=== PATIENT | female | born 1980 | race Caucasian/White ===

== ENCOUNTER 2018-11-28 16:13 | Emergency (ER) | payer SELFPAY ==
[~2018-11-28] VITALS: Ht 160 cm; Wt 108.9 kg
[2018-11-28] MEDS ORDERED: PHENAZOPYRIDINE 100 MG (PYRIDIUM) TABLET ONE (16:15)
[2018-11-28] MEDS ORDERED: NS IV 1000 ML 1,000 ML ONE (16:15)
[2018-11-28] MEDS ORDERED: KETOROLAC 30 MG/ML VIAL ONE (16:15)
--- OUTSIDE RECORDS SUMMARY | 2018-11-28 16:17 | XMS REPORT ---
Author Author AMANDA BENNETT [facility] Address [address] [place] [address] Care Team Providers Care Preschool Substitute Teacher Name Role Phone AMANDA BENNETT Unavailable PROBLEMS ALLERGIES ENCOUNTERS IMMUNIZATIONS No Known Immunizations SOCIAL HISTORY No smoking Hx information available REASON FOR VISIT PLAN OF CARE VITAL SIGNS MEDICATIONS RESULTS No Results PROCEDURES No Known procedures INSTRUCTIONS MEDICATIONS ADMINISTERED No Known Medications MEDICAL (GENERAL) HISTORY
--- OUTSIDE RECORDS SUMMARY | 2018-11-28 16:17 | XMS REPORT ---
Author Author BRENDAN PRETTY Organization [facility] Address [address] [place] [address] Care Team Providers Care Ceramic Designer Name Role Phone BRENDAN PRETTY Unavailable PROBLEMS Type Condition ICD9-CM Code RRA95-BB Code Onset Dates Condition Status SNOMED Code Problem Adjustment disorder with depressed mood F43.21 Active 55130116 Problem Posttraumatic stress disorder F43.10 Active 26488088 Problem Cannabis use disorder, moderate, dependence F12.20 Active 41987606 Problem Methamphetamine use disorder, moderate F15.20 Active 249971533 ALLERGIES No Information ENCOUNTERS Encounter Location Date Diagnosis [facility] [address] [facility] [id number] [address] Apr, Posttraumatic stress disorder F43.10 ; Adjustment disorder with depressed mood F43.21 ; Methamphetamine use disorder, moderate F15.20 and Cannabis use disorder, moderate, dependence F12.20 IMMUNIZATIONS No Known Immunizations SOCIAL HISTORY Never Assessed REASON FOR VISIT intake PLAN OF CARE Activity Details Follow Up next available Reason:mood VITAL SIGNS MEDICATIONS Unknown Medications RESULTS No Results PROCEDURES Procedure Date Ordered Result Body Site Psych diagnostic evaluation, new patient April 27, 2018 INSTRUCTIONS MEDICATIONS ADMINISTERED No Known Medications
[2018-11-28] MEDS ORDERED: ONDANSETRON 4 MG/2 ML (SDV) Z0FRAN ONE (16:18)
--- NOTE | 2018-11-28 16:27 | ED Abdominal Pain ---
General Stated Complaint: ABD PAIN,VOMITTING Source of Information: Patient Exam Limitations: No Limitations History of Present Illness Date Seen by Provider: Nov 28, 2018 Time Seen by Provider: 16:25 Initial Comments To ER with suprapubic abdominal pain and cramping. She was treated at [facility] last week diagnosed with urinary tract infection. She is on Bactrim, her last pill is today. He reports no improvement in pain. No fevers or chills but she has had nausea. Timing/Duration: 1-2 Days Severity/Quality: Moderate Location: Generalized Abdomen Radiation: No Radiation Activities at Onset: None Associated Symptoms: Nausea/Vomiting Allergies and Home Medications Allergies Coded Allergies: No Known Drug Allergies (Unverified , 11/28/18) Home Medications Trimethoprim/Sulfamethoxazole 1 Ea Tablet, 1 TAB PO BID, (Reported) Patient Home Medication List Home Medication List Reviewed: Yes Review of Systems Review of Systems Constitutional: see HPI EENTM: No Symptoms Reported Respiratory: No Symptoms Reported Cardiovascular: No Symptoms Reported Gastrointestinal: See HPI, Abdominal Pain, Nausea Genitourinary: No Symptoms Reported, Pain ( will probably be scoped) Musculoskeletal: no symptoms reported Skin: no symptoms reported Psychiatric/Neurological: No Symptoms Reported Endocrine: No Symptoms Reported Hematologic/Lymphatic: No Symptoms Reported Past Zjimsdb-Rnjgpi-Mvwalm Hx Patient Social History Recent Foreign Travel: No Contact w/Someone Who Travel: No Physical Exam Vital Signs Vital Signs - First Documented 11/28/18 16:15 Temp 97.1 Pulse 119 Resp 18 B/P (MAP) 149/84 (105) Pulse Ox 98 Capillary Refill : Height/Weight/BMI Height: '" Weight: lbs. oz. kg; BMI Method: General Appearance: WD/WN, no apparent distress HEENT: PERRL/EOMI, normal ENT inspection Respiratory: no respiratory distress, no accessory muscle use Gastrointestinal: normal bowel sounds, soft, tenderness (tenderness) Extremities: normal range of motion, non-tender Pelvic: other (pelvic exam done with Reina RN the bedside. There is cervical motion tenderness, there is purulent material coming from the cervix.) Neurologic/Psychiatric: alert, normal mood/affect, oriented x 3 Skin: normal color, warm/dry Progress/Results/Core Measures Results/Orders Lab Results Laboratory Tests Test 11/28/18 16:20 11/28/18 17:30 11/28/18 18:20 Range/Units White Blood Count 11.7 H 4.3-11.0 10^3/uL Red Blood Count 4.31 L 4.35-5.85 10^6/uL Hemoglobin 12.0 11.5-16.0 G/DL Hematocrit 37 35-52 % Mean Corpuscular Volume 87 80-99 FL Mean Corpuscular Hemoglobin 28 25-34 PG Mean Corpuscular Hemoglobin Concent 32 32-36 G/DL Red Cell Distribution Width 14.2 10.0-14.5 % Platelet Count 334 130-400 10^3/uL Mean Platelet Volume 9.8 7.4-10.4 FL Neutrophils (%) (Auto) 62 42-75 % Lymphocytes (%) (Auto) 27 12-44 % Monocytes (%) (Auto) 8 0-12 % Eosinophils (%) (Auto) 3 0-10 % Basophils (%) (Auto) 0 0-10 % Neutrophils # (Auto) 7.2 1.8-7.8 X 10^3 Lymphocytes # (Auto) 3.2 1.0-4.0 X 10^3 Monocytes # (Auto) 1.0 0.0-1.0 X 10^3 Eosinophils # (Auto) 0.3 0.0-0.3 10^3/uL Basophils # (Auto) 0.0 0.0-0.1 10^3/uL Sodium Level 138 135-145 MMOL/L Potassium Level 4.0 3.6-5.0 MMOL/L Chloride Level 104 98-107 MMOL/L Carbon Dioxide Level 23 21-32 MMOL/L Anion Gap 11 5-14 MMOL/L Blood Urea Nitrogen 7 7-18 MG/DL Creatinine 0.66 0.60-1.30 MG/DL Estimat Glomerular Filtration Rate > 60 BUN/Creatinine Ratio 11 Glucose Level 97 70-105 MG/DL Calcium Level 9.8 8.5-10.1 MG/DL Corrected Calcium 9.9 8.5-10.1 MG/DL Total Bilirubin 0.1 0.1-1.0 MG/DL Aspartate Amino Transf (AST/SGOT) 29 5-34 U/L Alanine Aminotransferase (ALT/SGPT) 30 0-55 U/L Alkaline Phosphatase 78 40-136 U/L Total Protein 7.1 6.4-8.2 GM/DL Albumin 3.9 3.2-4.5 GM/DL Serum Test, Qualitative NEGATIVE NEGATIVE Urine Color YELLOW Urine Clarity CLEAR Urine pH 7 5-9 Urine Specific [place] 1.010 L 1.016-1.022 Urine Protein NEGATIVE NEGATIVE Urine Glucose (UA) NEGATIVE NEGATIVE Urine Ketones NEGATIVE NEGATIVE Urine Nitrite NEGATIVE NEGATIVE Urine Bilirubin NEGATIVE NEGATIVE Urine Urobilinogen NORMAL NORMAL MG/DL Urine Leukocyte Esterase NEGATIVE NEGATIVE Urine RBC (Auto) NEGATIVE NEGATIVE Urine RBC NONE /HPF Urine WBC NONE /HPF Urine Squamous Epithelial Cells 5-10 /HPF Urine Crystals PRESENT H /LPF Urine Amorphous Sediment FEW LEORA URATES H /LPF Urine Bacteria RARE /HPF Urine Casts NONE /LPF Urine Mucus NEGATIVE /LPF Urine Culture Indicated NO My Orders Orders - KARLA DELGADO ADVERTISING MATERIAL DISTRIBUTOR Cbc With Automated Diff (11/28/18 16:33) Comprehensive Metabolic Panel (11/28/18 16:33) Iv Heplock-Insert (Order) (11/28/18 16:33) Hcg,Qualitative Serum (11/28/18 16:33) Ua Culture If Indicated (11/28/18 16:36) Ct Abdomen/Pelvis W (11/28/18 16:47) Wet Prep (11/28/18 16:47) Neisseria Gonorrhea Swab (11/28/18 16:47) Genital Culture (11/28/18 16:47) Chlamydia Trachomatis Swab (11/28/18 16:47) Iohexol Injection (Omnipaque 350 Mg/Ml 1 (11/28/18 17:00) Contrast Received (Contrast Received) (11/28/18 17:00) Ns (Ivpb) (Sodium Chloride 0.9% Ivpb Bag (11/28/18 17:00) Fentanyl Injection (Sublimaze Injection (11/28/18 17:02) Ceftriaxone For Im Use (Rocephin For Im (11/28/18 18:45) Lidocaine 1% Inj 20 Ml (Xylocaine 1% Inj (11/28/18 18:45) Azithromycin Tablet (Zithromax Tablet) (11/28/18 18:45) Medications Given in ED Current Medications Medications Dose Ordered Sig/Chris Route Start Time Stop Time Status Last Admin Dose Admin Fentanyl Citrate 100 mcg STK-MED ONCE .ROUTE 11/28/18 17:02 11/28/18 17:06 DC 11/28/18 17:08 50 MCG Ketorolac Tromethamine 30 mg STK-MED ONCE .ROUTE 11/28/18 16:15 11/28/18 16:20 DC 11/28/18 16:25 15 MG Lidocaine HCl 2.1 ml ONCE ONCE INJ 11/28/18 18:45 11/28/18 18:46 DC 11/28/18 18:55 2.1 ML Ondansetron HCl 4 mg STK-MED ONCE .ROUTE 11/28/18 16:18 11/28/18 16:23 DC 11/28/18 16:25 4 MG Phenazopyridine HCl 100 mg STK-MED ONCE .ROUTE 11/28/18 16:15 11/28/18 16:20 DC 11/28/18 16:24 100 MG Sodium Chloride 1,000 ml @ ud STK-MED ONCE .ROUTE 11/28/18 16:15 11/28/18 16:20 DC 11/28/18 16:24 0 MLS/HR Vital Signs/I&O 11/28/18 11/28/18 16:15 19:38 Temp 97.1 97.1 Pulse 119 105 Resp 18 18 B/P (MAP) 149/84 (105) 132/72 (92) Pulse Ox 98 100 Departure Impression Primary Impression: Cervicitis Disposition: 01 HOME, SELF-CARE Condition: Stable Departure-Patient Inst. Decision time for Depature: 19:00 Referrals: NO,LOCAL PHYSICIAN (PCP) Primary Care Physician Patient Instructions: Pelvic Inflammatory Disease Add. Discharge Instructions: 1. Follow-up with your doctor next week. Return to ER for any concerns KARLA DELGADO APRN Nov 28, 2018 16:27
[2018-11-28 16:39] LABS: BASOPHILS % (AUTO) 0 % (0-10); EOSINOPHILS # (AUTO) 0.3 10^3/uL (0.0-0.3); EOSINOPHILS % (AUTO) 3 % (0-10); HEMATOCRIT 37 % (35-52); LYMPHOCYTES # (AUTO) 3.2 X 10^3 (1.0-4.0); LYMPHOCYTES % (AUTO) 27 % (12-44); MEAN CORPUSCULAR HEMOGLOBIN 28 PG (25-34); MEAN CORPUSCULAR HGB CONC 32 G/DL (32-36); MEAN CORPUSCULAR VOLUME 87 FL (80-99); MEAN PLATELET VOLUME 9.8 FL (7.4-10.4); MONOCYTES % (AUTO) 8 % (0-12); NEUTROPHILS # (AUTO) 7.2 X 10^3 (1.8-7.8); NEUTROPHILS % (AUTO) 62 % (42-75); PLATELET COUNT 334 10^3/uL (130-400); RED CELL DISTRIBUTION WIDTH 14.2 % (10.0-14.5); WHITE BLOOD COUNT 11.7 10^3/uL (4.3-11.0)
[2018-11-28] MEDS ORDERED: SULF-222 PO (16:43)
[2018-11-28 16:52] LABS: ALANINE AMINOTRANSFERASE 30 U/L (0-55); ALBUMIN 3.9 GM/DL (3.2-4.5); ALKALINE PHOSPHATASE 78 U/L (40-136); BILIRUBIN,TOTAL 0.1 MG/DL (0.1-1.0); BUN/CREATININE RATIO 11; CALCIUM 9.8 MG/DL (8.5-10.1); CARBON DIOXIDE 23 MMOL/L (21-32); CHLORIDE 104 MMOL/L (98-107); CREATININE SERUM 0.66 MG/DL (0.60-1.30); GFR ESTIMATED > 60; GLUCOSE 97 MG/DL (70-105); SODIUM 138 MMOL/L (135-145); TOTAL PROTEIN 7.1 GM/DL (6.4-8.2)
[2018-11-28] MEDS ORDERED: NS 100 ML (IVPB) BAG IV ONE (17:00)
[2018-11-28] MEDS ORDERED: RECEIVED CONTRAST (Hold Metformin) IV SCH (17:00)
[2018-11-28] MEDS ORDERED: IOHEXOL 350 MG/ML 100 ML (OMNIPAQUE 350) VIAL IV ONE (17:00)
[2018-11-28] MEDS ORDERED: fentaNYL INJECTION 100 MCG/2 ML AMP ONE (17:02)
[2018-11-28 17:35] LABS: BILIRUBIN,URINE NEGATIVE (NEGATIVE); CLARITY,URINE CLEAR; COLOR,URINE YELLOW; GLUCOSE, URINE (UA) NEGATIVE (NEGATIVE); KETONES,URINE NEGATIVE (NEGATIVE); LEUKOCYTE ESTERASE ,URINE NEGATIVE (NEGATIVE); NITRITE,URINE NEGATIVE (NEGATIVE); PH,URINE 7 (5-9); PROTEIN,URINE NEGATIVE (NEGATIVE); UROBILINOGEN,URINE NORMAL (NORMAL)
[2018-11-28 17:44] LABS: BACTERIA,URINE RARE /HPF
[2018-11-28 17:45] LABS: AMORPHOUS SEDIMENT,UR FEW AMOR URATES /LPF
--- NOTE | 2018-11-28 17:47 | Diagnostic Imaging Report ---
PROCEDURE: CT abdomen and pelvis with contrast. TECHNIQUE: Multiple contiguous axial images were obtained through the abdomen and pelvis after administration of intravenous contrast. DATE: November 28, 2018. COMPARISON: None. INDICATION: 38-year-old female, suprapubic pain. History of urinary tract infection. FINDINGS: There is a 3 mm noncalcified right lower lobe pulmonary nodule on axial image 7. The additional visualized portions of the lung bases are grossly clear. The heart is not enlarged. There is no identified pericardial effusion. The liver is normal in size and contour. There is no identified liver lesion. The main, right and left portal veins are patent. The patient is status post cholecystectomy. There is no identified intrahepatic or extrahepatic bile duct dilation. The main pancreatic duct is not abnormally dilated. Unremarkable appearance of the pancreatic parenchyma. The spleen is not enlarged. The adrenal glands are unremarkable. Unremarkable appearance of the renal parenchyma. The urinary collecting systems are not distended. There is no identified renal or ureteral stone. The urinary bladder is unremarkable. The uterus and adnexa are grossly unremarkable in appearance for patient age on CT evaluation. The intestinal tract is not distended. The appendix is well seen on axial image 49 and adjacent sequential images. There is no evidence of acute appendicitis. There is no free intraperitoneal air. There is no drainable fluid collection. There is no free pelvic fluid. There are postoperative related changes at the level of the intra-abdominal wall. There is a broad-based fat containing anterior abdominal wall hernia. There is no bowel segment extending through the hernia defect. There is no stranding of the fat within the hernia sac. There is no identified abnormally enlarged lymph node in the abdomen or pelvis which meets CT size criteria for adenopathy. There are degenerative changes of the spine. There is no identified acute bony abnormality. IMPRESSION: CT abdomen and pelvis: 1. Postoperative changes of the anterior abdominal wall with fat containing anterior abdominal wall hernia. No evidence of strangulation of the fat within the hernia or other complication. 2. No identified acute abnormality in the abdomen or pelvis. Dictated by: Dictated on workstation # [id number]
--- NOTE | 2018-11-28 18:15 | NUR ---
PT PULLED IV OUT WHEN CHANGING
[2018-11-28] MEDS ORDERED: cefTRIAXone 1,000 MG/2.86 ml vial (IM ONLY) IM SCH (18:45)
[2018-11-28] MEDS ORDERED: LIDOCAINE 1% INJ 20 ML 20 ML VIAL INJ ONE (18:45)
[2018-11-28] MEDS ORDERED: AZITHROMYCIN 250 MG TAB (ZITHROMAX) PO SCH (18:45)
[2018-11-28 19:38] VITALS: BP 132/72
== END 2018-11-28 19:39 | disposition home or self-care (01) ==
LOC: ER 16:14
DX: N72 Inflammatory disease of cervix uteri (principal); Z87.440 Personal history of urinary (tract) infections
CPT/HCPCS: 36415; 74177; 80053; 81000; 84703; 85025; 87070; 87205; 87210; 87491; 87591

== ENCOUNTER 2018-12-18 12:12 | Emergency (ER) | payer SELFPAY ==
[~2018-12-18] VITALS: Ht 160 cm; Wt 111.1 kg
[~2018-12-18 12:12] MED LIST: METR500T PO; SULF-222 PO
--- NOTE | 2018-12-18 13:00 | NUR ---
Pt still attempting to reach ride via her cell phone.
[2018-12-18] MEDS ORDERED: HYDR-3923 PO (13:02)
[2018-12-18] MEDS ORDERED: CITA20TA12 PO (13:02)
--- NOTE | 2018-12-18 13:11 | ED Abdominal Pain ---
General Chief Complaint: -Female Stated Complaint: NAUSEA,VOMITING,RT SIDE PAIN Nursing Triage Note: PT REPORTS SHE IS NAUSEATED AND HAS BEEN VOMITING SINCE 0430. SHE REPORTS SHE HAS BEEN ON 3 DIFFERENT ANTIBIOTICS FOR A UTI RECENTLY. C/O CRAMPING IN THE RIBS AND THE RIGHT SIDE. TYLENOL TAKEN AT 1000. Sepsis Screen: No Definite Risk Source of Information: Patient Exam Limitations: No Limitations History of Present Illness Date Seen by Provider: Dec 18, 2018 Time Seen by Provider: 12:44 Initial Comments 38-year-old female presenting with complaints of 4-6 weeks of abdominal pain on the right side with nausea and vomiting. She states that she has had the diagnosis of UTI and was on 3 different antibiotics recently. She most recently had been on Macrobid. She denies pain with urination but has continued to have nausea and vomiting. She states that she felt like she couldn't take it anymore and came into the ER today to be seen and evaluated. She was concerned about bolus causing her pain in the right side as well as her continued nausea and vomiting. She denies any fever or chills. She's had no vaginal discharge or bleeding. Nothing has helped with the pain. She has increased pain with palpation. Allergies and Home Medications Allergies Coded Allergies: No Known Drug Allergies (Unverified , 11/28/18) Home Medications Dicyclomine HCl 20 Mg Tablet, 20 MG PO TID PRN for ABDOMINAL PAIN Prescribed by: DINORA KNOTT on 12/18/18 1438 Metronidazole 500 Mg Tablet, 500 MG PO BID, (Reported) Ondansetron 4 Mg Tab.rapdis, 4 MG PO Q8H PRN for NAUSEA/VOMITING Prescribed by: DINORA KNOTT on 12/18/18 1438 Trimethoprim/Sulfamethoxazole 1 Ea Tablet, 1 TAB PO BID, (Reported) Patient Home Medication List Home Medication List Reviewed: Yes Review of Systems Review of Systems Constitutional: see HPI; No chills, No dizziness, No fever; malaise EENTM: No Symptoms Reported; No Blurred Vision Respiratory: No Symptoms Reported Cardiovascular: No Symptoms Reported; Denies Lightheadedness, Denies Palpitations Gastrointestinal: Denies Abdomen Distended; Abdominal Pain (right-sided); Denies Constipated, Denies Diarrhea, Denies Difficulty Swallowing; Nausea, Vomiting Genitourinary: Denies Burning, Denies Discharge, Denies Flank Pain, Denies Hematuria, Denies Incontinence, Denies Pain, Denies Urgency Musculoskeletal: No back pain, No muscle pain Skin: no symptoms reported Psychiatric/Neurological: No Symptoms Reported Endocrine: No Symptoms Reported Hematologic/Lymphatic: No Symptoms Reported Past Vylklvb-Tjhjqs-Txfohg Hx Past Med/Social Hx: Reviewed Nursing Past Med/Soc Hx Patient Social History Alcohol Use: Denies Use Recreational Drug Use: Yes (REPORTS SHE HAS BEEN "CLEAN" FOR A YEAR FROM METH AND MARIJUANA) Smoking Status: Current Everyday Smoker Type Used: Cigarettes 2nd Hand Smoke Exposure: Yes Recent Foreign Travel: No Contact w/Someone Who Travel: No Recent Infectious Disease Expo: No Recent Hopitalizations: No Physical Abuse: No Sexual Abuse: No Mistreated: No Fear: No Seasonal Allergies Seasonal Allergies: No Past Medical History Surgeries: Yes (HERNIA REPAIR) Section, Gallbladder Respiratory: No Cardiac: No Neurological: No Genitourinary: Yes (CURRENTLY BEING TREATED FOR UTI) Gastrointestinal: No Musculoskeletal: No Endocrine: No HEENT: No Cancer: No Psychosocial: No Integumentary: No Physical Exam Vital Signs Vital Signs - First Documented 12/18/18 12:33 Temp 98.5 Pulse 94 Resp 18 B/P (MAP) 128/80 (96) Pulse Ox 98 O2 Delivery Room Air Capillary Refill : Less Than 3 Seconds Height/Weight/BMI Height: 5'3.00" Weight: 245lbs. oz. 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, no motor/sensory deficits, alert, oriented x 3 Skin: normal color, warm/dry Progress/Results/Core Measures Results/Orders Lab Results Laboratory Tests Test 12/18/18 13:03 12/18/18 13:23 Range/Units Urine Color YELLOW Urine Clarity CLEAR Urine pH 7.5 5-9 Urine Specific [place] 1.015 L 1.016-1.022 Urine Protein NEGATIVE NEGATIVE Urine Glucose (UA) NEGATIVE NEGATIVE Urine Ketones NEGATIVE NEGATIVE Urine Nitrite NEGATIVE NEGATIVE Urine Bilirubin NEGATIVE NEGATIVE Urine Urobilinogen 0.2 NORMAL MG/DL Urine Leukocyte Esterase NEGATIVE NEGATIVE Urine RBC (Auto) NEGATIVE NEGATIVE Urine RBC NONE /HPF Urine WBC 0-2 /HPF Urine Squamous Epithelial Cells 5-10 /HPF Urine Crystals NONE /LPF Urine Bacteria NEGATIVE /HPF Urine Casts NONE /LPF Urine Mucus MODERATE H /LPF Urine Culture Indicated NO Urine Opiates Screen NEGATIVE NEGATIVE Urine Oxycodone Screen NEGATIVE NEGATIVE Urine Methadone Screen NEGATIVE NEGATIVE Urine Propoxyphene Screen NEGATIVE NEGATIVE Urine Barbiturates Screen NEGATIVE NEGATIVE Ur Tricyclic Antidepressants Screen NEGATIVE NEGATIVE Urine Phencyclidine Screen NEGATIVE NEGATIVE Urine Amphetamines Screen NEGATIVE NEGATIVE Urine Methamphetamines Screen NEGATIVE NEGATIVE Urine Benzodiazepines Screen NEGATIVE NEGATIVE Urine Cocaine Screen NEGATIVE NEGATIVE Urine Cannabinoids Screen NEGATIVE NEGATIVE White Blood Count 13.0 H 4.3-11.0 10^3/uL Red Blood Count 4.52 4.35-5.85 10^6/uL Hemoglobin 12.6 11.5-16.0 G/DL Hematocrit 40 35-52 % Mean Corpuscular Volume 87 80-99 FL Mean Corpuscular Hemoglobin 28 25-34 PG Mean Corpuscular Hemoglobin Concent 32 32-36 G/DL Red Cell Distribution Width 14.4 10.0-14.5 % Platelet Count 333 130-400 10^3/uL Mean Platelet Volume 9.6 7.4-10.4 FL Neutrophils (%) (Auto) 63 42-75 % Lymphocytes (%) (Auto) 29 12-44 % Monocytes (%) (Auto) 5 0-12 % Eosinophils (%) (Auto) 3 0-10 % Basophils (%) (Auto) 0 0-10 % Neutrophils # (Auto) 8.1 H 1.8-7.8 X 10^3 Lymphocytes # (Auto) 3.8 1.0-4.0 X 10^3 Monocytes # (Auto) 0.6 0.0-1.0 X 10^3 Eosinophils # (Auto) 0.4 H 0.0-0.3 10^3/uL Basophils # (Auto) 0.0 0.0-0.1 10^3/uL Sodium Level 140 135-145 MMOL/L Potassium Level 4.1 3.6-5.0 MMOL/L Chloride Level 104 98-107 MMOL/L Carbon Dioxide Level 18 L 21-32 MMOL/L Anion Gap 18 H 5-14 MMOL/L Blood Urea Nitrogen 7 7-18 MG/DL Creatinine 0.55 L 0.60-1.30 MG/DL Estimat Glomerular Filtration Rate > 60 BUN/Creatinine Ratio 13 Glucose Level 94 70-105 MG/DL Calcium Level 8.8 8.5-10.1 MG/DL Corrected Calcium 8.6 8.5-10.1 MG/DL Total Bilirubin 0.2 0.1-1.0 MG/DL Aspartate Amino Transf (AST/SGOT) 18 5-34 U/L Alanine Aminotransferase (ALT/SGPT) 18 0-55 U/L Alkaline Phosphatase 70 40-136 U/L Total Protein 7.5 6.4-8.2 GM/DL Albumin 4.2 3.2-4.5 GM/DL Lipase 13 8-78 U/L My Orders Orders - DINORA KNOTT MD Ua Culture If Indicated (12/18/18 12:51) Drug Screen Stat (Urine) (12/18/18 13:02) Cbc With Automated Diff (12/18/18 13:02) Comprehensive Metabolic Panel (12/18/18 13:02) Lipase (12/18/18 13:02) Ondansetron Oral Dissolve Tab (Zofran (12/18/18 13:26) Ketorolac Injection (Toradol Injection) (12/18/18 15:00) Dicyclomine Injection (Bentyl Injection) (12/18/18 14:48) Medications Given in ED Current Medications Medications Dose Ordered Sig/Chris Route Start Time Stop Time Status Last Admin Dose Admin Ketorolac Tromethamine 60 mg ONCE ONCE IM 12/18/18 15:00 12/18/18 15:01 DC 12/18/18 15:01 60 MG Vital Signs/I&O 12/18/18 12/18/18 12/18/18 12/18/18 12:33 15:00 15:01 15:06 Temp 98.5 98.3 98.2 98.2 Pulse 94 72 Resp 18 16 B/P (MAP) 128/80 (96) 128/72 (90) Pulse Ox 98 99 O2 Delivery Room Air Room Air Blood Pressure Mean: 96 Progress Progress Note : Progress Note check labs and urine. With her having imaging recently for this abdominal pain will defer repeating any of this to the clinic. Zofran ODT for nausea No vomiting here in the ED Labs show mild elevation of WBC count. Chemistry and urine are not showing anything acute. Will try treating with Bentyl and Zofran ODT. Counseled to stop the Macrobid and follow up with clinic for continued concerns. Departure Impression Primary Impression: Nausea and vomiting in adult Additional Impression: Right-sided abdominal pain of unknown cause Disposition: HOME, SELF-CARE Condition: Stable Departure-Patient Inst. Decision time for Depature: 14:30 Referrals: NO,LOCAL PHYSICIAN (PCP/Family) Primary Care Physician Patient Instructions: Nausea and Vomiting, Adult (DC) Scripts Ondansetron (Ondansetron Odt) 4 Mg Tab.rapdis 4 MG PO Q8H PRN for NAUSEA/VOMITING for 3 Days, #9 TAB Prov: DINORA KNOTT MD 12/18/18 Dicyclomine HCl (Dicyclomine HCl) 20 Mg Tablet 20 MG PO TID PRN for ABDOMINAL PAIN for 7 Days, TAB Prov: DINORA KNOTT MD 12/18/18 DINORA KNOTT MD Dec 18, 2018 13:11
[2018-12-18] MEDS ORDERED: NS IV 1000 ML 1,000 ML IV SCH (13:15)
[2018-12-18] MEDS ORDERED: ONDANSETRON 4 MG/2 ML (SDV) Z0FRAN IVP ONE (13:15)
[2018-12-18] MEDS ORDERED: ONDANSETRON 4 MG (ZOFRAN) ORAL DISSOLVE TAB PO STA (13:26)
[2018-12-18 13:42] LABS: CLARITY,URINE CLEAR; COLOR,URINE YELLOW; GLUCOSE, URINE (UA) NEGATIVE (NEGATIVE); PH,URINE 7.5 (5-9); PROTEIN,URINE NEGATIVE (NEGATIVE)
[2018-12-18 13:43] LABS: BACTERIA,URINE NEGATIVE /HPF; BILIRUBIN,URINE NEGATIVE (NEGATIVE); KETONES,URINE NEGATIVE (NEGATIVE); LEUKOCYTE ESTERASE ,URINE NEGATIVE (NEGATIVE); NITRITE,URINE NEGATIVE (NEGATIVE); UROBILINOGEN,URINE 0.2 MG/DL (NORMAL); WBC,URINE 0-2 /HPF
[2018-12-18 13:45] LABS: BASOPHILS % (AUTO) 0 % (0-10); EOSINOPHILS # (AUTO) 0.4 10^3/uL (0.0-0.3); EOSINOPHILS % (AUTO) 3 % (0-10); HEMATOCRIT 40 % (35-52); HEMOGLOBIN 12.6 G/DL (11.5-16.0); LYMPHOCYTES # (AUTO) 3.8 X 10^3 (1.0-4.0); LYMPHOCYTES % (AUTO) 29 % (12-44); MEAN CORPUSCULAR HEMOGLOBIN 28 PG (25-34); MEAN CORPUSCULAR HGB CONC 32 G/DL (32-36); MEAN CORPUSCULAR VOLUME 87 FL (80-99); MEAN PLATELET VOLUME 9.6 FL (7.4-10.4); MONOCYTES # (AUTO) 0.6 X 10^3 (0.0-1.0); MONOCYTES % (AUTO) 5 % (0-12); NEUTROPHILS # (AUTO) 8.1 X 10^3 (1.8-7.8); NEUTROPHILS % (AUTO) 63 % (42-75); PLATELET COUNT 333 10^3/uL (130-400); RED CELL DISTRIBUTION WIDTH 14.4 % (10.0-14.5)
[2018-12-18 13:51] LABS: BENZODIAZEPINES SCREEN URINE NEGATIVE (NEGATIVE)
[2018-12-18 13:52] LABS: AMPHETAMINE SCREEN, URINE NEGATIVE (NEGATIVE); BARBITURATE SCREEN URINE NEGATIVE (NEGATIVE); CANNABINOID SCREEN, URINE NEGATIVE (NEGATIVE); COCAINE SCREEN URINE NEGATIVE (NEGATIVE); METHAMPHETAMINE SCREEN URINE S NEGATIVE (NEGATIVE); OPIATE SCREEN URINE NEGATIVE (NEGATIVE); TRICYCLIC ANTIDEPRESSANTS SCRE NEGATIVE (NEGATIVE)
[2018-12-18 13:53] LABS: METHADONE STAT NEGATIVE (NEGATIVE); OXYCODONE STAT NEGATIVE (NEGATIVE); PROPOXYPHENE STAT NEGATIVE (NEGATIVE)
[2018-12-18 14:06] LABS: CARBON DIOXIDE 18 MMOL/L (21-32); CHLORIDE 104 MMOL/L (98-107); POTASSIUM 4.1 MMOL/L (3.6-5.0); SODIUM 140 MMOL/L (135-145)
[2018-12-18 14:07] LABS: ALANINE AMINOTRANSFERASE 18 U/L (0-55); ALBUMIN 4.2 GM/DL (3.2-4.5); ALKALINE PHOSPHATASE 70 U/L (40-136); BILIRUBIN,TOTAL 0.2 MG/DL (0.1-1.0); BUN/CREATININE RATIO 13; CALCIUM 8.8 MG/DL (8.5-10.1); CREATININE SERUM 0.55 MG/DL (0.60-1.30); GFR ESTIMATED > 60; GLUCOSE 94 MG/DL (70-105); LIPASE 13 U/L (8-78); TOTAL PROTEIN 7.5 GM/DL (6.4-8.2)
[2018-12-18] MEDS ORDERED: DICY20TA10 PO (14:38)
[2018-12-18] MEDS ORDERED: ONDA4TAB11 PO (14:38)
[2018-12-18] MEDS ORDERED: DICYCLOMINE 10 MG/ML (BENTYL) 2 ML AMP IM STA (14:48)
[2018-12-18] MEDS ORDERED: KETOROLAC 60 MG/2 ML VIAL IM ONE (15:00)
[2018-12-18 15:06] VITALS: BP 128/72
== END 2018-12-18 15:05 | disposition home or self-care (01) ==
LOC: EDUNIT# 12:12 → ER FS 12:16
DX: R11.2 Nausea with vomiting, unspecified (principal); R10.9 Unspecified abdominal pain; F17.210 Nicotine dependence, cigarettes, uncomplicated; Z98.890 Other specified postprocedural states; Z87.440 Personal history of urinary (tract) infections
CPT/HCPCS: 36415; 80053; 80306; 81000; 83690; 85025

== ENCOUNTER 2019-02-12 15:19 | Emergency (ER) | payer SELFPAY ==
[~2019-02-12] VITALS: Ht 160 cm; Wt 108.9 kg
[~2019-02-12 15:19] MED LIST changes: +CITA20TA12 PO; +DICY20TA10 PO; +HYDR-3923 PO; +ONDA4TAB11 PO
[2019-02-12 15:35] VITALS: BP 113/65
[2019-02-12] MEDS ORDERED: KETOROLAC 60 MG/2 ML VIAL IM STA (15:45)
[2019-02-12] MEDS ORDERED: AMOX500C2 PO (15:45)
--- NOTE | 2019-02-12 15:45 | ED EENT ---
History of Present Illness General Chief Complaint: Dental Problems/Pain Stated Complaint: DENTAL PAIN Source: patient History of Present Illness Date Seen by Provider: Feb 12, 2019 Time Seen by Provider: 15:35 Initial Comments 38-year-old female presents with pain in her left upper teeth randy her wisdom tooth . Patient reports that is has become worse over the last couple days. Patient has severe cavities. She has not followed up with a dentist yet. She denies any fever, chills, nausea vomiting other systemic complaints at this time. Allergies and Home Medications Allergies Coded Allergies: No Known Drug Allergies (Unverified , 11/28/18) Home Medications Amoxicillin 500 Mg Capsule, 500 MG PO TID Prescribed by: RANCHO ANGELES on 02/12/19 1545 Dicyclomine HCl 20 Mg Tablet, 20 MG PO TID PRN for ABDOMINAL PAIN Prescribed by: DINORA KNOTT on 12/18/18 1438 Metronidazole 500 Mg Tablet, 500 MG PO BID, (Reported) Ondansetron 4 Mg Tab.rapdis, 4 MG PO Q8H PRN for NAUSEA/VOMITING Prescribed by: DINORA KNOTT on 12/18/18 1438 Trimethoprim/Sulfamethoxazole 1 Ea Tablet, 1 TAB PO BID, (Reported) Patient Home Medication List Home Medication List Reviewed: Yes Review of Systems Review of Systems Constitutional: see HPI Eyes: No Symptoms Reported Ears: No Symptoms Reported Nose: no symptoms reported Mouth: see HPI Throat: no symptoms reported Respiratory: no symptoms reported Cardiovascular: no symptoms reported Musculoskeletal: no symptoms reported Skin: no symptoms reported Past Yplburs-Wrqlul-Zhvnng Hx Past Med/Social Hx: Reviewed Nursing Past Med/Soc Hx Patient Social History Type Used: Cigarettes 2nd Hand Smoke Exposure: Yes Recent Hopitalizations: No Seasonal Allergies Seasonal Allergies: No Past Medical History Surgeries: Yes (HERNIA REPAIR) Section, Gallbladder Respiratory: No Cardiac: No Neurological: No Genitourinary: Yes (CURRENTLY BEING TREATED FOR UTI) Gastrointestinal: No Musculoskeletal: No Endocrine: No HEENT: No Cancer: No Psychosocial: No Integumentary: No Physical Exam Height, Weight, BMI Height: 5'3.00" Weight: 245lbs. oz. 111.409939du; BMI Method:Stated General Appearance: WD/WN, no apparent distress Mouth/Throat: dental tenderness; No maxillary swelling, No pharynx swelling; other (Severe dental caries in the right upper last 3 teeth.) Neck: non-tender Cardiovascular: normal peripheral pulses, regular rate, rhythm Respiratory: chest non-tender, lungs clear Neurologic/Psychiatric: no motor/sensory deficits, alert, normal mood/affect, oriented x 3 Skin: normal color, warm/dry Progress/Results/Core Measures Results/Orders My Orders Orders - RANCHO ANGELES DO Ketorolac Injection (Toradol Injection) (02/12/19 15:45) Progress Progress Note : Time: 15:43 Progress Note Patient with severe dental caries. I will start her on amoxicillin for likely infection. Recommend she use Tylenol and ibuprofen and accommodation needed for pain. She can also try clove oil all with a lidocaine topical gel such as Orajel. I discussed with her the need to follow-up with a dentist as soon as possible for further treatment. She will be discharged home with stable condition. Departure Impression Primary Impression: Dental caries Disposition: 01 HOME, SELF-CARE Condition: Stable Departure-Patient Inst. Referrals: NO,LOCAL PHYSICIAN (PCP/Family) Primary Care Physician Patient Instructions: Dental Pain (DC), Tooth Decay, Adult (DC) Scripts Amoxicillin (Amoxicillin) 500 Mg Capsule 500 MG PO TID, #21 CAP 0 Refills Prov: RANCHO ANGELES DO 02/12/19 RANCHO ANGELES DO Feb 12, 2019 15:45
== END 2019-02-12 16:08 | disposition home or self-care (01) ==
LOC: EDUNIT# 15:19 → ER FS 15:21
DX: K02.9 Dental caries, unspecified (principal); Z77.22 Contact with and (suspected) exposure to environmental tobacco smoke (acute) (chronic); Z98.890 Other specified postprocedural states; Z87.440 Personal history of urinary (tract) infections
CPT/HCPCS: 99284

== ENCOUNTER 2019-04-13 11:42 | Emergency (ER) | payer SELFPAY ==
[~2019-04-13] VITALS: Ht 160 cm; Wt 108.9 kg
[~2019-04-13 11:42] MED LIST changes: +AMOX500C2 PO
[2019-04-13] MEDS ORDERED: HYDROcodone/APAP 5 MG/325 MG (LORTAB) TAB PO ONE (12:45)
[2019-04-13] MEDS ORDERED: IBUPROFEN 600 MG (MOTRIN) TAB PO ONE (12:45)
[2019-04-13] MEDS ORDERED: DEXAMETHASONE 4 MG/ML SDV (DECADRON) PO ONE (12:45)
[2019-04-13] MEDS ORDERED: HYDR-4226 PO (12:47)
--- NOTE | 2019-04-13 12:47 | ED General ---
General Chief Complaint: Head/Cervical Problems Stated Complaint: NECK CRAMPING/PAIN History of Present Illness Date Seen by Provider: Apr 13, 2019 Time Seen by Provider: 12:42 Initial Comments Patient presents emergency department for evaluation of lesion in her submandibular region that has been present for over one year. She has had it evaluated multiple times and was told that she needs to have this lesion biopsied. She says she does not have insurance and cannot get a biopsy done. She is here today because she says it feels more swollen and she says this happens intermittently radiates pain down her neck. She denies any fevers or neck stiffness nausea vomiting or other systemic symptoms. She is in no obvious distress with normal vital signs. Allergies and Home Medications Allergies Coded Allergies: No Known Drug Allergies (Unverified , 11/28/18) Home Medications Amoxicillin 500 Mg Capsule, 500 MG PO TID Prescribed by: RANCHO ANGELES on 02/12/19 1545 Dicyclomine HCl 20 Mg Tablet, 20 MG PO TID PRN for ABDOMINAL PAIN Prescribed by: DINORA KNOTT on 12/18/18 1438 Metronidazole 500 Mg Tablet, 500 MG PO BID, (Reported) Ondansetron 4 Mg Tab.rapdis, 4 MG PO Q8H PRN for NAUSEA/VOMITING Prescribed by: DINORA KNOTT on 12/18/18 1438 Trimethoprim/Sulfamethoxazole 1 Ea Tablet, 1 TAB PO BID, (Reported) Patient Home Medication List Home Medication List Reviewed: Yes Review of Systems Review of Systems Constitutional: no symptoms reported EENTM: no symptoms reported Respiratory: no symptoms reported Cardiovascular: no symptoms reported Hematologic/Lymphatic: Swollen Glands All Other Systems Reviewed Negative Unless Noted: Yes Past Gxvczcx-Rlxszl-Ggmxyl Hx Patient Social History Type Used: Cigarettes 2nd Hand Smoke Exposure: Yes Recent Hopitalizations: No Seasonal Allergies Seasonal Allergies: No Past Medical History Surgeries: Yes (HERNIA REPAIR) Section, Gallbladder Respiratory: No Cardiac: No Neurological: No Genitourinary: Yes (CURRENTLY BEING TREATED FOR UTI) Gastrointestinal: No Musculoskeletal: No Endocrine: No HEENT: No Cancer: No Psychosocial: No Integumentary: No Physical Exam Vital Signs Capillary Refill : Height, Weight, BMI Height: 5'3.00" Weight: 240lbs. oz. 108.088708gx; BMI Method:Stated General Appearance: No Apparent Distress, WD/WN HEENT: Normal ENT Inspection Neck: Supple, Other (right submandibular region with an approximate 3 x 1.5 cm palpable mass. It is slightly painful to palpation but there is no overlying erythema or fluctuance. The mass is mobile. She has full range of motion of her neck including flexion and extension with no rigidity.) Respiratory: No Respiratory Distress Cardiovascular: Regular Rate, Rhythm Neurologic/Psychiatric: Alert, Oriented x3 Progress/Results/Core Measures Suspected Sepsis SIRS Temperature: Pulse: Respiratory Rate: Blood Pressure / Mean: Results/Orders My Orders Orders - NOA ZAMARRIPA DO Dexamethasone Injection (Decadron Inject (04/13/19 12:45) Ibuprofen Tablet (Motrin Tablet) (04/13/19 12:45) Hydrocodone/Apap 5/325 Tablet (Lortab 5 (04/13/19 12:45) Vital Signs/I&O Capillary Refill : Progress Note : Progress Note Patient with a known right submandibular mass that she says is more painful today which is not uncommon for her as it intermittently becomes more painful and swollen. I have no suspicion for infection given she has no fevers erythema or stiffness at this time. She will be given a dose of Decadron and ibuprofen here and be told to take ibuprofen every 6 hours for the next week and will prescribe a short course of [place] for her to take at night if she is having from sleeping. I strongly encouraged her to follow up as this lesion needs to have an official diagnosis of further treatment planning could be made. Patient aware and agreeable with plan for discharge and verbalized understanding of the need for short-term follow-up and strict ED return precautions discussed worsening pain swelling fevers or other general concerns. Departure Impression Primary Impression: Submandibular lymphadenopathy Disposition: 01 HOME, SELF-CARE Condition: Stable Departure-Patient Inst. Referrals: NO,LOCAL PHYSICIAN (PCP/Family) Primary Care Physician Patient Instructions: Lymphadenitis (DC) Add. Discharge Instructions: All discharge instructions reviewed with patient and/or family. Voiced understanding. Take 600mg of ibuprofen every 6 hours. You can also take tylenol for the symptoms. Take the norco at night to help you sleep. Scripts Hydrocodone/Acetaminophen ([place] 5-325 Tablet) 1 Each Tablet 1 TAB PO Qhs for Pain MDD 10 TABS for 6 Days, #6 TAB Prov: NOA ZAMARRIPA DO 04/13/19 NOA ZAMARRIPA DO Apr 13, 2019 12:47
[2019-04-13 12:51] VITALS: BP 103/83
== END 2019-04-13 12:51 | disposition home or self-care (01) ==
LOC: EDUNIT# 11:42 → ER FS 11:45
DX: R59.0 Localized enlarged lymph nodes (principal); Z77.22 Contact with and (suspected) exposure to environmental tobacco smoke (acute) (chronic); Z98.890 Other specified postprocedural states
CPT/HCPCS: 99283

== ENCOUNTER 2019-04-19 20:45 | Emergency (ER) | payer SELFPAY ==
[~2019-04-19] VITALS: Ht 160 cm; Wt 108.9 kg
[~2019-04-19 20:45] MED LIST changes: +HYDR-4226 PO
--- NOTE | 2019-04-19 21:23 | ED Upper Extremity ---
General Chief Complaint: Upper Extremity Stated Complaint: RT ARM PAIN Source: patient, RN notes reviewed, old records Exam Limitations: no limitations History of Present Illness Date Seen by Provider: Apr 19, 2019 Time Seen by Provider: 21:23 Allergies and Home Medications Allergies Coded Allergies: No Known Drug Allergies (Unverified , 11/28/18) Home Medications Amoxicillin 500 Mg Capsule, 500 MG PO TID Prescribed by: RANCHO ANGELES on 02/12/19 1545 Dicyclomine HCl 20 Mg Tablet, 20 MG PO TID PRN for ABDOMINAL PAIN Prescribed by: DINORA KNOTT on 12/18/18 1438 Hydrocodone/Acetaminophen 1 Each Tablet, 1 TAB PO Qhs Prescribed by: NOA ZAMARRIPA on 04/13/19 1247 Metronidazole 500 Mg Tablet, 500 MG PO BID, (Reported) Ondansetron 4 Mg Tab.rapdis, 4 MG PO Q8H PRN for NAUSEA/VOMITING Prescribed by: DINORA KNOTT on 12/18/18 1438 Trimethoprim/Sulfamethoxazole 1 Ea Tablet, 1 TAB PO BID, (Reported) Past Kpgyifu-Ouzszq-Idbbis Hx Patient Social History Type Used: Cigarettes 2nd Hand Smoke Exposure: Yes Recent Foreign Travel: No Contact w/Someone Who Travel: No Recent Hopitalizations: No Seasonal Allergies Seasonal Allergies: No Past Medical History Surgeries: Yes (HERNIA REPAIR) Section, Gallbladder Respiratory: No Cardiac: No Neurological: No Genitourinary: Yes (CURRENTLY BEING TREATED FOR UTI) Gastrointestinal: No Musculoskeletal: No Endocrine: No HEENT: No Cancer: No Psychosocial: No Integumentary: No Blood Disorders: No Physical Exam Vital Signs Vital Signs - First Documented 04/19/19 21:15 Temp 98.3 Pulse 112 Resp 18 B/P (MAP) 168/105 (126) Pulse Ox 93 O2 Delivery Room Air Capillary Refill : Height, Weight, BMI Height: 5'3.00" Weight: 240lbs. oz. 108.357683eq; BMI Method:Stated Progress/Results/Core Measures Results/Orders My Orders Orders - HEIDI CAROLINA DO Forearm 2 View Right (04/19/19 21:22) [place]co Bandage (04/19/19 22:02) Ed Ortho Supplies Order (04/19/19 22:02) Ed Ortho Supplies Order (04/19/19 22:02) Vital Signs/I&O 04/19/19 21:15 Temp 98.3 Pulse 112 Resp 18 B/P (MAP) 168/105 (126) Pulse Ox 93 O2 Delivery Room Air Departure Impression Primary Impression: Fall Additional Impression: Contusion of right forearm Disposition: HOME, SELF-CARE Condition: Stable Departure-Patient Inst. Decision time for Depature: 22:05 Referrals: [facility] [place] Patient Instructions: Contusion (DC) Add. Discharge Instructions: All discharge instructions reviewed with patient and/or family. Voiced understanding. RECOMMEND 400-600 mg OF IBUPROFEN EVERY 6 HOURS FOR PAIN/SWELLING. MAY ADD A 1000 mg OF TYLENOL EVERY 6 HOURS IF NEEDED FOR PAIN. DO NOT EXCEED 4000 mg OF TYLENOL IN A 24 HOUR PERIOD. Work/School Note: Work Release Form Date Seen in the Emergency Department: Apr 19, 2019 Return to Work: Apr 22, 2019 Restrictions: No Restrictions HEIDI CAROLINA DO Apr 19, 2019 21:23
[2019-04-19] MEDS ORDERED: KETOROLAC 15 MG/ML VIAL ONE (22:03)
--- NOTE | 2019-04-19 22:03 | Diagnostic Imaging Report ---
INDICATION: Fall and right arm pain. Time of exam: 9:30 PM Two views of the right forearm demonstrate normal alignment at the elbow and wrist. Radius and ulna are intact. No fractures are seen. IMPRESSION: No acute bony abnormality is detected. Dictated by: Dictated on workstation # [id number]
[2019-04-19] MEDS ORDERED: KETOROLAC 60 MG/2 ML VIAL IM ONE (22:15)
[2019-04-19 22:21] VITALS: BP 149/87
== END 2019-04-19 22:24 | disposition home or self-care (01) ==
LOC: EDUNIT# 20:45 → ER FS 20:46
DX: S50.11XA Contusion of right forearm, initial encounter (principal); Z87.440 Personal history of urinary (tract) infections; Z77.22 Contact with and (suspected) exposure to environmental tobacco smoke (acute) (chronic); Z98.890 Other specified postprocedural states; W19.XXXA Unspecified fall, initial encounter
CPT/HCPCS: 73090

== ENCOUNTER 2019-07-17 21:33 | Emergency (ER) | payer MEDICAID ==
[~2019-07-17] VITALS: Ht 162 cm; Wt 120.0 kg
[2019-07-17] MEDS ORDERED: IBUPROFEN 800 MG (MOTRIN) TAB PO ONE (22:00)
[2019-07-17] MEDS ORDERED: DEXAMETHASONE 10 MG/ML (DECADRON) 1 ML VIAL IM ONE (22:00)
[2019-07-17] MEDS ORDERED: ACETAMINOPHEN 325 MG TABLET PO ONE (22:00)
[2019-07-17] MEDS ORDERED: RT-ALBUTEROL/IPRATROPIUM 3 ML (DUONEB) VIAL INH ONE (22:00)
[2019-07-17] MEDS ORDERED: LIDOCAINE 2% VISCOUS 15 ML UDC PO ONE (22:00)
[2019-07-17] MEDS ORDERED: AZITHROMYCIN 250 MG TAB (ZITHROMAX) PO ONE (22:30)
--- NOTE | 2019-07-17 22:37 | ED EENT ---
History of Present Illness General Chief Complaint: Oral/Throat Problems Stated Complaint: SORE THROAT,HEADACHES Nursing Triage Note: PT COMPLAINING OF A SORE THROAT FOR A COUPLE OF DAYS History of Present Illness Date Seen by Provider: Jul 17, 2019 Time Seen by Provider: 21:40 Initial Comments The patient is a 38-year-old female with a history of COPD and continued tobacco abuse. She presents with concern for 2 days of significant sore throat. She is concerned she may have strep throat and states she has been exposed to it recently. The patient has a secondary concern which is a dry, nonproductive cough for the past few days which she states feels like her COPD acting up. She endorses chest discomfort, but this primarily is bothersome only when she coughs. The patient denies fevers, nausea or vomiting, upper respiratory congestion/rhinorrhea, productive cough, significant shortness of breath, estefani substernal chest pain aside from with coughing, abdominal pain, flank pain, back pain, dysuria or hematuria, changes in bowel habits. The patient is speaking comfortably in full sentences and tolerates secretions very well and is in absolutely no distress upon initial assessment in the emergency department. Allergies and Home Medications Allergies Coded Allergies: No Known Drug Allergies (Unverified , 11/28/18) Home Medications Amoxicillin 500 Mg Capsule, 500 MG PO TID Prescribed by: RANCHO ANGELES on 02/12/19 1545 Dicyclomine HCl 20 Mg Tablet, 20 MG PO TID PRN for ABDOMINAL PAIN Prescribed by: DINORA E ENYART on 12/18/18 1438 Hydrocodone/Acetaminophen 1 Each Tablet, 1 TAB PO Qhs Prescribed by: NOA ZAMARRIPA on 04/13/19 1247 Metronidazole 500 Mg Tablet, 500 MG PO BID, (Reported) Ondansetron 4 Mg Tab.rapdis, 4 MG PO Q8H PRN for NAUSEA/VOMITING Prescribed by: DINORA E ENYART on 12/18/18 1438 Trimethoprim/Sulfamethoxazole 1 Ea Tablet, 1 TAB PO BID, (Reported) Patient Home Medication List Home Medication List Reviewed: Yes Review of Systems Review of Systems Constitutional: see HPI All Other Systems Reviewed Negative Unless Noted: Yes (Negative excepted noted.) Past Ysaddqb-Rkcayx-Inwckb Hx Past Med/Social Hx: Reviewed Nursing Past Med/Soc Hx Patient Social History Alcohol Use: Denies Use Recreational Drug Use: No Type Used: Cigarettes 2nd Hand Smoke Exposure: Yes Recent Foreign Travel: No Contact w/Someone Who Travel: No Recent Infectious Disease Expo: No Recent Hopitalizations: No Physical Abuse: No Sexual Abuse: No Mistreated: No Seasonal Allergies Seasonal Allergies: No Past Medical History Surgeries: Yes (HERNIA REPAIR) Section, Gallbladder Respiratory: Yes COPD Cardiac: No Neurological: No Genitourinary: Yes (CURRENTLY BEING TREATED FOR UTI) Gastrointestinal: No Musculoskeletal: No Endocrine: No HEENT: No Cancer: No Psychosocial: No Integumentary: No Blood Disorders: No Family Medical History Reviewed Nursing Family Hx Physical Exam Vital Signs Vital Signs - First Documented 07/17/19 21:48 Temp 36.3 Pulse 108 Resp 20 B/P (MAP) 140/70 (93) Pulse Ox 98 O2 Delivery Room Air Height, Weight, BMI Height: 5'3.00" Weight: 240lbs. oz. 108.325825zv; 45.00 BMI Method:Stated General Appearance: no apparent distress This is a younger female appearing significantly older than her stated age. She appears nontoxic and in no acute distress. Head is normocephalic and atraumatic. Neck is supple and nontender. Oropharynx is moist. There is mild posterior oropharyngeal erythema with tonsillar swelling laterally without exudates. There is no uvular deviation. Patient is tolerating secretions very well. There is anterior cervical lymphadenopathy with a large tender lymph node appreciated at the angle of the jaw on the left. Lungs are clear to auscultation in all stations. There is a normal S1 and S2 without rubs or gallops and capillary refill is appropriate, less than 2 seconds globally. Abdomen is soft, nontender and nondistended. Skin is warm and dry without cyanosis, clubbing or edema. Psychiatrically, the patient demonstrates appropriate mood and affect and is alert. Progress/Results/Core Measures Results/Orders Lab Results Laboratory Tests Test 07/17/19 21:55 Range/Units Group A Streptococcus Screen NEGATIVE NEGATIVE My Orders Orders - JINA BAH MD Rapid Strep A Screen (07/17/19 21:47) Chest Pa/Lat (2 View) (07/17/19 21:47) Ibuprofen Tablet (Motrin Tablet) (07/17/19 22:00) Acetaminophen Tablet/Caplet (Tylenol T (07/17/19 22:00) Dexamethasone Injection (Decadron Inject (07/17/19 22:00) Lidocaine 2% Viscous 15 Ml (Xylocaine Vi (07/17/19 22:00) Albuterol/Ipra Inhalation Soln (Duoneb I (07/17/19 22:00) Svn Small Volume Nebulizer (07/17/19 21:47) Azithromycin Tablet (Zithromax Tablet) (07/17/19 22:30) Medications Given in ED Current Medications Medications Dose Ordered Sig/Chris Route Start Time Stop Time Status Last Admin Dose Admin Acetaminophen 975 mg ONCE ONCE PO 07/17/19 22:00 07/17/19 22:01 DC 07/17/19 22:03 975 MG Albuterol/ Ipratropium 3 ml ONCE ONCE INH 07/17/19 22:00 07/17/19 22:01 DC 07/17/19 22:04 3 ML Dexamethasone Sodium Phosphate 10 mg ONCE ONCE IM 07/17/19 22:00 07/17/19 22:01 DC 07/17/19 22:03 10 MG Ibuprofen 800 mg ONCE ONCE PO 07/17/19 22:00 07/17/19 22:01 DC 07/17/19 22:03 800 MG Lidocaine HCl 5 ml ONCE ONCE PO 07/17/19 22:00 07/17/19 22:01 DC 07/17/19 22:04 5 ML Vital Signs/I&O 07/17/19 21:48 Temp 36.3 Pulse 108 Resp 20 B/P (MAP) 140/70 (93) Pulse Ox 98 O2 Delivery Room Air Blood Pressure Mean: 93 Progress Progress Note : Progress Note Clinical examination reassuring. Well-appearing female with a history of COPD who presents with sore throat with examination concerning for possible bacterial pharyngitis. Also with a significant nonproductive cough for the past few days. We will check for strep per patient request but we'll plan for treatment of bacterial pharyngitis regardless of outcome. We will treat sore throat with dexamethasone, viscous lidocaine, ibuprofen/Tylenol as well as azithromycin which is selected both for coverage of pharyngitis as well as acute exacerbation of chronic bronchitis which is most likely explanation for the patient's cough. We will check a chest x-ray. We will then reevaluate. Update 2220: Patient is resting comfortably in no acute distress upon reassessment after medication as per flowsheet here in the emergency department. Plain films unremarkable and strep testing is negative. We'll proceed with discharge as per plan above. Patient is follow-up closely with primary care in the next 1-2 days. She understands that she feels worse is that of better or develops other new symptoms of concern that she needs to return immediately for reevaluation. All questions are answered. Diagnostic Imaging Comments XR chest: no acute process, EP interp Departure Impression Primary Impression: Acute bacterial pharyngitis Additional Impression: Acute exacerbation of chronic bronchitis Disposition: HOME, SELF-CARE Condition: Improved Departure-Patient Inst. Referrals: NO,LOCAL PHYSICIAN (PCP/Family) Primary Care Physician Patient Instructions: Chronic Bronchitis (DC), Sore Throat, Adult (DC) Add. Discharge Instructions: Follow-up with your primary care physician in the next 1-2 days. Use the medication as instructed for your symptoms. Return immediately with worsening symptoms or other new concerns. Scripts Prednisone (Prednisone) 20 Mg Tab 40 MG PO DAILY for 4 Days, #8 TAB 0 Refills Prov: JINA BAH MD 07/17/19 Ibuprofen (Ibuprofen) 800 Mg Tablet 800 MG PO Q8H PRN for PAIN, #30 TAB 0 Refills Prov: JINA BAH MD 07/17/19 Azithromycin (Azithromycin) 250 Mg Tablet 250 MG PO DAILY for 4 Days, #4 TAB 0 Refills Prov: JINA BAH MD 07/17/19 JINA BAH MD Jul 17, 2019 22:36
[2019-07-17] MEDS ORDERED: IBUP-1780 PO (22:40)
[2019-07-17] MEDS ORDERED: PRD20T PO (22:40)
[2019-07-17] MEDS ORDERED: AZIT250T12 PO (22:40)
[2019-07-17 22:55] VITALS: BP 140/70
--- NOTE | 2019-07-18 05:19 | Diagnostic Imaging Report ---
INDICATION: Cough and pharyngitis PA and lateral views of the chest are obtained. COMPARISON: No previous study is available for comparison at this time. FINDINGS: Heart size and pulmonary vasculature are within normal limits, and the lungs are clear, bilaterally. IMPRESSION: Unremarkable chest. Dictated by: Dictated on workstation # [id number]
== END 2019-07-17 22:55 | disposition home or self-care (01) ==
LOC: EDUNIT# 21:33 → ER FS 21:34
DX: J02.8 Acute pharyngitis due to other specified organisms (principal); B96.89 Other specified bacterial agents as the cause of diseases classified elsewhere; J20.9 Acute bronchitis, unspecified; J44.0 Chronic obstructive pulmonary disease with (acute) lower respiratory infection; Z87.09 Personal history of other diseases of the respiratory system; Z77.22 Contact with and (suspected) exposure to environmental tobacco smoke (acute) (chronic); Z87.440 Personal history of urinary (tract) infections; Z98.890 Other specified postprocedural states
CPT/HCPCS: 71046; 87430; 96372

== ENCOUNTER 2019-09-14 09:58 | Emergency (ER) | payer MEDICAID ==
[~2019-09-14] VITALS: Ht 160 cm; Wt 120.0 kg
[~2019-09-14 09:58] MED LIST changes: +AZIT250T12 PO; +IBUP-1780 PO; +PRD20T PO
[2019-09-14] MEDS ORDERED: DICL50TA6 PO (10:12)
[2019-09-14] MEDS ORDERED: AMOX500C2 PO (10:12)
--- NOTE | 2019-09-14 10:13 | ED EENT ---
History of Present Illness General Chief Complaint: Dental Problems/Pain Stated Complaint: FACIAL/MOUTH SWELLING Source: patient Exam Limitations: no limitations History of Present Illness Date Seen by Provider: Sep 14, 2019 Time Seen by Provider: 10:09 Initial Comments Patient complains of left upper tooth pain for the past week. She doesn't see a dentist. No fevers or chills. Thinks her face is swollen. Allergies and Home Medications Allergies Coded Allergies: No Known Drug Allergies (Unverified , 11/28/18) Home Medications Amoxicillin 500 Mg Capsule, 500 MG PO TID Prescribed by: RANCHO ANGELES on 02/12/19 1545 Azithromycin 250 Mg Tablet, 250 MG PO DAILY Prescribed by: JINA BAH on 07/17/19 2240 Dicyclomine HCl 20 Mg Tablet, 20 MG PO TID PRN for ABDOMINAL PAIN Prescribed by: DINORA KNOTT on 12/18/18 1438 Hydrocodone/Acetaminophen 1 Each Tablet, 1 TAB PO Qhs Prescribed by: NOA ZAMARRIPA on 04/13/19 1247 Ibuprofen 800 Mg Tablet, 800 MG PO Q8H PRN for PAIN Prescribed by: JINA BAH on 07/17/19 2240 Metronidazole 500 Mg Tablet, 500 MG PO BID, (Reported) Ondansetron 4 Mg Tab.rapdis, 4 MG PO Q8H PRN for NAUSEA/VOMITING Prescribed by: DINORA KNOTT on 12/18/18 1438 Prednisone 20 Mg Tab, 40 MG PO DAILY Prescribed by: JINA BAH on 07/17/19 2240 Trimethoprim/Sulfamethoxazole 1 Ea Tablet, 1 TAB PO BID, (Reported) Patient Home Medication List Home Medication List Reviewed: Yes Review of Systems Review of Systems Constitutional: no symptoms reported Ears: No Symptoms Reported Nose: no symptoms reported Mouth: see HPI Respiratory: no symptoms reported Cardiovascular: no symptoms reported Past Hrwjxbp-Xngafp-Pkoank Hx Patient Social History Type Used: Cigarettes 2nd Hand Smoke Exposure: Yes Recent Foreign Travel: No Recent Hopitalizations: No Seasonal Allergies Seasonal Allergies: No Past Medical History Surgeries: Yes (HERNIA REPAIR) Section, Gallbladder Respiratory: Yes COPD Cardiac: No Neurological: No Genitourinary: Yes (CURRENTLY BEING TREATED FOR UTI) Gastrointestinal: No Musculoskeletal: No Endocrine: No HEENT: No Cancer: No Psychosocial: No Integumentary: No Blood Disorders: No Physical Exam Height, Weight, BMI Height: 5'3.00" Weight: 240lbs. oz. 108.813229ss; 45.00 BMI Method:Stated General Appearance: WD/WN, no apparent distress, obese Mouth/Throat: other (left upper second molar tender carious. There is surrounding gingival erythema and swelling.) Neck: supple Cardiovascular: regular rate, rhythm, no murmur Respiratory: lungs clear Gastrointestinal: soft Neurologic/Psychiatric: alert Skin: normal color, warm/dry Departure Impression Primary Impression: Pain, dental Disposition: HOME, SELF-CARE Condition: Stable Departure-Patient Inst. Decision time for Depature: 10:10 Referrals: NO,LOCAL PHYSICIAN (PCP) Primary Care Physician SAMEERA DENT APRN (Family) Primary Care Physician Patient Instructions: Dental Pain (DC) Add. Discharge Instructions: See dentist as soon as possible. Use clove oil topically for pain. All disch arge instructions reviewed with patient and/or family. Voiced understanding. Scripts Diclofenac Sodium (Diclofenac Sodium) 50 Mg Tablet.dr 50 MG PO BID, #10 TAB Prov: TSERING BERNAL MD 09/14/19 Amoxicillin (Amoxicillin) 500 Mg Capsule 875 MG PO BID, #20 CAP 0 Refills Prov: TSERING BERNAL MD 09/14/19 TSERING BERNAL MD Sep 14, 2019 10:13 POS
[2019-09-14 10:17] VITALS: BP 156/93
== END 2019-09-14 10:15 | disposition home or self-care (01) ==
LOC: EDUNIT# 09:58 → ER FS 10:00
DX: K08.89 Other specified disorders of teeth and supporting structures (principal); J44.9 Chronic obstructive pulmonary disease, unspecified; Z77.22 Contact with and (suspected) exposure to environmental tobacco smoke (acute) (chronic)
CPT/HCPCS: 99282

== ENCOUNTER 2019-09-19 15:44 | Emergency (ER) | payer MEDICAID ==
[~2019-09-19] VITALS: Ht 162 cm; Wt 123.0 kg
[~2019-09-19 15:44] MED LIST changes: +DICL50TA6 PO
[2019-09-19] MEDS ORDERED: ONDANSETRON 4 MG (ZOFRAN) ORAL DISSOLVE TAB PO STA (16:07)
--- NOTE | 2019-09-19 16:12 | ED Abdominal Pain ---
General Chief Complaint: Abdominal/GI Problems Stated Complaint: ABD PAIN Source of Information: Patient Exam Limitations: No Limitations History of Present Illness Date Seen by Provider: Sep 19, 2019 Time Seen by Provider: 16:00 Initial Comments Presents with complaint of lower abdominal pain and cramping for the past 2 days. No exacerbating or remitting factors. Some lower back aching as well. Denies fever or chills, however did vomit a couple times this morning. Appetite is normal, but states she doesn't feel well. Normal bowel movements without constipation or diarrhea. No recent sick contacts. Denies dysuria or vaginal discharge. Allergies and Home Medications Allergies Coded Allergies: No Known Drug Allergies (Unverified , 11/28/18) Home Medications Amoxicillin 500 Mg Capsule, 500 MG PO TID Prescribed by: RANCHO ANGELES on 02/12/19 1545 Amoxicillin 500 Mg Capsule, 875 MG PO BID Prescribed by: TSERING BERNAL on 09/14/19 1012 Azithromycin 250 Mg Tablet, 250 MG PO DAILY Prescribed by: JINA BAH on 07/17/19 224 Diclofenac Sodium 50 Mg Tablet.dr, 50 MG PO BID Prescribed by: TSERING BERNAL on 09/14/19 1012 Dicyclomine HCl 20 Mg Tablet, 20 MG PO TID PRN for ABDOMINAL PAIN Prescribed by: DINORA KNOTT on 12/18/18 1438 Hydrocodone/Acetaminophen 1 Each Tablet, 1 TAB PO Qhs Prescribed by: NOA ZAMARRIPA on 04/13/19 1247 Hyoscyamine Sulfate 0.125 Mg Tab.subl, 0.125 MG SL Q8H Prescribed by: UCHE LOWRY on 09/19/19 1713 Ibuprofen 800 Mg Tablet, 800 MG PO Q8H PRN for PAIN Prescribed by: JINA BAH on 07/17/19 2240 Metronidazole 500 Mg Tablet, 500 MG PO BID, (Reported) Ondansetron 4 Mg Tab.rapdis, 4 MG PO Q8H PRN for NAUSEA/VOMITING Prescribed by: DINORA KNOTT on 12/18/18 1438 Prednisone 20 Mg Tab, 40 MG PO DAILY Prescribed by: JINA BAH on 07/17/19 2240 Trimethoprim/Sulfamethoxazole 1 Ea Tablet, 1 TAB PO BID, (Reported) Patient Home Medication List Home Medication List Reviewed: Yes Review of Systems Review of Systems Constitutional: No dizziness, No fever; malaise; No weakness Respiratory: Denies Cough, Denies Shortness of Air Cardiovascular: Denies Chest Pain, Denies Syncope Gastrointestinal: Abdominal Pain; Denies Diarrhea; Nausea; Denies Poor Appetite, Denies Poor Fluid Intake; Vomiting Genitourinary: See HPI; Denies Burning, Denies Discharge, Denies Frequency, Denies Flank Pain, Denies Hematuria, Denies Incontinence, Denies Pain, Denies Urgency Musculoskeletal: back pain; No joint pain, No muscle pain Skin: No change in hair/nails, No rash Past [id number]-Xltjvi Hx Past Med/Social Hx: Reviewed Nursing Past Med/Soc Hx Patient Social History Type Used: Cigarettes 2nd Hand Smoke Exposure: Yes Recent Foreign Travel: No Recent Hopitalizations: No Seasonal Allergies Seasonal Allergies: No Past Medical History Surgeries: Yes (HERNIA REPAIR) Section, Gallbladder Respiratory: Yes COPD Cardiac: No Neurological: No Genitourinary: Yes (CURRENTLY BEING TREATED FOR UTI) Gastrointestinal: No Musculoskeletal: No Endocrine: No HEENT: No Cancer: No Psychosocial: No Integumentary: No Blood Disorders: No Physical Exam Vital Signs Vital Signs - First Documented 09/19/19 09/19/19 15:50 17:41 Temp 35.6 Pulse 100 Resp 20 B/P (MAP) 135/99 (111) Pulse Ox 99 O2 Flow Rate 96.00 Capillary Refill : Height/Weight/BMI Height: 5'3.00" Weight: 240lbs. oz. 108.338182kf; 46.00 BMI Method:Stated General Appearance: WD/WN, no apparent distress Respiratory: chest non-tender, lungs clear Cardiovascular: regular rate, rhythm, no JVD Gastrointestinal: normal bowel sounds, non tender, soft, no organomegaly, no pulsatile mass; No distended, No guarding, No rebound, No tenderness Back: normal inspection, no CVA tenderness Skin: normal color, warm/dry Progress/Results/Core Measures Results/Orders Lab Results Laboratory Tests Test 09/19/19 15:55 Range/Units Urine Color YELLOW Urine Clarity CLEAR Urine pH 6.5 5-9 Urine Specific [place] 1.025 H 1.016-1.022 Urine Protein NEGATIVE NEGATIVE Urine Glucose (UA) NEGATIVE NEGATIVE Urine Ketones NEGATIVE NEGATIVE Urine Nitrite NEGATIVE NEGATIVE Urine Bilirubin NEGATIVE NEGATIVE Urine Urobilinogen 0.2 < = 1.0 MG/DL Urine Leukocyte Esterase NEGATIVE NEGATIVE Urine RBC (Auto) NEGATIVE NEGATIVE Urine RBC 0-2 /HPF Urine WBC RARE /HPF Urine Squamous Epithelial Cells 2-5 /HPF Urine Crystals NONE /LPF Urine Bacteria TRACE /HPF Urine Casts NONE /LPF Urine Mucus SMALL H /LPF Urine Culture Indicated NO My Orders Orders - UCHE LOWRY DO Ondansetron Oral Dissolve Tab (Zofran (09/19/19 16:07) Urinalysis (09/19/19 16:49) Vital Signs/I&O 09/19/19 09/19/19 15:50 17:41 Temp 35.6 Pulse 100 98 Resp 20 18 B/P (MAP) 135/99 (111) 136/91 Pulse Ox 99 96 O2 Flow Rate 96.00 Departure Impression Primary Impression: Abdominal pain Qualified Codes: R10.30 - Lower abdominal pain, unspecified Disposition: HOME, SELF-CARE Condition: Stable Departure-Patient Inst. Decision time for Depature: 16:10 Referrals: [facility] (PCP) Primary Care Physician SAMEERA DENT APRN (Family) Primary Care Physician Patient Instructions: Acute Abdomen (Belly Pain), Nausea and Vomiting, Adult Scripts Hyoscyamine Sulfate (Hyoscyamine Sulfate) 0.125 Mg Tab.subl 0.125 MG SL Q8H for Cramps, #14 TAB Prov: UCHE LOWRY DO 09/19/19 UCHE LOWRY DO Sep 19, 2019 16:12 POS
[2019-09-19 17:08] LABS: BACTERIA,URINE TRACE /HPF; BILIRUBIN,URINE NEGATIVE (NEGATIVE); CLARITY,URINE CLEAR; COLOR,URINE YELLOW; GLUCOSE, URINE (UA) NEGATIVE (NEGATIVE); KETONES,URINE NEGATIVE (NEGATIVE); LEUKOCYTE ESTERASE ,URINE NEGATIVE (NEGATIVE); NITRITE,URINE NEGATIVE (NEGATIVE); PH,URINE 6.5 (5-9); PROTEIN,URINE NEGATIVE (NEGATIVE); RBC,URINE 0-2 /HPF; WBC,URINE RARE /HPF
[2019-09-19] MEDS ORDERED: HYOS-19 SL (17:13)
[2019-09-19 17:41] VITALS: BP 136/91
--- OUTSIDE RECORDS SUMMARY | 2019-10-14 18:40 | XMS REPORT | Continuity of Care Document ---
Author Organization Unknown Address Unknown Phone Unavailable Allergies Active Description Code Type Severity Reaction Onset Reported/Identified Relationship to Patient Clinical Status Yes No Known Drug Allergies [id number] Drug Allergy Unknown N/A 11/28/2018 Medications There is no data. Problems Date Dx Coded Attending Type Code Diagnosis Diagnosed By 11/28/2018 KARLA DELGADO APRN Ot N72 INFLAMMATORY DISEASE OF CERVIX UTERI 11/28/2018 KARLA DELGADO APRN Ot R10.84 GENERALIZED ABDOMINAL PAIN 11/28/2018 KARLA DELGADO APRN Ot Z87.440 PERSONAL HISTORY OF URINARY (TRACT) INFE 11/30/2018 KARLA DELGADO APRN Ot N72 INFLAMMATORY DISEASE OF CERVIX UTERI 11/30/2018 KARLA DELGADO APRN Ot R10.84 GENERALIZED ABDOMINAL PAIN 11/30/2018 KARLA DELGADO BLENDING LINE ATTENDANT Ot Z87.440 PERSONAL HISTORY OF URINARY (TRACT) INFE 12/18/2018 DINORA KNOTT MD Ot F17.2 10 NICOTINE DEPENDENCE, CIGARETTES, UNCOMPL 12/18/2018 DINORA KNOTT MD Ot R10.9 UNSPECIFIED ABDOMINAL PAIN 12/18/2018 DINORA KNOTT MD Ot R11.2 NAUSEA WITH VOMITING, UNSPECIFIED 12/18/2018 DINORA KNOTT MD Ot Z87.4 40 PERSONAL HISTORY OF URINARY (TRACT) INFE 12/18/2018 DINORA KNOTT MD Ot Z98.8 90 OTHER SPECIFIED POSTPROCEDURAL STATES 12/20/2018 DINORA KNOTT MD Ot F17.2 10 NICOTINE DEPENDENCE, CIGARETTES, UNCOMPL 12/20/2018 DINORA KNOTT MD Ot R10.9 UNSPECIFIED ABDOMINAL PAIN 12/20/2018 DINORA KNOTT MD Ot R11.2 NAUSEA WITH VOMITING, UNSPECIFIED 12/20/2018 DINORA KNOTT MD Ot Z87.4 40 PERSONAL HISTORY OF URINARY (TRACT) INFE 12/20/2018 ENYART MD, DINORA E Ot Z98.8 90 OTHER SPECIFIED POSTPROCEDURAL STATES 02/12/2019 Ot K02.9 DENT AL CARIES, UNSPECIFIED 02/12/2019 Ot K08.89 OT ER SPECIFIED DISORDERS OF TEETH AND S 02/12/[address] W AND EXPSR TO ENVIRON TOBACCO SMO 02/12/2019 Ot Z87.440 PE RSONAL HISTORY OF URINARY (TRACT) INFE 02/12/2019 Ot Z98.890 OT HER SPECIFIED POSTPROCEDURAL STATES 02/14/2019 Ot K02.9 DENT AL CARIES, UNSPECIFIED 02/14/2019 Ot K08.89 OT ER SPECIFIED DISORDERS OF TEETH AND S 02/14/[address] W AND EXPSR TO ENVIRON TOBACCO SMO 02/14/2019 Ot Z87.440 PE RSONAL HISTORY OF URINARY (TRACT) INFE 02/14/2019 Ot Z98.890 OT HER SPECIFIED POSTPROCEDURAL STATES 04/13/2019 NOA ZAMARRIPA DO Ot M54 .2 CERVICALGIA 04/13/2019 NOA ZAMARRIPA DO Ot R59 .0 LOCALIZED ENLARGED LYMPH NODES 04/13/2019 NOA ZAMARRIPA DO Ot Z77.22 CNTCT W AND EXPSR TO ENVIRON TOBACCO SMO 04/13/2019 NOA ZAMARRIPA DO Ot Z98.890 OTHER SPECIFIED POSTPROCEDURAL STATES 04/15/2019 NOA ZAMARRIPA DO Ot M54 .2 CERVICALGIA 04/15/2019 NOA ZAMARRIPA DO Ot R59 .0 LOCALIZED ENLARGED LYMPH NODES 04/15/2019 NOA ZAMARRIPA DO Ot Z77.22 CNTCT W AND EXPSR TO ENVIRON TOBACCO SMO 04/15/2019 NOA ZAMARRIPA DO Ot Z98.890 OTHER SPECIFIED POSTPROCEDURAL STATES 04/19/2019 HEIDI CAROLINA DO Ot M79.631 PAIN IN RIGHT FOREARM 04/19/2019 HEIDI CAROLINA DO Ot S50.11XA CONTUSION OF RIGHT FOREARM, INITIAL ENCO 04/19/2019 HEIDI CAROLINA DO Ot W19.XXXA UNSPECIFIED FALL, INITIAL ENCOUNTER 04/19/2019 HEIDI CAROLINA DO Ot Z77.22 CNTCT W AND EXPSR TO ENVIRON TOBACCO SMO 04/19/2019 HEIDI CAROLINA DO Ot Z87.440 PERSONAL HISTORY OF URINARY (TRACT) INFE 04/19/2019 GE HEIDI MOORE Ot Z98.890 OTHER SPECIFIED POSTPROCEDURAL STATES 04/21/2019 GE HEIDI MOORE Ot M79.631 PAIN IN RIGHT FOREARM 04/21/2019 HEIDI CAROLINA DO Ot S50.11XA CONTUSION OF RIGHT FOREARM, INITIAL ENCO 04/21/2019 GE HEIDI MOORE Ot W19.XXXA UNSPECIFIED FALL, INITIAL ENCOUNTER 04/21/2019 GE HEIDI MOORE Ot Z77.22 CNTCT W AND EXPSR TO ENVIRON TOBACCO SMO 04/21/2019 GE MOOREHEIDI Ot Z87.440 PERSONAL HISTORY OF URINARY (TRACT) INFE 04/21/2019 GE MOOREHEIDI Ot Z98.890 OTHER SPECIFIED POSTPROCEDURAL STATES 07/17/2019 JINA BAH MD Ot B96. 89 OTH BACTERIAL AGENTS THE CAUSE OF DIS 07/17/2019 JINA BAH MD Ot J02. 8 ACUTE PHARYNGITIS DUE TO OTHER SPECIFIED 07/17/2019 JINA BAH MD Ot J02. 9 ACUTE PHARYNGITIS, UNSPECIFIED 07/17/2019 JINA BAH MD Ot J20. 9 ACUTE BRONCHITIS, UNSPECIFIED 07/17/2019 JINA BAH MD Ot J44. 0 CHRONIC OBSTRUCTIVE PULMON DISEASE W ACU 07/17/2019 JINA BAH MD, Ot Z77. 22 CNTCT W AND EXPSR TO ENVIRON TOBACCO SMO 07/17/2019 JINA BAH MD Ot Z87. 09 PERSONAL HISTORY OF OTHER DISEASES OF TH 07/17/2019 JINA BAH MD Ot Z87.440 PERSONAL HISTORY OF URINARY (TRACT) INFE 07/17/2019 JINA BAH MD Ot Z98.890 OTHER SPECIFIED POSTPROCEDURAL STATES 07/20/2019 JINA BAH MD Ot B96. 89 OTH BACTERIAL AGENTS THE CAUSE OF DIS 07/20/2019 JINA BAH MD Ot J02. 8 ACUTE PHARYNGITIS DUE TO OTHER SPECIFIED 07/20/2019 JINA BAH MD Ot J02. 9 ACUTE PHARYNGITIS, UNSPECIFIED 07/20/2019 JINA BAH MD Ot J20. 9 ACUTE BRONCHITIS, UNSPECIFIED 07/20/2019 JINA BAH MD Ot J44. 0 CHRONIC OBSTRUCTIVE PULMON DISEASE W ACU 07/20/2019 JINA BAH MD Ot Z77. 22 CNTCT W AND EXPSR TO ENVIRON TOBACCO SMO 07/20/2019 JINA BAH MD Ot Z87. 09 PERSONAL HISTORY OF OTHER DISEASES OF TH 07/20/2019 JINA BAH MD Ot Z87.440 PERSONAL HISTORY OF URINARY (TRACT) INFE 07/20/2019 JINA BAH MD Ot Z98.890 OTHER SPECIFIED POSTPROCEDURAL STATES 09/14/2019 TSERING BERNAL MD Ot J44. 9 CHRONIC OBSTRUCTIVE PULMONARY DISEASE, U 09/14/2019 TSERING BERNAL MD A Ot K08. 89 OTHER SPECIFIED DISORDERS OF TEETH AND S 09/14/2019 TSERING BERNAL MD A Ot Z77. 22 CNTCT W AND EXPSR TO ENVIRON TOBACCO SMO 09/16/2019 TSERING BERNAL MD Ot J44. 9 CHRONIC OBSTRUCTIVE PULMONARY DISEASE, U 09/16/2019 TSERING BERNAL MD A Ot K08. 89 OTHER SPECIFIED DISORDERS OF TEETH AND S 09/16/2019 TSERING BERNAL MD A Ot Z77. 22 CNTCT W AND EXPSR TO ENVIRON TOBACCO SMO 09/19/2019 ROVENSTINE DO, UCHE L Ot J44.9 CHRONIC OBSTRUCTIVE PULMONARY DISEASE, U 09/19/2019 ROVENSTINE DO, UCHE L Ot R10.30 LOWER ABDOMINAL PAIN, UNSPECIFIED 09/19/2019 ROVENSTINE DO, UCHE L Ot Z77.22 CNTCT W AND EXPSR TO ENVIRON TOBACCO SMO 09/19/2019 ROVENSTINE DO, UCHE L Ot Z79.52 CUSTODIAL (CURRENT) USE OF SYSTEMIC STER 09/24/2019 ROVENSTINE DO, UCHE L Ot J44.9 CHRONIC OBSTRUCTIVE PULMONARY DISEASE, U 09/24/2019 ROVENSTINE DO, UCHE L Ot R10.30 LOWER ABDOMINAL PAIN, UNSPECIFIED 09/24/2019 ROVENSTINE DO, UCHE L Ot Z77.22 CNTCT W AND EXPSR TO ENVIRON TOBACCO SMO 09/24/2019 ROVENSTINE DO, UCHE L Ot Z79.52 TIE BINDER (CURRENT) USE OF SYSTEMIC STER Procedures There is no data. Results Test Result Range Complete blood count (CBC) with automate d white blood cell (WBC) differential - 11/28/18 16:20 Blood leukocytes automated count (number/volume) 11.7 10*3/uL 4.3-11.0 Blood erythrocytes automated count (number/volume) 4.31 10*6/uL 4.35-5.85 Venous blood hemoglobin measurement (mass/volume) 12.0 g/dL 11.5-16.0 Blood hematocrit (volume fraction) 37 % 35-52 Automated erythrocyte mean corpuscular volume 87 [ foz_us] 80-99 Automated erythrocyte mean corpuscular h emoglobin (mass per erythrocyte) 28 pg 25-34 Automated erythrocyte mean corpuscular h emoglobin concentration measurement (mass/volume) 32 g/dL 32-36 Automated erythrocyte distribution width ratio 14. 2 % 10.0- 14.5 Automated blood platelet count (count/volume) 334 10*3/uL 130-400 Automated blood platelet mean volume measurement 9.8 [foz_us] 7.4-10.4 Automated blood neutrophils/100 leukocytes 62 % 42-75 Automated blood lymphocytes/100 leukocytes 27 % 12-44 Blood monocytes/100 leukocytes 8 % 0-12 Automated blood eosinophils/100 leukocytes 3 % 0-10 Automated blood basophils/100 leukocytes 0 % 0-10 Blood neutrophils automated count (number/volume) 7.2 10*3 1.8-7.8 Blood lymphocytes automated count (number/volume) 3.2 10*3 1.0-4.0 Blood monocytes automated count (number/volume) 1. 0 10*3 0.0-1.0 Automated eosinophil count 0.3 10*3/uL 0 .0-0.3 Automated blood basophil count (count/volume) 0.0 10*3/uL 0.0-0.1 Serum or plasma choriogonadotropin (preg meño test) detection - 11/28/18 16:20 Serum or plasma choriogonadotropin ( test) de tection NEGATIVE NEGATIVE Comprehensive metabolic panel - 11/28/18 16:20 Serum or plasma sodium measurement (moles/volume) 138 mmol/L 135-145 Serum or plasma potassium measurement (moles/volume) 4.0 mmol/L 3.6-5.0 Serum or plasma chloride measurement (moles/volume) 104 mmol/L 98-107 Carbon dioxide 23 mmol/L 21-32 Serum or plasma anion gap determination (moles/volume) 11 mmol/L 5-14 Serum or plasma urea nitrogen measurement (mass/volume ) 7 mg/dL 7-18 Serum or plasma creatinine measurement (mass/volume) 0.66 mg/dL 0.60-1.30 Serum or plasma urea nitrogen/creatinine mass ratio 11 NRG Serum or plasma creatinine measurement w ith calculation of estimated glomerular filtration rate > NRG Serum or plasma glucose measurement (mass/volume) 97 mg/dL 70-105 Serum or plasma calcium measurement (mass/volume) 9.8 mg/dL 8.5-10.1 Serum or plasma total bilirubin measurement (mass/volu me) 0.1 mg/dL 0.1-1.0 Serum or plasma alkaline phosphatase galdino surement (enzymatic activity/volume) 78 U/L 40-136 Serum or plasma aspartate aminotransfera se measurement (enzymatic activity/volume) 29 U/L 5-34 Serum or plasma alanine aminotransferase measurement (enzymatic activity/volume) 30 U/L 0-55 Serum or plasma protein measurement (mass/volume) 7.1 g/dL 6.4-8.2 Serum or plasma albumin measurement (mass/volume) 3.9 g/dL 3.2-4.5 CALCIUM CORRECTED 9.9 mg/dL 8.5-10.1 Complete urinalysis with reflex to cultu re - 11/28/18 17:30 Urine color determination YELLOW NRG Urine clarity determination CLEAR NR G Urine pH measurement by test strip 7 5-9 Specific gravity of urine by test strip 1.010 1.016-1.022 Urine protein assay by test strip, semi-quantitative NEGATIVE NEGATIVE Urine glucose detection by automated test strip NE GATIVE NEGATIVE Erythrocytes detection in urine sediment by light micr oscopy NEGATIVE NEGATIVE Urine ketones detection by automated test strip NE GATIVE NEGATIVE Urine nitrite detection by test strip NEGATIVE NEGATIVE Urine total bilirubin detection by test strip NEGA TIVE NEGATIVE Urine urobilinogen measurement by automated test strip (mass/volume) NORMAL NORMAL Urine leukocyte esterase detection by dipstick NEG ATIVE NEGATIVE Automated urine sediment erythrocyte cou nt by microscopy (number/high power field) NONE NRG Automated urine sediment leukocyte count by microscopy (number/high power field) NONE NRG Bacteria detection in urine sediment by light microsco py RARE NRG Squamous epithelial cells detection in u rine sediment by light microscopy 5-10 NRG Crystals detection in urine sediment by light microsco py PRESENT NRG Casts detection in urine sediment by light microscopy NONE NRG Mucus detection in urine sediment by light microscopy NEGATIVE NRG Complete urinalysis with reflex to culture NO NRG Amorphous sediment detection in urine sediment by ligh t microscopy FEW LEORA URATES NRG Bacteria identification in genital speci men by aerobe culture - 11/28/18 18:20 FREE TEXT EXTERNAL SEE COMMENTS NRG QUANTITY OF GROWTH Many NRG Bacteria identification in genital specimen by aerobe culture [id number] NRG Microscopic examination by wet preparati on - 11/28/18 18:20 WET PREP RESULTS M JOSE NRG Neisseria gonorrhoeae DNA detection by p robe and signal amplification method - 11/28/18 18:20 Gonorrhea amp DNA-urine Not Detected No t Detected Chlamydia trachomatis DNA detection by p robe and signal amplification method - 11/28/18 18:20 Chlamydia trachomatis DNA detection by p robe and target amplification method Not Detected Not Detected Complete urinalysis with reflex to cultu re - 12/18/18 13:03 Urine color determination YELLOW NRG Urine clarity determination CLEAR NR G Urine pH measurement by test strip 7.5 5-9 Specific gravity of urine by test strip 1.015 1.016-1.022 Urine protein assay by test strip, semi-quantitative NEGATIVE NEGATIVE Urine glucose detection by automated test strip NE GATIVE NEGATIVE Erythrocytes detection in urine sediment by light micr oscopy NEGATIVE NEGATIVE Urine ketones detection by automated test strip NE GATIVE NEGATIVE Urine nitrite detection by test strip NEGATIVE NEGATIVE Urine total bilirubin detection by test strip NEGA TIVE NEGATIVE Urine urobilinogen measurement by automated test strip (mass/volume) 0.2 mg/dL NORMAL Urine leukocyte esterase detection by dipstick NEG ATIVE NEGATIVE Automated urine sediment erythrocyte cou nt by microscopy (number/high power field) NONE NRG Automated urine sediment leukocyte count by microscopy (number/high power field) [HPF] NRG Bacteria detection in urine sediment by light microsco py NEGATIVE NRG Squamous epithelial cells detection in u rine sediment by light microscopy 5-10 NRG Crystals detection in urine sediment by light microsco py NONE NRG Casts detection in urine sediment by light microscopy NONE NRG Mucus detection in urine sediment by light microscopy MODERATE NRG Complete urinalysis with reflex to culture NO NRG Urine drug screening test - 12/18/18 13: 03 Urine phencyclidine detection by screening method NEGATIVE NEGATIVE Urine benzodiazepines detection by screening method NEGATIVE NEGATIVE Urine cocaine detection NEGATIVE NEGATI VE Urine amphetamines detection by screening method N EGATIVE NEGATIVE Urine methamphetamine detection by screening method NEGATIVE NEGATIVE Urine cannabinoids detection by screening method N EGATIVE NEGATIVE Urine opiates detection by screening method NEGATI VE NEGATIVE Urine barbiturates detection NEGATIVE N EGATIVE Screening urine tricyclic antidepressants detection NEGATIVE NEGATIVE Urine methadone detection by screening method NEGA TIVE NEGATIVE Urine oxycodone detection NEGATIVE NEGA TIVE Urine propoxyphene detection NEGATIVE N EGATIVE Complete blood count (CBC) with automate d white blood cell (WBC) differential - 12/18/18 13:23 Blood leukocytes automated count (number/volume) 13.0 10*3/uL 4.3-11.0 Blood erythrocytes automated count (number/volume) 4.52 10*6/uL 4.35-5.85 Venous blood hemoglobin measurement (mass/volume) 12.6 g/dL 11.5-16.0 Blood hematocrit (volume fraction) 40 % 35-52 Automated erythrocyte mean corpuscular volume 87 [ foz_us] 80-99 Automated erythrocyte mean corpuscular h emoglobin (mass per erythrocyte) 28 pg 25-34 Automated erythrocyte mean corpuscular h emoglobin concentration measurement (mass/volume) 32 g/dL 32-36 Automated erythrocyte distribution width ratio 14. 4 % 10.0- 14.5 Automated blood platelet count (count/volume) 333 10*3/uL 130-400 Automated blood platelet mean volume measurement 9.6 [foz_us] 7.4-10.4 Automated blood neutrophils/100 leukocytes 63 % 42-75 Automated blood lymphocytes/100 leukocytes 29 % 12-44 Blood monocytes/100 leukocytes 5 % 0-12 Automated blood eosinophils/100 leukocytes 3 % 0-10 Automated blood basophils/100 leukocytes 0 % 0-10 Blood neutrophils automated count (number/volume) 8.1 10*3 1.8-7.8 Blood lymphocytes automated count (number/volume) 3.8 10*3 1.0-4.0 Blood monocytes automated count (number/volume) 0. 6 10*3 0.0-1.0 Automated eosinophil count 0.4 10*3/uL 0 .0-0.3 Automated blood basophil count (count/volume) 0.0 10*3/uL 0.0-0.1 Comprehensive metabolic panel - 12/18/18 13:23 Serum or plasma sodium measurement (moles/volume) 140 mmol/L 135-145 Serum or plasma potassium measurement (moles/volume) 4.1 mmol/L 3.6-5.0 Serum or plasma chloride measurement (moles/volume) 104 mmol/L 98-107 Carbon dioxide 18 mmol/L 21-32 Serum or plasma anion gap determination (moles/volume) 18 mmol/L 5-14 Serum or plasma urea nitrogen measurement (mass/volume ) 7 mg/dL 7-18 Serum or plasma creatinine measurement (mass/volume) 0.55 mg/dL 0.60-1.30 Serum or plasma urea nitrogen/creatinine mass ratio 13 NRG Serum or plasma creatinine measurement w ith calculation of estimated glomerular filtration rate > NRG Serum or plasma glucose measurement (mass/volume) 94 mg/dL 70-105 Serum or plasma calcium measurement (mass/volume) 8.8 mg/dL 8.5-10.1 Serum or plasma total bilirubin measurement (mass/volu me) 0.2 mg/dL 0.1-1.0 Serum or plasma alkaline phosphatase galdino surement (enzymatic activity/volume) 70 U/L 40-136 Serum or plasma aspartate aminotransfera se measurement (enzymatic activity/volume) 18 U/L 5-34 Serum or plasma alanine aminotransferase measurement (enzymatic activity/volume) 18 U/L 0-55 Serum or plasma protein measurement (mass/volume) 7.5 g/dL 6.4-8.2 Serum or plasma albumin measurement (mass/volume) 4.2 g/dL 3.2-4.5 CALCIUM CORRECTED 8.6 mg/dL 8.5-10.1 Lipase - 12/18/18 13:23 Lipase 13 U/L 8-78 Streptococcus pyogenes antigen detection - 07/17/19 21:55 Streptococcus pyogenes antigen detection NEGATIVE NEGATIVE Bacterial throat culture - 07/17/19 21:5 5 Bacterial throat culture NBS NRG Complete urinalysis with reflex to cultu re - 09/19/19 15:55 Urine color determination YELLOW NRG Urine clarity determination CLEAR NR G Urine pH measurement by test strip 6.5 5-9 Specific gravity of urine by test strip 1.025 1.016-1.022 Urine protein assay by test strip, semi-quantitative NEGATIVE NEGATIVE Urine glucose detection by automated test strip NE GATIVE NEGATIVE Erythrocytes detection in urine sediment by light micr oscopy NEGATIVE NEGATIVE Urine ketones detection by automated test strip NE GATIVE NEGATIVE Urine nitrite detection by test strip NEGATIVE NEGATIVE Urine total bilirubin detection by test strip NEGA TIVE NEGATIVE Urine urobilinogen measurement by automated test strip (mass/volume) 0.2 mg/dL < = 1.0 Urine leukocyte esterase detection by dipstick NEG ATIVE NEGATIVE Automated urine sediment erythrocyte cou nt by microscopy (number/high power field) [HPF] NRG Automated urine sediment leukocyte count by microscopy (number/high power field) RARE NRG Bacteria detection in urine sediment by light microsco py TRACE NRG Squamous epithelial cells detection in u rine sediment by light microscopy 2-5 NRG Crystals detection in urine sediment by light microsco py NONE NRG Casts detection in urine sediment by light microscopy NONE NRG Mucus detection in urine sediment by light microscopy SMALL NRG Complete urinalysis with reflex to culture NO NRG Encounters ACCT No. Visit Date/Time Discharge Status Pt. Type Provider Facility Loc./Unit Complaint [id number] 09/19/2019 15:45:00 17:41:00 DIS Emergency UCHE LOWRY DO Via [facility] ER FS ABD PAIN [id number] 09/14/2019 10:00:00 10:15:00 DIS Emergency TSERING BERNAL MD [facility] ER FS FACIAL/MOUTH SWELLING [id number] 07/17/2019 21:34:00 22:55:00 DIS Emergency JINA BAH MD [facility] ER FS SORE THROAT,HEADACHES [id number] 04/19/2019 20:46:00 22:24:00 DIS Emergency HEDII CAROLINA DO [facility] ER FS RT ARM PAIN [id number] 04/13/2019 11:45:00 12:51:00 DIS Emergency NOA ZAMARRIPA DO [facility] ER FS NECK CRAMPING/PAIN [id number] 12/18/2018 12:16:00 15:05:00 DIS Emergency DINORA KNOTT MD [facility] ER FS NAUSEA,VOMITING,RT SIDE PAIN [id number] 11/28/2018 16:14:00 019 19:39:00 DIS Emergency KARLA DELGADO APRN [facility] ER ABD PAIN,VOMITTING [id number] 02/12/2019 15:21:00 Document Registration
== END 2019-09-19 17:41 | disposition home or self-care (01) ==
LOC: EDUNIT# 15:44 → ER FS 15:45
DX: R10.30 Lower abdominal pain, unspecified (principal); J44.9 Chronic obstructive pulmonary disease, unspecified; Z79.52 Long term (current) use of systemic steroids; Z77.22 Contact with and (suspected) exposure to environmental tobacco smoke (acute) (chronic)
CPT/HCPCS: 81000; 99283

== ENCOUNTER 2020-03-23 11:09 | Emergency (ER) | payer MEDICAID ==
[~2020-03-23] VITALS: Ht 160 cm; Wt 120.0 kg
[~2020-03-23 11:09] MED LIST changes: +HYOS-19 SL
[2020-03-23 11:15] VITALS: BP 130/82
[2020-03-23] MEDS ORDERED: ONDANSETRON 4 MG (ZOFRAN) ORAL DISSOLVE TAB PO STA (11:26)
[2020-03-23] MEDS ORDERED: ONDA4TAB11 PO (11:30)
--- NOTE | 2020-03-23 11:31 | ED General ---
General Stated Complaint: VOMITING; LRQ PAIN; DIARRHEA Source of Information: Patient History of Present Illness Date Seen by Provider: Mar 23, 2020 Time Seen by Provider: 11:20 Initial Comments 39-year-old female presents with nausea and vomiting onset this morning when she woke up about 9 a.m. States that she vomited a few times and had one loose stool while in her bed. Denies any significant abdominal pain, fever or chills or recent illness. Denies cough or shortness of air. Does have some right low back pain and she is concerned about a UTI. Sexually active, , not trying to conceive. Not using any contraceptive. Allergies and Home Medications Allergies Coded Allergies: No Known Drug Allergies (Unverified , 11/28/18) Home Medications Amoxicillin 500 Mg Capsule, 500 MG PO TID Prescribed by: RANCHO ANGELES on 02/12/19 1545 Amoxicillin 500 Mg Capsule, 875 MG PO BID Prescribed by: TSERING BERNAL on 09/14/19 1012 Azithromycin 250 Mg Tablet, 250 MG PO DAILY Prescribed by: JINA BAH on 07/17/19 2240 Diclofenac Sodium 50 Mg Tablet.dr, 50 MG PO BID Prescribed by: TSERING BERNAL on 09/14/19 1012 Dicyclomine HCl 20 Mg Tablet, 20 MG PO TID PRN for ABDOMINAL PAIN Prescribed by: DINORA KNOTT on 12/18/18 1438 Hydrocodone/Acetaminophen 1 Each Tablet, 1 TAB PO Qhs Prescribed by: NOA ZAMARRIPA on 04/13/19 1247 Hyoscyamine Sulfate 0.125 Mg Tab.subl, 0.125 MG SL Q8H Prescribed by: UCHE LOWRY on 09/19/19 1713 Ibuprofen 800 Mg Tablet, 800 MG PO Q8H PRN for PAIN Prescribed by: JINA BAH on 07/17/19 2240 Metronidazole 500 Mg Tablet, 500 MG PO BID, (Reported) Ondansetron 4 Mg Tab.rapdis, 4 MG PO Q8H PRN for NAUSEA/VOMITING Prescribed by: DINORA KNOTT on 12/18/18 1438 Ondansetron 4 Mg Tab.rapdis, 4 MG PO TID Prescribed by: UCHE LOWRY on 03/23/20 1130 Prednisone 20 Mg Tab, 40 MG PO DAILY Prescribed by: JINA BAH on 07/17/19 2240 Trimethoprim/Sulfamethoxazole 1 Ea Tablet, 1 TAB PO BID, (Reported) Patient Home Medication List Home Medication List Reviewed: Yes Review of Systems Review of Systems Constitutional: No chills, No diaphoresis, No fever Respiratory: no symptoms reported; No cough, No short of breath Cardiovascular: No chest pain, No palpitations Gastrointestinal: No abdominal pain, No diarrhea, No loss of appetite; nausea, vomiting Genitourinary: see HPI; No dysuria, No frequency, No hematuria, No incontinence, No pain Past Svpyamd-Acnmdy-Cqjdxf Hx Past Med/Social Hx: Reviewed Nursing Past Med/Soc Hx Patient Social History Type Used: Cigarettes 2nd Hand Smoke Exposure: Yes Recent Foreign Travel: No Contact w/Someone Who Travel: No Recent Hopitalizations: No Seasonal Allergies Seasonal Allergies: No Past Medical History Surgeries: Yes (HERNIA REPAIR) Section, Gallbladder Respiratory: Yes COPD Cardiac: No Neurological: No Genitourinary: Yes (CURRENTLY BEING TREATED FOR UTI) Gastrointestinal: No Musculoskeletal: No Endocrine: No HEENT: No Cancer: No Psychosocial: No Integumentary: No Blood Disorders: No Physical Exam Vital Signs Vital Signs - First Documented 03/23/20 11:15 Temp 36.2 Pulse 101 Resp 18 B/P (MAP) 130/82 (98) Pulse Ox 98 O2 Delivery Room Air Capillary Refill : Height, Weight, BMI Height: 5'3.00" Weight: 240lbs. oz. 108.568747jq; 46.00 BMI Method:Stated General Appearance: No Apparent Distress, WD/WN Respiratory: Chest Non Tender, Lungs Clear Cardiovascular: Regular Rate, Rhythm, No Edema, No JVD Gastrointestinal: Normal Bowel Sounds, Non Tender, Soft Back: Normal Inspection, No CVA Tenderness Extremity: Normal Capillary Refill, Normal Inspection Neurologic/Psychiatric: Alert, Normal Mood/Affect Progress/Results/Core Measures Suspected Sepsis SIRS Temperature: Pulse: Respiratory Rate: Blood Pressure / Mean: Results/Orders Lab Results Laboratory Tests Test 03/23/20 11:18 Range/Units Urine Color YELLOW Urine Clarity CLEAR Urine pH 6.0 5-9 Urine Specific [place] >=1.030 1.016-1.022 Urine Protein NEGATIVE NEGATIVE Urine Glucose (UA) 2+ H NEGATIVE Urine Ketones TRACE H NEGATIVE Urine Nitrite NEGATIVE NEGATIVE Urine Bilirubin NEGATIVE NEGATIVE Urine Urobilinogen 0.2 < = 1.0 MG/DL Urine Leukocyte Esterase NEGATIVE NEGATIVE Urine RBC (Auto) NEGATIVE NEGATIVE Urine RBC 0-2 /HPF Urine WBC 0-2 /HPF Urine Squamous Epithelial Cells 5-10 /HPF Urine Crystals NONE /LPF Urine Bacteria NEGATIVE /HPF Urine Casts NONE /LPF Urine Mucus MODERATE H /LPF Urine Culture Indicated NO My Orders Orders - UCHE LOWRY DO Urinalysis (03/23/20 11:18) Hcg,Qualitative Urine (03/23/20 11:25) Ondansetron Oral Dissolve Tab (Zofran (03/23/20 11:26) Vital Signs/I&O 03/23/20 11:15 Temp 36.2 Pulse 101 Resp 18 B/P (MAP) 130/82 (98) Pulse Ox 98 O2 Delivery Room Air Capillary Refill : Departure Impression Primary Impression: Nausea and vomiting Qualified Codes: R11.2 - Nausea with vomiting, unspecified Disposition: 01 HOME, SELF-CARE Condition: Stable Departure-Patient Inst. Decision time for Depature: 11:29 Referrals: [facility] (PCP) Primary Care Physician SAMEERA DENT APRN (Family) Primary Care Physician Patient Instructions: Nausea and Vomiting, Adult (DC) Scripts Ondansetron (Ondansetron Odt) 4 Mg Tab.rapdis 4 MG PO TID for Nausea, #10 TAB Prov: UCHE LOWRY DO 03/23/20 Work/School Note: Work Release Form Date Seen in the Emergency Department: Mar 23, 2020 Return to Work: Mar 24, 2020 Restrictions: No Restrictions UCHE LOWRY DO Mar 23, 2020 11:31
[2020-03-23 11:41] LABS: CLARITY,URINE CLEAR; COLOR,URINE YELLOW; GLUCOSE, URINE (UA) 2+ (NEGATIVE); KETONES,URINE TRACE (NEGATIVE); PROTEIN,URINE NEGATIVE (NEGATIVE)
[2020-03-23 11:42] LABS: BACTERIA,URINE NEGATIVE /HPF; BILIRUBIN,URINE NEGATIVE (NEGATIVE); LEUKOCYTE ESTERASE ,URINE NEGATIVE (NEGATIVE); NITRITE,URINE NEGATIVE (NEGATIVE); RBC,URINE 0-2 /HPF; WBC,URINE 0-2 /HPF
--- OUTSIDE RECORDS SUMMARY | 2020-03-23 15:14 | XMS REPORT | Continuity of Care Document ---
Author Organization Unknown Address Unknown Phone Unavailable Allergies Active Description Code Type Severity Reaction Onset Reported/Identified Relationship to Patient Clinical Status Yes NO KNOWN DRUG ALLERGIES UNKNOWN UNKNOWN Yes No Known Drug Allergies [id number] Drug Allergy Unknown N/A 11/28/2018 Medications Medication Packaging Start Date St op Date Route Dosage Sig GI COCKTAIL SINGLE DOSE LIQ (GRASSHOPPER) ML 11/04/2019 11/04/2019 ONCE&1946 IPRATROPIUM/ALBUTEROL INH SO LN (DUO-NEB INH SOLN) MLS 11/04/2019 11/04/2019 ONCE&2026 GUAIFENESIN - DM LIQ (ROBITUSSIN DM) MLS 11/04/2019 11/04/2019 ONCE&2026 IPRATROPIUM/ALBUTEROL INH SO LN (DUO-NEB INH SOLN) MLS 11/07/2019 11/07/2019 ONCE&1500 METHYLPREDNISOLONE VIAL INJ 125 MG/2CC (SOLU-MEDROL VIAL) MG 11/07/2019 11/07/2019 ONCE&1500 KETOROLAC VIAL INJ 60 MG/2CC (TORADOL VIAL ) MG 11/17/2019 11/17/2019 ONCE&1114 LACTATED RINGERS 1000CC IV BAG INJ ml 12/21/2019 12/28/2019 CONTINUOUSEVERY 0 Hour AMOXICILLIN CAP 500 MG (AMOXIL) MG 01/19/2020 01/19/2020 ONCE&2312 Problems Date Dx Coded Attending Type Code [...] R10.84 GENERALIZED ABDOMINAL PAIN 11/30/2018 KARLA DELGADO APRN Ot Z87.440 PERSONAL HISTORY OF URINARY (TRACT) INFE 12/18/2018 DINORA KNOTT MD Ot F17.2 10 NICOTINE DEPENDENCE, CIGARETTES, UNCOMPL 12/18/2018 DINORA KNOTT MD Ot R10.9 UNSPECIFIED ABDOMINAL PAIN 12/18/2018 DINORA KNOTT MD Ot R11.2 NAUSEA WITH VOMITING, UNSPECIFIED 12/18/2018 DINORA KNOTT MD Ot Z87.4 40 PERSONAL HISTORY OF URINARY (TRACT) INFE 12/18/2018 HEDY TARIQ DINORA E Ot Z98.8 90 OTHER SPECIFIED POSTPROCEDURAL STATES 12/20/2018 DINORA KNOTT MD Ot F17.2 10 NICOTINE DEPENDENCE, CIGARETTES, UNCOMPL 12/20/2018 DINORA KNOTT MD Ot R10.9 UNSPECIFIED ABDOMINAL PAIN 12/20/2018 DINORA KNOTT MD E Ot R11.2 NAUSEA WITH VOMITING, UNSPECIFIED 12/20/2018 DINORA KNOTT MD Ot Z87.4 40 PERSONAL HISTORY OF URINARY (TRACT) INFE 12/20/2018 DINORA KNOTT MD Ot Z98.8 90 OTHER [...] DENT AL CARIES, UNSPECIFIED 02/14/2019 Ot K08.89 OTH ER SPECIFIED DISORDERS OF TEETH AND S [...] PERSONAL HISTORY OF URINARY (TRACT) INFE 04/19/2019 HEIDI CAROLINA DO Ot Z98.890 OTHER SPECIFIED POSTPROCEDURAL STATES 04/21/2019 HEIDI CAROLINA DO, Ot M79.631 PAIN IN RIGHT FOREARM 04/21/2019 HEIDI CAROLINA DO Ot S50.11XA CONTUSION OF RIGHT FOREARM, INITIAL ENCO 04/21/2019 HEIDI CAROLINA DO Ot W19.XXXA UNSPECIFIED FALL, INITIAL ENCOUNTER 04/21/2019 HEIDI CAROLINA DO Ot Z77.22 CNTCT W AND EXPSR TO ENVIRON TOBACCO SMO 04/21/2019 HEIDI CAROLINA DO Ot Z87.440 PERSONAL HISTORY OF URINARY (TRACT) INFE 04/21/2019 HEIDI CAROLINA DO Ot Z98.890 OTHER SPECIFIED POSTPROCEDURAL STATES 07/17/2019 NIURKA TARIQ, JINA Jamil Ot B96. 89 OTH BACTERIAL AGENTS THE CAUSE OF DIS 07/17/2019 JINA BAH MD Ot J02. 8 ACUTE PHARYNGITIS DUE TO OTHER SPECIFIED 07/17/2019 JINA BAH MD Ot J02. 9 ACUTE PHARYNGITIS, UNSPECIFIED 07/17/2019 JINA BAH MD Ot J20. 9 ACUTE BRONCHITIS, UNSPECIFIED 07/17/2019 JINA BAH MD Ot J44. 0 CHRONIC OBSTRUCTIVE PULMON DISEASE W ACU 07/17/2019 JINA BAH MD Ot Z77. 22 CNTCT [...] PULMON DISEASE W ACU 07/20/2019 JINA BAH MD, Ot Z77. 22 CNTCT W AND EXPSR TO ENVIRON TOBACCO SMO 07/20/2019 JINA BAH MD Ot Z87. 09 PERSONAL HISTORY OF OTHER DISEASES OF 07/20/2019 JINA BAH MD Ot Z87.440 PERSONAL HISTORY OF URINARY (TRACT) INFE 07/20/2019 JINA BAH MD Ot Z98.890 OTHER SPECIFIED POSTPROCEDURAL STATES 09/14/2019 TSERING BERNAL MD Ot J44. 9 CHRONIC OBSTRUCTIVE PULMONARY DISEASE, U 09/14/2019 TSERING BERNAL MD Ot K08. 89 OTHER SPECIFIED DISORDERS OF TEETH AND S 09/14/2019 TSERING BERNAL MD Ot Z77. 22 CNTCT W AND EXPSR TO ENVIRON TOBACCO SMO 09/16/2019 TSERING BERNAL MD Ot J44. 9 CHRONIC OBSTRUCTIVE PULMONARY DISEASE, U 09/16/2019 TSERING BERNAL MD Ot K08. 89 OTHER SPECIFIED DISORDERS OF TEETH AND S 09/16/2019 TSERING BERNAL MD Ot Z77. 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 09/24/2019 ROVENSTINE DO, UCHE L Ot J44.9 CHRONIC OBSTRUCTIVE PULMONARY DISEASE, U 09/24/2019 ROVENSTINE DO, UCHE L Ot R10.30 LOWER ABDOMINAL PAIN, UNSPECIFIED 09/24/2019 ROVENSTINE DO, UCHE L Ot Z77.22 CNTCT W AND EXPSR TO ENVIRON TOBACCO SMO 09/24/2019 ROVENSTINE DO, UCHE L Ot Z79.52 JAIL (CURRENT) USE OF SYSTEMIC STER 11/04/2019 Jose Khan 008.2 INTESTINAL INFECTION DUE TO AEROBACTER AEROGENES 11/04/2019 Jose Khan 041.81 MYCOPLASMA INFECTION IN CONDITIONS CLASSIFIED ELSEWHERE AND OF UNSPECIFIED SITE 11/04/2019 Jose Khan 786.2 COUGH 11/04/2019 Jose Khan 789.02 ABDOMINAL PAIN, LEFT UPPER QUADRANT 11/04/2019 Jose Khan A04.8 OTHER SPECIFIED BACTERIAL INTESTINAL INFECTIONS 11/04/2019 Jose Khan A49.3 MYCOPLASMA INFECTION, UNSPECIFIED SITE 11/04/2019 Jose Khan R05 COUGH 11/04/2019 Jose Khan R10.12 LEFT UPPER QUADRANT PAIN 11/07/2019 Jose Khan 466.0 ACUTE BRONCHITIS 11/07/2019 Jose Khan 491.22 OBSTRUCTIVE CHRONIC BRONCHITIS WITH ACUTE BRONCHITIS 11/07/2019 Jose Khan J20.0 ACUTE BRONCHITIS DUE TO MYCOPLASMA PNEUMONIAE 11/07/2019 Jose Khan J44.0 CHR OBSTRUCTIVE PULMON DISEASE WITH (ACUTE) LOWER RESP INFCT 11/17/2019 CITLALY SILVA 525.8 OTHER SPECIFIED DISORDERS OF THE TEETH AND SUPPORTING STRUCTURES 11/17/2019 CITLALY SILVA 525.9 UNSPECIFIED DISORDER OF THE TEETH AND SUPPORTING STRUCTURES 11/17/2019 LEISURE, CITLALY Jamil K00.7 TEETHING SYNDROME 11/17/2019 LEISURE, CITLALY Jamil K08.89 OTHER SPECIFIED DISORDERS OF TEETH AND SUPPORTING STRUCTURES 12/17/2019 RICARDO, CITLALY Jamil B34.9 VIRAL INFECTION, UNSPECIFIED 12/17/2019 Judie James B34.9 VIRAL INFECTION, UNSPECIFIED 12/17/2019 Judie James B34.9 VIRAL INFECTION, UNSPECIFIED 12/17/2019 Donavan Huizar B34.9 VIRAL INFECTION, UNSPECIFIED 12/21/2019 Judie James W R59.0 LOCALIZED ENLARGED LYMPH NODES 12/21/2019 Judie James V64.3 PROCEDURE NOT CARRIED OUT FOR OTHER REASONS 12/21/2019 Judie James W Z53.8 PROCEDURE AND TREATMENT NOT CARRIED OUT FOR OTHER REAS ONS 01/11/2020 Judie James W R59.0 LOCALIZED ENLARGED LYMPH NODES 01/11/2020 Judie James V64.3 PROCEDURE NOT CARRIED OUT FOR OTHER REASONS 01/11/2020 Judie James Z53.8 PROCEDURE AND TREATMENT NOT CARRIED OUT FOR OTHER REAS ONS 01/19/2020 Donavan Huizar W 785.6 ENLARGEMENT OF LYMPH NODES 01/19/2020 Donavan Huizar W R59.0 LOCALIZED ENLARGED LYMPH NODES 01/19/2020 Donavan Huizar W 785.6 ENLARGEMENT OF LYMPH NODES 01/19/2020 Donavan Huizar W R59.0 LOCALIZED ENLARGED LYMPH NODES 01/19/2020 Donavan Huizar W 785.6 ENLARGEMENT OF LYMPH NODES 01/19/2020 Donavan Huizar W R59.0 LOCALIZED ENLARGED LYMPH NODES Procedures There is no data. Results Test [...] identification in genital specimen by aerobe culture [id number] Microscopic examination by wet preparati on - 11/28/18 18:20 WET PREP RESULTS Clari GARCIA NRG Neisseria gonorrhoeae DNA detection by p [...] urinalysis with reflex to culture NO NRG Lipase - 11/04/19 19:50 Lipase 8 U/L 7-59 Urinalysis - 11/04/19 20:00 Icotest Negative Negative Urine Crystals Amorphous material: Few/HPF Urine Volume Urine Volume Sufficient (10mL) Urine-Appearance Slightly Cloudy Clear Urine-Bacteria Trace Urine-Bilirubin 1+ Negative Urine-Blood Negative Negative Urine-Color Yellow Colorless-[place]t. [place] ow Urine-Epithelial Cells 10-20/HPF Urine-Glucose Negative Negative Urine-Ketones Negative Negative Urine-Leukocytes Negative Negative Urine-Mucus Trace Urine-Nitrite Negative Negative Urine-Other Urine Saved if Culture Need ed (48hrs from time of collection) Urine-pH 5.5 5-8.5 Urine-Protein Trace Negative Urine-RBC 0-2/HPF Urine-Specific [place] >=1.030 1.000-1 .030 Urine-WBC 0-3/HPF Urobilinogen 0.2 0.2-1.0 Protime - 12/15/19 11:19 INR 1.0 1.0-4.0 Protime 11.8 Sec 9.9-12.8 Comprehensive Metabolic Panel - 01/19/20 21:30 Albumin 4.2 g/dL 3.6-5.1 ALP 106 U/L 35-130 ALT 37 U/L 6-45 Anion Gap 12 6-14 AST 55 U/L 2-40 BUN 7 mg/dL 5-25 Calcium 9.3 mg/dL 8.3-10.4 Chloride 104 mmol/L 95-114 CO2 25 mEq/L 22-33 Creat 0.74 mg/dL 0.50-1.50 eGFR 88 mL/min/1.73m2 >59 Globulin 3.4 g/dL 2.3-3.5 Glucose 192 mg/dL 70-110 Osmo 286 280-295 Potassium 3.8 mmol/L 3.5-5.3 Sodium 137 mmol/L 134-148 TBil 0.2 mg/dL 0.2-1.2 TP 7.6 g/dL 6.0-8.3 Encounters ACCT No. Visit Date/Time Discharge Status Pt. Type Provider Facility Loc./Unit Complaint [id number] 11/23/2018 10:40:00 11/23/2018 23:59: 59 CLS Outpatient KAT OROURKE LAC [facility] [id number] 01/19/2020 20:02:00 01/19/2020 23:19 :00 DIS Outpatient Bhupendra Donavan [facility] ER [id number] 01/11/2020 00:00:00 01/11/2020 08:30 :00 DIS Outpatient Judie James [id number] 12/21/2019 00:00:00 12/21/2019 09:01 :00 DIS Outpatient Judie James [id number] 12/18/2019 14:06:00 12/18/2019 23:59 :00 DIS Outpatient Donavan Huizar [id number] 12/15/2019 10:50:00 12/15/2019 23:59 :00 DIS Outpatient Judie James [id number] 11/17/2019 09:45:00 11/17/2019 11:56 :00 DIS Outpatient CITLALY SILVA [id number] 11/07/2019 13:32:00 11/07/2019 15:27 :00 [id number] 11/04/2019 19:38:00 11/04/2019 20:48 :00 DIS Outpatient [facility] [place] [id number] 12/12/2019 11:18:31 Document Registration [id number] 11/04/2019 19:47:13 Document Registration [id number] 03/23/2020 11:11:00 020 12:07:00 DIS Emergency ROVENSTUCHE BADILLO DO [facility] ER FS VOMITING; LRQ P AIN; DIARRHEA [id number] 09/19/2019 15:45:00 019 17:41:00 DIS Emergency ROVENSTINE UCHE MOORE [facility] ER FS ABD PAIN [id number] 09/14/2019 10:00:00 10:15:00 DIS Emergency GABE TARIQ, TSERING Pisano [facility] ER FS FACIAL/MOUTH SWELLING [id number] 07/17/2019 21:34:00 22:55:00 DIS Emergency NIURKA TARIQ, JINA Jamil [facility] ER FS SORE THROAT,HEADACHES [id number] 04/19/2019 20:46:00 22:24:00 DIS Emergency HEIDI CAROLINA DO [facility] ER FS RT ARM PAIN [id number] 04/13/2019 11:45:00 12:51:00 DIS Emergency NOA ZAMARRIPA DO [facility] ER FS NECK CRAMPING/PAIN [id number] 12/18/2018 12:16:00 15:05:00 DIS Emergency DINORA KNOTT MD [facility] ER FS NAUSEA,VOMITING,RT SIDE PAIN [id number] 11/28/2018 16:14:00 19:39:00 DIS Emergency KARLA DELGADO APRN [facility] ER ABD PAIN,VOMITTING [id number] 02/12/2019 15:21:00 Document Registration
== END 2020-03-23 12:07 | disposition home or self-care (01) ==
LOC: EDUNIT# 11:09 → ER FS 11:11
DX: R11.2 Nausea with vomiting, unspecified (principal); J44.9 Chronic obstructive pulmonary disease, unspecified; Z77.22 Contact with and (suspected) exposure to environmental tobacco smoke (acute) (chronic); Z79.52 Long term (current) use of systemic steroids
CPT/HCPCS: 81000; 99283

== ENCOUNTER 2020-04-18 10:54 | Emergency (ER) | payer MEDICAID ==
[~2020-04-18] VITALS: Ht 160 cm; Wt 118.3 kg
[2020-04-18] MEDS ORDERED: ONDANSETRON 4 MG (ZOFRAN) ORAL DISSOLVE TAB PO STA (11:20)
--- NOTE | 2020-04-18 11:26 | ED General ---
General Stated Complaint: LRQ/JAW PAIN; VOMITING Source of Information: Patient History of Present Illness Date Seen by Provider: Apr 18, 2020 Time Seen by Provider: 11:18 Initial Comments Patient presents complaining of both ears hurting and having pressure without any discharge for the past several days. Long-term history of ear problems sometimes affected by whether or seasonal allergies. Not taking anything [id number]-sim-nvwjpjh for symptom relief. Denies fever or chills, sore throat, cough or difficulty breathing. Also complaining of nausea and vomiting which started today just prior to arrival. Patient drinking an iced coffee on arrival. Allergies and Home Medications Allergies Coded Allergies: No Known Drug Allergies (Unverified , 11/28/18) Home Medications Amoxicillin 500 Mg Capsule, 500 MG PO TID Prescribed by: RANCHO ANGELES on 02/12/19 1545 Amoxicillin 500 Mg Capsule, 875 MG PO BID Prescribed by: TSERING BERNAL on 09/14/19 1012 Azithromycin 250 Mg Tablet, 250 MG PO DAILY Prescribed by: JINA BAH on 07/17/19 2240 Diclofenac Sodium 50 Mg Tablet.dr, 50 MG PO BID Prescribed by: TSERING BERNAL on 09/14/19 1012 Dicyclomine HCl 20 Mg Tablet, 20 MG PO TID PRN for ABDOMINAL PAIN Prescribed by: DINORA KNOTT on 12/18/18 1438 Fexofenadine HCl 180 Mg Tablet, 180 MG PO DAILY Prescribed by: UCHE LOWRY on 04/18/20 1129 Fluticasone Propionate 16 Gm [place].susp, 16 GM NS DAILY Prescribed by: UCHE LOWRY on 04/18/20 1129 Hydrocodone/Acetaminophen 1 Each Tablet, 1 TAB PO Qhs Prescribed by: NOA ZAMARRIPA on 04/13/19 1247 Hyoscyamine Sulfate 0.125 Mg Tab.subl, 0.125 MG SL Q8H Prescribed by: UCHE LOWRY on 09/19/19 1713 Ibuprofen 800 Mg Tablet, 800 MG PO Q8H PRN for PAIN Prescribed by: JINA BAH on 07/17/19 2240 Metronidazole 500 Mg Tablet, 500 MG PO BID, (Reported) Ondansetron 4 Mg Tab.rapdis, 4 MG PO Q8H PRN for NAUSEA/VOMITING Prescribed by: DINORA KNOTT on 12/18/18 1438 Ondansetron 4 Mg Tab.rapdis, 4 MG PO TID Prescribed by: UCHE BENITEZSTJUSTINO on 03/23/20 1130 Ondansetron 4 Mg Tab.rapdis, 4 MG PO TID Prescribed by: UCHE LOWRY on 04/18/20 1129 Prednisone 20 Mg Tab, 40 MG PO DAILY Prescribed by: JINA BAH on 07/17/19 2240 Trimethoprim/Sulfamethoxazole 1 Ea Tablet, 1 TAB PO BID, (Reported) Patient Home Medication List Home Medication List Reviewed: Yes Review of Systems Review of Systems Constitutional: No dizziness, No fever, No malaise, No weakness EENTM: ear pain; No ear discharge, No hearing loss, No hoarseness, No nose congestion, No nose pain, No throat pain, No throat swelling Respiratory: No cough, No short of breath Cardiovascular: No chest pain, No palpitations Gastrointestinal: No abdominal pain, No loss of appetite; nausea, vomiting Musculoskeletal: No back pain, No joint pain Skin: No change in color, No lesions, No rash Past [place]-Ebeelw-Zcljsf Hx Past Med/Social Hx: Reviewed Nursing Past Med/Soc Hx Patient Social History Type Used: Cigarettes 2nd Hand Smoke Exposure: Yes Recent Foreign Travel: No Contact w/Someone Who Travel: No Recent Hopitalizations: No Seasonal Allergies Seasonal Allergies: No Past Medical History Surgeries: Yes (HERNIA REPAIR) Section, Gallbladder Respiratory: Yes COPD Cardiac: No Neurological: No Genitourinary: Yes (CURRENTLY BEING TREATED FOR UTI) Gastrointestinal: No Musculoskeletal: No Endocrine: No HEENT: No Cancer: No Psychosocial: No Integumentary: No Blood Disorders: No Physical Exam Vital Signs Vital Signs - First Documented 04/18/20 04/18/20 11:00 12:15 Temp 36.5 Pulse 116 Resp 20 B/P (MAP) 151/100 (117) Pulse Ox 98 O2 Delivery Room Air Capillary Refill : Height, Weight, BMI Height: 5'3.00" Weight: 240lbs. oz. 108.370446yp; 46.00 BMI Method:Stated General Appearance: No Apparent Distress, WD/WN HEENT: PERRL/EOMI, Pharynx Normal, Other (R TM w extensive chronic scarring, no AFL, some erythema. Canal patent without DC) Neck: Non Tender, Supple, Lymphadenopathy (R) Respiratory: Lungs Clear, No Accessory Muscle Use Cardiovascular: Regular Rate, Rhythm, No Edema Gastrointestinal: Normal Bowel Sounds, Non Tender, Soft; No Distended, No Guarding, No Rebound Back: Normal Inspection, No CVA Tenderness Extremity: Normal Capillary Refill, Normal Inspection Neurologic/Psychiatric: Alert, Oriented x3 Skin: Normal Color, Warm/Dry Progress/Results/Core Measures Suspected Sepsis SIRS Temperature: Pulse: Respiratory Rate: Blood Pressure / Mean: Results/Orders Lab Results Laboratory Tests Test 04/18/20 11:05 Range/Units Urine Color DARK YELLOW Urine Clarity CLEAR Urine pH 6.0 5-9 Urine Specific [place] >=1.030 1.016-1.022 Urine Protein NEGATIVE NEGATIVE Urine Glucose (UA) NEGATIVE NEGATIVE Urine Ketones NEGATIVE NEGATIVE Urine Nitrite NEGATIVE NEGATIVE Urine Bilirubin NEGATIVE NEGATIVE Urine Urobilinogen 0.2 < = 1.0 MG/DL Urine Leukocyte Esterase NEGATIVE NEGATIVE Urine RBC (Auto) 2+ H NEGATIVE Urine RBC 2-5 H /HPF Urine WBC 0-2 /HPF Urine Squamous Epithelial Cells 5-10 /HPF Urine Crystals NONE /LPF Urine Bacteria TRACE /HPF Urine Casts NONE /LPF Urine Mucus MODERATE H /LPF Urine Culture Indicated NO Urine Test NEGATIVE NEGATIVE My Orders Orders - ROVENSTINE,UCHE L DO Urinalysis (04/18/20 11:19) Hcg,Qualitative Urine (04/18/20 11:19) Ondansetron Oral Dissolve Tab (Zofran (04/18/20 11:20) Urine Bedside (04/18/20 11:44) Vital Signs/I&O 04/18/20 04/18/20 11:00 12:15 Temp 36.5 36.2 Pulse 116 94 Resp 20 20 B/P (MAP) 151/100 (117) 159/109 (117) Pulse Ox 98 O2 Delivery Room Air Room Air Capillary Refill : Departure Impression Primary Impression: Ear pain, right Additional Impressions: Seasonal allergies Nausea & vomiting Qualified Codes: R11.2 - Nausea with vomiting, unspecified Disposition: 01 HOME, SELF-CARE Condition: Stable Departure-Patient Inst. Decision time for Depature: 11:26 Referrals: [facility] (PCP) Primary Care Physician SAMEERA DENT APRN (Family) Primary Care Physician Patient Instructions: Clear Liquid Diet, Nausea and Vomiting, Adult, Seasonal Allergies (DC) Scripts Ondansetron (Ondansetron Odt) 4 Mg Tab.rapdis 4 MG PO TID for Nausea, #10 TAB Prov: UCHE LOWRY DO 04/18/20 Fluticasone Propionate (Fluticasone Propionate) 16 Gm [place].susp 16 GM NS DAILY, #1 SPRAY Prov: UCHE LOWRY DO 04/18/20 Fexofenadine HCl (Wal-Fex Allergy) 180 Mg Tablet 180 MG PO DAILY, #10 TAB Prov: UCHE LOWRY DO 04/18/20 UCHE LOWRY DO Apr 18, 2020 11:26
[2020-04-18] MEDS ORDERED: ONDA4TAB11 PO (11:29)
[2020-04-18] MEDS ORDERED: FLUT16SP22 NS (11:29)
[2020-04-18] MEDS ORDERED: FEXO-16 PO (11:29)
[2020-04-18 11:46] LABS: CLARITY,URINE CLEAR; COLOR,URINE DARK YELLOW
[2020-04-18 11:47] LABS: BACTERIA,URINE TRACE /HPF; BILIRUBIN,URINE NEGATIVE (NEGATIVE); GLUCOSE, URINE (UA) NEGATIVE (NEGATIVE); KETONES,URINE NEGATIVE (NEGATIVE); LEUKOCYTE ESTERASE ,URINE NEGATIVE (NEGATIVE); NITRITE,URINE NEGATIVE (NEGATIVE); PROTEIN,URINE NEGATIVE (NEGATIVE); WBC,URINE 0-2 /HPF
[2020-04-18 12:15] VITALS: BP 159/109
--- OUTSIDE RECORDS SUMMARY | 2020-04-18 12:31 | XMS REPORT | Continuity of Care Document ---
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 09/24/2019 ROVENSTINE DO, UCHE L Ot J44.9 CHRONIC OBSTRUCTIVE PULMONARY DISEASE, U 09/24/2019 ROVENSTINE DO, UCHE L Ot R10.30 LOWER ABDOMINAL PAIN, UNSPECIFIED 09/24/2019 ROVENSTINE DO, UCHE L Ot Z77.22 CNTCT W AND EXPSR TO ENVIRON TOBACCO SMO 09/24/2019 ROVENSTINE DO, UCHE L Ot Z79.52 FDC (CURRENT) USE OF SYSTEMIC STER 11/04/2019 Jose [...] DISORDERS OF TEETH AND SUPPORTING STRUCTURES 12/17/2019 LEISURE, CITLALY Jamil B34.9 VIRAL INFECTION, UNSPECIFIED 12/17/2019 Judie James B34.9 VIRAL INFECTION, UNSPECIFIED 12/17/2019 Judie James B34.9 VIRAL INFECTION, UNSPECIFIED 12/17/2019 Donavan Huizar B34.9 VIRAL INFECTION, UNSPECIFIED 12/21/2019 Judie James R59.0 LOCALIZED ENLARGED LYMPH NODES 12/21/2019 Judie James V64.3 PROCEDURE NOT CARRIED OUT FOR OTHER REASONS 12/21/2019 Judie James W Z53.8 PROCEDURE AND TREATMENT NOT CARRIED OUT FOR OTHER REAS ONS 01/11/2020 Judie James R59.0 LOCALIZED ENLARGED LYMPH NODES 01/11/2020 Judie [...] W 785.6 ENLARGEMENT OF LYMPH NODES 01/19/2020 BrownDonavan W R59.0 LOCALIZED ENLARGED LYMPH NODES 03/26/2020 ROVENSTINE DOUCHE Ot J44.9 CHRONIC OBSTRUCTIVE PULMONARY DISEASE, U 03/26/2020 ROVENSTINE UCHE MOORE Ot R11.2 NAUSEA WITH VOMITING, UNSPECIFIED 03/26/2020 ROVENSTINE UCHE MOORE Ot Z77.22 CNTCT W AND EXPSR TO ENVIRON TOBACCO SMO 03/26/2020 ROVENSTINE UCHE MOORE Ot 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 [place] ow Urine-Epithelial Cells 10-20/HPF Urine-Glucose Negative Negative Urine-Ketones Negative Negative Urine-Leukocytes Negative Negative Urine-Mucus Trace Urine-Nitrite Negative Negative Urine-Other Urine Saved if Culture Need ed (48hrs from time of collection) Urine-pH 5.5 5-8.5 Urine-Protein Trace Negative Urine-RBC 0-2/HPF Urine-Specific [place] Level >=1.030 1.000-1 .030 Urine-WBC 0-3/HPF Urobilinogen 0.2 [...] 0.2 mg/dL 0.2-1.2 TP 7.6 g/dL 6.0-8.3 Complete urinalysis with reflex to cultu re - 03/23/20 11:18 Urine color determination YELLOW NRG Urine clarity determination CLEAR NR G Urine pH measurement by test strip 6.0 5-9 Specific gravity of urine by test strip >= 1.016-1.022 Urine protein assay by test strip, semi-quantitative NEGATIVE NEGATIVE Urine glucose detection by automated test strip 2+ NEGATIVE Erythrocytes detection in urine sediment by light micr oscopy NEGATIVE NEGATIVE Urine ketones detection by automated test strip TR TOSIN NEGATIVE Urine nitrite detection by test strip [...] Status Pt. Type Provider Facility Loc./Unit Complaint [id number] 11/23/2018 10:40:00 11/23/2018 23:59: 59 [facility] Outpatient [facility]ARAD [facility] [id number] 01/19/2020 20:02:00 01/19/2020 23:19 :00 DIS Outpatient Donavan Huizar [facility] ER [id number] 01/11/2020 00:00:00 01/11/2020 08:30 :00 DIS Outpatient Judie James [id number] 12/21/2019 00:00:00 12/21/2019 09:01 :00 DIS Outpatient Judie James [id number] 12/18/2019 14:06:00 12/18/2019 23:59 :00 DIS Outpatient Donavan Huizar [id number] 12/15/2019 10:50:00 12/15/2019 23:59 :00 DIS Outpatient Judie James [id number] 11/17/2019 09:45:00 11/17/2019 11:56 :00 DIS Outpatient RICARDOCITLALY [id number] 11/07/2019 13:32:00 11/07/2019 15:27 :00 [id number] 11/04/2019 19:38:00 11/04/2019 20:48 :00 [id number] 12/12/2019 11:18:31 Document Registration [id number] 11/04/2019 19:47:13 Document Registration [id number] 03/23/2020 11:11:00 12:07:00 DIS Outpatient UCHE LOWRY DO [facility] ER FS VOMITING; LRQ P AIN; DIARRHEA [id number] 09/19/2019 15:45:00 17:41:00 DIS Emergency UCHE LOWRY DO [facility] ER FS ABD PAIN [id number] 09/14/2019 10:00:00 10:15:00 DIS Emergency TSERING BERNAL MD [facility] ER FS FACIAL/MOUTH SWELLING [id number] 07/17/2019 21:34:00 22:55:00 DIS Emergency JINA BAH MD [facility] ER FS SORE THROAT,HEADACHES [id number] 04/19/2019 20:46:00 22:24:00 DIS Emergency GE DO, HEIDI D [facility] ER FS RT ARM PAIN [id number] 04/13/2019 11:45:00 019 12:51:00 DIS Emergency NOA ZAMARRIPA DO [facility] ER FS NECK CRAMPING/PAIN [id number] 12/18/2018 12:16:00 019 15:05:00 DIS Emergency DINORA KNOTT MD [facility] ER FS NAUSEA,VOMITING,RT SIDE PAIN [id number] 11/28/2018 16:14:00 019 19:39:00 DIS Emergency KARLA DELGADO APRN [facility] ER ABD PAIN,VOMITTING [id number] 02/12/2019 15:21:00 Document Registration
[2020-04-19] MEDS ORDERED: NAPR-1071 PO (23:53)
[2020-04-19] MEDS ORDERED: CEPH500T PO (23:53)
== END 2020-04-18 12:15 | disposition home or self-care (01) ==
LOC: EDUNIT# 10:54 → ER FS 10:56
DX: J30.2 Other seasonal allergic rhinitis (principal); R11.2 Nausea with vomiting, unspecified; J44.9 Chronic obstructive pulmonary disease, unspecified; Z79.52 Long term (current) use of systemic steroids; Z77.22 Contact with and (suspected) exposure to environmental tobacco smoke (acute) (chronic)
CPT/HCPCS: 81000; 84703; 99283

== ENCOUNTER 2020-04-19 23:20 | Emergency (ER) | payer MEDICAID ==
[~2020-04-19] VITALS: Ht 160 cm; Wt 120.0 kg
[~2020-04-19 23:20] MED LIST changes: +FEXO-16 PO; +FLUT16SP22 NS
--- OUTSIDE RECORDS SUMMARY | 2020-04-19 23:27 | XMS REPORT | Continuity of Care Document ---
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 09/24/2019 ROVENSTINE DO, UCHE L Ot J44.9 CHRONIC OBSTRUCTIVE PULMONARY DISEASE, U 09/24/2019 ROVENSTINE DO, UCHE L Ot R10.30 LOWER ABDOMINAL PAIN, UNSPECIFIED 09/24/2019 ROVENSTINE DO, UCHE L Ot Z77.22 CNTCT W AND EXPSR TO ENVIRON TOBACCO SMO 09/24/2019 ROVENSTINE DO, UCHE L Ot Z79.52 [facility]CI (CURRENT) USE OF SYSTEMIC STER 11/04/2019 Jose [...] R59.0 LOCALIZED ENLARGED LYMPH NODES 01/11/2020 Judie Jamse V64.3 PROCEDURE NOT CARRIED OUT FOR OTHER [...] SMO 03/26/2020 ROVENSTINE UCHE MOORE Ot 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 [place] ow Urine-Epithelial Cells 10-20/HPF Urine-Glucose Negative Negative Urine-Ketones Negative Negative Urine-Leukocytes Negative Negative Urine-Mucus Trace Urine-Nitrite Negative Negative Urine-Other Urine Saved if Culture Need ed (48hrs from time of collection) Urine-pH 5.5 5-8.5 Urine-Protein Trace Negative Urine-RBC 0-2/HPF Urine-Specific [place] >=1.030 1.000-1 .030 Urine-WBC 0-3/HPF Urobilinogen 0.2 [...] with reflex to culture NO NRG Urine beta human chorionic gonadotropin (hCG) measurement - 04/18/20 11:05 Urine beta human chorionic gonadotropin (hCG) measurem ent NEGATIVE NEGATIVE Complete urinalysis with reflex to cultu re - 04/18/20 11:05 Urine color determination DARK YELLOW N RG Urine clarity determination CLEAR NR G Urine pH measurement by test strip 6.0 5-9 Specific gravity of urine by test strip >= 1.016-1.022 Urine protein assay by test strip, semi-quantitative NEGATIVE NEGATIVE Urine glucose detection by automated test strip NE GATIVE NEGATIVE Erythrocytes detection in urine sediment by light micr oscopy 2+ NEGATIVE Urine ketones detection by automated test [...] Status Pt. Type Provider Facility Loc./Unit Complaint [id number] 11/23/2018 10:40:00 11/23/2018 23:59: 59 CLS Outpatient SHARAD DANIELLE KAT [facility] [id number] 01/19/2020 20:02:00 01/19/2020 23:19 :00 DIS Outpatient Donavan Huizar [facility] ER [id number] 01/11/2020 00:00:00 01/11/2020 08:30 :00 DIS Outpatient Judie James [id number] 12/21/2019 00:00:00 12/21/2019 09:01 :00 DIS Outpatient Judie James [id number] 12/18/2019 14:06:00 12/18/2019 23:59 :00 DIS Outpatient Donavan Huizar [id number] 12/15/2019 10:50:00 12/15/2019 23:59 :00 DIS Outpatient Judie James [id number] 11/17/2019 09:45:00 11/17/2019 11:56 :00 DIS Outpatient CITLALY SILVA [id number] 11/07/2019 13:32:00 11/07/2019 15:27 :00 [id number] 11/04/2019 19:38:00 11/04/2019 20:48 :00 DIS Outpatient [facility] ER [id number] 12/12/2019 11:18:31 Document Registration [id number] 11/04/2019 19:47:13 Document Registration [id number] 04/18/2020 10:56:00 12:15:00 DIS Emergency UCHE LOWRY DO [facility] ER FS LRQ/JAW PAIN; V OMITING [id number] 03/23/2020 11:11:00 12:07:00 DIS Outpatient UCHE LOWRY DO [facility] ER FS VOMITING; LRQ P AIN; DIARRHEA [id number] 09/19/2019 15:45:00 17:41:00 DIS Emergency UCHE LOWRY DO [facility] ER FS ABD PAIN [id number] 09/14/2019 10:00:00 10:15:00 DIS Emergency TSERING BERNAL MD [facility] ER FS FACIAL/MOUTH SWELLING [id number] 07/17/2019 21:34:00 22:55:00 DIS Emergency JINA BAH MD [facility] ER FS SORE THROAT,HEADACHES [id number] 04/19/2019 20:46:00 22:24:00 DIS Emergency HEIDI CAROLINA DO [facility] ER FS RT ARM PAIN [id number] 04/13/2019 11:45:00 12:51:00 DIS Emergency NOA ZAMARRIPA DO [facility] ER FS NECK CRAMPING/PAIN [id number] 12/18/2018 12:16:00 15:05:00 DIS Emergency DINORA KNOTT MD [facility] ER FS NAUSEA,VOMITING,RT SIDE PAIN [id number] 11/28/2018 16:14:00 019 19:39:00 DIS Emergency KARLA DELGADO APRN [facility] ER ABD PAIN,VOMITTING [id number] 02/12/2019 15:21:00 Document Registration
--- NOTE | 2020-04-19 23:35 | ED General ---
General Chief Complaint: Abdominal/GI Problems Stated Complaint: ABD PAIN, TROUBLE BREATHING History of Present Illness Date Seen by Provider: Apr 19, 2020 Time Seen by Provider: 23:33 Initial Comments 39-year-old female presents with right ear pain. Patient was seen yesterday for the same thing but was bilateral ear pain. She has a long-standing ear pain for current review of yesterday's note. She was given a prescription for allergy medication, Flonase with what appears to be a eustachian tube dysfunction. They she has a little bit of swelling in her right neck that is a lymph node. Patient presents intoxicated because "she drink because the pain" she did not follow up with a primary care provider. She complained of some nausea upon arrival. Patient was checked in due to abdominal pain and trouble breathing however she did not mention this does not have any complaints of breathing or abdominal pain at this time for me. Patient reports that she had quit drinking for 2-1/2 years but started drinking because of the pain. Allergies and Home Medications Allergies Coded Allergies: No Known Drug Allergies (Unverified , 11/28/18) Home Medications Amoxicillin 500 Mg Capsule, 500 MG PO TID Prescribed by: RANCHO ANGELES on 02/12/19 1545 Amoxicillin 500 Mg Capsule, 875 MG PO BID Prescribed by: TSERING BERNAL on 09/14/19 1012 Azithromycin 250 Mg Tablet, 250 MG PO DAILY Prescribed by: JINA BAH on 07/17/19 2240 Diclofenac Sodium 50 Mg Tablet.dr, 50 MG PO BID Prescribed by: TSERING BERNAL on 09/14/19 1012 Dicyclomine HCl 20 Mg Tablet, 20 MG PO TID PRN for ABDOMINAL PAIN Prescribed by: DINORA KNOTT on 12/18/18 1438 Fexofenadine HCl 180 Mg Tablet, 180 MG PO DAILY Prescribed by: UCHE LOWRY on 04/18/20 1129 Fluticasone Propionate 16 Gm [place].susp, 16 GM NS DAILY Prescribed by: UCHE LOWRY on 04/18/20 1129 Hydrocodone/Acetaminophen 1 Each Tablet, 1 TAB PO Qhs Prescribed by: NOA ZAMARRIPA on 04/13/19 1247 Hyoscyamine Sulfate 0.125 Mg Tab.subl, 0.125 MG SL Q8H Prescribed by: UCHE LOWRY on 09/19/19 1713 Ibuprofen 800 Mg Tablet, 800 MG PO Q8H PRN for PAIN Prescribed by: JINA BAH on 07/17/19 2240 Metronidazole 500 Mg Tablet, 500 MG PO BID, (Reported) Ondansetron 4 Mg Tab.rapdis, 4 MG PO Q8H PRN for NAUSEA/VOMITING Prescribed by: DINORA KNOTT on 12/18/18 1438 Ondansetron 4 Mg Tab.rapdis, 4 MG PO TID Prescribed by: UCHE BENITEZSTJUSTINO on 03/23/20 1130 Ondansetron 4 Mg Tab.rapdis, 4 MG PO TID Prescribed by: UCHE BENITEZSTJUSTINO on 04/18/20 1129 Prednisone 20 Mg Tab, 40 MG PO DAILY Prescribed by: JINA BAH on 07/17/19 2240 Trimethoprim/Sulfamethoxazole 1 Ea Tablet, 1 TAB PO BID, (Reported) Patient Home Medication List Home Medication List Reviewed: Yes Review of Systems Review of Systems Constitutional: No chills EENTM: ear pain Respiratory: No cough, No short of breath Cardiovascular: No chest pain, No palpitations Gastrointestinal: No abdominal pain; nausea Musculoskeletal: no symptoms reported Skin: no symptoms reported Psychiatric/Neurological: No Symptoms Reported Hematologic/Lymphatic: Swollen Glands Immunological/Allergic: no symptoms reported Past Yaupcel-Ytuxtd-Nunfgv Hx Past Med/Social Hx: Reviewed Nursing Past Med/Soc Hx Patient Social History Type Used: Cigarettes 2nd Hand Smoke Exposure: Yes Recent Foreign Travel: No Contact w/Someone Who Travel: No Recent Hopitalizations: No Immunizations Up To Date Tetanus Booster (TDap): Unknown Seasonal Allergies Seasonal Allergies: No Past Medical History Surgeries: Yes (HERNIA REPAIR) Section, Gallbladder Respiratory: Yes COPD Cardiac: No Neurological: No Genitourinary: Yes Gastrointestinal: No Musculoskeletal: No Endocrine: No HEENT: No Cancer: No Psychosocial: No Integumentary: No Blood Disorders: No Physical Exam Vital Signs Vital Signs - First Documented 04/19/20 23:25 Temp 35.7 Pulse 119 Resp 20 B/P (MAP) 167/95 (119) Pulse Ox 96 O2 Delivery Room Air Capillary Refill : Height, Weight, BMI Height: 5'3.00" Weight: 240lbs. oz. 108.466873ic; 46.00 BMI Method:Stated General Appearance: No Apparent Distress, Obese, Other (intoxicated) Eyes: Bilateral Eye Normal Inspection HEENT: Other (mild erythema TM with mild erythema to the canal) Neck: Lymphadenopathy (R) Respiratory: Lungs Clear, Normal Breath Sounds Cardiovascular: Regular Rate, Rhythm Gastrointestinal: Non Tender, Soft Extremity: Normal Capillary Refill, Normal Inspection Neurologic/Psychiatric: Other (intoxicated but able answer all questions appropriately) Skin: Normal Color, Warm/Dry Progress/Results/Core Measures Suspected Sepsis SIRS Temperature: Pulse: Respiratory Rate: Blood Pressure / Mean: Results/Orders Vital Signs/I&O 04/19/20 23:25 Temp 35.7 Pulse 119 Resp 20 B/P (MAP) 167/95 (119) Pulse Ox 96 O2 Delivery Room Air Capillary Refill : Progress Note : Time: 23:49 Progress Note Patient is intoxicated but able answer questions appropriately. When asked what patient is expected from her er visit, she states she is wanting something for her ear pain. She does have a swollen right lymph node. I'll give her a shot of Toradol and a shot or Rocephin. I will discharge her with a prescription for Keflex and Naprosyn. I did discuss with her that we do not prescribe narcotics for ear pain and lymphadenopathy. That she needs some stronger she will need to follow-up with her primary care provider. Also discussed further this her symptoms are not improving within next couple days she will need to follow-up. Patient to be discharged home in stable condition Departure Impression Primary Impression: Lymphadenopathy of right cervical region Additional Impressions: Right ear pain Alcohol intoxication Qualified Codes: F10.920 - Alcohol use, unspecified with intoxication, uncomplicated Disposition: 01 HOME, SELF-CARE Condition: Stable Departure-Patient Inst. Referrals: [facility] Primary Care Physician SAMEERA DENT APRN (Family) Primary Care Physician Patient Instructions: Eustachian Tube Problems, Lymphadenitis (DC), Serous Otitis Media (DC), Alcohol Use - When Is Drinking a Problem?, Alcohol Abuse and Alcoholism (DC) Add. Discharge Instructions: Follow-up with your primary care provider on Thursday for recheck in today sympto ms All discharge instructions reviewed with patient and/or family. Voiced understanding. Scripts Naproxen (Naprosyn) 500 Mg Tablet 500 MG PO BID, #30 TAB 0 Refills Prov: ANGELES,RANCHO L DO 04/19/20 Cephalexin (Cephalexin) 500 Mg Tablet 500 MG PO QID, #20 TAB 0 Refills Prov: RANCHO ANGELES DO 04/19/20 RANCHO ANGELES DO Apr 19, 2020 23:35
[2020-04-19] MEDS ORDERED: KETOROLAC 60 MG/2 ML VIAL IM STA (23:42)
[2020-04-19] MEDS ORDERED: LIDOCAINE 1% INJ 20 ML 20 ML VIAL INJ ONE (23:45)
[2020-04-19] MEDS ORDERED: cefTRIAXone 1,000 MG/2.86 ml vial (IM ONLY) IM ONE (23:45)
[2020-04-19 23:53] VITALS: BP 167/95
[2020-04-19] MEDS ORDERED: NAPR-1071 PO (23:53)
[2020-04-19] MEDS ORDERED: CEPH500T PO (23:53)
== END 2020-04-19 23:57 | disposition home or self-care (01) ==
LOC: EDUNIT# 23:20 → ER FS 23:23
DX: R59.0 Localized enlarged lymph nodes (principal); H92.01 Otalgia, right ear; F10.920 Alcohol use, unspecified with intoxication, uncomplicated; J44.9 Chronic obstructive pulmonary disease, unspecified; E66.9 Obesity, unspecified; Z79.899 Other long term (current) drug therapy; Z79.52 Long term (current) use of systemic steroids; Z68.42 Body mass index [BMI] 45.0-49.9, adult
CPT/HCPCS: 96372; 99284

== ENCOUNTER 2020-04-22 20:17 | Emergency (ER) | payer MEDICAID ==
[~2020-04-22] VITALS: Ht 160 cm; Wt 121.8 kg
[~2020-04-22 20:17] MED LIST changes: +CEPH500T PO; +NAPR-1071 PO
[2020-04-22 20:21] VITALS: BP 180/96
--- OUTSIDE RECORDS SUMMARY | 2020-04-22 20:23 | XMS REPORT | Continuity of Care Document ---
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 09/24/2019 ROVENSTINE DO, UCHE L Ot J44.9 CHRONIC OBSTRUCTIVE PULMONARY DISEASE, U 09/24/2019 ROVENSTINE DO, UCHE L Ot R10.30 LOWER ABDOMINAL PAIN, UNSPECIFIED 09/24/2019 ROVENSTINE DO, UCHE L Ot Z77.22 CNTCT W AND EXPSR TO ENVIRON TOBACCO SMO 09/24/2019 ROVENSTINE DO, UCHE L Ot Z79.52 GROUP HOME (CURRENT) USE OF SYSTEMIC STER 11/04/2019 Jose Khan 008.2 INTESTINAL INFECTION DUE TO AEROBACTER AEROGENES 11/04/2019 Jose Khan 041.81 MYCOPLASMA INFECTION IN CONDITIONS CLASSIFIED ELSEWHERE AND OF UNSPECIFIED SITE 11/04/2019 Jose Khan 786.2 COUGH 11/04/2019 Jsoe Khan 789.02 ABDOMINAL PAIN, LEFT UPPER QUADRANT [...] Donavan Huizar B34.9 VIRAL INFECTION, UNSPECIFIED 12/21/2019 Judei James R59.0 LOCALIZED ENLARGED LYMPH NODES 12/21/2019 [...] SMO 03/26/2020 ROVENSTINE UCHE MOORE Ot 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 [place] ow Urine-Epithelial Cells 10-20/HPF Urine-Glucose Negative Negative Urine-Ketones Negative Negative Urine-Leukocytes Negative Negative Urine-Mucus Trace Urine-Nitrite Negative Negative Urine-Other Urine Saved if Culture Need ed (48hrs from time of collection) Urine-pH 5.5 5-8.5 Urine-Protein Trace Negative Urine-RBC 0-2/HPF Urine-Specific [place] >=1.030 1.000-1 .030 Urine-WBC 0-3/HPF Urobilinogen 0.2 [...] Status Pt. Type Provider Facility Loc./Unit Complaint [id number] 11/23/2018 10:40:00 11/23/2018 23:59: 59 CLS Outpatient SHARAD DANIELLE KAT [facility] [id number] 01/19/2020 20:02:00 01/19/2020 23:19 :00 DIS Outpatient Donaavn Huizar [facility] ER [id number] 01/11/2020 00:00:00 01/11/2020 08:30 :00 DIS Outpatient Judie James [id number] 12/21/2019 00:00:00 12/21/2019 09:01 :00 DIS Outpatient Judie James [id number] 12/18/2019 14:06:00 12/18/2019 23:59 :00 DIS Outpatient Donavan Huizar [id number] 12/15/2019 10:50:00 12/15/2019 23:59 :00 DIS Outpatient Judie James [id number] 11/17/2019 09:45:00 11/17/2019 11:56 :00 DIS Outpatient CITLALY SILVA [id number] 11/07/2019 13:32:00 11/07/2019 15:27 :00 [id number] 11/04/2019 19:38:00 11/04/2019 20:48 :00 DIS Outpatient [facility] ER [id number] 12/12/2019 11:18:31 Document Registration [id number] 11/04/2019 19:47:13 Document Registration [id number] 04/19/2020 23:23:00 23:57:00 DIS Emergency RANCHO ANGELES DO Via [facility] ER FS ABD PAIN, TROUBLE BREAT GUERLINE [id number] 04/18/2020 10:56:00 12:15:00 DIS Emergency ROVENUCHE SKY DO [facility] ER FS LRQ/JAW PAIN; V OMITING [id number] 03/23/2020 11:11:00 12:07:00 DIS Outpatient UCHE LOWRY DO Via [facility] ER FS VOMITING; LRQ P AIN; DIARRHEA [id number] 09/19/2019 15:45:00 17:41:00 DIS Emergency UCHE LOWRY DO Via [facility] ER FS ABD PAIN [id number] 09/14/2019 10:00:00 10:15:00 DIS Emergency TSERING BERNAL MD Via [facility] ER FS FACIAL/MOUTH SWELLING [id number] 07/17/2019 21:34:00 22:55:00 DIS Emergency JINA BAH MD Via [facility] ER FS SORE THROAT,HEADACHES [id number] 04/19/2019 20:46:00 22:24:00 DIS Emergency HEIDI CAROLINA DO Via [facility] ER FS RT ARM PAIN [id number] 04/13/2019 11:45:00 12:51:00 DIS Emergency NOA ZAMARRIPA DO Via [facility] ER FS NECK CRAMPING/PAIN [id number] 12/18/2018 12:16:00 019 15:05:00 DIS Emergency DINORA KNOTT MD Via [facility] ER FS NAUSEA,VOMITING,RT SIDE PAIN [id number] 11/28/2018 16:14:00 019 19:39:00 DIS Emergency KARLA DELGADO APRN [facility] ER ABD PAIN,VOMITTING [id number] 02/12/2019 15:21:00 Document Registration
--- NOTE | 2020-04-22 20:43 | ED EENT ---
History of Present Illness General Chief Complaint: Ear Problems Stated Complaint: FACIAL SWELLING/EAR PAIN Nursing Triage Note: Patient presents to the ER with ear pain and mild right sided facial swelling. Patient came to the ER for the same complaint twice recently and was treated. Patient is currently on antibiotics from her previous visit. Source: patient History of Present Illness Date Seen by Provider: Apr 22, 2020 Time Seen by Provider: 20:39 Initial Comments Pt presents with right ear pain x 2-3 days. She has been seen previously for this an prescribed Keflex. She says it is not getting better. Reports swelling and drainage. Allergies and Home Medications Allergies Coded Allergies: No Known Drug Allergies (Unverified , 11/28/18) Home Medications Amoxicillin 500 Mg Capsule, 500 MG PO TID Prescribed by: RANCHO ANGELES on 02/12/19 1545 Amoxicillin 500 Mg Capsule, 875 MG PO BID Prescribed by: TSERING BERNAL on 09/14/19 1012 Azithromycin 250 Mg Tablet, 250 MG PO DAILY Prescribed by: JINA BAH on 07/17/19 2240 Cephalexin 500 Mg Tablet, 500 MG PO QID Prescribed by: RANCHO ANGELES on 04/19/20 2353 Diclofenac Sodium 50 Mg Tablet.dr, 50 MG PO BID Prescribed by: TSERING BERNAL on 09/14/19 1012 Dicyclomine HCl 20 Mg Tablet, 20 MG PO TID PRN for ABDOMINAL PAIN Prescribed by: DINORA KNOTT on 12/18/18 1438 Fexofenadine HCl 180 Mg Tablet, 180 MG PO DAILY Prescribed by: UCHE LOWRY on 04/18/20 1129 Fluticasone Propionate 16 Gm [place].susp, 16 GM NS DAILY Prescribed by: UCHE LOWRY on 04/18/20 1129 Hydrocodone/Acetaminophen 1 Each Tablet, 1 TAB PO Qhs Prescribed by: NOA ZAMARRIPA on 04/13/19 1247 Hyoscyamine Sulfate 0.125 Mg Tab.subl, 0.125 MG SL Q8H Prescribed by: UCHE LOWRY on 09/19/19 1713 Ibuprofen 800 Mg Tablet, 800 MG PO Q8H PRN for PAIN Prescribed by: JINA BAH on 07/17/19 2240 Metronidazole 500 Mg Tablet, 500 MG PO BID, (Reported) Naproxen 500 Mg Tablet, 500 MG PO BID Prescribed by: RANCHO ANGELES on 04/19/20 2353 Ondansetron 4 Mg Tab.rapdis, 4 MG PO Q8H PRN for NAUSEA/VOMITING Prescribed by: DINORA KNOTT on 12/18/18 1438 Ondansetron 4 Mg Tab.rapdis, 4 MG PO TID Prescribed by: UCHE LOWRY on 03/23/20 1130 Ondansetron 4 Mg Tab.rapdis, 4 MG PO TID Prescribed by: UCHE LOWRY on 04/18/20 1129 Prednisone 20 Mg Tab, 40 MG PO DAILY Prescribed by: JINA BAH on 07/17/19 2240 Trimethoprim/Sulfamethoxazole 1 Ea Tablet, 1 TAB PO BID, (Reported) Patient Home Medication List Home Medication List Reviewed: Yes Review of Systems Review of Systems Constitutional: No fever Eyes: No Symptoms Reported Ears: Pain, Purulent Discharge Mouth: no symptoms reported Respiratory: no symptoms reported Cardiovascular: no symptoms reported Gastrointestinal: no symptoms reported Past Ihldhws-Kpkjcl-Zcinrl Hx Patient Social History Alcohol Use: Denies Use Recreational Drug Use: No Smoking Status: Current Everyday Smoker Type Used: Cigarettes 2nd Hand Smoke Exposure: Yes Recent Foreign Travel: No Contact w/Someone Who Travel: No Recent Infectious Disease Expo: No Recent Hopitalizations: No Physical Abuse: No Sexual Abuse: No Mistreated: No Fear: No Immunizations Up To Date Tetanus Booster (TDap): Unknown Seasonal Allergies Seasonal Allergies: No Past Medical History Surgeries: Yes (HERNIA REPAIR) Section, Gallbladder Respiratory: Yes COPD Cardiac: No Neurological: No Genitourinary: Yes Gastrointestinal: No Musculoskeletal: No Endocrine: No HEENT: No Cancer: No Psychosocial: No Integumentary: No Blood Disorders: No Physical Exam Vital Signs Vital Signs - First Documented 04/22/20 20:21 Temp 36.4 Pulse 114 Resp 20 B/P (MAP) 180/96 (124) Pulse Ox 93 O2 Delivery Room Air Height, Weight, BMI Height: 5'3.00" Weight: 240lbs. oz. [id number]; 47.00 BMI Method:Stated General Appearance: no apparent distress Eyes: left eye normal inspection Ears: right ear discharge, right ear erythema, right ear swelling Nose: normal inspection Respiratory: no respiratory distress Neurologic/Psychiatric: oriented x 3 Progress/Results/Core Measures Results/Orders Vital Signs/I&O 04/22/20 20:21 Temp 36.4 Pulse 114 Resp 20 B/P (MAP) 180/96 (124) Pulse Ox 93 O2 Delivery Room Air Blood Pressure Mean: 124 Departure Impression Primary Impression: Otitis externa Qualified Codes: H60.331 - Swimmer's ear, right ear Disposition: HOME, SELF-CARE Condition: Stable Departure-Patient Inst. Referrals: [facility] (PCP) Primary Care Physician SAMEERA DENT APRN (Family) Primary Care Physician Patient Instructions: Outer Ear Infection (DC) Scripts Ciprofloxacin HCl/Dexameth (Ciprodex Otic Suspension) 7.5 Ml Soln 7.5 ML OT BID for 7 Days, #1 EA 0 Refills Prov: ROLAND NOBLES MD 04/22/20 ROLAND NOBLES MD Apr 22, 2020 20:43
[2020-04-22] MEDS ORDERED: NF-CIPDEC OT (20:51)
== END 2020-04-22 21:02 | disposition home or self-care (01) ==
LOC: EDUNIT# 20:17 → ER FS 20:20
DX: H60.331 Swimmer's ear, right ear (principal); J44.9 Chronic obstructive pulmonary disease, unspecified; F17.210 Nicotine dependence, cigarettes, uncomplicated; Z79.899 Other long term (current) drug therapy
CPT/HCPCS: 99282

== ENCOUNTER 2020-06-26 17:48 | Emergency (ER) | payer OTHER, MEDICAID ==
[~2020-06-26] VITALS: Ht 160 cm; Wt 116.6 kg
[~2020-06-26 17:48] MED LIST changes: +NF-CIPDEC OT
[2020-06-26] MEDS ORDERED: IBUP-1780 PO (18:18)
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
[2020-06-26] MEDS ORDERED: CYCL10TA9 PO (18:27)
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
[2020-06-26 19:03] VITALS: BP 130/61
== END 2020-06-26 19:03 | disposition home or self-care (01) ==
LOC: EDUNIT# 17:48 → ER FS 17:49
DX: S16.1XXA Strain of muscle, fascia and tendon at neck level, initial encounter (principal); J44.9 Chronic obstructive pulmonary disease, unspecified; Z77.22 Contact with and (suspected) exposure to environmental tobacco smoke (acute) (chronic); Z79.52 Long term (current) use of systemic steroids; V89.2XXA Person injured in unspecified motor-vehicle accident, traffic, initial encounter
CPT/HCPCS: 72125

== ENCOUNTER 2020-07-16 19:15 | Emergency (ER) | payer MEDICAID, OTHER ==
[~2020-07-16] VITALS: Ht 160 cm; Wt 119.0 kg
[~2020-07-16 19:15] MED LIST changes: +CYCL10TA9 PO
[2020-07-16] MEDS ORDERED: DICL75TA2 PO (19:36)
--- NOTE | 2020-07-16 19:37 | ED EENT ---
History of Present Illness General Chief Complaint: Dental Problems/Pain Stated Complaint: BROKEN TOOTH/PAIN Nursing Triage Note: Pt states she broke a tooth off while eating dinner last night. Pt complaining of left lower pain. Pt states she has taken tylenol and ibuprofen throughout today with no pain relief Source: patient, RN notes reviewed Exam Limitations: no limitations History of Present Illness Date Seen by Provider: Jul 16, 2020 Time Seen by Provider: 19:25 Initial Comments This patient presents to the emergency department for a fractured tooth that she got one day ago. Eating at [email or web address]. Patient states did not have a right the follow-up with her primary care physician or dentist today who presents to the emergency department requesting pain medication Timing/Duration: yesterday Severity: mild Location: dental Prearrival Treatment: no prearrival treatment Allergies and Home Medications Allergies Coded Allergies: No Known Drug Allergies (Unverified , 11/28/18) Home Medications Amoxicillin 500 Mg Capsule, 500 MG PO TID Prescribed by: RANCHO ANGELES on 02/12/19 1545 Amoxicillin 500 Mg Capsule, 875 MG PO BID Prescribed by: TSERING BERNAL on 09/14/19 1012 Azithromycin 250 Mg Tablet, 250 MG PO DAILY Prescribed by: JINA BAH on 07/17/19 2240 Cephalexin 500 Mg Tablet, 500 MG PO QID Prescribed by: RANCHO ANGELES on 04/19/20 2353 Ciprofloxacin HCl/Dexameth 7.5 Ml Soln, 7.5 ML OT BID Prescribed by: ROLAND NOBLES on 04/22/20 205 Cyclobenzaprine HCl 10 Mg Tablet, 10 MG PO Q8H PRN for SPASMS Prescribed by: UCHE LOWRY on 06/26/20 1827 Diclofenac Sodium 50 Mg Tablet.dr, 50 MG PO BID Prescribed by: TSERING BERNAL on 09/14/19 1012 Dicyclomine HCl 20 Mg Tablet, 20 MG PO TID PRN for ABDOMINAL PAIN Prescribed by: DINORA KNOTT on 12/18/18 1438 Fexofenadine HCl 180 Mg Tablet, 180 MG PO DAILY Prescribed by: UCHE LOWRY on 04/18/20 1129 Fluticasone Propionate 16 Gm [place].susp, 16 GM NS DAILY Prescribed by: UCHE LOWRY on 04/18/20 1129 Hydrocodone/Acetaminophen 1 Each Tablet, 1 TAB PO Qhs Prescribed by: NOA ZAMARRIPA on 04/13/19 1247 Hyoscyamine Sulfate 0.125 Mg Tab.subl, 0.125 MG SL Q8H Prescribed by: UCHE LOWRY on 09/19/19 1713 Ibuprofen 800 Mg Tablet, 800 MG PO Q8H PRN for PAIN Prescribed by: JINA BAH on 07/17/19 2240 Ibuprofen 800 Mg Tablet, 800 MG PO Q8H PRN for PAIN Prescribed by: UCHE LOWRY on 06/26/20 1818 Metronidazole 500 Mg Tablet, 500 MG PO BID, (Reported) Naproxen 500 Mg Tablet, 500 MG PO BID Prescribed by: RANCHO ANGELES on 04/19/20 2353 Ondansetron 4 Mg Tab.rapdis, 4 MG PO Q8H PRN for NAUSEA/VOMITING Prescribed by: DINORA KNOTT on 12/18/18 1438 Ondansetron 4 Mg Tab.rapdis, 4 MG PO TID Prescribed by: UCHE LOWRY on 03/23/20 1130 Ondansetron 4 Mg Tab.rapdis, 4 MG PO TID Prescribed by: UCHE LOWRY on 04/18/20 1129 Prednisone 20 Mg Tab, 40 MG PO DAILY Prescribed by: JINA BAH on 07/17/19 2240 Trimethoprim/Sulfamethoxazole 1 Ea Tablet, 1 TAB PO BID, (Reported) Patient Home Medication List Home Medication List Reviewed: Yes Review of Systems Review of Systems Constitutional: No no symptoms reported, No see HPI, No chills, No diaphoresis, No dizziness, No fever, No malaise, No weakness, No weight gain, No weight loss, No other Eyes: Denies No Symptoms Reported, Denies See HPI, Denies Blindness, Denies Blurred Vision, Denies Drainage, Denies Decreased Acuity, Denies Foreign Body Sensation, Denies Inflammation, Denies Pain, Denies Photophobia, Denies Previous Injury, Denies Shadows, Denies Tunnel Vision, Denies Vision Changes, Denies Co ntact Lenses, Denies Glasses, Denies Other Ears: Denies No Symptoms Reported, Denies See HPI, Denies Dizziness, Denies Pain, Denies Tinnitus, Denies Bloody Discharge, Denies Clear Discharge, Denies Purulent Discharge, Denies Serosanguinous Discharge, Denies Previous Injury, Denies Other Nose: denies no symptoms reported, denies see HPI, denies clots, denies congestion, denies epistaxis, denies pain, denies bloody discharge, denies clear discharge, denies purulent discharge, denies serosanguinous discharge, denies previous injury, denies other Mouth: denies no symptoms reported; see HPI; denies clots, denies loose teeth; pain; denies swelling, denies bloody discharge, denies clear discharge, denies purulent discharge, denies serosanguinous discharge, denies previous injury, denies other Respiratory: No no symptoms reported, No see HPI, No cough, No dyspnea on exertion, No hemoptysis, No orthopnea, No phlegm, No short of breath, No stridor, No wheezing, No other Cardiovascular: No no symptoms reported, No see HPI, No chest pain, No edema, No Hx of Intervention, No palpitations, No syncope, No vascular heart diseas, No other All Other Systems Reviewed Negative Unless Noted: Yes Past Iadqyoq-Yidyvp-Ankbtm Hx Patient Social History Alcohol Use: Rarely Uses Recreational Drug Use: No Smoking Status: Current Everyday Smoker Type Used: Cigarettes 2nd Hand Smoke Exposure: Yes Recent Foreign Travel: No Contact w/Someone Who Travel: No Recent Infectious Disease Expo: No Recent Hopitalizations: No Physical Abuse: No Sexual Abuse: No Immunizations Up To Date Tetanus Booster (TDap): Unknown Seasonal Allergies Seasonal Allergies: No Past Medical History Surgeries: Yes (HERNIA REPAIR) Section, Gallbladder Respiratory: Yes COPD Cardiac: No Neurological: No Genitourinary: Yes Gastrointestinal: No Musculoskeletal: No Endocrine: No HEENT: No Cancer: No Psychosocial: No Integumentary: No Blood Disorders: No Physical Exam Vital Signs Vital Signs - First Documented 07/16/20 19:18 Temp 36.7 Pulse 120 Resp 18 B/P (MAP) 137/74 (95) Pulse Ox 99 O2 Delivery Room Air Height, Weight, BMI Height: 5'3.00" Weight: 240lbs. oz. 108.713763km; 46.00 BMI Method:Stated General Appearance: WD/WN, no apparent distress, mild distress, moderate distress, severe distress, cachetic Mouth/Throat: dental tenderness (fractured tooth left lower side no signs of abscess.) Cardiovascular: normal peripheral pulses, regular rate, rhythm, no edema, no gallop, no JVD, no murmur Respiratory: chest non-tender, lungs clear, normal breath sounds, no respiratory distress, no accessory muscle use Progress/Results/Core Measures Results/Orders Vital Signs/I&O 07/16/20 19:18 Temp 36.7 Pulse 120 Resp 18 B/P (MAP) 137/74 (95) Pulse Ox 99 O2 Delivery Room Air Blood Pressure Mean: 95 Progress Progress Note : Time: 19:35 Progress Note Take medications as instructed. May use Anbesol or Orajel as needed as a numbing agent when you're eating or drinking. May also use orthodontic wax to help with exposed nerve pain. Follow-up with dentist or primary care physician in one to 2 days as needed. Departure Impression Primary Impression: Dental caries Additional Impression: Fractured tooth Disposition: HOME, SELF-CARE Condition: Stable Departure-Patient Inst. Decision time for Depature: 19:36 Referrals: [facility] (PCP) Primary Care Physician SAMEERA DENT APRN (Family) Primary Care Physician Patient Instructions: Fractured Tooth (DC) Add. Discharge Instructions: Take medications as instructed. May use Anbesol or Orajel as needed as a numbing agent when you're eating or drinking. May also use orthodontic wax to help with exposed nerve pain. Follow-up with dentist or primary care physician in one to 2 days as needed. All discharge instructions reviewed with patient and/or family. Voiced understanding. Scripts Diclofenac Sodium (Diclofenac Sodium) 75 Mg Tablet. 75 MG PO BID for 10 Days, #20 TAB 0 Refills Prov: JASON VELEZ MD 07/16/20 JASON VELEZ MD Jul 16, 2020 19:37
[2020-07-16 19:40] VITALS: BP 137/74
== END 2020-07-16 19:40 | disposition home or self-care (01) ==
LOC: EDUNIT# 19:15 → ER FS 19:16
DX: S02.5XXA Fracture of tooth (traumatic), initial encounter for closed fracture (principal); K02.9 Dental caries, unspecified; J44.9 Chronic obstructive pulmonary disease, unspecified; F17.210 Nicotine dependence, cigarettes, uncomplicated; Z79.51 Long term (current) use of inhaled steroids; Z79.52 Long term (current) use of systemic steroids; X58.XXXA Exposure to other specified factors, initial encounter
CPT/HCPCS: 99282

== ENCOUNTER 2020-08-22 10:38 | Emergency (ER) | payer MEDICAID ==
[~2020-08-22] VITALS: Ht 160 cm; Wt 117.0 kg
[~2020-08-22 10:38] MED LIST changes: +DICL75TA2 PO
[2020-08-22 10:55] VITALS: BP 130/81
--- NOTE | 2020-08-22 10:58 | ED Back Pain ---
General Chief Complaint: Back Problems Stated Complaint: NECK PAIN BACK PAIN Source of Information: Patient Exam Limitations: No Limitations History of Present Illness Date Seen by Provider: Aug 22, 2020 Time Seen by Provider: 10:56 Initial Comments To ER with reports she fell down 2-3 steps last night at her home and landed in mud. C/o neck and diffuse back pain. She did NOT hit her head. Arrives to ER with her 84 year old who also has complaints of a fall. She denies any injury to the chest abdomen or extremitites. Location: Lumbar Spine, Paraspinous Muscles Severity: Moderate Pain/Injury Location: None Method of Injury: Unknown Associated Symptoms: denies symptoms Allergies and Home Medications Allergies Coded Allergies: No Known Drug Allergies (Unverified , 11/28/18) Home Medications Amoxicillin 500 Mg Capsule, 500 MG PO TID Prescribed by: RANCHO ANGELES on 02/12/19 1545 Amoxicillin 500 Mg Capsule, 875 MG PO BID Prescribed by: TSERING BERNAL on 09/14/19 1012 Azithromycin 250 Mg Tablet, 250 MG PO DAILY Prescribed by: JINA BAH on 07/17/19 2240 Cephalexin 500 Mg Tablet, 500 MG PO QID Prescribed by: RANCHO ANGELES on 04/19/20 2353 Ciprofloxacin HCl/Dexameth 7.5 Ml Soln, 7.5 ML OT BID Prescribed by: ROLAND NOBLES on 04/22/202050 Cyclobenzaprine HCl 10 Mg Tablet, 10 MG PO Q8H PRN for SPASMS Prescribed by: UCHE LOWRY on 06/26/20 1827 Diclofenac Sodium 50 Mg Tablet.dr, 50 MG PO BID Prescribed by: TSERING BERNAL on 09/14/19 1012 Diclofenac Sodium 75 Mg Tablet.dr, 75 MG PO BID Prescribed by: JASON VELEZ on 07/16/20 1936 Dicyclomine HCl 20 Mg Tablet, 20 MG PO TID PRN for ABDOMINAL PAIN Prescribed by: DINORA KNOTT on 12/18/18 1438 Fexofenadine HCl 180 Mg Tablet, 180 MG PO DAILY Prescribed by: UCHE LOWRY on 04/18/20 1129 Fluticasone Propionate 16 Gm [place].susp, 16 GM NS DAILY Prescribed by: UCHE LOWRY on 04/18/20 1129 Hydrocodone/Acetaminophen 1 Each Tablet, 1 TAB PO Qhs Prescribed by: NOA ZAMARRIPA on 04/13/19 1247 Hyoscyamine Sulfate 0.125 Mg Tab.subl, 0.125 MG SL Q8H Prescribed by: UCHE LOWRY on 09/19/19 1713 Ibuprofen 800 Mg Tablet, 800 MG PO Q8H PRN for PAIN Prescribed by: JINA BAH on 07/17/19 2240 Ibuprofen 800 Mg Tablet, 800 MG PO Q8H PRN for PAIN Prescribed by: UCHE LOWRY on 06/26/20 1818 Methocarbamol 750 Mg Tablet, 750 MG PO Q4H PRN for PAIN-MODERATE (5-7) Prescribed by: KARLA DELGADO on 08/22/20 1122 Metronidazole 500 Mg Tablet, 500 MG PO BID, (Reported) Naproxen 500 Mg Tablet, 500 MG PO BID Prescribed by: RANCHO ANGELES on 04/19/20 2353 Naproxen 500 Mg Tablet, 500 MG PO BID Prescribed by: KARLA DELGADO on 08/22/20 1122 Ondansetron 4 Mg Tab.rapdis, 4 MG PO Q8H PRN for NAUSEA/VOMITING Prescribed by: DINORA KNOTT on 12/18/18 1438 Ondansetron 4 Mg Tab.rapdis, 4 MG PO TID Prescribed by: UCHE LOWRY on 03/23/20 1130 Ondansetron 4 Mg Tab.rapdis, 4 MG PO TID Prescribed by: UCHE LOWRY on 04/18/20 1129 Prednisone 20 Mg Tab, 40 MG PO DAILY Prescribed by: JINA BAH on 07/17/19 2240 Trimethoprim/Sulfamethoxazole 1 Ea Tablet, 1 TAB PO BID, (Reported) Patient Home Medication List Home Medication List Reviewed: Yes Review of Systems Constitutional: see HPI EENTM: see HPI Respiratory: no symptoms reported Cardiovascular: no symptoms reported Genitourinary: no symptoms reported Musculoskeletal: no symptoms reported Skin: no symptoms reported Psychiatric/Neurological: No Symptoms Reported Past Hrqfzem-Eziaut-Suqxnv Hx Patient Social History Type Used: Cigarettes 2nd Hand Smoke Exposure: Yes Recent Foreign Travel: No Contact w/Someone Who Travel: No Recent Hopitalizations: No Immunizations Up To Date Tetanus Booster (TDap): Unknown Seasonal Allergies Seasonal Allergies: No Past Medical History Surgeries: Yes (HERNIA REPAIR) Section, Gallbladder Respiratory: Yes COPD Cardiac: No Neurological: No Genitourinary: Yes Gastrointestinal: No Musculoskeletal: No Endocrine: No HEENT: No Cancer: No Psychosocial: No Integumentary: No Blood Disorders: No Physical Exam Vital Signs Vital Signs - First Documented 08/22/20 10:55 Temp 36.1 Pulse 118 Resp 16 B/P (MAP) 130/81 (97) Pulse Ox 98 O2 Delivery Room Air Capillary Refill : Height, Weight, BMI Height: 5'3.00" Weight: 240lbs. oz. 108.333913yd; 46.00 BMI Method:Stated General Appearance: No Apparent Distress, WD/WN HEENT: PERRL/EOMI, TMs Normal, Other (no sweeney sign or hemotympanum) Neck: Full Range of Motion, Normal Inspection Respiratory: Normal Breath Sounds, No Accessory Muscle Use, No Respiratory Distress Gastrointestinal: Non Tender, Soft Extremity: Normal Capillary Refill, Normal Inspection Neurologic/Psychiatric: Alert, Oriented x3 Skin: Normal Color, Warm/Dry Progress/Results/Core Measures Results/Orders My Orders Orders - KARLA DELGADO APRN Ct Cervical Spine Wo (08/22/20 10:54) Lumbar Spine - 2-3 Views (08/22/20 10:54) T-Spine 3v-Ap, Lat, Swimmers (08/22/20 10:54) Vital Signs/I&O 08/22/20 10:55 Temp 36.1 Pulse 118 Resp 16 B/P (MAP) 130/81 (97) Pulse Ox 98 O2 Delivery Room Air Departure Impression Primary Impression: Muscle strain Disposition: 01 HOME, SELF-CARE Condition: Stable Departure-Patient Inst. Decision time for Depature: 11:21 Referrals: [facility] (PCP) Primary Care Physician SAMEERA DENT APRN (Family) Primary Care Physician Patient Instructions: Muscle Strain Add. Discharge Instructions: 1. Return ER for concerns 2. Muscle relaxants and anti-inflammatories as directed return to ER for new or worsened pain. All discharge instructions reviewed with patient and/or family. Voiced understanding. Scripts Naproxen (Naprosyn) 500 Mg Tablet 500 MG PO BID, #30 TAB 0 Refills Prov: KARLA DELGADO APRN 08/22/20 Methocarbamol (Robaxin-750) 750 Mg Tablet 750 MG PO Q4H PRN for PAIN-MODERATE (5-7), #20 TAB Prov: KARLA DELGADO APRN 08/22/20 KARLA DELGADO APRN Aug 22, 2020 10:58
--- NOTE | 2020-08-22 11:19 | Diagnostic Imaging Report ---
PROCEDURE: CT cervical spine without contrast. TECHNIQUE: Multiple contiguous axial images were obtained through the cervical spine without the use of intravenous contrast. Sagittal and coronal reformations were then performed. Auto Exposure Controls were utilized during the CT exam to meet ALARA standards for radiation dose reduction. INDICATION: Fall with neck pain. COMPARISON: CT cervical spine of 06/26/2020. FINDINGS: Straightening of cervical spine may be positional. No traumatic subluxation. No acute fracture within the cervical spine. No features of paravertebral hematoma. No retropharyngeal fluid collection. Lung apices are clear. No cervical lymphadenopathy. Thyroid is normal. IMPRESSION: No acute abnormality in cervical spine. Dictated by: Dictated on workstation # [id number]
[2020-08-22] MEDS ORDERED: METH-313 PO (11:22)
[2020-08-22] MEDS ORDERED: NAPR-1071 PO (11:22)
--- NOTE | 2020-08-22 11:47 | Diagnostic Imaging Report ---
INDICATION: Fall, pain. FINDINGS: The lumbar vertebral statures are normal. The alignment is anatomic. No acute endplate irregularity. The disc space is preserved. There is some lower thoracic spondylosis. IMPRESSION: Unremarkable radiographic appearance of the anatomically aligned lumbar spine. Dictated by: Dictated on workstation # [id number]
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
== END 2020-08-22 11:58 | disposition home or self-care (01) ==
LOC: EDUNIT# 10:38 → ER 10:41
DX: S39.012A Strain of muscle, fascia and tendon of lower back, initial encounter (principal); J44.9 Chronic obstructive pulmonary disease, unspecified; Z77.22 Contact with and (suspected) exposure to environmental tobacco smoke (acute) (chronic); Z79.52 Long term (current) use of systemic steroids; W10.9XXA Fall (on) (from) unspecified stairs and steps, initial encounter; Y92.009 Unspecified place in unspecified non-institutional (private) residence as the place of occurrence of the external cause
CPT/HCPCS: 72072; 72100; 72125; 99283

== ENCOUNTER 2020-09-16 16:29 | Emergency (ER) | payer MEDICAID ==
[~2020-09-16] VITALS: Ht 160 cm; Wt 116.4 kg
[~2020-09-16 16:29] MED LIST changes: +METH-313 PO
[2020-09-16] MEDS ORDERED: KETOROLAC 30 MG/ML VIAL IVP STA (16:47)
[2020-09-16] MEDS ORDERED: ASPIRIN 81 MG CHEW (CHILDREN'S ASA) PO ONE (17:00)
[2020-09-16 17:03] LABS: HEMATOCRIT 40 % (35-52); HEMOGLOBIN 13.4 G/DL (11.5-16.0); MEAN CORPUSCULAR HEMOGLOBIN 29 PG (25-34); MEAN CORPUSCULAR HGB CONC 33 G/DL (32-36); MEAN CORPUSCULAR VOLUME 86 FL (80-99); MEAN PLATELET VOLUME 10.2 FL (7.4-10.4); PLATELET COUNT 297 10^3/uL (130-400); WHITE BLOOD COUNT 14.5 10^3/uL (4.3-11.0)
[2020-09-16 17:06] LABS: BASOPHILS % (AUTO) 0 % (0-10); EOSINOPHILS # (AUTO) 0.4 10^3/uL (0.0-0.3); EOSINOPHILS % (AUTO) 2 % (0-10); LYMPHOCYTES # (AUTO) 3.9 X 10^3 (1.0-4.0); LYMPHOCYTES % (AUTO) 27 % (12-44); MONOCYTES # (AUTO) 0.6 X 10^3 (0.0-1.0); MONOCYTES % (AUTO) 4 % (0-12); NEUTROPHILS # (AUTO) 9.5 X 10^3 (1.8-7.8); NEUTROPHILS % (AUTO) 66 % (42-75)
--- NOTE | 2020-09-16 17:06 | Diagnostic Imaging Report ---
EXAMINATION: Chest 1 view HISTORY: pleuritic chest pain COMPARISON: Chest radiograph 07/17/2019 FINDINGS: Heart size and pulmonary vasculature are normal. The lungs are clear without consolidation, pleural effusion, or pneumothorax. The osseous structures are intact. IMPRESSION: 1. No acute radiographic abnormality in the chest. Dictated by: Dictated on workstation # [id number]
--- NOTE | 2020-09-16 17:11 | ED Chest Pain ---
General Chief Complaint: Chest Pain Stated Complaint: CHEST PAIN SINCE LAST NIGHT Source: patient History of Present Illness Date Seen by Provider: Sep 16, 2020 Time Seen by Provider: 17:02 Initial Comments 39-year-old female presenting with complaints of sharp chest pain that has been constant since last night. She states that she was not able to come in until today when she found a ride. She was not sure if this was anxiety or if it was something else. She knows that she has anxiety and she was recently started back on Seroquel. She used to also take a lot of anxiety medicine such as Xanax but has not been on it for a while now. She has sharp chest pains that is worse with deep breaths. She denies any recent travel, surgery, control, history of blood clots or increased swelling in her legs. She has not taken any medication for the pain. She denies any burning sensation for reflux or heartburn. She has had nausea but no vomiting. She denies any burning with urination or change in her urine. She has been urinating more and been drinking more fluids. She denies any change in her bowels or seen any blood in her stool or urine. She denies any fever or chills. She has not had any increase in her cough other than her chronic smoker's cough. Allergies and Home Medications Allergies Coded Allergies: No Known Drug Allergies (Unverified , 11/28/18) Home Medications Amoxicillin 500 Mg Capsule, 500 MG PO TID Prescribed by: RANCHO ANGELES on 02/12/19 1545 Amoxicillin 500 Mg Capsule, 875 MG PO BID Prescribed by: TSERING BERNAL on 09/14/19 1012 Azithromycin 250 Mg Tablet, 250 MG PO DAILY Prescribed by: JINA BAH on 07/17/19 2240 Cephalexin 500 Mg Tablet, 500 MG PO QID Prescribed by: RANCHO ANGELES on 04/19/20 2353 Ciprofloxacin HCl/Dexameth 7.5 Ml Soln, 7.5 ML OT BID Prescribed by: ROLAND NOBLES on 04/22/20 205 Cyclobenzaprine HCl 10 Mg Tablet, 10 MG PO Q8H PRN for SPASMS Prescribed by: UCHE LOWRY on 06/26/20 182 Diclofenac Sodium 50 Mg Tablet.dr, 50 MG PO BID Prescribed by: TSERING BERNAL on 09/14/19 1012 Diclofenac Sodium 75 Mg Tablet.dr, 75 MG PO BID Prescribed by: JASON VELEZ on 07/16/20 1936 Dicyclomine HCl 20 Mg Tablet, 20 MG PO TID PRN for ABDOMINAL PAIN Prescribed by: DINORA KNOTT on 12/18/18 1438 Fexofenadine HCl 180 Mg Tablet, 180 MG PO DAILY Prescribed by: UCHE LOWRY on 04/18/20 1129 Fluticasone Propionate 16 Gm Isabel.susp, 16 GM NS DAILY Prescribed by: UCHE LOWRY on 04/18/20 1129 Hydrocodone/Acetaminophen 1 Each Tablet, 1 TAB PO Qhs Prescribed by: NOA ZAMARRIPA on 04/13/19 1247 Hyoscyamine Sulfate 0.125 Mg Tab.subl, 0.125 MG SL Q8H Prescribed by: UCHE LOWRY on 09/19/19 1713 Ibuprofen 800 Mg Tablet, 800 MG PO Q8H PRN for PAIN Prescribed by: JINA BAH on 07/17/19 2240 Ibuprofen 800 Mg Tablet, 800 MG PO Q8H PRN for PAIN Prescribed by: UCHE LOWRY on 06/26/20 1818 Metformin HCl 500 Mg Tablet, 500 MG PO BID Prescribed by: DINORA KNOTT on 09/16/20 1828 Methocarbamol 750 Mg Tablet, 750 MG PO Q4H PRN for PAIN-MODERATE (5-7) Prescribed by: KARLA DELGADO on 08/22/20 1122 Metronidazole 500 Mg Tablet, 500 MG PO BID, (Reported) Naproxen 500 Mg Tablet, 500 MG PO BID Prescribed by: RANCHO ANGELES on 04/19/20 2353 Naproxen 500 Mg Tablet, 500 MG PO BID Prescribed by: KARLA DELGADO on 08/22/20 1122 Ondansetron 4 Mg Tab.rapdis, 4 MG PO Q8H PRN for NAUSEA/VOMITING Prescribed by: DINORA KNOTT on 12/18/18 1438 Ondansetron 4 Mg Tab.rapdis, 4 MG PO TID Prescribed by: UCHE LOWRY on 03/23/20 1130 Ondansetron 4 Mg Tab.rapdis, 4 MG PO TID Prescribed by: UCHE LOWRY on 04/18/20 1129 Prednisone 20 Mg Tab, 40 MG PO DAILY Prescribed by: JINA BAH on 07/17/190 Trimethoprim/Sulfamethoxazole 1 Ea Tablet, 1 TAB PO BID, (Reported) Patient Home Medication List Home Medication List Reviewed: Yes Review of Systems Review of Systems Constitutional: No chills, No fever; malaise EENTM: No Eye Pain, No Nose Congestion, No Throat Pain, No Throat Swelling Respiratory: Cough (chronic smoker's cough) Cardiovascular: See HPI Gastrointestinal: Nausea; Denies Vomiting Genitourinary: Frequency; Denies Pain Musculoskeletal: no symptoms reported Skin: No rash Psychiatric/Neurological: Denies Headache, Denies Numbness, Denies Paresthesia Endocrine: Increased Thrist, Increased Urine Past Wtgpzxc-Temxvp-Mhvjyr Hx Past Med/Social Hx: Reviewed Nursing Past Med/Soc Hx Patient Social History Type Used: Cigarettes 2nd Hand Smoke Exposure: Yes Recent Hopitalizations: No Immunizations Up To Date Tetanus Booster (TDap): Unknown Seasonal Allergies Seasonal Allergies: No Past Medical History Surgeries: Yes (HERNIA REPAIR) Section, Gallbladder Respiratory: Yes COPD Cardiac: No Neurological: No Genitourinary: Yes Gastrointestinal: No Musculoskeletal: No Endocrine: No HEENT: No Cancer: No Psychosocial: No Integumentary: No Blood Disorders: No Physical Exam Vital Signs Vital Signs - First Documented 09/16/20 16:35 Temp 36.0 Pulse 115 Resp 18 B/P (MAP) 128/47 (74) Pulse Ox 100 Capillary Refill : Height, Weight, BMI Height: 5'3.00" Weight: 240lbs. oz. 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 Skin: Normal Color, Warm/Dry Progress/Results/Core Measures Results/Orders Lab Results Laboratory Tests Test 09/16/20 16:52 11/29/20 17:50 Range/Units White Blood Count 14.5 H 4.3-11.0 10^3/uL Red Blood Count 4.69 4.35-5.85 10^6/uL Hemoglobin 13.4 11.5-16.0 G/DL Hematocrit 40 35-52 % Mean Corpuscular Volume 86 80-99 FL Mean Corpuscular Hemoglobin 29 25-34 PG Mean Corpuscular Hemoglobin Concent 33 32-36 G/DL Red Cell Distribution Width 13.7 10.0-14.5 % Platelet Count 297 130-400 10^3/uL Mean Platelet Volume 10.2 7.4-10.4 FL Immature Granulocyte % (Auto) 1 % Neutrophils (%) (Auto) 66 42-75 % Lymphocytes (%) (Auto) 27 12-44 % Monocytes (%) (Auto) 4 0-12 % Eosinophils (%) (Auto) 2 0-10 % Basophils (%) (Auto) 0 0-10 % Neutrophils # (Auto) 9.5 H 1.8-7.8 X 10^3 Lymphocytes # (Auto) 3.9 1.0-4.0 X 10^3 Monocytes # (Auto) 0.6 0.0-1.0 X 10^3 Eosinophils # (Auto) 0.4 H 0.0-0.3 10^3/uL Basophils # (Auto) 0.0 0.0-0.1 10^3/uL Immature Granulocyte # (Auto) 0.1 0.0-0.1 10^3/uL Neutrophils % (Manual) 60 % Lymphocytes % (Manual) 20 % Monocytes % (Manual) 2 % Eosinophils % (Manual) 1 % Basophils % (Manual) 0 % Band Neutrophils 7 % Atypical Lymphocytes 10 % Blood Morphology Comment NORMAL Prothrombin Time 13.0 12.2-14.7 SEC INR Comment 1.0 0.8-1.4 Activated Partial Thromboplast Time 27 24-35 SEC D-Dimer 0.28 0.00-0.49 UG/ML Sodium Level 135 135-145 MMOL/L Potassium Level 3.8 3.6-5.0 MMOL/L Chloride Level 98 98-107 MMOL/L Carbon Dioxide Level 24 21-32 MMOL/L Anion Gap 13 5-14 MMOL/L Blood Urea Nitrogen 7 7-18 MG/DL Creatinine 0.44 L 0.60-1.30 MG/DL Estimat Glomerular Filtration Rate > 60 BUN/Creatinine Ratio 16 Glucose Level 246 H 70-105 MG/DL Calcium Level 9.8 8.5-10.1 MG/DL Corrected Calcium 9.7 8.5-10.1 MG/DL Magnesium Level 1.7 1.6-2.4 MG/DL Total Bilirubin 0.2 0.1-1.0 MG/DL Aspartate Amino Transf (AST/SGOT) 68 H 5-34 U/L Alanine Aminotransferase (ALT/SGPT) 41 0-55 U/L Alkaline Phosphatase 120 40-136 U/L Troponin I < 0.30 <0.30 NG/ML Pro-B-Type Natriuretic Peptide 7.6 <75.0 PG/ML Total Protein 7.3 6.4-8.2 GM/DL Albumin 4.1 3.2-4.5 GM/DL Urine Color YELLOW Urine Clarity CLEAR Urine pH 6.0 5-9 Urine Specific [place] >=1.030 1.016-1.022 Urine Protein NEGATIVE NEGATIVE Urine Glucose (UA) 2+ H NEGATIVE Urine Ketones NEGATIVE NEGATIVE Urine Nitrite NEGATIVE NEGATIVE Urine Bilirubin NEGATIVE NEGATIVE Urine Urobilinogen 0.2 < = 1.0 MG/DL Urine Leukocyte Esterase NEGATIVE NEGATIVE Urine RBC (Auto) NEGATIVE NEGATIVE Urine RBC NONE /HPF Urine WBC 0-2 /HPF Urine Squamous Epithelial Cells 2-5 /HPF Urine Crystals NONE /LPF Urine Bacteria FEW H /HPF Urine Casts NONE /LPF Urine Mucus MODERATE H /LPF Urine Culture Indicated NO Urine Opiates Screen NEGATIVE NEGATIVE Urine Oxycodone Screen NEGATIVE NEGATIVE Urine Methadone Screen NEGATIVE NEGATIVE Urine Propoxyphene Screen NEGATIVE NEGATIVE Urine Barbiturates Screen NEGATIVE NEGATIVE Ur Tricyclic Antidepressants Screen POSITIVE H NEGATIVE Urine Phencyclidine Screen NEGATIVE NEGATIVE Urine Amphetamines Screen NEGATIVE NEGATIVE Urine Methamphetamines Screen NEGATIVE NEGATIVE Urine Benzodiazepines Screen NEGATIVE NEGATIVE Urine Cocaine Screen NEGATIVE NEGATIVE Urine Cannabinoids Screen NEGATIVE NEGATIVE My Orders Orders - DINORA KNOTT MD Cbc With Automated Diff (09/16/20 16:47) Magnesium (09/16/20 16:47) Chest 1 View Ap/Pa Only (09/16/20 16:47) Ekg Tracing (09/16/20 16:47) Comprehensive Metabolic Panel (09/16/20 16:47) Protime With Inr (09/16/20 16:47) Partial Thromboplastin Time (09/16/20 16:47) O2 (09/16/20 16:47) Monitor-Rhythm Ecg Trace Only (09/16/20 16:47) Aspirin Chewable Tablet (Baby Aspirin Ch (09/16/20 17:00) Ed Iv/Invasive Line Start (09/16/20 16:47) Troponin I Fs (09/16/20 16:47) Probnp Fs (09/16/20 16:47) Fibrin Degradation Products (09/16/20 16:47) Ketorolac Injection (Toradol Injection) (09/16/20 16:47) Ua Culture If Indicated (09/16/20 17:00) Drug Screen Stat (Urine) (09/16/20 17:00) Ns Iv 1000 Ml (Sodium Chloride 0.9%) (09/16/20 17:15) Manual Differential (09/16/20 16:52) Ondansetron Injection (Zofran Injectio (09/16/20 17:32) Medications Given in ED Current Medications Medications Dose Ordered Sig/Chris Route Start Time Stop Time Status Last Admin Dose Admin Aspirin 324 mg ONCE ONCE PO 09/16/20 17:00 09/16/20 17:01 DC 09/16/20 17:06 324 MG Vital Signs/I&O 09/16/20 09/16/20 16:35 18:29 Temp 36.0 Pulse 115 95 Resp 18 18 B/P (MAP) 128/47 (74) 102/66 Pulse Ox 100 98 Progress Progress Note #1: Progress Note check electrocardiogram as well as labs and chest x-ray. Give aspirin 324 mg in case any of this is cardiac in nature as well as try a dose of Toradol since there is a pleuritic component. give IV fluids to help with her tachycardia in case some of this is dehydration. Progress Note #2: Progress Note no acute ST elevation on electrocardiogram. Her chest x-ray is clear. Her labs appear stable without acute significant changes from her baseline. She has chronic mild elevation of her white blood cell count. Her chemistry was stable without elevation of her cardiac enzymes or acute significant changes. Especially considering her pain has been present since last night if this was cardiac in nature her troponin should be at least somewhat elevated by now. She does have an elevated glucose to indicate that she is likely a new onset diabetic. Patient denies having eaten anything recently prior to coming to the emergency department. Counseled on initial management of diabetes and stressed that follow-up with the clinic would be important. Will give handouts on diabetic diet and prescribed initial metformin at 500 mg twice a day Initial ECG Impression Date: Sep 16, 2020 Initial ECG Impression Time: 16:36 Initial ECG Rate: 116 Initial ECG Rhythm: S.Tach Initial ECG Comparisson: No Previous ECG Available Comment sinus tachycardia with a heart rate of 116 bpm. AR interval [address] elevation. QT interval 326 ms with a QTc interval 453 ms. There is no prior tracing immediately available for comparison. Diagnostic Imaging Diagonstic Imaging: Xray Plain Films/CT/US/NM/MRI: chest Comments [facility], [place] NAME: STANISLAV MATHIS [place] REC#: [id number] PT STATUS: REG ER : 1980 PHYSICIAN: DINORA KNOTT MD ADMIT DATE: 09/16/20/ER FS Signed Date of Exam:09/16/20 CHEST 1 VIEW AP/PA ONLY EXAMINATION: Chest 1 view HISTORY: pleuritic chest pain COMPARISON: Chest radiograph 07/17/2019 FINDINGS: Heart size and pulmonary vasculature are normal. The lungs are clear without consolidation, pleural effusion, or pneumothorax. The osseous structures are intact. IMPRESSION: 1. No acute radiographic abnormality in the chest. Dictated by: Dictated on workstation # [id number] Dict: 09/16/20 170 Trans: 09/16/201704 [facility] [id number] Interpreted by: EDER MUELLER DO Electronically signed by: EDER MUELLER DO 09/16/201704 Departure Impression Primary Impression: Non-cardiac chest pain Additional Impressions: Diabetes mellitus, new onset Pleuritic chest pain Disposition: HOME, SELF-CARE Condition: Stable Departure-Patient Inst. Decision time for Depature: 18:25 Referrals: [facility] (PCP) Primary Care Physician SAMEERA DENT APRN (Family) Primary Care Physician Patient Instructions: Chest Pain That Is Not Caused by the Heart (DC), Diabetes and Diet, Diabetic Meal Planning , Diabetes Type 2 (DC), Diabetes Diet Add. Discharge Instructions: Check with [facility] clinic about being seen as soon as possible for follow up and management of your new onset diabetes. Monitor your diet and try to avoid carbohydrates and sugars. Try taking the Metformin but the clinic may want you on some other medicine so also check with [facility] and get in as soon as possible. All discharge instructions reviewed with patient and/or family. Voiced understanding. Scripts Metformin HCl (Metformin HCl) 500 Mg Tablet 500 MG PO BID for diabetes for 30 Days, #60 TAB 0 Refills Prov: DINORA KNOTT MD 09/16/20 DINORA KNOTT MD Sep 16, 2020 17:11
[2020-09-16] MEDS ORDERED: NS IV 1000 ML 1,000 ML IV SCH (17:15)
[2020-09-16 17:18] LABS: ATYPICAL LYMPHOCYTES 10 %; BAND NEUTROPHILS 7 %; BASOPHILS % (MANUAL) 0 %; EOSINOPHILS % (MANUAL) 1 %; LYMPHOCYTES % (MANUAL) 20 %; MONOCYTES % (MANUAL) 2 %; NEUTROPHILS % (MANUAL) 60 %; RBC MORPH NORMAL
[2020-09-16 17:24] LABS: ALANINE AMINOTRANSFERASE 41 U/L (0-55); ALBUMIN 4.1 GM/DL (3.2-4.5); ALKALINE PHOSPHATASE 120 U/L (40-136); BILIRUBIN,TOTAL 0.2 MG/DL (0.1-1.0); BUN/CREATININE RATIO 16; CALCIUM 9.8 MG/DL (8.5-10.1); CARBON DIOXIDE 24 MMOL/L (21-32); CHLORIDE 98 MMOL/L (98-107); CREATININE SERUM 0.44 MG/DL (0.60-1.30); GFR ESTIMATED > 60; GLUCOSE 246 MG/DL (70-105); MAGNESIUM 1.7 MG/DL (1.6-2.4); POTASSIUM 3.8 MMOL/L (3.6-5.0); SODIUM 135 MMOL/L (135-145); TOTAL PROTEIN 7.3 GM/DL (6.4-8.2)
[2020-09-16 17:26] LABS: FIBRIN DEGRADATION PRODUCTS 0.28 UG/ML (0.00-0.49)
[2020-09-16] MEDS ORDERED: ONDANSETRON 4 MG/2 ML (SDV) Z0FRAN IVP STA (17:32)
[2020-09-16 18:00] LABS: CLARITY,URINE CLEAR; COLOR,URINE YELLOW
[2020-09-16 18:03] LABS: BACTERIA,URINE FEW /HPF; BILIRUBIN,URINE NEGATIVE (NEGATIVE); GLUCOSE, URINE (UA) 2+ (NEGATIVE); KETONES,URINE NEGATIVE (NEGATIVE); LEUKOCYTE ESTERASE ,URINE NEGATIVE (NEGATIVE); NITRITE,URINE NEGATIVE (NEGATIVE); PROTEIN,URINE NEGATIVE (NEGATIVE); WBC,URINE 0-2 /HPF
[2020-09-16 18:07] LABS: AMPHETAMINE SCREEN, URINE NEGATIVE (NEGATIVE); BARBITURATE SCREEN URINE NEGATIVE (NEGATIVE); BENZODIAZEPINES SCREEN URINE NEGATIVE (NEGATIVE); CANNABINOID SCREEN, URINE NEGATIVE (NEGATIVE); COCAINE SCREEN URINE NEGATIVE (NEGATIVE); METHADONE STAT NEGATIVE (NEGATIVE); METHAMPHETAMINE SCREEN URINE S NEGATIVE (NEGATIVE); OPIATE SCREEN URINE NEGATIVE (NEGATIVE); OXYCODONE STAT NEGATIVE (NEGATIVE); PROPOXYPHENE STAT NEGATIVE (NEGATIVE); TRICYCLIC ANTIDEPRESSANTS SCRE POSITIVE (NEGATIVE)
[2020-09-16] MEDS ORDERED: METF-397 PO (18:28)
[2020-09-16 18:29] VITALS: BP 102/66
== END 2020-09-16 18:30 | disposition home or self-care (01) ==
LOC: EDUNIT# 16:29 → ER FS 16:31
DX: R07.89 Other chest pain (principal); E11.9 Type 2 diabetes mellitus without complications; R07.81 Pleurodynia; F41.9 Anxiety disorder, unspecified; E66.9 Obesity, unspecified; J44.9 Chronic obstructive pulmonary disease, unspecified; Z68.42 Body mass index [BMI] 45.0-49.9, adult; Z77.22 Contact with and (suspected) exposure to environmental tobacco smoke (acute) (chronic); Z79.52 Long term (current) use of systemic steroids
CPT/HCPCS: 36415; 71045; 80053; 80306; 81000; 83735; 83880; 84484; 85007; 85027; 85379; 85610; 85730; 93005; 93041

== ENCOUNTER 2020-09-25 18:25 | Emergency (ER) | payer MEDICAID ==
[~2020-09-25 18:25] MED LIST changes: +METF-397 PO
--- NOTE | 2020-09-25 18:52 | ED Abdominal Pain ---
General Chief Complaint: General Problems/Pain Stated Complaint: RIGHT SIDE PAIN;BACK PAIN Nursing Triage Note: Pt complaining of right lower abd pain and right flank pain that started earlier today Sepsis Screen: No Definite Risk Source of Information: Patient Exam Limitations: No Limitations History of Present Illness Date Seen by Provider: Sep 25, 2020 Time Seen by Provider: 18:49 Initial Comments 39-year-old female presents with right flank and right lower abdominal pain, onset today. Associated nausea and vomiting as well as diarrhea. Denies any sick contacts, fever or chills. Denies pain with urination. History of cholecystectomy. Allergies and Home Medications Allergies Coded Allergies: No Known Drug Allergies (Unverified , 11/28/18) Home Medications Amoxicillin 500 Mg Capsule, 500 MG PO TID Prescribed by: RANCHO ANGELES on 02/12/19 1545 Amoxicillin 500 Mg Capsule, 875 MG PO BID Prescribed by: TSERING BERNAL on 09/14/19 1012 Azithromycin 250 Mg Tablet, 250 MG PO DAILY Prescribed by: JINA BAH on 07/17/19 2240 Cephalexin 500 Mg Tablet, 500 MG PO QID Prescribed by: RANCHO ANGELES on 04/19/20 2353 Ciprofloxacin HCl/Dexameth 7.5 Ml Soln, 7.5 ML OT BID Prescribed by: ROLAND NOBLES on 04/22/202050 Cyclobenzaprine HCl 10 Mg Tablet, 10 MG PO Q8H PRN for SPASMS Prescribed by: UCHE LOWRY on 06/26/20 1827 Diclofenac Sodium 50 Mg Tablet.dr, 50 MG PO BID Prescribed by: TSERING BERNAL on 09/14/19 1012 Diclofenac Sodium 75 Mg Tablet.dr, 75 MG PO BID Prescribed by: JASON VELEZ on 07/16/20 1936 Dicyclomine HCl 20 Mg Tablet, 20 MG PO TID PRN for ABDOMINAL PAIN Prescribed by: DINORA KNOTT on 12/18/18 1438 Fexofenadine HCl 180 Mg Tablet, 180 MG PO DAILY Prescribed by: UCHE LOWRY on 04/18/20 1129 Fluticasone Propionate 16 Gm [place].susp, 16 GM NS DAILY Prescribed by: UCHE LOWRY on 04/18/20 1129 Hydrocodone/Acetaminophen 1 Each Tablet, 1 TAB PO Qhs Prescribed by: NOA ZAMARRIPA on 04/13/19 1247 Hyoscyamine Sulfate 0.125 Mg Tab.subl, 0.125 MG SL Q8H Prescribed by: UCHE LOWRY on 09/19/19 1713 Ibuprofen 800 Mg Tablet, 800 MG PO Q8H PRN for PAIN Prescribed by: JINA BAH on 07/17/19 2240 Ibuprofen 800 Mg Tablet, 800 MG PO Q8H PRN for PAIN Prescribed by: UCHE LOWRY on 06/26/20 1818 Metformin HCl 500 Mg Tablet, 500 MG PO BID Prescribed by: DINORA KNOTT on 09/16/20 1828 Methocarbamol 750 Mg Tablet, 750 MG PO Q4H PRN for PAIN-MODERATE (5-7) Prescribed by: KARLA DELGADO on 08/22/20 1122 Metronidazole 500 Mg Tablet, 500 MG PO BID, (Reported) Naproxen 500 Mg Tablet, 500 MG PO BID Prescribed by: RANCHO ANGELES on 04/19/20 2353 Naproxen 500 Mg Tablet, 500 MG PO BID Prescribed by: KARLA DELGADO on 08/22/20 1122 Ondansetron 4 Mg Tab.rapdis, 4 MG PO Q8H PRN for NAUSEA/VOMITING Prescribed by: DINORA KNOTT on 12/18/18 1438 Ondansetron 4 Mg Tab.rapdis, 4 MG PO TID Prescribed by: UCHE LOWRY on 03/23/20 1130 Ondansetron 4 Mg Tab.rapdis, 4 MG PO TID Prescribed by: UCHE LOWRY on 04/18/20 1129 Prednisone 20 Mg Tab, 40 MG PO DAILY Prescribed by: JINA BAH on 07/17/19 224 Trimethoprim/Sulfamethoxazole 1 Ea Tablet, 1 TAB PO BID, (Reported) Patient Home Medication List Home Medication List Reviewed: Yes Review of Systems Review of Systems Constitutional: see HPI; No fever, No malaise, No weakness Respiratory: Denies Cough, Denies Shortness of Air Cardiovascular: Denies Chest Pain, Denies Irregular Heart Rate, Denies Palpitations, Denies Syncope Gastrointestinal: See HPI, Abdominal Pain, Diarrhea, Nausea, Vomiting Genitourinary: Denies Frequency; Flank Pain; Denies Hematuria, Denies Urgency Musculoskeletal: back pain; No joint pain Skin: No change in color, No rash Past Fmxxyle-Tjafdh-Wbumcr Hx Past Med/Social Hx: Reviewed Nursing Past Med/Soc Hx Patient Social History Alcohol Use: Denies Use Recreational Drug Use: No Type Used: Cigarettes 2nd Hand Smoke Exposure: Yes Recent Foreign Travel: No Contact w/Someone Who Travel: No Recent Infectious Disease Expo: No Recent Hopitalizations: No Physical Abuse: No Sexual Abuse: No Immunizations Up To Date Tetanus Booster (TDap): Unknown Seasonal Allergies Seasonal Allergies: No Past Medical History Surgeries: Yes (HERNIA REPAIR) Section, Gallbladder Respiratory: Yes COPD Cardiac: No Neurological: No Genitourinary: Yes Gastrointestinal: No Musculoskeletal: No Endocrine: No HEENT: No Cancer: No Psychosocial: No Integumentary: No Blood Disorders: No Physical Exam Vital Signs Vital Signs - First Documented 09/25/20 18:35 Temp 36.7 Pulse 97 Resp 20 B/P (MAP) 104/51 (68) Pulse Ox 98 O2 Delivery Room Air Capillary Refill : Less Than 3 Seconds Height/Weight/BMI Height: 5'3.00" Weight: 240lbs. oz. 108.500386mb; 45.00 BMI Method:Stated General Appearance: WD/WN, no apparent distress Neck: non-tender, supple Respiratory: chest non-tender, lungs clear, normal breath sounds Cardiovascular: regular rate, rhythm, no gallop Gastrointestinal: normal bowel sounds, soft, no organomegaly, no pulsatile mass; No distended, No guarding, No rebound; tenderness (R flank and RLQ); No hernia, No mass, No hepatomegaly, No spleenomegaly Extremities: non-tender, normal inspection, no pedal edema Back: no CVA tenderness, no vertebral tenderness; No muscle spasm Progress/Results/Core Measures Results/Orders Lab Results Laboratory Tests Test 09/25/20 18:35 09/25/20 19:00 Range/Units Urine Color YELLOW Urine Clarity SL CLOUDY Urine pH 6.0 5-9 Urine Specific [place] 1.025 H 1.016-1.022 Urine Protein NEGATIVE NEGATIVE Urine Glucose (UA) 3+ H NEGATIVE Urine Ketones TRACE H NEGATIVE Urine Nitrite NEGATIVE NEGATIVE Urine Bilirubin NEGATIVE NEGATIVE Urine Urobilinogen 0.2 < = 1.0 MG/DL Urine Leukocyte Esterase NEGATIVE NEGATIVE Urine RBC (Auto) NEGATIVE NEGATIVE Urine RBC 0-2 /HPF Urine WBC NONE /HPF Urine Squamous Epithelial Cells 10-25 H /HPF Urine Crystals NONE /LPF Urine Bacteria FEW H /HPF Urine Casts NONE /LPF Urine Mucus MODERATE H /LPF Urine Culture Indicated NO Urine Test NEGATIVE NEGATIVE White Blood Count 18.2 H 4.3-11.0 10^3/uL Red Blood Count 4.49 4.35-5.85 10^6/uL Hemoglobin 12.9 11.5-16.0 G/DL Hematocrit 39 35-52 % Mean Corpuscular Volume 87 80-99 FL Mean Corpuscular Hemoglobin 29 25-34 PG Mean Corpuscular Hemoglobin Concent 33 32-36 G/DL Red Cell Distribution Width 14.0 10.0-14.5 % Platelet Count 321 130-400 10^3/uL Mean Platelet Volume 10.1 7.4-10.4 FL Immature Granulocyte % (Auto) 1 % Neutrophils (%) (Auto) 68 42-75 % Lymphocytes (%) (Auto) 25 12-44 % Monocytes (%) (Auto) 4 0-12 % Eosinophils (%) (Auto) 2 0-10 % Basophils (%) (Auto) 0 0-10 % Neutrophils # (Auto) 12.4 H 1.8-7.8 X 10^3 Lymphocytes # (Auto) 4.6 H 1.0-4.0 X 10^3 Monocytes # (Auto) 0.8 0.0-1.0 X 10^3 Eosinophils # (Auto) 0.3 0.0-0.3 10^3/uL Basophils # (Auto) 0.1 0.0-0.1 10^3/uL Immature Granulocyte # (Auto) 0.1 0.0-0.1 10^3/uL Neutrophils % (Manual) 65 % Lymphocytes % (Manual) 12 % Monocytes % (Manual) 4 % Eosinophils % (Manual) 2 % Basophils % (Manual) 0 % Band Neutrophils 6 % Atypical Lymphocytes 11 % Blood Morphology Comment NORMAL Sodium Level 136 135-145 MMOL/L Potassium Level 4.1 3.6-5.0 MMOL/L Chloride Level 101 98-107 MMOL/L Carbon Dioxide Level 22 21-32 MMOL/L Anion Gap 13 5-14 MMOL/L Blood Urea Nitrogen 7 7-18 MG/DL Creatinine 0.53 L 0.60-1.30 MG/DL Estimat Glomerular Filtration Rate > 60 BUN/Creatinine Ratio 13 Glucose Level 252 H 70-105 MG/DL Calcium Level 9.1 8.5-10.1 MG/DL Corrected Calcium 8.9 8.5-10.1 MG/DL Total Bilirubin 0.2 0.1-1.0 MG/DL Aspartate Amino Transf (AST/SGOT) 46 H 5-34 U/L Alanine Aminotransferase (ALT/SGPT) 26 0-55 U/L Alkaline Phosphatase 102 40-136 U/L Total Protein 7.0 6.4-8.2 GM/DL Albumin 4.2 3.2-4.5 GM/DL Lipase 14 8-78 U/L My Orders Orders - ROVENSTINEUCHE DO Urinalysis (09/25/20 18:34) Ed Iv/Invasive Line Start (09/25/20 18:48) Cbc With Automated Diff (09/25/20 18:48) Comprehensive Metabolic Panel (09/25/20 18:48) Hcg,Qualitative Urine (09/25/20 18:48) Lipase (09/25/20 18:48) Ns Iv 1000 Ml (Sodium Chloride 0.9%) (09/25/20 19:00) Ondansetron Injection (Zofran Injectio (09/25/20 19:00) Ed Iv/Invasive Line Start (09/25/20 19:04) Ct Abdomen/Pelvis W (09/25/20 19:15) Manual Differential (09/25/20 19:00) Iohexol Injection (Omnipaque 350 Mg/Ml 1 (09/25/20 19:30) Received Contrast (Hold Metformin- Contr (09/25/20 19:30) Ns (Ivpb) (Sodium Chlor[place] 0.9% Ivpb Bag (09/25/20 19:30) Medications Given in ED Current Medications Medications Dose Ordered Sig/Chris Route Start Time Stop Time Status Last Admin Dose Admin Iohexol 100 ml ONCE ONCE IV 09/25/20 19:30 09/25/20 19:31 DC 09/25/20 19:40 100 ML Ondansetron HCl 4 mg ONCE ONCE IVP 09/25/20 19:00 09/25/20 19:01 DC 09/25/20 19:01 4 MG Sodium Chloride 100 ml ONCE ONCE IV 09/25/20 19:30 09/25/20 19:31 DC 09/25/20 19:40 80 ML Vital Signs/I&O 12/8/20 18:35 Temp 36.7 Pulse 97 Resp 20 B/P (MAP) 104/51 (68) Pulse Ox 98 O2 Delivery Room Air Blood Pressure Mean: 68 Diagnostic Imaging Comments IMPRESSION: 1. No CT findings of an acute inflammatory or obstructive process within the abdomen or pelvis. 2. Previous cholecystectomy. 3. Hepatomegaly with hepatic steatosis. 4. No bowel obstruction or appendicitis. 5. No free fluid or focal inflammation within the omentum or mesentery. 6. Stable postsurgical changes along the anterior abdominal wall with stable fat-containing infraumbilical hernia. Dictated on workstation # [id number] Dict: 09/25/201949 Trans: 09/25/201955 [facility] [id number] Interpreted by: YOAN STARK MD Electronically signed by: Departure Impression Primary Impression: Abdominal pain Qualified Codes: R10.31 - Right lower quadrant pain Disposition: 01 HOME, SELF-CARE Condition: Stable Departure-Patient Inst. Decision time for Depature: 20:14 Referrals: [facility] (PCP) Primary Care Physician SAMEERA DENT APRN (Family) Primary Care Physician Patient Instructions: CLEAR LIQUID DIET ADULT/CHILD, Viral Gastroenteritis, Adult (DC) Add. Discharge Instructions: Follow up with your PCP in 2 days if not improving, ER sooner if worse. All discharge instructions reviewed with patient and/or family. Voiced understanding. Scripts Ondansetron (Ondansetron Odt) 4 Mg Tab.rapdis 4 MG PO TID for Nausea, #10 TAB Prov: UCHE LOWRY DO 09/25/20 Hyoscyamine Sulfate (Levsin-Sl) 0.125 Mg Tab.subl 0.125 MG SL Q4H, #10 TAB 0 Refills Prov: STEPHANIEVENSTINEUCHE DO 09/25/20 ROSAYRASTUCHE BADILLO DO Sep 25, 2020 18:52
[2020-09-25 18:55] LABS: COLOR,URINE YELLOW; GLUCOSE, URINE (UA) 3+ (NEGATIVE); PROTEIN,URINE NEGATIVE (NEGATIVE)
[2020-09-25 18:56] LABS: BACTERIA,URINE FEW /HPF; BILIRUBIN,URINE NEGATIVE (NEGATIVE); KETONES,URINE TRACE (NEGATIVE); LEUKOCYTE ESTERASE ,URINE NEGATIVE (NEGATIVE); NITRITE,URINE NEGATIVE (NEGATIVE); RBC,URINE 0-2 /HPF
[2020-09-25 18:58] LABS: CLARITY,URINE SL CLOUDY
[2020-09-25] MEDS ORDERED: NS IV 1000 ML 1,000 ML IV SCH (19:00)
[2020-09-25] MEDS ORDERED: ONDANSETRON 4 MG/2 ML (SDV) Z0FRAN IVP ONE (19:00)
[2020-09-25 19:19] LABS: BASOPHILS # (AUTO) 0.1 10^3/uL (0.0-0.1); BASOPHILS % (AUTO) 0 % (0-10); EOSINOPHILS # (AUTO) 0.3 10^3/uL (0.0-0.3); EOSINOPHILS % (AUTO) 2 % (0-10); HEMATOCRIT 39 % (35-52); HEMOGLOBIN 12.9 G/DL (11.5-16.0); LYMPHOCYTES # (AUTO) 4.6 X 10^3 (1.0-4.0); LYMPHOCYTES % (AUTO) 25 % (12-44); MEAN CORPUSCULAR HEMOGLOBIN 29 PG (25-34); MEAN CORPUSCULAR HGB CONC 33 G/DL (32-36); MEAN CORPUSCULAR VOLUME 87 FL (80-99); MEAN PLATELET VOLUME 10.1 FL (7.4-10.4); MONOCYTES # (AUTO) 0.8 X 10^3 (0.0-1.0); MONOCYTES % (AUTO) 4 % (0-12); NEUTROPHILS # (AUTO) 12.4 X 10^3 (1.8-7.8); NEUTROPHILS % (AUTO) 68 % (42-75); PLATELET COUNT 321 10^3/uL (130-400); WHITE BLOOD COUNT 18.2 10^3/uL (4.3-11.0)
[2020-09-25] MEDS ORDERED: IOHEXOL 350 MG/ML 100 ML (OMNIPAQUE 350) VIAL IV ONE (19:30)
[2020-09-25] MEDS ORDERED: NS 100 ML (IVPB) BAG IV ONE (19:30)
[2020-09-25] MEDS ORDERED: HOLD METFORMIN - RECEIVED CONTRAST 20 ML VIAL IV SCH (19:30)
[2020-09-25 19:32] LABS: CHLORIDE 101 MMOL/L (98-107); POTASSIUM 4.1 MMOL/L (3.6-5.0); SODIUM 136 MMOL/L (135-145)
[2020-09-25 19:33] LABS: ALANINE AMINOTRANSFERASE 26 U/L (0-55); ALBUMIN 4.2 GM/DL (3.2-4.5); ALKALINE PHOSPHATASE 102 U/L (40-136); BILIRUBIN,TOTAL 0.2 MG/DL (0.1-1.0); BUN/CREATININE RATIO 13; CALCIUM 9.1 MG/DL (8.5-10.1); CARBON DIOXIDE 22 MMOL/L (21-32); CREATININE SERUM 0.53 MG/DL (0.60-1.30); GFR ESTIMATED > 60; GLUCOSE 252 MG/DL (70-105); LIPASE 14 U/L (8-78)
[2020-09-25 19:34] LABS: ATYPICAL LYMPHOCYTES 11 %; BAND NEUTROPHILS 6 %; BASOPHILS % (MANUAL) 0 %; EOSINOPHILS % (MANUAL) 2 %; LYMPHOCYTES % (MANUAL) 12 %; MONOCYTES % (MANUAL) 4 %; NEUTROPHILS % (MANUAL) 65 %; RBC MORPH NORMAL
--- NOTE | 2020-09-25 19:57 | Diagnostic Imaging Report ---
PROCEDURE: CT abdomen and pelvis with contrast. TECHNIQUE: Multiple contiguous axial images were obtained through the abdomen and pelvis after administration of intravenous contrast. Auto Exposure Controls were utilized during the CT exam to meet ALARA standards for radiation dose reduction. All CT scans use one or more of the following dose optimizing techniques: automated exposure control, MA and/or KvP adjustment based on patient size and exam type or iterative reconstruction. INDICATION: Right flank and right lower quadrant pain. History of cholecystectomy. COMPARISON made to the previous study from November 28, 2018. FINDINGS: The lung bases appear clear without evidence of infiltrate or effusion. The liver demonstrates hepatomegaly with diffuse hepatic steatosis. There is some focal fatty sparing along the falciform ligament. The gallbladder is surgically absent. There is no biliary dilatation. The portal veins are patent. The pancreas demonstrates no focal abnormality. The spleen is normal in size. There is no adrenal mass. The kidneys enhance normally and appear nonobstructed. There are no findings of urolithiasis. The small and large bowel are normal in caliber without evidence of bowel obstruction. There is moderate stool within the colon. The appendix is well identified and appears normal. There is no abnormal bowel thickening. Urinary bladder unremarkable. Uterus and adnexal regions unremarkable by CT. There are stable postoperative findings of prior anterior abdominal wall surgery. There is a stable fat-containing infraumbilical abdominal wall hernia. There are no findings of adenopathy. There is no free fluid. There is no abscess. There is no focal inflammation within the omentum or mesentery. There is no acute or suspicious osseous abnormality demonstrated IMPRESSION: 1. No CT findings of an acute inflammatory or obstructive process within the abdomen or pelvis. 2. Previous cholecystectomy. 3. Hepatomegaly with hepatic steatosis. 4. No bowel obstruction or appendicitis. 5. No free fluid or focal inflammation within the omentum or mesentery. 6. Stable postsurgical changes along the anterior abdominal wall with stable fat-containing infraumbilical hernia. Dictated by: Dictated on workstation # [id number]
[2020-09-25] MEDS ORDERED: ONDA4TAB11 PO (20:15)
[2020-09-25] MEDS ORDERED: HYOS0.1283 SL (20:15)
[2020-09-25 20:24] VITALS: BP 130/75
== END 2020-09-25 20:24 | disposition home or self-care (01) ==
LOC: EDUNIT# 18:25 → ER FS 18:27
DX: R10.31 Right lower quadrant pain (principal); J44.9 Chronic obstructive pulmonary disease, unspecified; Z77.22 Contact with and (suspected) exposure to environmental tobacco smoke (acute) (chronic); Z79.52 Long term (current) use of systemic steroids
CPT/HCPCS: 36415; 74177; 80053; 81000; 83690; 84703; 85007; 85027

== ENCOUNTER 2020-10-17 20:21 | Emergency (ER) | payer MEDICAID ==
[~2020-10-17] VITALS: Ht 160 cm; Wt 116.6 kg
[~2020-10-17 20:21] MED LIST changes: +HYOS0.1283 SL
[2020-10-17 20:45] VITALS: BP 120/68
[2020-10-17 20:54] LABS: BILIRUBIN,URINE NEGATIVE (NEGATIVE); CLARITY,URINE SLT CLOUDY; COLOR,URINE YELLOW; GLUCOSE, URINE (UA) NEGATIVE (NEGATIVE); KETONES,URINE TRACE (NEGATIVE); NITRITE,URINE NEGATIVE (NEGATIVE); PROTEIN,URINE NEGATIVE (NEGATIVE)
--- NOTE | 2020-10-17 20:54 | ED Abdominal Pain ---
General Chief Complaint: Abdominal/GI Problems Stated Complaint: LOWER ABD PAIN Nursing Triage Note: pt reports lower abd pain, say Dr Garcia today in office and started on new medication but doesnt know what it was Sepsis Screen: No Definite Risk Source of Information: Patient Exam Limitations: No Limitations History of Present Illness Date Seen by Provider: Oct 17, 2020 Time Seen by Provider: 20:45 Initial Comments 39-year-old female presents with lower abdominal pain for a couple days. Saw her PCP today and was started on 4 different medications, but doesn't know what they were. Some discomfort with urination, denies blood in her urine or vaginal discharge. Denies change in stool pattern, constipation or diarrhea, melena or hematochezia. Denies upper abdominal pain, nausea vomiting or change of appetite. Denies any back or flank pain. Allergies and Home Medications Allergies Coded Allergies: No Known Drug Allergies (Unverified , 11/28/18) Home Medications Amoxicillin 500 Mg Capsule, 500 MG PO TID Prescribed by: RANCHO ANGELES on 02/12/19 1545 Amoxicillin 500 Mg Capsule, 875 MG PO BID Prescribed by: TSERING BERNAL on 09/14/19 1012 Azithromycin 250 Mg Tablet, 250 MG PO DAILY Prescribed by: JINA BAH on 07/17/19 2240 Cephalexin 500 Mg Tablet, 500 MG PO QID Prescribed by: RANCHO ANGELES on 04/19/20 2353 Ciprofloxacin HCl/Dexameth 7.5 Ml Soln, 7.5 ML OT BID Prescribed by: ROLAND NOBLES on 04/22/20 205 Cyclobenzaprine HCl 10 Mg Tablet, 10 MG PO Q8H PRN for SPASMS Prescribed by: UCHE LOWRY on 06/26/20 1827 Diclofenac Sodium 50 Mg Tablet., 50 MG PO BID Prescribed by: TSERING BERNAL on 09/14/19 1012 Diclofenac Sodium 75 Mg Tablet., 75 MG PO BID Prescribed by: JASON VELEZ on 07/16/20 1936 Dicyclomine HCl 20 Mg Tablet, 20 MG PO TID PRN for ABDOMINAL PAIN Prescribed by: DINORA KNOTT on 12/18/18 1438 Fexofenadine HCl 180 Mg Tablet, 180 MG PO DAILY Prescribed by: UCHE LOWRY on 04/18/20 1129 Fluticasone Propionate 16 Gm [place].susp, 16 GM NS DAILY Prescribed by: UCHE LOWRY on 04/18/20 1129 Hydrocodone/Acetaminophen 1 Each Tablet, 1 TAB PO Qhs Prescribed by: NOA ZAMARRIPA on 04/13/19 1247 Hyoscyamine Sulfate 0.125 Mg Tab.subl, 0.125 MG SL Q8H Prescribed by: UCHE LOWRY on 09/19/19 1713 Hyoscyamine Sulfate 0.125 Mg Tab.subl, 0.125 MG SL Q4H Prescribed by: UCHE LOWRY on 09/25/202014 Ibuprofen 800 Mg Tablet, 800 MG PO Q8H PRN for PAIN Prescribed by: JINA BAH on 07/17/192239 Ibuprofen 800 Mg Tablet, 800 MG PO Q8H PRN for PAIN Prescribed by: UCHE LOWRY on 06/26/20 1818 Metformin HCl 500 Mg Tablet, 500 MG PO BID Prescribed by: DINORA KNOTT on 09/16/20 1828 Methocarbamol 750 Mg Tablet, 750 MG PO Q4H PRN for PAIN-MODERATE (5-7) Prescribed by: KARLA DELGADO on 08/22/20 1122 Metronidazole 500 Mg Tablet, 500 MG PO BID, (Reported) Naproxen 500 Mg Tablet, 500 MG PO BID Prescribed by: RANCHO ANGELES on 04/19/20 2353 Naproxen 500 Mg Tablet, 500 MG PO BID Prescribed by: KARLA DELGADO on 08/22/20 1122 Ondansetron 4 Mg Tab.rapdis, 4 MG PO Q8H PRN for NAUSEA/VOMITING Prescribed by: DINORA KNOTT on 12/18/18 1438 Ondansetron 4 Mg Tab.rapdis, 4 MG PO TID Prescribed by: UCHE LOWRY on 03/23/20 1130 Ondansetron 4 Mg Tab.rapdis, 4 MG PO TID Prescribed by: UCHE LOWRY on 04/18/20 1129 Ondansetron 4 Mg Tab.rapdis, 4 MG PO TID Prescribed by: UCHE LOWRY on 09/25/202014 Prednisone 20 Mg Tab, 40 MG PO DAILY Prescribed by: JINA BAH on 07/17/19 224 Trimethoprim/Sulfamethoxazole 1 Ea Tablet, 1 TAB PO BID, (Reported) Patient Home Medication List Home Medication List Reviewed: Yes Review of Systems Review of Systems Constitutional: No fever, No malaise, No weakness Respiratory: Denies Cough, Denies Shortness of Air Cardiovascular: Denies Chest Pain, Denies Edema Gastrointestinal: See HPI; Denies Abdomen Distended; Abdominal Pain; Denies Blood Streaked Stools, Denies Constipated, Denies Diarrhea, Denies Difficulty Swallowing, Denies Nausea, Denies Poor Appetite, Denies Poor Fluid Intake, Denies Rectal Bleeding, Denies Vomiting Genitourinary: Denies Burning, Denies Discharge, Denies Drainage, Denies Frequency, Denies Flank Pain, Denies Hematuria; Pain; Denies Urgency Musculoskeletal: No back pain, No joint pain Skin: No change in color, No rash Past Kzitqfz-Jyexfg-Cpbnzu Hx Past Med/Social Hx: Reviewed Nursing Past Med/Soc Hx Patient Social History Alcohol Use: Denies Use Recreational Drug Use: No Smoking Status: Current Everyday Smoker Type Used: Cigarettes 2nd Hand Smoke Exposure: Yes Recent Foreign Travel: No Contact w/Someone Who Travel: No Recent Infectious Disease Expo: No Recent Hopitalizations: No Physical Abuse: No Sexual Abuse: No Mistreated: No Fear: No Immunizations Up To Date Tetanus Booster (TDap): Unknown Seasonal Allergies Seasonal Allergies: No Past Medical History Surgeries: Yes (HERNIA REPAIR) Section, Gallbladder Respiratory: Yes COPD Cardiac: No Neurological: No Genitourinary: Yes Gastrointestinal: No Musculoskeletal: No Endocrine: No HEENT: No Cancer: No Psychosocial: No Integumentary: No Blood Disorders: No Physical Exam Vital Signs Vital Signs - First Documented 10/17/20 20:45 Temp 35.9 Pulse 96 Resp 18 B/P (MAP) 120/68 (85) Pulse Ox 98 O2 Delivery Room Air Capillary Refill : Less Than 3 Seconds Height/Weight/BMI Height: 5'3.00" Weight: 240lbs. oz. 108.293803li; 45.00 BMI Method:Stated General Appearance: WD/WN, no apparent distress Respiratory: chest non-tender, lungs clear, normal breath sounds Cardiovascular: regular rate, rhythm, no edema Gastrointestinal: normal bowel sounds, soft, no organomegaly, no pulsatile mass; No distended, No guarding, No rebound; tenderness (minimal, suprapubic); No hernia, No mass, No hepatomegaly, No spleenomegaly Back: normal inspection, no CVA tenderness Progress/Results/Core Measures Results/Orders Lab Results Laboratory Tests Test 10/17/20 20:40 Range/Units Urine Color YELLOW Urine Clarity SLT CLOUDY Urine pH 6.0 5-9 Urine Specific [place] >=1.030 1.016-1.022 Urine Protein NEGATIVE NEGATIVE Urine Glucose (UA) NEGATIVE NEGATIVE Urine Ketones TRACE H NEGATIVE Urine Nitrite NEGATIVE NEGATIVE Urine Bilirubin NEGATIVE NEGATIVE Urine Urobilinogen 0.2 < = 1.0 MG/DL Urine Leukocyte Esterase NEGATIVE NEGATIVE Urine RBC (Auto) NEGATIVE NEGATIVE Urine RBC NONE /HPF Urine WBC 0-2 /HPF Urine Squamous Epithelial Cells 0-2 /HPF Urine Crystals NONE /LPF Urine Bacteria MODERATE H /HPF Urine Casts NONE /LPF Urine Mucus MODERATE H /LPF Urine Culture Indicated YES Urine Test NEGATIVE NEGATIVE My Orders Orders - UCHE LOWRY DO Ua Culture If Indicated (10/17/20 20:39) Hcg,Qualitative Urine (10/17/20 20:45) Urine Culture (10/17/20 20:40) Vital Signs/I&O 10/17/20 20:45 Temp 35.9 Pulse 96 Resp 18 B/P (MAP) 120/68 (85) Pulse Ox 98 O2 Delivery Room Air Blood Pressure Mean: 85 Departure Impression Primary Impression: Abdominal pain Qualified Codes: R10.30 - Lower abdominal pain, unspecified Disposition: 01 HOME, SELF-CARE Condition: Stable Departure-Patient Inst. Decision time for Depature: 20:59 Referrals: [facility] (PCP) Primary Care Physician SAMEERA DENT APRN (Family) Primary Care Physician Add. Discharge Instructions: See your PCP in 2 to 3 days if not improving, ER sooner if worse. Take the medication given to you by Dr Garcia as instructed to you . All discharge instructions reviewed with patient and/or family. Voiced understanding. UCHE LOWRY DO Oct 17, 2020 20:54
[2020-10-17 20:55] LABS: BACTERIA,URINE MODERATE /HPF; LEUKOCYTE ESTERASE ,URINE NEGATIVE (NEGATIVE); SQUAMOUS EPITHELIAL CELL,UR 0-2 /HPF; WBC,URINE 0-2 /HPF
[2020-10-17] MEDS ORDERED: IBUPROFEN 800 MG (MOTRIN) TAB PO ONE ×2 (21:00)
[2020-10-18] MEDS ORDERED: NAPR-1071 PO (14:13)
== END 2020-10-17 21:04 | disposition home or self-care (01) ==
LOC: EDUNIT# 20:21 → ER FS 20:22
DX: R10.30 Lower abdominal pain, unspecified (principal); J44.9 Chronic obstructive pulmonary disease, unspecified; F17.210 Nicotine dependence, cigarettes, uncomplicated; Z79.52 Long term (current) use of systemic steroids
CPT/HCPCS: 81000; 84703; 87088; 99282

== ENCOUNTER 2020-10-18 12:04 | Emergency (ER) | payer MEDICAID ==
[~2020-10-18] VITALS: Ht 160 cm; Wt 115.9 kg
--- NOTE | 2020-10-18 12:31 | ED Abdominal Pain ---
General Stated Complaint: ABD PAIN Source of Information: Patient Exam Limitations: No Limitations History of Present Illness Date Seen by Provider: Oct 18, 2020 Time Seen by Provider: 12:19 Initial Comments To ER with persistent midline lower suprapubic abdominal pain. This is been ongoing for couple of days. She saw emergency room at [place] last night. Timing/Duration: 1-2 Days Severity/Quality: Moderate Location: Suprapubic Radiation: No Radiation Activities at Onset: None Associated Symptoms: Denies Symptoms Allergies and Home Medications Allergies Coded Allergies: No Known Drug Allergies (Unverified , 11/28/18) Home Medications Amoxicillin 500 Mg Capsule, 500 MG PO TID Prescribed by: RANCHO ANGELES on 02/12/19 1545 Amoxicillin 500 Mg Capsule, 875 MG PO BID Prescribed by: TSERING BERNAL on 09/14/19 1012 Azithromycin 250 Mg Tablet, 250 MG PO DAILY Prescribed by: JINA BAH on 07/17/19 2240 Cephalexin 500 Mg Tablet, 500 MG PO QID Prescribed by: RANCHO ANGELES on 04/19/20 2353 Ciprofloxacin HCl/Dexameth 7.5 Ml Soln, 7.5 ML OT BID Prescribed by: ROLAND NOBLES on 04/22/20 205 Cyclobenzaprine HCl 10 Mg Tablet, 10 MG PO Q8H PRN for SPASMS Prescribed by: UCHE LOWRY on 06/26/20 1827 Diclofenac Sodium 50 Mg Tablet.dr, 50 MG PO BID Prescribed by: TSERING BERNLA on 09/14/19 1012 Diclofenac Sodium 75 Mg Tablet.dr, 75 MG PO BID Prescribed by: JASON VELEZ on 07/16/20 1936 Dicyclomine HCl 20 Mg Tablet, 20 MG PO TID PRN for ABDOMINAL PAIN Prescribed by: DINORA KNOTT on 12/18/18 1438 Fexofenadine HCl 180 Mg Tablet, 180 MG PO DAILY Prescribed by: UCHE LOWRY on 04/18/20 1129 Fluticasone Propionate 16 Gm Abrams.susp, 16 GM NS DAILY Prescribed by: UCHE LOWRY on 04/18/20 1129 Hydrocodone/Acetaminophen 1 Each Tablet, 1 TAB PO Qhs Prescribed by: NOA ZAMARRIPA on 04/13/19 1247 Hyoscyamine Sulfate 0.125 Mg Tab.subl, 0.125 MG SL Q8H Prescribed by: UCHE LOWRY on 09/19/19 1713 Hyoscyamine Sulfate 0.125 Mg Tab.subl, 0.125 MG SL Q4H Prescribed by: UCHE LOWRY on 09/25/202014 Ibuprofen 800 Mg Tablet, 800 MG PO Q8H PRN for PAIN Prescribed by: JINA BAH on 07/17/192239 Ibuprofen 800 Mg Tablet, 800 MG PO Q8H PRN for PAIN Prescribed by: UCHE LOWRY on 06/26/20 181 Metformin HCl 500 Mg Tablet, 500 MG PO BID Prescribed by: DINORA KNOTT on 09/16/20 1828 Methocarbamol 750 Mg Tablet, 750 MG PO Q4H PRN for PAIN-MODERATE (5-7) Prescribed by: KARLA DELGADO on 08/22/20 1122 Metronidazole 500 Mg Tablet, 500 MG PO BID, (Reported) Naproxen 500 Mg Tablet, 500 MG PO BID Prescribed by: RANCHO ANGELES on 04/19/20 2353 Naproxen 500 Mg Tablet, 500 MG PO BID Prescribed by: KARLA DELGADO on 08/22/20 1122 Ondansetron 4 Mg Tab.rapdis, 4 MG PO Q8H PRN for NAUSEA/VOMITING Prescribed by: DINORA KNOTT on 12/18/18 1438 Ondansetron 4 Mg Tab.rapdis, 4 MG PO TID Prescribed by: UCHE LOWRY on 03/23/20 1130 Ondansetron 4 Mg Tab.rapdis, 4 MG PO TID Prescribed by: UCHE LOWRY on 04/18/20 1129 Ondansetron 4 Mg Tab.rapdis, 4 MG PO TID Prescribed by: UCHE LOWRY on 09/25/202014 Prednisone 20 Mg Tab, 40 MG PO DAILY Prescribed by: JINA BAH on 07/17/192239 Trimethoprim/Sulfamethoxazole 1 Ea Tablet, 1 TAB PO BID, (Reported) Patient Home Medication List Home Medication List Reviewed: Yes Review of Systems Review of Systems Constitutional: see HPI EENTM: No Symptoms Reported Respiratory: No Symptoms Reported Cardiovascular: No Symptoms Reported Gastrointestinal: See HPI Genitourinary: No Symptoms Reported Musculoskeletal: no symptoms reported Skin: no symptoms reported Psychiatric/Neurological: No Symptoms Reported Endocrine: No Symptoms Reported Hematologic/Lymphatic: No Symptoms Reported Past Bootjrk-Mqgtzh-Oxwcpj Hx Patient Social History Type Used: Cigarettes 2nd Hand Smoke Exposure: Yes Recent Foreign Travel: No Contact w/Someone Who Travel: No Recent Hopitalizations: No Immunizations Up To Date Tetanus Booster (TDap): Unknown Seasonal Allergies Seasonal Allergies: No Past Medical History Surgeries: Yes (HERNIA REPAIR) Section, Gallbladder Respiratory: Yes COPD Cardiac: No Neurological: No Genitourinary: Yes Gastrointestinal: No Musculoskeletal: No Endocrine: No HEENT: No Cancer: No Psychosocial: No Integumentary: No Blood Disorders: No Physical Exam Vital Signs Vital Signs - First Documented 10/18/20 12:17 Temp 37.2 Pulse 100 Resp 18 B/P (MAP) 138/111 (120) Pulse Ox 98 O2 Delivery Room Air Capillary Refill : Height/Weight/BMI Height: 5'3.00" Weight: 240lbs. oz. [id number]; 45.00 BMI Method:Stated General Appearance: WD/WN, no apparent distress Neck: non-tender, full range of motion Respiratory: normal breath sounds, no respiratory distress, no accessory muscle use Cardiovascular: regular rate, rhythm, no murmur Gastrointestinal: normal bowel sounds, soft, tenderness Extremities: normal range of motion, non-tender Neurologic/Psychiatric: alert, normal mood/affect, oriented x 3 Skin: normal color, warm/dry Progress/Results/Core Measures Results/Orders Lab Results Laboratory Tests Test 10/18/20 12:00 10/18/20 12:20 10/18/20 12:27 Range/Units Urine Opiates Screen NEGATIVE NEGATIVE Urine Oxycodone Screen NEGATIVE NEGATIVE Urine Methadone Screen NEGATIVE NEGATIVE Urine Propoxyphene Screen NEGATIVE NEGATIVE Urine Barbiturates Screen NEGATIVE NEGATIVE Ur Tricyclic Antidepressants Screen NEGATIVE NEGATIVE Urine Phencyclidine Screen NEGATIVE NEGATIVE Urine Amphetamines Screen NEGATIVE NEGATIVE Urine Methamphetamines Screen NEGATIVE NEGATIVE Urine Benzodiazepines Screen POSITIVE H NEGATIVE Urine Cocaine Screen NEGATIVE NEGATIVE Urine Cannabinoids Screen NEGATIVE NEGATIVE White Blood Count 14.7 H 4.3-11.0 10^3/uL Red Blood Count 4.44 3.80-5.11 10^6/uL Hemoglobin 12.7 11.5-16.0 g/dL Hematocrit 40 35-52 % Mean Corpuscular Volume 89 80-99 fL Mean Corpuscular Hemoglobin 29 25-34 pg Mean Corpuscular Hemoglobin Concent 32 32-36 g/dL Red Cell Distribution Width 13.7 10.0-14.5 % Platelet Count 340 130-400 10^3/uL Mean Platelet Volume 9.9 9.0-12.2 fL Immature Granulocyte % (Auto) 1 % Neutrophils (%) (Auto) 63 42-75 % Lymphocytes (%) (Auto) 30 12-44 % Monocytes (%) (Auto) 4 0-12 % Eosinophils (%) (Auto) 2 0-10 % Basophils (%) (Auto) 0 0-10 % Neutrophils # (Auto) 9.2 H 1.8-7.8 10^3/uL Lymphocytes # (Auto) 4.4 H 1.0-4.0 10^3/uL Monocytes # (Auto) 0.6 0.0-1.0 10^3/uL Eosinophils # (Auto) 0.4 H 0.0-0.3 10^3/uL Basophils # (Auto) 0.0 0.0-0.1 10^3/uL Immature Granulocyte # (Auto) 0.1 0.0-0.1 10^3/uL Neutrophils % (Manual) 55 % Lymphocytes % (Manual) 39 % Monocytes % (Manual) 3 % Eosinophils % (Manual) 3 % Basophils % (Manual) 0 % Band Neutrophils 0 % Blood Morphology Comment NORMAL Sodium Level 137 135-145 MMOL/L Potassium Level 4.1 3.6-5.0 MMOL/L Chloride Level 106 98-107 MMOL/L Carbon Dioxide Level 22 21-32 MMOL/L Anion Gap 9 5-14 MMOL/L Blood Urea Nitrogen 11 7-18 MG/DL Creatinine 0.72 0.60-1.30 MG/DL Estimat Glomerular Filtration Rate > 60 BUN/Creatinine Ratio 15 Glucose Level 212 H 70-105 MG/DL Calcium Level 9.1 8.5-10.1 MG/DL Corrected Calcium 8.9 8.5-10.1 MG/DL Total Bilirubin 0.3 0.1-1.0 MG/DL Aspartate Amino Transf (AST/SGOT) 49 H 5-34 U/L Alanine Aminotransferase (ALT/SGPT) 40 0-55 U/L Alkaline Phosphatase 110 40-136 U/L Total Protein 7.8 6.4-8.2 GM/DL Albumin 4.3 3.2-4.5 GM/DL Serum Test, Qualitative NEGATIVE NEGATIVE My Orders Orders - KARLA DELGADO APRN Cbc With Automated Diff (10/18/20 12:28) Comprehensive Metabolic Panel (10/18/20 12:28) Hcg,Qualitative Serum (10/18/20 12:28) Ed Iv/Invasive Line Start (10/18/20 12:28) Ct Abd/Pelvis Wo(Kidney Stone) (10/18/20 12:28) Wet Prep (10/18/20 12:28) Neisseria Gonorrhea Swab (10/18/20 12:28) Chlam Dna Probe (10/18/20 12:28) Drug Screen Stat (Urine) (10/18/20 12:31) Manual Differential (10/18/20 12:27) Ua Culture If Indicated (10/18/20 13:45) Vital Signs/I&O 10/18/20 12:17 Temp 37.2 Pulse 100 Resp 18 B/P (MAP) 138/111 (120) Pulse Ox 98 O2 Delivery Room Air Departure Impression Primary Impression: Abdominal wall hernia Disposition: HOME, SELF-CARE Condition: Stable Departure-Patient Inst. Decision time for Depature: 14:12 Referrals: [facility] (PCP) Primary Care Physician SAMEERA DENT APRN (Family) Primary Care Physician ZARA MARQUEZ BRETT D DO KIDO, TAKAAKI MD Patient Instructions: Abdominal Wall Hernias Add. Discharge Instructions: 1. Anti-inflammatory medication as directed. Follow-up with your doctor next week 3. Scripts Naproxen (Naprosyn) 500 Mg Tablet 500 MG PO BID, #30 TAB 0 Refills Prov: KARLA DELGADO APRN 10/18/20 KARLA DELGAOD APRN Oct 18, 2020 12:31
[2020-10-18 12:34] LABS: BASOPHILS % (AUTO) 0 % (0-10); EOSINOPHILS # (AUTO) 0.4 10^3/uL (0.0-0.3); EOSINOPHILS % (AUTO) 2 % (0-10); HEMATOCRIT 40 % (35-52); HEMOGLOBIN 12.7 g/dL (11.5-16.0); LYMPHOCYTES # (AUTO) 4.4 10^3/uL (1.0-4.0); LYMPHOCYTES % (AUTO) 30 % (12-44); MEAN CORPUSCULAR HEMOGLOBIN 29 pg (25-34); MEAN CORPUSCULAR HGB CONC 32 g/dL (32-36); MEAN CORPUSCULAR VOLUME 89 fL (80-99); MEAN PLATELET VOLUME 9.9 fL (9.0-12.2); MONOCYTES # (AUTO) 0.6 10^3/uL (0.0-1.0); MONOCYTES % (AUTO) 4 % (0-12); NEUTROPHILS # (AUTO) 9.2 10^3/uL (1.8-7.8); NEUTROPHILS % (AUTO) 63 % (42-75); PLATELET COUNT 340 10^3/uL (130-400); WHITE BLOOD COUNT 14.7 10^3/uL (4.3-11.0)
[2020-10-18 12:48] LABS: ALBUMIN 4.3 GM/DL (3.2-4.5)
[2020-10-18 12:49] LABS: CHLORIDE 106 MMOL/L (98-107); POTASSIUM 4.1 MMOL/L (3.6-5.0); SODIUM 137 MMOL/L (135-145)
[2020-10-18 12:50] LABS: CALCIUM 9.1 MG/DL (8.5-10.1)
[2020-10-18 12:51] LABS: GLUCOSE 212 MG/DL (70-105); TOTAL PROTEIN 7.8 GM/DL (6.4-8.2)
[2020-10-18 12:52] LABS: CARBON DIOXIDE 22 MMOL/L (21-32)
[2020-10-18 12:53] LABS: BILIRUBIN,TOTAL 0.3 MG/DL (0.1-1.0)
[2020-10-18 12:54] LABS: ALKALINE PHOSPHATASE 110 U/L (40-136)
[2020-10-18 12:55] LABS: BAND NEUTROPHILS 0 %; CREATININE SERUM 0.72 MG/DL (0.60-1.30); GFR ESTIMATED > 60; LYMPHOCYTES % (MANUAL) 39 %; NEUTROPHILS % (MANUAL) 55 %
[2020-10-18 12:56] LABS: BASOPHILS % (MANUAL) 0 %; BUN/CREATININE RATIO 15; EOSINOPHILS % (MANUAL) 3 %; MONOCYTES % (MANUAL) 3 %; RBC MORPH NORMAL
[2020-10-18 12:57] LABS: ALANINE AMINOTRANSFERASE 40 U/L (0-55)
[2020-10-18 13:03] LABS: AMPHETAMINE SCREEN, URINE NEGATIVE (NEGATIVE); BARBITURATE SCREEN URINE NEGATIVE (NEGATIVE); BENZODIAZEPINES SCREEN URINE POSITIVE (NEGATIVE); CANNABINOID SCREEN, URINE NEGATIVE (NEGATIVE); COCAINE SCREEN URINE NEGATIVE (NEGATIVE); METHADONE STAT NEGATIVE (NEGATIVE); METHAMPHETAMINE SCREEN URINE S NEGATIVE (NEGATIVE); OPIATE SCREEN URINE NEGATIVE (NEGATIVE); OXYCODONE STAT NEGATIVE (NEGATIVE); PROPOXYPHENE STAT NEGATIVE (NEGATIVE); TRICYCLIC ANTIDEPRESSANTS SCRE NEGATIVE (NEGATIVE)
--- NOTE | 2020-10-18 14:06 | Diagnostic Imaging Report ---
PROCEDURE: CT urinary tract, rule out kidney stone. TECHNIQUE: Multiple contiguous axial images were obtained through the abdomen and pelvis without the use of intravenous contrast. Auto Exposure Controls were utilized during the CT exam to meet ALARA standards for radiation dose reduction. INDICATION: Suprapubic pain. Nausea and vomiting. COMPARISON: CT abdomen and pelvis with IV contrast from 09/25/2020. FINDINGS: The lung bases are clear. Diffuse fatty infiltration of the liver. Hepatomegaly. Cholecystectomy. The pancreas, spleen, adrenals, kidneys, collecting systems, bladder, and appendix are negative. Reproductive structures are grossly unremarkable. Stable postoperative changes and fat-containing midline hernia in the lower pelvis. No suspicious inflammatory changes or fluid collections. No free intraperitoneal air or fluid. No lymphadenopathy. No evidence of bowel obstruction. No acute osseous findings. IMPRESSION: 1. Stable postoperative changes and fat-containing anterior abdominal wall hernia along the midline lower pelvis. No new suspicious inflammatory findings or fluid collections. 2. Hepatic steatosis and hepatomegaly. 3. Cholecystectomy. 4. No acute CT findings in the abdomen or pelvis. Dictated by: Dictated on workstation # [id number]
[2020-10-18] MEDS ORDERED: NAPR-1071 PO (14:13)
[2020-10-18 14:17] LABS: BILIRUBIN,URINE NEGATIVE (NEGATIVE); CLARITY,URINE CLEAR; COLOR,URINE YELLOW; GLUCOSE, URINE (UA) 1+ (NEGATIVE); KETONES,URINE TRACE (NEGATIVE); LEUKOCYTE ESTERASE ,URINE NEGATIVE (NEGATIVE); NITRITE,URINE NEGATIVE (NEGATIVE); PROTEIN,URINE NEGATIVE (NEGATIVE)
[2020-10-18 14:34] LABS: BACTERIA,URINE FEW /HPF; SQUAMOUS EPITHELIAL CELL,UR 0-2 /HPF
[2020-10-18] MEDS ORDERED: KETOROLAC 30 MG/ML VIAL IVP ONE (14:45)
[2020-10-18 14:50] VITALS: BP 121/71
== END 2020-10-18 14:52 | disposition home or self-care (01) ==
LOC: EDUNIT# 12:04 → ER 12:06
DX: K43.9 Ventral hernia without obstruction or gangrene (principal); J44.9 Chronic obstructive pulmonary disease, unspecified; Z77.22 Contact with and (suspected) exposure to environmental tobacco smoke (acute) (chronic); Z79.52 Long term (current) use of systemic steroids
CPT/HCPCS: 36415; 74176; 80053; 80306; 81000; 84703; 85007; 85027

== ENCOUNTER 2021-02-16 13:46 | Emergency (ER) | payer MEDICAID ==
[~2021-02-16] VITALS: Ht 160 cm; Wt 114.8 kg
[2021-02-16 14:11] VITALS: BP 139/80
[2021-02-16 14:16] LABS: CLARITY,URINE CLEAR; COLOR,URINE YELLOW; GLUCOSE, URINE (UA) 3+ (NEGATIVE); KETONES,URINE NEGATIVE (NEGATIVE); PROTEIN,URINE NEGATIVE (NEGATIVE)
--- NOTE | 2021-02-16 14:16 | ED GU-Female ---
General Chief Complaint: Skin/Wound Problems Stated Complaint: VAGINAL PAIN Nursing Triage Note: Patient reports she has had a painful pus filled "bump" on her left inner/upper thigh near her perineum for several days. She reports she has had this before and it has resolved spontaneously in the past. Nursing Sepsis Screen: Possible Severe Sepsis Risk Source: patient History of Present Illness Date Seen by Provider: February 16, 2021 Time Seen by Provider: 13:51 Initial Comments 40-year-old female presenting with recurrent boil on her perineal area. She states that she has had this previously and it usually went away. A few weeks ago she had that and was also taking antibiotics for a dental infection. The area got smaller and she thought it had gone away but then in the last few days it came back and has become more painful and swollen. She denies having any drainage from the area. She does periodically shave in the area. She denies any fever or chills. She denies history of MRSA. Allergies and Home Medications Allergies Coded Allergies: No Known Drug Allergies (Unverified , 11/28/18) Home Medications Amoxicillin 500 Mg Capsule, 500 MG PO TID Prescribed by: RANCHO ANGELES on 02/12/19 1545 Amoxicillin 500 Mg Capsule, 875 MG PO BID Prescribed by: TSREING BERNAL on 09/14/19 1012 Azithromycin 250 Mg Tablet, 250 MG PO DAILY Prescribed by: JINA BAH on 07/17/19 2240 Cephalexin 500 Mg Tablet, 500 MG PO QID Prescribed by: RANCHO ANGELES on 04/19/20 2353 Ciprofloxacin HCl/Dexameth 7.5 Ml Soln, 7.5 ML OT BID Prescribed by: ROLAND NOBLES on 04/22/20 205 Cyclobenzaprine HCl 10 Mg Tablet, 10 MG PO Q8H PRN for SPASMS Prescribed by: UCHE LOWRY on 06/26/20 1827 Diclofenac Sodium 50 Mg Tablet., 50 MG PO BID Prescribed by: TSERING BERNAL on 09/14/19 1012 Diclofenac Sodium 75 Mg Tablet.dr, 75 MG PO BID Prescribed by: JASON VELEZ on 07/16/20 1936 Dicyclomine HCl 20 Mg Tablet, 20 MG PO TID PRN for ABDOMINAL PAIN Prescribed by: DINORA KNOTT on 12/18/18 1438 Fexofenadine HCl 180 Mg Tablet, 180 MG PO DAILY Prescribed by: UCHE LOWRY on 04/18/20 1129 Fluticasone Propionate 16 Gm [place].susp, 16 GM NS DAILY Prescribed by: UCHE LOWRY on 04/18/20 1129 Hydrocodone/Acetaminophen 1 Each Tablet, 1 TAB PO Qhs Prescribed by: NOA ZAMARRIPA on 04/13/19 1247 Hyoscyamine Sulfate 0.125 Mg Tab.subl, 0.125 MG SL Q8H Prescribed by: UCHE LOWRY on 09/19/19 1713 Hyoscyamine Sulfate 0.125 Mg Tab.subl, 0.125 MG SL Q4H Prescribed by: UCHE LOWRY on 09/25/202014 Ibuprofen 800 Mg Tablet, 800 MG PO Q8H PRN for PAIN Prescribed by: JINA BAH on 07/17/19 224 Ibuprofen 800 Mg Tablet, 800 MG PO Q8H PRN for PAIN Prescribed by: UCHE LOWRY on 06/26/20 181 Metformin HCl 500 Mg Tablet, 500 MG PO BID Prescribed by: DINORA KNOTT on 09/16/20 1828 Methocarbamol 750 Mg Tablet, 750 MG PO Q4H PRN for PAIN-MODERATE (5-7) Prescribed by: KARLA DELGADO on 08/22/20 1122 Metronidazole 500 Mg Tablet, 500 MG PO BID, (Reported) Naproxen 500 Mg Tablet, 500 MG PO BID Prescribed by: RANCHO ANGELES on 04/19/20 2353 Naproxen 500 Mg Tablet, 500 MG PO BID Prescribed by: KARLA DELGADO on 08/22/20 1122 Naproxen 500 Mg Tablet, 500 MG PO BID Prescribed by: KARLA DELGADO on 10/18/20 1413 Ondansetron 4 Mg Tab.rapdis, 4 MG PO Q8H PRN for NAUSEA/VOMITING Prescribed by: DINORA KNOTT on 12/18/18 1438 Ondansetron 4 Mg Tab.rapdis, 4 MG PO TID Prescribed by: UCHE LOWRY on 03/23/20 1130 Ondansetron 4 Mg Tab.rapdis, 4 MG PO TID Prescribed by: UCHE LOWRY on 04/18/20 1129 Ondansetron 4 Mg Tab.rapdis, 4 MG PO TID Prescribed by: UCHE LOWRY on 09/25/202014 Prednisone 20 Mg Tab, 40 MG PO DAILY Prescribed by: JINA BAH on 07/17/19 2240 Sulfamethoxazole/Trimethoprim 1 Each Tablet, 1 EACH PO BID Prescribed by: DINORA KNOTT on 02/16/21 1449 Trimethoprim/Sulfamethoxazole 1 Ea Tablet, 1 TAB PO BID, (Reported) Patient Home Medication List Home Medication List Reviewed: Yes Review of Systems Review of Systems Constitutional: No chills, No fever EENTM: mouth pain (Chronic dental pain and widespread decay) Respiratory: no symptoms reported Cardiovascular: no symptoms reported Gastrointestinal: no symptoms reported Genitourinary: no symptoms reported Musculoskeletal: no symptoms reported Skin: see HPI, change in color (Redness to the right perineum where it is t pamela and swollen), lesions (Red swollen and tender area to the right perineum) Psychiatric/Neurological: No Symptoms Reported Past Mjskngl-Mogufr-Shyvwd Hx Past Med/Social Hx: Reviewed Nursing Past Med/Soc Hx Patient Social History Type Used: Cigarettes 2nd Hand Smoke Exposure: Yes Recent Infectious Disease Expo: No Recent Hopitalizations: No Immunizations Up To Date Tetanus Booster (TDap): Unknown Seasonal Allergies Seasonal Allergies: No Past Medical History Surgeries: Yes (HERNIA REPAIR) Section, Gallbladder Respiratory: Yes COPD Cardiac: No Neurological: No Genitourinary: Yes Gastrointestinal: No Musculoskeletal: No Endocrine: No HEENT: No Cancer: No Psychosocial: No Integumentary: No Blood Disorders: No Physical Exam Vital Signs Vital Signs - First Documented 02/16/21 14:11 Temp 37.8 Pulse 107 Resp 18 B/P (MAP) 139/80 (99) Pulse Ox 100 O2 Delivery Room Air Capillary Refill : Less Than 3 Seconds Height, Weight, BMI Height: 5'3.00" Weight: 240lbs. oz. [id number]; 44.00 BMI Method:Stated General Appearance: obese, other (Anxious) HEENT: PERRL/EOMI Neck: non-tender, full range of motion, supple, normal inspection Cardiovascular: normal peripheral pulses, regular rate, rhythm Respiratory: chest non-tender, lungs clear Genital/Rectal: tenderness (Tender swollen slightly red area to the right perineum. The area also has some fluctuance and induration measuring 2.6 cm in diameter.) Rectal: deferred Extremities: normal range of motion, normal capillary refill Neurologic/Psychiatric: alert, oriented x 3 Skin: warm/dry, other (Area of mild redness with fluctuance and induration and tenderness to the right perineum measuring 2.6 cm in diameter) Procedures/Interventions I&D : Site: right perineum Blade Size: 11 I & D Procedure: betadine prep, sterile dressing applied Progress After obtaining verbal informed consent from the patient she was prepped with Betadine. In the area was infiltrated with 1% plain lidocaine. She was given 1 mL of the 1% plain lidocaine for anesthetic in the area. Then the abscess was incised with an 11 blade scalpel. The copious amount of purulent drainage with serosanguineous drainage was obtained. A wound culture was sent. The area was compressed and had further pus expressed from the incision. Patient tolerated procedure well without any immediate complication. Counseled on follow-up and return precautions. Progress/Results/Core Measures Suspected Sepsis Recent Fever Within 48 Hours: Yes Infection Criteria Present: Suspected New Infection New/Unexplained Altered Menta: No Sepsis Screen: Possible Severe Sepsis Risk SIRS Temperature: Pulse: 107 Respiratory Rate: 18 Blood Pressure 139 /80 Mean: 99 Results/Orders Lab Results Laboratory Tests Test 02/16/21 14:09 Range/Units Urine Color YELLOW Urine Clarity CLEAR Urine pH 6.0 5-9 Urine Specific [place] 1.015 L 1.016-1.022 Urine Protein NEGATIVE NEGATIVE Urine Glucose (UA) 3+ H NEGATIVE Urine Ketones NEGATIVE NEGATIVE Urine Nitrite NEGATIVE NEGATIVE Urine Bilirubin NEGATIVE NEGATIVE Urine Urobilinogen 0.2 < = 1.0 MG/DL Urine Leukocyte Esterase NEGATIVE NEGATIVE Urine RBC (Auto) NEGATIVE NEGATIVE Urine RBC RARE /HPF Urine WBC 0-2 /HPF Urine Squamous Epithelial Cells 10-25 H /HPF Urine Crystals NONE /LPF Urine Bacteria TRACE /HPF Urine Casts NONE /LPF Urine Mucus SMALL H /LPF Urine Culture Indicated NO Urine Opiates Screen NEGATIVE NEGATIVE Urine Oxycodone Screen NEGATIVE NEGATIVE Urine Methadone Screen NEGATIVE NEGATIVE Urine Propoxyphene Screen NEGATIVE NEGATIVE Urine Barbiturates Screen NEGATIVE NEGATIVE Ur Tricyclic Antidepressants Screen POSITIVE H NEGATIVE Urine Phencyclidine Screen NEGATIVE NEGATIVE Urine Amphetamines Screen NEGATIVE NEGATIVE Urine Methamphetamines Screen NEGATIVE NEGATIVE Urine Benzodiazepines Screen NEGATIVE NEGATIVE Urine Cocaine Screen NEGATIVE NEGATIVE Urine Cannabinoids Screen POSITIVE H NEGATIVE My Orders Orders - DINORA KNOTT MD Ua Culture If Indicated (02/16/21 13:55) Drug Screen Stat (Urine) (02/16/21 13:55) Wound Culture (02/16/21 14:25) Wound Dressing-Ed (02/16/21 14:25) Lidocaine 1% Inj 20 Ml (Xylocaine 1% Inj (02/16/21 14:25) Lidocaine 1% Inj 20 Ml (Xylocaine 1% Inj (02/16/21 14:19) Vital Signs/I&O 02/16/21 14:11 Temp 37.8 Pulse 107 Resp 18 B/P (MAP) 139/80 (99) Pulse Ox 100 O2 Delivery Room Air Capillary Refill : Less Than 3 Seconds Blood Pressure Mean: 99 Progress Note : Progress Note Consented patient for incision and drainage of abscess. Culture sent of the drainage obtained during the procedure. We will start the patient on Bactrim for possible staph infection. Counseled on follow-up and return precautions. Departure Impression Primary Impression: Perineal abscess, superficial Disposition: 01 HOME, SELF-CARE Condition: Stable Departure-Patient Inst. Decision time for Depature: 14:45 Referrals: [facility] (PCP) Primary Care Physician SAMEERA DENT APRN (Family) Primary Care Physician Patient Instructions: Abscess Incision and Drainage ED, Boil (DC) Add. Discharge Instructions: Keep area clean with soap and water. May apply warm packs or soak in warm water 2-3 times a day to help with healing of the infection and abscess. Take the full course of antibiotics to help treat for infection and if not improving after 3-4 days check back with clinic. If the culture shows you need a different antibiotic then you will get a call in 3-4 days so we can switch your antibiotic. All discharge instructions reviewed with patient and/or family. Voiced understanding. Scripts Sulfamethoxazole/Trimethoprim (Bactrim Ds Tablet) 1 Each Tablet 1 EACH PO BID for abscess for 10 Days, #20 TAB 0 Refills Prov: DINORA KNOTT MD 02/16/21 Images Female/Male 1 - Lesion (s) (2.6 cm diameter area of tenderness with fluctuance and induration that is slightly red) DINORA KNOTT MD February 16, 2021 14:16
[2021-02-16 14:17] LABS: BACTERIA,URINE TRACE /HPF; BILIRUBIN,URINE NEGATIVE (NEGATIVE); LEUKOCYTE ESTERASE ,URINE NEGATIVE (NEGATIVE); NITRITE,URINE NEGATIVE (NEGATIVE); RBC,URINE RARE /HPF; WBC,URINE 0-2 /HPF
[2021-02-16] MEDS ORDERED: LIDOCAINE 1% INJ 20 ML 20 ML VIAL ONE (14:19)
[2021-02-16 14:25] LABS: TRICYCLIC ANTIDEPRESSANTS SCRE POSITIVE (NEGATIVE)
[2021-02-16] MEDS ORDERED: LIDOCAINE 1% INJ 20 ML 20 ML VIAL INJ STA (14:25)
[2021-02-16 14:26] LABS: AMPHETAMINE SCREEN, URINE NEGATIVE (NEGATIVE); BARBITURATE SCREEN URINE NEGATIVE (NEGATIVE); BENZODIAZEPINES SCREEN URINE NEGATIVE (NEGATIVE); CANNABINOID SCREEN, URINE POSITIVE (NEGATIVE); COCAINE SCREEN URINE NEGATIVE (NEGATIVE); METHADONE STAT NEGATIVE (NEGATIVE); METHAMPHETAMINE SCREEN URINE S NEGATIVE (NEGATIVE); OPIATE SCREEN URINE NEGATIVE (NEGATIVE); OXYCODONE STAT NEGATIVE (NEGATIVE); PROPOXYPHENE STAT NEGATIVE (NEGATIVE)
[2021-02-16] MEDS ORDERED: SULF1TAB35 PO (14:49)
== END 2021-02-16 14:55 | disposition home or self-care (01) ==
LOC: EDUNIT# 13:46 → ER FS 13:48
DX: K61.0 Anal abscess (principal); K02.9 Dental caries, unspecified; Z77.22 Contact with and (suspected) exposure to environmental tobacco smoke (acute) (chronic); Z79.2 Long term (current) use of antibiotics; Z79.51 Long term (current) use of inhaled steroids; Z79.52 Long term (current) use of systemic steroids; Z79.84 Long term (current) use of oral hypoglycemic drugs
CPT/HCPCS: 56405; 80306; 81000; 87070; 87077; 87205

== ENCOUNTER 2021-07-16 10:34 | Emergency (ER) | payer MEDICAID ==
[~2021-07-16] VITALS: Ht 160 cm; Wt 108.0 kg
[~2021-07-16 10:34] MED LIST changes: +SULF1TAB38 PO
--- NOTE | 2021-07-16 10:52 | ED Cough/URI ---
General Chief Complaint: General Problems/Pain Stated Complaint: CHEST PAIN Source: patient, EMS Exam Limitations: no limitations History of Present Illness Date Seen by Provider: Jul 16, 2021 Time Seen by Provider: 10:42 Initial Comments 40-year-old female with past medical history of diabetes and potentially 14 weeks coming in due to chest pain that has been constant, severe, sharp, central chest and nonradiating that started at 8 AM this morning and has not stopped. Has had similar chest pain before, but now has some intermittent numbness to her left upper extremity as well that started last night. Currently not numb. Denies any history of heart attack, blood clots, recent cough, fever, or any other concerns. She has had frequent vomiting that has been ongoing for quite some time, and she did have an episode of nonbloody nonbilious emesis this morning. LMP she believes was March or April. She did have one positive test at home, but has not had OB or a formal ultrasound as of yet. Has no abdominal complaints or vaginal bleeding. Allergies and Home Medications Allergies Coded Allergies: No Known Drug Allergies (Unverified , 11/28/18) Patient Home Medication List Home Medication List Reviewed: Yes Amoxicillin (Amoxicillin) 500 Mg Capsule, 500 MG PO TID Prescribed by: RANCHO ANGELES on 02/12/19 1545 Amoxicillin (Amoxicillin) 500 Mg Capsule, 875 MG PO BID Prescribed by: TSERING BERNAL on 09/14/19 1012 Azithromycin (Azithromycin) 250 Mg Tablet, 250 MG PO DAILY Prescribed by: JINA BAH on 07/17/19 2240 Cephalexin (Cephalexin) 500 Mg Tablet, 500 MG PO QID Prescribed by: RANCHO ANGELES on 04/19/20 2353 Ciprofloxacin HCl/Dexameth (Ciprodex Otic Suspension) 7.5 Ml Soln, 7.5 ML OT BID Prescribed by: ROLAND NOBLES on 04/22/202050 Citalopram Hydrobromide (Celexa) 20 Mg Tablet, 20 MG PO, (Reported) Entered as Reported by: ALEN CARVAJAL on 12/18/18 1302 Cyclobenzaprine HCl (Cyclobenzaprine HCl) 10 Mg Tablet, 10 MG PO Q8H PRN for SPASMS Prescribed by: UCHE LOWRY on 06/26/20 182 Diclofenac Sodium (Diclofenac Sodium) 50 Mg Tablet.dr, 50 MG PO BID Prescribed by: TSERING BERNAL on 09/14/19 1012 Diclofenac Sodium (Diclofenac Sodium) 75 Mg Tablet.dr, 75 MG PO BID Prescribed by: JASON VELEZ on 07/16/20 1936 Dicyclomine HCl (Dicyclomine HCl) 20 Mg Tablet, 20 MG PO TID PRN for ABDOMINAL PAIN Prescribed by: DINORA KNOTT on 12/18/18 1438 Fexofenadine HCl (Wal-Fex Allergy) 180 Mg Tablet, 180 MG PO DAILY Prescribed by: UCHE LOWRY on 04/18/20 112 Fluticasone Propionate (Fluticasone Propionate) 16 Gm [place].susp, 16 GM NS DAILY Prescribed by: UCHE LOWRY on 04/18/20 112 Hydralazine HCl (Hydralazine HCl) 25 Mg Tablet, 25 MG PO, (Reported) Entered as Reported by: ALEN CARVAJAL on 12/18/18 1302 Hydrocodone/Acetaminophen (Hydrocodone/Acetaminophen 5 MG/325 MG TAB) 1 Each Tablet, 1 TAB PO Qhs Prescribed by: NOA ZAMARRIPA on 04/13/19 1247 Hyoscyamine Sulfate (Hyoscyamine Sulfate) 0.125 Mg Tab.subl, 0.125 MG SL Q8H Prescribed by: UCHE LOWRY on 09/19/19 171 Hyoscyamine Sulfate (Levsin-Sl) 0.125 Mg Tab.subl, 0.125 MG SL Q4H Prescribed by: UCHE LOWRY on 09/25/202014 Ibuprofen (Ibuprofen) 800 Mg Tablet, 800 MG PO Q8H PRN for PAIN Prescribed by: JINA BAH on 07/17/19 224 Ibuprofen (Ibuprofen) 800 Mg Tablet, 800 MG PO Q8H PRN for PAIN Prescribed by: UCHE LOWRY on 06/26/201817 Metformin HCl (Metformin HCl) 500 Mg Tablet, 500 MG PO BID Prescribed by: DINORA KNOTT on 09/16/20 182 Methocarbamol (Robaxin-750) 750 Mg Tablet, 750 MG PO Q4H PRN for PAIN-MODERATE (5-7) Prescribed by: KARLA DELGADO on 08/22/20 112 Metronidazole (Flagyl) 500 Mg Tablet, 500 MG PO BID, (Reported) Entered as Reported by: TANA PAYTON on 12/11/18 1229 Naproxen (Naprosyn) 500 Mg Tablet, 500 MG PO BID Prescribed by: RANCHO ANGELES on 04/19/20 2353 Naproxen (Naprosyn) 500 Mg Tablet, 500 MG PO BID Prescribed by: KARLA DELGADO on 08/22/20 1122 Naproxen (Naprosyn) 500 Mg Tablet, 500 MG PO BID Prescribed by: KARLA DELGADO on 10/18/20 1413 Ondansetron (Ondansetron Odt) 4 Mg Tab.rapdis, 4 MG PO Q8H PRN for NAUSEA/VOMITING Prescribed by: DINORA KNOTT on 12/18/18 1438 Ondansetron (Ondansetron Odt) 4 Mg Tab.rapdis, 4 MG PO TID Prescribed by: UCHE LOWRY on 03/23/20 1130 Ondansetron (Ondansetron Odt) 4 Mg Tab.rapdis, 4 MG PO TID Prescribed by: UCHE LOWRY on 04/18/20 1129 Ondansetron (Ondansetron Odt) 4 Mg Tab.rapdis, 4 MG PO TID Prescribed by: UCHE LOWRY on 09/25/202014 Prednisone (Prednisone) 20 Mg Tab, 40 MG PO DAILY Prescribed by: JINA BAH on 07/17/19 2240 Sulfamethoxazole/Trimethoprim (Bactrim Ds Tablet) 1 Each Tablet, 1 EACH PO BID Prescribed by: DINORA KNOTT on 02/16/21 1449 Trimethoprim/Sulfamethoxazole (Bactrim DS) 1 Ea Tablet, 1 TAB PO BID, (Reported) Entered as Reported by: NATY HANDY on 11/28/18 1643 Review of Systems Review of Systems Constitutional: No fever EENTM: no symptoms reported Respiratory: No cough, No hemoptysis; short of breath Cardiovascular: chest pain; No palpitations Gastrointestinal: No abdominal pain, No diarrhea, No melena; nausea, vomiting Genitourinary: No dysuria : No Musculoskeletal: No back pain Skin: No rash Psychiatric/Neurological: No Symptoms Reported Hematologic/Lymphatic: No Symptoms Reported Immunological/Allergic: no symptoms reported All Other Systems Reviewed Negative Unless Noted: Yes Past Crxzexg-Rwzxzr-Buhxtq Hx Patient Social History Tobacco Use?: No Immunizations Up To Date Tetanus Booster (TDap): Unknown Seasonal Allergies Seasonal Allergies: No Past Medical History Surgeries: Yes (HERNIA REPAIR) Section, Gallbladder Respiratory: Yes COPD Cardiac: No Neurological: No Genitourinary: Yes Gastrointestinal: No Musculoskeletal: No Endocrine: No HEENT: No Cancer: No Psychosocial: No Integumentary: No Blood Disorders: No Physical Exam Vital Signs - First Documented 07/16/21 10:35 Temp 36.7 Pulse 92 Resp 18 B/P (MAP) 144/89 (107) Pulse Ox 100 Capillary Refill : Height: 5'3.00" Weight: 240lbs. oz. 108.032837qs; 44.00 BMI Method:Stated General Appearance: WD/WN, no apparent distress HEENT: PERRL/EOMI, normal ENT inspection, pharynx normal Neck: non-tender, full range of motion, supple, normal inspection Respiratory: chest non-tender, lungs clear, normal breath sounds, no respiratory distress, no accessory muscle use, rales Cardiovascular: regular rate, rhythm, no edema, no murmur Gastrointestinal: normal bowel sounds, non tender, soft; No distended, No guarding, No rebound; other (Surgical wound is clean, dry, intact in her lower abdomen.) Extremities: normal range of motion, non-tender, normal inspection, no pedal edema, no calf tenderness, normal capillary refill Neurologic/Psychiatric: no motor/sensory deficits, alert, normal mood/affect Skin: normal color, warm/dry Lymphatic: no adenopathy Progress/Results/Core Measures Suspected Sepsis SIRS Temperature: Pulse: Respiratory Rate: Laboratory Tests 07/16/21 11:35: White Blood Count 17.0H Blood Pressure / Mean: Laboratory Tests 07/16/21 11:35: Creatinine 0.63, Platelet Count 387 Results/Orders Lab Results Laboratory Tests Test 07/16/21 11:35 Range/Units White Blood Count 17.0 H 4.3-11.0 10^3/uL Red Blood Count 5.15 H 3.80-5.11 10^6/uL Hemoglobin 13.7 11.5-16.0 g/dL Hematocrit 44 35-52 % Mean Corpuscular Volume 85 80-99 fL Mean Corpuscular Hemoglobin 27 25-34 pg Mean Corpuscular Hemoglobin Concent 31 L 32-36 g/dL Red Cell Distribution Width 16.0 H 10.0-14.5 % Platelet Count 387 130-400 10^3/uL Mean Platelet Volume 10.2 9.0-12.2 fL Immature Granulocyte % (Auto) 1 % Neutrophils (%) (Auto) 68 42-75 % Lymphocytes (%) (Auto) 26 12-44 % Monocytes (%) (Auto) 4 0-12 % Eosinophils (%) (Auto) 1 0-10 % Basophils (%) (Auto) 0 0-10 % Neutrophils # (Auto) 11.6 H 1.8-7.8 X 10^3 Lymphocytes # (Auto) 4.4 H 1.0-4.0 X 10^3 Monocytes # (Auto) 0.7 0.0-1.0 X 10^3 Eosinophils # (Auto) 0.2 0.0-0.3 10^3/uL Basophils # (Auto) 0.1 0.0-0.1 10^3/uL Immature Granulocyte # (Auto) 0.1 0.0-0.1 10^3/uL Sodium Level 134 L 135-145 MMOL/L Potassium Level 4.0 3.6-5.0 MMOL/L Chloride Level 101 98-107 MMOL/L Carbon Dioxide Level 21 21-32 MMOL/L Anion Gap 12 5-14 MMOL/L Blood Urea Nitrogen 11 7-18 MG/DL Creatinine 0.63 0.60-1.30 MG/DL Estimat Glomerular Filtration Rate 106 BUN/Creatinine Ratio 17 Glucose Level 121 H 70-105 MG/DL Calcium Level 9.6 8.5-10.1 MG/DL Troponin I < 0.30 <0.30 NG/ML Serum Test, Qualitative NEGATIVE NEGATIVE My Orders Orders - RENETTA YOON MD Basic Metabolic Panel (07/16/21 11:16) Cbc With Automated Diff (07/16/21 11:16) Hcg,Qualitative Serum (07/16/21 11:16) Troponin I Fs (07/16/21 11:16) Chest 1 View Ap/Pa Only (07/16/21 11:16) Ekg Tracing (07/16/21 11:16) Antacid Suspension (Mylanta Suspension (07/16/21 11:30) Ed Iv/Invasive Line Start (07/16/21 11:16) Acetaminophen Tablet (Tylenol Tablet) (07/16/21 11:30) Manual Differential (07/16/21 11:35) Hydroxyzine Cap/Tab (Vistaril) (07/16/21 12:30) Medications Given in ED Current Medications Medications Dose Ordered Sig/Chris Route Start Time Stop Time Status Last Admin Dose Admin Acetaminophen 1,000 mg ONCE ONCE PO 07/16/21 11:30 07/16/21 11:31 DC 07/16/21 11:30 1,000 MG Al Hydrox/Mg Hydrox/Simethicone 30 ml ONCE ONCE PO 07/16/21 11:30 07/16/21 11:31 DC 07/16/21 11:30 30 ML Vital Signs/I&O 07/16/21 10:35 Temp 36.7 Pulse 92 Resp 18 B/P (MAP) 144/89 (107) Pulse Ox 100 Capillary Refill : Progress Note : Progress Note 40-year-old female with above history coming in due to chest pain. ABCs were intact and vitals were stable on presentation. Physical exam reassuring with no focal abnormalities. Attempted to do a [id number]-[id number] ultrasound to assess for , and likely due to adiposity, was unable to visualize a . Fortunately, she is having no related complaints today, and she is just here for chest pain. EKG interpreted by me and is normal. Chest xray ordered and interpreted by me showing no acute abnormalities, specifically no obvious pneumonia or pneumothorax. Cardiac silhouette is normal. Basic labs obtained as well as cardiac markers. Her beta hCG is negative and the patient is not in fact . Troponin is negative. Her heart score is 1 making her low risk for ACS. I have very low suspicion given she is 40 years old that this is ACS. Low risk for PE via [place] criteria and is PERC negative. This is likely either musculoskeletal related, anxiety related, or some other etiology of her chest pain, however I do not believe she is suffering from any life-threatening causes of chest pain. I believe she is stable for discharge. She was sent home with strict return precautions. ECG Initial ECG Impression Date: Jul 16, 2021 Initial ECG Impression Time: 11:33 Initial ECG Rate: 88 Initial ECG Rhythm: Normal Sinus Comment Narrow QRS, normal axis, no significant ST changes or T wave abnormalities Diagnostic Imaging Diagonstic Imaging: Xray Plain Films/CT/US/NM/MRI: chest Comments [facility]. [place], [place] NAME: STANISLAV MATHIS [facility] REC#: [id number] PT STATUS: REG ER : 1980 PHYSICIAN: RENETTA YOON MD ADMIT DATE: 07/16/21/ER FS Draft Date of Exam:07/16/21 CHEST 1 VIEW AP/PA ONLY INDICATION: Chest pain COMPARISON: 09/16/20 FINDINGS: Single view of the chest demonstrates clear lungs bilaterally. The heart is normal. There is no pneumothorax. The osseous structures are normal. IMPRESSION: Negative chest. Dictated on workstation # [id number] Dict: 07/16/21 1137 Trans: 07/16/21 1140 JORDYN [id number] Interpreted by: SARA PATIÑO Electronically signed by: Departure Impression Primary Impression: Chest pain Qualified Codes: R07.9 - Chest pain, unspecified Disposition: 01 HOME, SELF-CARE Condition: Stable Departure-Patient Inst. Referrals: [facility] (PCP) Primary Care Physician SAMEERA DENT APRN (Family) Primary Care Physician Patient Instructions: Chest Pain (DC) Add. Discharge Instructions: You were seen in the emergency department for chest pain as well as numbness. Your labs and imaging are reassuring and it does not appear like you are having a heart attack as of right now. You also are not . You can take Tylenol and ibuprofen for pain. If you have continued concerns for anxiety and feel like he should be on medication for that, please follow-up with your primary care provider. If you have any other concerns, worsening pain, please come back to the ER All discharge instructions reviewed with patient and/or family. Voiced understanding. RENETTA YOON MD Jul 16, 2021 10:52
[2021-07-16] MEDS ORDERED: ACETAMINOPHEN 500 MG TAB (TYLENOL) PO ONE (11:30)
[2021-07-16] MEDS ORDERED: ANTACID SUSP 30 ML UDC (MYLANTA) PO ONE (11:30)
--- NOTE | 2021-07-16 11:40 | Diagnostic Imaging Report ---
INDICATION: Chest pain COMPARISON: 09/16/20 FINDINGS: Single view of the chest demonstrates clear lungs bilaterally. The heart is normal. There is no pneumothorax. The osseous structures are normal. IMPRESSION: Negative chest. Dictated by: Dictated on workstation # [id number]
[2021-07-16 12:10] LABS: HEMATOCRIT 44 % (35-52); HEMOGLOBIN 13.7 g/dL (11.5-16.0); MEAN CORPUSCULAR HEMOGLOBIN 27 pg (25-34); MEAN CORPUSCULAR HGB CONC 31 g/dL (32-36); MEAN CORPUSCULAR VOLUME 85 fL (80-99)
[2021-07-16 12:11] LABS: BASOPHILS # (AUTO) 0.1 10^3/uL (0.0-0.1); BASOPHILS % (AUTO) 0 % (0-10); EOSINOPHILS # (AUTO) 0.2 10^3/uL (0.0-0.3); EOSINOPHILS % (AUTO) 1 % (0-10); LYMPHOCYTES # (AUTO) 4.4 X 10^3 (1.0-4.0); LYMPHOCYTES % (AUTO) 26 % (12-44); MEAN PLATELET VOLUME 10.2 fL (9.0-12.2); MONOCYTES # (AUTO) 0.7 X 10^3 (0.0-1.0); MONOCYTES % (AUTO) 4 % (0-12); NEUTROPHILS # (AUTO) 11.6 X 10^3 (1.8-7.8); NEUTROPHILS % (AUTO) 68 % (42-75); PLATELET COUNT 387 10^3/uL (130-400)
[2021-07-16 12:18] LABS: BUN/CREATININE RATIO 17; CALCIUM 9.6 MG/DL (8.5-10.1); CARBON DIOXIDE 21 MMOL/L (21-32); CHLORIDE 101 MMOL/L (98-107); CREATININE SERUM 0.63 MG/DL (0.60-1.30); GFR ESTIMATED 106; GLUCOSE 121 MG/DL (70-105); SODIUM 134 MMOL/L (135-145)
[2021-07-16 12:25] LABS: EOSINOPHILS % (MANUAL) 2 %; LYMPHOCYTES % (MANUAL) 28 %; MONOCYTES % (MANUAL) 4 %; NEUTROPHILS % (MANUAL) 66 %; PLATELET ESTIMATE ADEQUATE; RBC MORPH NORMAL
[2021-07-16] MEDS ORDERED: hydrOXYzine (VISTARIL/ATARAX) 25 MG capsule/tablet PO ONE (12:30)
[2021-07-16 12:36] VITALS: BP 133/81
== END 2021-07-16 12:37 | disposition home or self-care (01) ==
LOC: EDUNIT# 10:34 → ER FS 10:35
DX: R07.9 Chest pain, unspecified (principal); J44.9 Chronic obstructive pulmonary disease, unspecified; Z79.52 Long term (current) use of systemic steroids
CPT/HCPCS: 36415; 71045; 80048; 84484; 84703; 85007; 85027; 93005

== ENCOUNTER 2021-08-08 04:43 | Emergency (ER) | payer MEDICAID ==
[~2021-08-08] VITALS: Ht 160 cm; Wt 108.0 kg
--- NOTE | 2021-08-08 06:07 | ED Chest Pain ---
General Chief Complaint: Cardiac/General Problems Stated Complaint: PSYCH EVAL Nursing Triage Note: Pt reports she "relapsed" tonight and used cocaine, vodka, and percocet. Pt is 4months , , and denies vaginal discharge or bleeding. Pt stated "I am just having a lot of anxiety because my boyfriend cheated on me." Pt c/o chest discomfort, denies cardiac hx. Pt denies SI/HI. Source: patient History of Present Illness Date Seen by Provider: Aug 08, 2021 Time Seen by Provider: 05:00 Initial Comments Patient is a 40-year-old female complains of feeling anxious and chest pain after using cocaine marijuana vodka and Percocet earlier this morning. She is 4 months she is a G5, P3 and denies vaginal discharge or ablated. I just I having a lot of anxiety because my boyfriend cheated on me. No HI or SI. No other symptoms or complaints. Timing/Duration: 1-3 hours Severity/Quality: mild Location: central Radiation: no radiation Activities at Onset: none Prior CP/Workup: no prior chest pain Modifying Factors: improves with other Associated Symptoms: denies symptoms Allergies and Home Medications Allergies Coded Allergies: No Known Drug Allergies (Unverified , 11/28/18) Patient Home Medication List Home Medication List Reviewed: Yes Amoxicillin (Amoxicillin) 500 Mg Capsule, 500 MG PO TID Prescribed by: RANCHO ANGELES on 02/12/19 1545 Amoxicillin (Amoxicillin) 500 Mg Capsule, 875 MG PO BID Prescribed by: TSERING BERNAL on 09/14/19 1012 Azithromycin (Azithromycin) 250 Mg Tablet, 250 MG PO DAILY Prescribed by: JINA BAH on 07/17/19 2240 Cephalexin (Cephalexin) 500 Mg Tablet, 500 MG PO QID Prescribed by: RANCHO ANGELES on 04/19/20 2353 Ciprofloxacin HCl/Dexameth (Ciprodex Otic Suspension) 7.5 Ml Soln, 7.5 ML OT BID Prescribed by: ROLAND NOBLES on 04/22/202050 Citalopram Hydrobromide (Celexa) 20 Mg Tablet, 20 MG PO, (Reported) Entered as Reported by: ALEN CARVAJAL on 12/18/18 1302 Cyclobenzaprine HCl (Cyclobenzaprine HCl) 10 Mg Tablet, 10 MG PO Q8H PRN for SPASMS Prescribed by: UCHE LOWRY on 06/26/20 1827 Diclofenac Sodium (Diclofenac Sodium) 50 Mg Tablet.dr, 50 MG PO BID Prescribed by: TSERING BERNAL on 09/14/19 1012 Diclofenac Sodium (Diclofenac Sodium) 75 Mg Tablet.dr, 75 MG PO BID Prescribed by: JASON VELEZ on 07/16/20 1936 Dicyclomine HCl (Dicyclomine HCl) 20 Mg Tablet, 20 MG PO TID PRN for ABDOMINAL PAIN Prescribed by: DINORA KNOTT on 12/18/18 1438 Fexofenadine HCl (Wal-Fex Allergy) 180 Mg Tablet, 180 MG PO DAILY Prescribed by: UCHE LOWRY on 04/18/20 112 Fluticasone Propionate (Fluticasone Propionate) 16 Gm [place].susp, 16 GM NS DAILY Prescribed by: UCHE LOWRY on 04/18/20 112 Hydralazine HCl (Hydralazine HCl) 25 Mg Tablet, 25 MG PO, (Reported) Entered as Reported by: ALEN CARVAJAL on 12/18/18 1302 Hydrocodone/Acetaminophen (Hydrocodone/Acetaminophen 5 MG/325 MG TAB) 1 Each Tablet, 1 TAB PO Qhs Prescribed by: NOA ZAMARRIPA on 04/13/19 1247 Hyoscyamine Sulfate (Hyoscyamine Sulfate) 0.125 Mg Tab.subl, 0.125 MG SL Q8H Prescribed by: UCHE LOWRY on 09/19/19 171 Hyoscyamine Sulfate (Levsin-Sl) 0.125 Mg Tab.subl, 0.125 MG SL Q4H Prescribed by: UCHE LOWRY on 09/25/202014 Ibuprofen (Ibuprofen) 800 Mg Tablet, 800 MG PO Q8H PRN for PAIN Prescribed by: JINA BAH on 07/17/19 2240 Ibuprofen (Ibuprofen) 800 Mg Tablet, 800 MG PO Q8H PRN for PAIN Prescribed by: UCHE LOWRY on 06/26/201817 Metformin HCl (Metformin HCl) 500 Mg Tablet, 500 MG PO BID Prescribed by: DINORA KNOTT on 09/16/20 182 Methocarbamol (Robaxin-750) 750 Mg Tablet, 750 MG PO Q4H PRN for PAIN-MODERATE (5-7) Prescribed by: KARLA DELGADO on 08/22/20 1122 Metronidazole (Flagyl) 500 Mg Tablet, 500 MG PO BID, (Reported) Entered as Reported by: TANA PAYTON on 12/11/18 1229 Naproxen (Naprosyn) 500 Mg Tablet, 500 MG PO BID Prescribed by: RANCHO ANGELES on 04/19/20 2353 Naproxen (Naprosyn) 500 Mg Tablet, 500 MG PO BID Prescribed by: KARLA DELGADO on 08/22/20 1122 Naproxen (Naprosyn) 500 Mg Tablet, 500 MG PO BID Prescribed by: KARLA DELGADO on 10/18/20 1413 Ondansetron (Ondansetron Odt) 4 Mg Tab.rapdis, 4 MG PO Q8H PRN for NAUSEA/VOMITING Prescribed by: DINORA KNOTT on 12/18/18 1438 Ondansetron (Ondansetron Odt) 4 Mg Tab.rapdis, 4 MG PO TID Prescribed by: UCHE LOWRY on 03/23/20 1130 Ondansetron (Ondansetron Odt) 4 Mg Tab.rapdis, 4 MG PO TID Prescribed by: UCHE LOWRY on 04/18/20 1129 Ondansetron (Ondansetron Odt) 4 Mg Tab.rapdis, 4 MG PO TID Prescribed by: UCHE LOWRY on 09/25/202014 Prednisone (Prednisone) 20 Mg Tab, 40 MG PO DAILY Prescribed by: JINA BAH on 07/17/19 2240 Sulfamethoxazole/Trimethoprim (Bactrim Ds Tablet) 1 Each Tablet, 1 EACH PO BID Prescribed by: DINORA KNOTT on 02/16/21 1449 Trimethoprim/Sulfamethoxazole (Bactrim DS) 1 Ea Tablet, 1 TAB PO BID, (Reported) Entered as Reported by: NATY HANDY on 11/28/18 1643 Review of Systems Review of Systems Constitutional: see HPI EENTM: See HPI Respiratory: See HPI Cardiovascular: See HPI Gastrointestinal: See HPI Genitourinary: See HPI Musculoskeletal: see HPI Skin: see HPI Psychiatric/Neurological: See HPI Endocrine: See HPI Hematologic/Lymphatic: See HPI All Other Systems Reviewed Negative Unless Noted: Yes Past Vukovye-Oqrvyf-Sdlecq Hx Patient Social History Tobacco Use?: Yes Tobacco type used: Cigarettes Smoking Status: Current Everyday Smoker Use of E-Cig and/or Vaping dev: No Substance use?: Yes Substance type: Opiates/Opioids, Marijuana, Other Additional substance use comme: Cocaine Substance frequency: Rarely Alcohol Use?: Yes Alcohol type: Hard Liquor Alcohol Frequency: Rarely Pt feels they are or have been: No Immunizations Up To Date Tetanus Booster (TDap): Unknown Influenza Vaccine Up-to-Date: No; Not Current Seasonal Allergies Seasonal Allergies: No Past Medical History Surgery/Hospitalization HX: diabetic and htn Surgeries: Yes (HERNIA REPAIR) Section, Gallbladder Respiratory: Yes COPD Cardiac: No Neurological: No Expected Date of Delivery: Jan 14, 2022 Genitourinary: Yes Gastrointestinal: No Musculoskeletal: No Endocrine: No HEENT: No Cancer: No Psychosocial: No Integumentary: No Blood Disorders: No Physical Exam Vital Signs Vital Signs - First Documented 08/08/21 04:45 Temp 36.3 Pulse 104 Resp 18 B/P (MAP) 119/84 (96) Pulse Ox 98 O2 Delivery Room Air Capillary Refill : Less Than 3 Seconds Height, Weight, BMI Height: 5'3.00" Weight: 240lbs. oz. 108.702700qk; 42.00 BMI Method:Stated General Appearance: Anxious HEENT: PERRL/EOMI, Normal ENT Inspection Neck: Full Range of Motion, Normal Inspection, Supple Respiratory: Lungs Clear Cardiovascular: Regular Rate, Rhythm Gastrointestinal: Non Tender, Soft Neurologic/Psychiatric: Alert, Oriented x3, Other (She is) Focused Exam Sepsis Stage: Ruled Out Progress/Results/Core Measures Results/Orders Lab Results Laboratory Tests Test 08/08/21 05:15 Range/Units Troponin I < 0.30 <0.30 NG/ML My Orders Orders - GRAEME GARNER DO Ekg-Prn For Chest Pain Or Rhyt (08/08/21 05:01) Troponin I Fs (08/08/21 05:01) Drug Screen Stat (Urine) (08/08/21 05:01) Vital Signs/I&O 08/08/21 04:45 Temp 36.3 Pulse 104 Resp 18 B/P (MAP) 119/84 (96) Pulse Ox 98 O2 Delivery Room Air Blood Pressure Mean: 96 Departure Communication (Admissions) EKG: Sinus tach, rate 101, no acute ST-T wave changes, normal [place], QTc, QRS intervals. Troponin negative. Patient with twins requesting Xanax after drinking alcohol, smoking marijuana and taking Percocet and using cocaine. She is neither homicidal or suicidal. I explained to the patient the high risk harm of drug use to herself and . She is insightful and remorseful to her decisions. Recommendations are to follow-up with [facility] [facility]. And therapist Impression Primary Impression: Polysubstance abuse Additional Impressions: Chest pain Disposition: 01 HOME, SELF-CARE Condition: Stable Departure-Patient Inst. Referrals: SAMEERA DENT APRN (PCP) Primary Care Physician [facility] (Family) Primary Care Physician Patient Instructions: Alcohol and Drug Use in , Chest Pain That Is Not Caused by the Heart (DC) Add. Discharge Instructions: Please do not use drugs or drink alcohol during due to high risk of harm to yourself and pregnancies. Go home and rest and follow-up with your [facility] [facility] [facility] and your therapist. All discharge instructions reviewed with patient and/or family. Voiced understanding. GRAEME GARNER DO Aug 08, 2021 06:07
[2021-08-08 06:20] VITALS: BP 119/84
== END 2021-08-08 06:20 | disposition home or self-care (01) ==
LOC: EDUNIT# 04:43 → ER FS 04:46
DX: O99.322 Drug use complicating pregnancy, second trimester (principal); F19.10 Other psychoactive substance abuse, uncomplicated; R07.9 Chest pain, unspecified; J44.9 Chronic obstructive pulmonary disease, unspecified; I10 Essential (primary) hypertension; E11.9 Type 2 diabetes mellitus without complications; F17.210 Nicotine dependence, cigarettes, uncomplicated; Z3A.16 16 weeks gestation of pregnancy; Z79.52 Long term (current) use of systemic steroids
CPT/HCPCS: 36415; 84484; 93005

== ENCOUNTER 2021-10-30 09:47 | Emergency (ER) | payer MEDICAID ==
[~2021-10-30] VITALS: Ht 160 cm; Wt 113.4 kg
[~2021-10-30 09:47] MED LIST changes: +CYCL10TA25 PO; -CYCL10TA9 PO; +DICY20TA PO; -DICY20TA10 PO
--- NOTE | 2021-10-30 10:41 | ED EENT ---
History of Present Illness General Chief Complaint: Facial Problems Stated Complaint: L SIDED FACIAL SWOLLEN Nursing Triage Note: PT AMB FT1 WITH COMPLAINT OF LEFT SIDED FACIAL SWELLING. STATES STARTED A FEW DAYS AGO. Source: patient Exam Limitations: no limitations (AYALA CORDERO) History of Present Illness Date Seen by Provider: Oct 30, 2021 Time Seen by Provider: 10:15 Initial Comments Patient is a 40yoF who presents with cc of left cheek pain secondary to abscess formation. The pain and swelling began on Thursday and have progressed since then with little relief from Tylenol. Patient cannot remember any trauma or inciting event. She has never had a similar issue although she reports having "lots of bad teeth" that she has been having worked on. The swelling does not affect her ability to breath, eat or drink. Patient denies SOA, fever, chills, diarrhea, COLON, ear pain, chest pain, sore throat and abdominal pain. She has a history of insulin-dependent diabetes and also takes Jardiance. She reports associated blurry vision but she attributes this to diabetes and it is not a new symptom. There is an abscess in front of 1st upper molar and induration of left cheek. Timing/Duration: abrupt Severity: moderate Prearrival Treatment: over the counter meds Associated Symptoms: No change in hearing, No cough, No drooling; facial pain/swelling; No fever, No nasal congestion/drainage, No sore throat; tooth pain (AYALA CORDERO STUDENT) Allergies and Home Medications Allergies Coded Allergies: No Known Drug Allergies (Unverified , 11/28/18) Patient Home Medication List Home Medication List Reviewed: Yes (ARIEL ESPARZA MD) Amoxicillin (Amoxicillin) 500 Mg Capsule, 500 MG PO TID Prescribed by: RANCHO ANGELES on 02/12/19 1545 Amoxicillin (Amoxicillin) 500 Mg Capsule, 875 MG PO BID Prescribed by: TSERING BERNAL on 09/14/19 1012 Azithromycin (Azithromycin) 250 Mg Tablet, 250 MG PO DAILY Prescribed by: JINA BAH on 07/17/19 2240 Cephalexin (Cephalexin) 500 Mg Tablet, 500 MG PO QID Prescribed by: RANCHO ANGELES on 04/19/20 7763 Ciprofloxacin HCl/Dexameth (Ciprodex Otic Suspension) 7.5 Ml Soln, 7.5 ML OT BID Prescribed by: ROLAND NOBLES on 04/22/202050 Citalopram Hydrobromide (Celexa) 20 Mg Tablet, 20 MG PO, (Reported) Entered as Reported by: ALEN CARVAJAL on 12/18/18 1302 Cyclobenzaprine HCl (Cyclobenzaprine HCl) 10 Mg Tablet, 10 MG PO Q8H PRN for SPASMS Prescribed by: UCHE LOWRY on 06/26/20 1827 Diclofenac Sodium (Diclofenac Sodium) 50 Mg Tablet.dr, 50 MG PO BID Prescribed by: TSERING BERNAL on 09/14/19 1012 Diclofenac Sodium (Diclofenac Sodium) 75 Mg Tablet.dr, 75 MG PO BID Prescribed by: JASON VELEZ on 07/16/20 193 Dicyclomine HCl (Dicyclomine HCl) 20 Mg Tablet, 20 MG PO TID PRN for ABDOMINAL PAIN Prescribed by: DINORA KNOTT on 12/18/18 1438 Fexofenadine HCl (Wal-Fex Allergy) 180 Mg Tablet, 180 MG PO DAILY Prescribed by: UCHE LOWRY on 04/18/20 1129 Fluticasone Propionate (Fluticasone Propionate) 16 Gm [place].susp, 16 GM NS DAILY Prescribed by: UCHE LOWRY on 04/18/20 1129 Hydralazine HCl (Hydralazine HCl) 25 Mg Tablet, 25 MG PO, (Reported) Entered as Reported by: ALEN CARVAJAL on 12/18/18 1302 Hydrocodone/Acetaminophen (Hydrocodone/Acetaminophen 5 MG/325 MG TAB) 1 Each Tablet, 1 TAB PO Qhs Prescribed by: NOA ZAMARRIPA on 04/13/19 1247 Hydrocodone/Acetaminophen (Hydrocodone-Acetamin 5-325 mg) 1 Each Tablet, 1 TAB PO Q6H PRN for PAIN-MODERATE (5-7) Prescribed by: ARIEL ESPARZA on 10/30/21 1053 Hyoscyamine Sulfate (Hyoscyamine Sulfate) 0.125 Mg Tab.subl, 0.125 MG SL Q8H Prescribed by: UCHE LOWRY on 09/19/19 1713 Hyoscyamine Sulfate (Levsin-Sl) 0.125 Mg Tab.subl, 0.125 MG SL Q4H Prescribed by: UCHE LOWRY on 09/25/202014 Ibuprofen (Ibuprofen) 800 Mg Tablet, 800 MG PO Q8H PRN for PAIN Prescribed by: JINA BAH on 07/17/19 2240 Ibuprofen (Ibuprofen) 800 Mg Tablet, 800 MG PO Q8H PRN for PAIN Prescribed by: UCHE LOWRY on 06/26/20 181 Metformin HCl (Metformin HCl) 500 Mg Tablet, 500 MG PO BID Prescribed by: DINORA KNOTT on 09/16/20 1828 Methocarbamol (Robaxin-750) 750 Mg Tablet, 750 MG PO Q4H PRN for PAIN-MODERATE (5-7) Prescribed by: KARLA DELGADO on 08/22/20 1122 Metronidazole (Flagyl) 500 Mg Tablet, 500 MG PO BID, (Reported) Entered as Reported by: TANA PAYTON on 12/11/18 1229 Naproxen (Naprosyn) 500 Mg Tablet, 500 MG PO BID Prescribed by: RANCHO ANGELES on 04/19/20 2353 Naproxen (Naprosyn) 500 Mg Tablet, 500 MG PO BID Prescribed by: KARLA DELGADO on 08/22/20 1122 Naproxen (Naprosyn) 500 Mg Tablet, 500 MG PO BID Prescribed by: KARLA DELGADO on 10/18/20 1413 Ondansetron (Ondansetron Odt) 4 Mg Tab.rapdis, 4 MG PO Q8H PRN for NAUSEA/VOMITING Prescribed by: DINORA KNOTT on 12/18/18 1438 Ondansetron (Ondansetron Odt) 4 Mg Tab.rapdis, 4 MG PO TID Prescribed by: UCHE LOWRY on 03/23/20 1130 Ondansetron (Ondansetron Odt) 4 Mg Tab.rapdis, 4 MG PO TID Prescribed by: UCHE LOWRY on 04/18/20 1129 Ondansetron (Ondansetron Odt) 4 Mg Tab.rapdis, 4 MG PO TID Prescribed by: UCHE LOWRY on 09/25/202014 Penicillin V Potassium (Penicillin V Potassium) 500 Mg Tablet, 500 MG PO QID Prescribed by: ARIEL ESPARZA on 10/30/21 1052 Prednisone (Prednisone) 20 Mg Tab, 40 MG PO DAILY Prescribed by: JINA BAH on 07/17/19 2240 Sulfamethoxazole/Trimethoprim (Bactrim Ds Tablet) 1 Each Tablet, 1 EACH PO BID Prescribed by: DINORA KNOTT on 02/16/21 1449 Trimethoprim/Sulfamethoxazole (Bactrim DS) 1 Ea Tablet, 1 TAB PO BID, (Reported) Entered as Reported by: NATY HANDY on 11/28/18 1643 Review of Systems Review of Systems Constitutional: No chills, No diaphoresis, No dizziness, No fever Eyes: Denies Decreased Acuity, Denies Pain Ears: Denies Dizziness, Denies Pain Nose: denies congestion, denies epistaxis, denies pain Mouth: pain, swelling; denies bloody discharge, denies purulent discharge, denies previous injury Throat: denies pain, denies swelling, denies hoarse, denies muffled, denies difficulty with fluids Respiratory: No cough, No short of breath Cardiovascular: No chest pain, No edema Gastrointestinal: No abdominal pain, No diarrhea : No Musculoskeletal: back pain; No muscle weakness Skin: no symptoms reported Immunological/Allergic: no symptoms reported ([employer] STUDENT) Past Qzhwdpe-Fnimlp-Degelp Hx Patient Social History Tobacco Use?: Yes Tobacco type used: Cigarettes Smoking Status: Current Everyday Smoker Use of E-Cig and/or Vaping dev: No Substance use?: No Alcohol Use?: No Pt feels they are or have been: No ([employer] STUDENT) Immunizations Up To Date Tetanus Booster (TDap): Unknown Influenza Vaccine Up-to-Date: No; Not Current ([employer] STUDENT) Seasonal Allergies Seasonal Allergies: No (twenty5media) Past Medical History Surgery/Hospitalization HX: diabetic and htn Surgeries: Yes (HERNIA REPAIR) Section, Gallbladder Respiratory: Yes COPD Cardiac: No Neurological: No Genitourinary: Yes Gastrointestinal: No Musculoskeletal: No Endocrine: No HEENT: No Cancer: No Psychosocial: No Integumentary: No Blood Disorders: No ([employer] STUDENT) Physical Exam Vital Signs Vital Signs - First Documented 10/30/21 09:59 Temp 37.0 Pulse 98 Resp 16 B/P (MAP) 136/88 (104) Pulse Ox 97 O2 Delivery Room Air (ARIEL ESPARZA MD) Height, Weight, BMI Height: 5'3.00" Weight: 240lbs. oz. [id number]; 44.00 BMI Method:Stated General Appearance: WD/WN, no apparent distress Eyes: bilateral eye normal inspection, bilateral eye EOMI Ears: bilateral ear auricle normal, bilateral ear canal normal Nose: normal inspection; No sinus tenderness Mouth/Throat: pharynx normal, dental tenderness; No excessive drooling, No foreign body, No mandibular swelling, No pharynx swelling, No tongue swollen, No tonsillar swelling; other (abscess left upper molar with left cheek induration) Neck: non-tender, full range of motion, supple, normal inspection, other (2-3cm nodule right lateral neck. Scheduled to have biopsy soon.) Cardiovascular: normal peripheral pulses, regular rate, rhythm Respiratory: chest non-tender, lungs clear, normal breath sounds, no respiratory distress Gastrointestinal: normal bowel sounds, non tender, soft Neurologic/Psychiatric: live in housekeeper II-XII nml as tested, no motor/sensory deficits, alert, normal mood/affect, oriented x 3 Skin: normal color, warm/dry (AYALA CORDERO STUDENT) Procedures/Interventions I&D : Site: left upper 1st premolar Blade Size: 11 Progress Hurricaine spray used to anesthetize the abscessed area, followed by 0.5cc of 1% lidocaine over the top of the abscess. #11blade used to make a 2mm incision over the abscess. purulence expressed. Patient instructed to rinse and spit several times. Counselled on good oral hygeine. (ARIEL ESPARZA MD) Progress/Results/Core Measures Results/Orders My Orders Orders - ARIEL ESPARZA MD Hydrocodone/Apap 5/325 Tablet (Lortab 5 (10/30/21 10:45) Lidocaine 1% Inj 20 Ml (Xylocaine 1% Inj (10/30/21 10:45) Benzocaine Extension Tube (Hurricaine Ex (10/30/21 10:45) Accucheck Stat ONCE (10/30/21 10:55) (ARIEL ESPARZA MD) Medications Given in ED (ARIEL ESPARZA MD) Vital Signs/I&O (ARIEL ESPARZA MD) Blood Pressure Mean: 104 Progress Progress Note : Time: 10:49 Progress Note 40-year-old female presents to the emergency room with left upper dental pain and swelling. Onset Thursday. Insulin-dependent diabetic. No reported fevers or chills, painful swallowing. Has not taken her insulin this morning. Has not seen a dentist for this Evaluation is remarkable for what appears to be an abscess above the first premolar upper left teeth. Slightly fluctuant. No surrounding erythema. No percussive dental tenderness. She has a little erythema/ecchymosis along the buccal mucosa opposite this area. Nonfluctuant slightly swollen. No lymphadenopathy is appreciated. Rest of the exam is unremarkable Incision and drainage at this area patient placed on antibiotics. Advised to follow-up with the dentist. Pain medications are also given (ARIEL ESPARZA MD) Departure Impression Primary Impression: Dental abscess Disposition: HOME, SELF-CARE Condition: Stable Departure-Patient Inst. Decision time for Depature: 10:53 (ARIEL ESPARZA MD) Referrals: [facility]/ (PCP) Primary Care Physician SAMEERA DENT APRN (Family) Primary Care Physician Patient Instructions: Tooth Abscess (DC) Add. Discharge Instructions: Use a good oral rinse twice a day (like Listerine). Rhome 2-3 times a day. Take the antibiotics 4 times a day until gone (10 days). Pain medications as needed every 6 hours - they can cause constipation - take an over the counter stool softener to prevent this such as colace. You can also take over the counter ibuprofen 3 pills (600mg) every 6 hours as ne eded for pain. Check your blood sugars often. Return to the ER for worsening swelling, redness, fever over 101 or any other em ergent, concerning symptoms. Please call your dentist for follow up. Scripts Hydrocodone/Acetaminophen (Hydrocodone-Acetamin 5-325 mg) 1 Each Tablet 1 TAB PO Q6H PRN for PAIN-MODERATE (5-7), #10 TAB Prov: ARIEL ESPARZA MD 10/30/21 Penicillin V Potassium (Penicillin V Potassium) 500 Mg Tablet 500 MG PO QID for 10 Days, #40 TAB Prov: ARIEL ESPARZA MD 10/30/21 AYALA CORDERO MED STUDENT Oct 30, 2021 10:41 ARIEL ESPARZA MD Oct 30, 2021 10:55
[2021-10-30] MEDS ORDERED: HYDROcodone/APAP 5 MG/325 MG (LORTAB) TAB PO ONE (10:45)
[2021-10-30] MEDS ORDERED: HURRICAINE EXT TUBE (BENZOCAINE) XX ONE (10:45)
[2021-10-30] MEDS ORDERED: LIDOCAINE 1% INJ 20 ML VIAL INJ ONE (10:45)
[2021-10-30] MEDS ORDERED: ACHD5005 PO (10:52)
[2021-10-30] MEDS ORDERED: PENI500T PO (10:52)
[2021-10-30 11:19] VITALS: BP 130/79
== END 2021-10-30 11:19 | disposition home or self-care (01) ==
LOC: EDUNIT# 09:47 → ER 09:50
DX: K04.7 Periapical abscess without sinus (principal); J44.9 Chronic obstructive pulmonary disease, unspecified; I10 Essential (primary) hypertension; E11.9 Type 2 diabetes mellitus without complications; F17.210 Nicotine dependence, cigarettes, uncomplicated
CPT/HCPCS: 99283

== ENCOUNTER 2021-11-12 22:37 | Emergency (ER) | payer MEDICAID ==
[~2021-11-12] VITALS: Ht 160 cm; Wt 107.0 kg
[~2021-11-12 22:37] MED LIST changes: +ACHD5005 PO; +PENI500T PO
[2021-11-13] MEDS ORDERED: TIZA-169 (00:24)
[2021-11-13] MEDS ORDERED: ONDA-105 (00:24)
--- NOTE | 2021-11-13 01:17 | ED Neck-Back Pain/Injury ---
General Chief Complaint: Head/Cervical Problems Stated Complaint: KNOT ON RIGHT SIDE OF NECK Nursing Triage Note: C/O RIGHT FRONT NECK PAIN X2 DAYS, NO INJURY. SEEN AT CLINIC FOR SAME GIVEN MUSCLE RELAXANT WITHOUT IMPROVEMENT. Source of Information: Patient Exam Limitations: No Limitations History of Present Illness Date Seen by Provider: Nov 13, 2021 Time Seen by Provider: 00:44 Initial Comments Patient ER by private conveyance from home with chief complaint that she has a enlarged lymph node in her right neck for the past 4 months. Dm from [facility] has referred her on to ENT but she has not made the appointment yet. She says her mom had a lymph node in her neck from a suppose a throat cancer that killed her. She does smoke about half a pack of cigarettes a day. She is not having any vocal changes stridor difficulty swallowing or eating. She has been told that she needs to get set up for an ultrasound and a fine-needle aspiration. Allergies and Home Medications Allergies Coded Allergies: No Known Drug Allergies (Unverified , 11/28/18) Patient Home Medication List Home Medication List Reviewed: Yes Amoxicillin (Amoxicillin) 500 Mg Capsule, 500 MG PO TID Prescribed by: RANCHO ANGELES on 02/12/19 1545 Amoxicillin (Amoxicillin) 500 Mg Capsule, 875 MG PO BID Prescribed by: TSERING BERNAL on 09/14/19 1012 Azithromycin (Azithromycin) 250 Mg Tablet, 250 MG PO DAILY Prescribed by: JINA BAH on 07/17/19 2240 Cephalexin (Cephalexin) 500 Mg Tablet, 500 MG PO QID Prescribed by: RANCHO ANGELES on 04/19/20 2353 Ciprofloxacin HCl/Dexameth (Ciprodex Otic Suspension) 7.5 Ml Soln, 7.5 ML OT BID Prescribed by: ROLAND NOBLES on 04/22/20 205 Citalopram Hydrobromide (Celexa) 20 Mg Tablet, 20 MG PO, (Reported) Entered as Reported by: ALEN CARVAJAL on 12/18/18 1302 Cyclobenzaprine HCl (Cyclobenzaprine HCl) 10 Mg Tablet, 10 MG PO Q8H PRN for SPASMS Prescribed by: UCHE LOWRY on 06/26/20 182 Diclofenac Sodium (Diclofenac Sodium) 50 Mg Tablet.dr, 50 MG PO BID Prescribed by: TSERING BERNAL on 09/14/19 1012 Diclofenac Sodium (Diclofenac Sodium) 75 Mg Tablet.dr, 75 MG PO BID Prescribed by: JASON VELEZ on 07/16/20 1936 Dicyclomine HCl (Dicyclomine HCl) 20 Mg Tablet, 20 MG PO TID PRN for ABDOMINAL PAIN Prescribed by: DINORA KNOTT on 12/18/18 1438 Fexofenadine HCl (Wal-Fex Allergy) 180 Mg Tablet, 180 MG PO DAILY Prescribed by: UCHE LOWRY on 04/18/20 1129 Fluticasone Propionate (Fluticasone Propionate) 16 Gm [place].susp, 16 GM NS DAILY Prescribed by: UCHE LOWRY on 04/18/20 112 Hydralazine HCl (Hydralazine HCl) 25 Mg Tablet, 25 MG PO, (Reported) Entered as Reported by: ALEN CARVAJAL on 12/18/18 1302 Hydrocodone/Acetaminophen (Hydrocodone/Acetaminophen 5 MG/325 MG TAB) 1 Each Tablet, 1 TAB PO Qhs Prescribed by: NOA ZAMARRIPA on 04/13/19 1247 Hydrocodone/Acetaminophen (Hydrocodone-Acetamin 5-325 mg) 1 Each Tablet, 1 TAB PO Q6H PRN for PAIN-MODERATE (5-7) Prescribed by: ARIEL ESPARZA on 10/30/21 1053 Hyoscyamine Sulfate (Hyoscyamine Sulfate) 0.125 Mg Tab.subl, 0.125 MG SL Q8H Prescribed by: UCHE LOWRY on 09/19/19 171 Hyoscyamine Sulfate (Levsin-Sl) 0.125 Mg Tab.subl, 0.125 MG SL Q4H Prescribed by: UCHE LOWRY on 09/25/202014 Ibuprofen (Ibuprofen) 800 Mg Tablet, 800 MG PO Q8H PRN for PAIN Prescribed by: JINA BAH on 07/17/19 224 Ibuprofen (Ibuprofen) 800 Mg Tablet, 800 MG PO Q8H PRN for PAIN Prescribed by: UCHE LOWRY on 06/26/201817 Metformin HCl (Metformin HCl) 500 Mg Tablet, 500 MG PO BID Prescribed by: DINORA KNOTT on 09/16/20 182 Methocarbamol (Robaxin-750) 750 Mg Tablet, 750 MG PO Q4H PRN for PAIN-MODERATE ( 5-7) Prescribed by: KARLA DELGADO on 08/22/20 1122 Metronidazole (Flagyl) 500 Mg Tablet, 500 MG PO BID, (Reported) Entered as Reported by: TANA PAYTON on 12/11/18 1229 Naproxen (Naprosyn) 500 Mg Tablet, 500 MG PO BID Prescribed by: RANCHO ANGELES on 04/19/20 2353 Naproxen (Naprosyn) 500 Mg Tablet, 500 MG PO BID Prescribed by: KARLA DELGADO on 08/22/20 1122 Naproxen (Naprosyn) 500 Mg Tablet, 500 MG PO BID Prescribed by: KARLA DELGADO on 10/18/20 1413 Ondansetron (Ondansetron Odt) 4 Mg Tab.rapdis, 4 MG PO Q8H PRN for NAUSEA/VOMITING Prescribed by: DINORA KNOTT on 12/18/18 1438 Ondansetron (Ondansetron Odt) 4 Mg Tab.rapdis, 4 MG PO TID Prescribed by: UCHE LOWRY on 03/23/20 1130 Ondansetron (Ondansetron Odt) 4 Mg Tab.rapdis, 4 MG PO TID Prescribed by: UCHE LOWRY on 04/18/20 1129 Ondansetron (Ondansetron Odt) 4 Mg Tab.rapdis, 4 MG PO TID Prescribed by: UCHE LOWRY on 09/25/20 2015 Ondansetron HCl (Ondansetron HCl) 4 Mg Tablet, (Reported) Entered as Reported by: EDER FLANAGAN on 11/13/2123 Last Action: New Order Penicillin V Potassium (Penicillin V Potassium) 500 Mg Tablet, 500 MG PO QID Prescribed by: ARIEL ESPARZA on 10/30/21 1052 Prednisone (Prednisone) 20 Mg Tab, 40 MG PO DAILY Prescribed by: JINA BAH on 07/17/19 2240 Sulfamethoxazole/Trimethoprim (Bactrim Ds Tablet) 1 Each Tablet, 1 EACH PO BID Prescribed by: DINORA KNOTT on 02/16/21 1449 Tizanidine HCl (Tizanidine HCl) 2 Mg Tablet, (Reported) Entered as Reported by: EDER FLANAGAN on 11/13/2123 Last Action: New Order Trimethoprim/Sulfamethoxazole (Bactrim DS) 1 Ea Tablet, 1 TAB PO BID, (Reported) Entered as Reported by: NATY HANDY on 11/28/18 1368 Review of Systems Constitutional: No chills, No diaphoresis EENTM: No ear discharge, No ear pain Respiratory: No cough, No short of breath Cardiovascular: No chest pain, No palpitations Gastrointestinal: No abdominal pain, No nausea, No vomiting All Other Systems Reviewed Negative Unless Noted: Yes Past Uhtnpdn-Phaihw-Uevvfy Hx Patient Social History Tobacco Use?: Yes Substance use?: No Alcohol Use?: No Pt feels they are or have been: No Immunizations Up To Date Tetanus Booster (TDap): Unknown Influenza Vaccine Up-to-Date: No; Not Current Seasonal Allergies Seasonal Allergies: No Past Medical History Surgery/Hospitalization HX: HTN, IDDM, C-SECT X3, HERNIA, CHOLECYSTECTOMY Surgeries: Yes (HERNIA REPAIR) Section, Gallbladder Respiratory: Yes COPD Cardiac: No Neurological: No Genitourinary: Yes Gastrointestinal: No Musculoskeletal: No Endocrine: No HEENT: No Cancer: No Psychosocial: No Integumentary: No Blood Disorders: No Physical Exam Vital Signs Vital Signs - First Documented 11/13/21 00:18 Temp 36.5 Pulse 93 Resp 16 B/P (MAP) 163/85 (111) Pulse Ox 97 O2 Delivery Room Air Capillary Refill : Less Than 3 Seconds Height, Weight, BMI Height: 5'3.00" Weight: 240lbs. oz. [id number]; 41.00 BMI Method:Stated General Appearance: No Apparent Distress, WD/WN HEENT: PERRL/EOMI, Pharynx Normal, Moist Mucous Membranes Neck: Full Range of Motion, Normal Inspection, Non Tender Cardiovascular: Regular Rate, Rhythm, No Edema, Normal Peripheral Pulses Respiratory: Lungs Clear, Normal Breath Sounds, No Accessory Muscle Use Gastrointestinal: Normal Bowel Sounds, No Organomegaly Extremity: Normal Capillary Refill, Normal Inspection Neurologic/Psychiatric: Alert, Oriented x3 Lymphatic: Other (Solitary the 2 cm mobile lymph node in the right anterior cervical chain.) Progress/Results/Core Measures Results/Orders Vital Signs/I&O 11/13/21 00:18 Temp 36.5 Pulse 93 Resp 16 B/P (MAP) 163/85 (111) Pulse Ox 97 O2 Delivery Room Air Blood Pressure Mean: 111 Progress Progress Note : Time: 01:14 Progress Note Patient states that the cyclobenzaprine worked better than the tizanidine she was given and so we will provide her with a dose of Norflex and some cyclobenzaprine and encouraged her to follow-up with ENT for outpatient management of her solitary mobile lymph node. Departure Impression Primary Impression: Lymphadenopathy, anterior cervical Disposition: 01 HOME, SELF-CARE Condition: Stable Departure-Patient Inst. Decision time for Depature: 01:00 Referrals: [facility]/ (PCP) Primary Care Physician SAMEERA DENT APRN (Family) Primary Care Physician REYES JORDAN MD Patient Instructions: Cervical Muscle Strain (DC), LYMPH NODE SWELLING, Lymph Node Biopsy Add. Discharge Instructions: Call Dr. Jordan and make a follow-up appointment. Cyclobenzaprine 1 tablet every 8 hours necessary for spasms in the muscles of your neck. Will cause drowsiness. All discharge instructions reviewed with patient and/or family. Voiced understanding. Scripts Cyclobenzaprine HCl (Cyclobenzaprine HCl) 10 Mg Tablet 10 MG PO TID, #20 TAB 0 Refills Prov: YT HALL 11/13/21 Copy Copies To 1: REYES JORDAN MD, TITUS J Nov 13, 2021 01:17
[2021-11-13] MEDS ORDERED: CYCL10TA25 PO (01:18)
[2021-11-13] MEDS ORDERED: ORPHENADRINE 60 MG/2 ML (NORFLEX) AMP (ED ONLY) IM ONE (01:30)
[2021-11-13 01:35] VITALS: BP 143/82
== END 2021-11-13 01:35 | disposition home or self-care (01) ==
LOC: EDUNIT# 22:37 → ER 22:39
DX: R59.0 Localized enlarged lymph nodes (principal); E11.9 Type 2 diabetes mellitus without complications; I10 Essential (primary) hypertension; Z79.84 Long term (current) use of oral hypoglycemic drugs
CPT/HCPCS: 99284

== ENCOUNTER 2021-12-10 14:14 | Emergency (ER) | payer MEDICAID ==
[~2021-12-10] VITALS: Ht 160 cm; Wt 107.0 kg
[~2021-12-10 14:14] MED LIST changes: +ONDA-105; +TIZA-169
[2021-12-10] MEDS ORDERED: KETOROLAC 30 MG/ML VIAL IVP ONE (14:45)
[2021-12-10] MEDS ORDERED: LACTATED RINGERS 1,000 ML IV SCH (14:45)
--- NOTE | 2021-12-10 14:49 | ED Abdominal Pain ---
General Chief Complaint: Abdominal/GI Problems Stated Complaint: RIGHT SIDE ABD PAIN Nursing Triage Note: PT AMB TO RM 1 WITH C/O R SIDE ABD PAIN THAT STARTED THIS MORNING. PT STATES SHE TOOK TYLENOL AROUND 0500 THIS MORNING AND DID NOT GET RELIEF. PT ALSO SAID SHE HAD DIARRIA YESTERDAY Source of Information: Patient Exam Limitations: No Limitations (KARLA DELGADO APRN) History of Present Illness Date Seen by Provider: Dec 10, 2021 Time Seen by Provider: 14:48 Initial Comments To ER by private vehicle with reports of right-sided lower abdominal pain that began this morning associated with nausea vomiting diarrhea. Timing/Duration: 4-6 Hours Severity/Quality: Moderate Location: RLQ Radiation: No Radiation Activities at Onset: None Associated Symptoms: Nausea/Vomiting (KARLA DELGADO APRN) Allergies and Home Medications Allergies Coded Allergies: No Known Drug Allergies (Unverified , 11/28/18) Patient Home Medication List Home Medication List Reviewed: Yes (KARLA DELGADO APRN) Amoxicillin (Amoxicillin) 500 Mg Capsule, 500 MG PO TID Prescribed by: RANCHO ANGELES on 02/12/19 1545 Amoxicillin (Amoxicillin) 500 Mg Capsule, 875 MG PO BID Prescribed by: TSERING BERNAL on 09/14/19 1012 Azithromycin (Azithromycin) 250 Mg Tablet, 250 MG PO DAILY Prescribed by: JINA BAH on 07/17/19 2240 Cephalexin (Cephalexin) 500 Mg Tablet, 500 MG PO QID Prescribed by: RANCHO ANGELES on 04/19/20 2353 Ciprofloxacin HCl/Dexameth (Ciprodex Otic Suspension) 7.5 Ml Soln, 7.5 ML OT BID Prescribed by: ROLAND NOBLES on 04/22/20 205 Citalopram Hydrobromide (Celexa) 20 Mg Tablet, 20 MG PO, (Reported) Entered as Reported by: ALEN CARVAJAL on 12/18/18 1302 Cyclobenzaprine HCl (Cyclobenzaprine HCl) 10 Mg Tablet, 10 MG PO Q8H PRN for SPASMS Prescribed by: UCHE LOWRY on 06/26/20 1827 Cyclobenzaprine HCl (Cyclobenzaprine HCl) 10 Mg Tablet, 10 MG PO TID Prescribed by: TY HALL on 11/13/21 0118 Diclofenac Sodium (Diclofenac Sodium) 50 Mg Tablet.dr, 50 MG PO BID Prescribed by: TSERING BERNAL on 09/14/19 1012 Diclofenac Sodium (Diclofenac Sodium) 75 Mg Tablet.dr, 75 MG PO BID Prescribed by: JASON VELEZ on 07/16/20 1936 Dicyclomine HCl (Dicyclomine HCl) 20 Mg Tablet, 20 MG PO TID PRN for ABDOMINAL PAIN Prescribed by: DINORA KNOTT on 12/18/18 1438 Fexofenadine HCl (Wal-Fex Allergy) 180 Mg Tablet, 180 MG PO DAILY Prescribed by: UCHE LOWRY on 04/18/20 1129 Fluconazole (Diflucan) 150 Mg Tablet, 150 MG PO DAILY Prescribed by: KARLA DELGADO on 12/10/21 1637 Fluticasone Propionate (Fluticasone Propionate) 16 Gm [place].susp, 16 GM NS DAILY Prescribed by: UCHE LOWRY on 04/18/20 1129 Hydralazine HCl (Hydralazine HCl) 25 Mg Tablet, 25 MG PO, (Reported) Entered as Reported by: ALEN CARVAJAL on 12/18/18 1302 Hydrocodone/Acetaminophen (Hydrocodone/Acetaminophen 5 MG/325 MG TAB) 1 Each Tablet, 1 TAB PO Qhs Prescribed by: NOA ZAMARRIAP on 04/13/19 1247 Hydrocodone/Acetaminophen (Hydrocodone-Acetamin 5-325 mg) 1 Each Tablet, 1 TAB PO Q6H PRN for PAIN-MODERATE (5-7) Prescribed by: ARIEL ESPARZA on 10/30/21 1053 Hyoscyamine Sulfate (Hyoscyamine Sulfate) 0.125 Mg Tab.subl, 0.125 MG SL Q8H Prescribed by: UCHE LOWRY on 09/19/19 1713 Hyoscyamine Sulfate (Levsin-Sl) 0.125 Mg Tab.subl, 0.125 MG SL Q4H Prescribed by: UCHE LOWRY on 09/25/202014 Ibuprofen (Ibuprofen) 800 Mg Tablet, 800 MG PO Q8H PRN for PAIN Prescribed by: JINA BAH on 07/17/19 2240 Ibuprofen (Ibuprofen) 800 Mg Tablet, 800 MG PO Q8H PRN for PAIN Prescribed by: UCHE LOWRY on 06/26/201817 Metformin HCl (Metformin HCl) 500 Mg Tablet, 500 MG PO BID Prescribed by: DINORA KNOTT on 09/16/20 1828 Methocarbamol (Robaxin-750) 750 Mg Tablet, 750 MG PO Q4H PRN for PAIN-MODERATE (5-7) Prescribed by: KARLA DELGADO on 08/22/20 112 Metronidazole (Flagyl) 500 Mg Tablet, 500 MG PO BID, (Reported) Entered as Reported by: TANA PAYTON on 12/11/18 1229 Metronidazole (Metronidazole) 500 Mg Tablet, 500 MG PO BID Prescribed by: KARLA DELGADO on 12/10/21 1637 Naproxen (Naprosyn) 500 Mg Tablet, 500 MG PO BID Prescribed by: RANCHO ANGELES on 04/19/20 2353 Naproxen (Naprosyn) 500 Mg Tablet, 500 MG PO BID Prescribed by: KARLA DELGADO on 08/22/20 1122 Naproxen (Naprosyn) 500 Mg Tablet, 500 MG PO BID Prescribed by: KARLA DELGADO on 10/18/20 1413 Ondansetron (Ondansetron Odt) 4 Mg Tab.rapdis, 4 MG PO Q8H PRN for NAUSEA /VOMITING Prescribed by: DINORA KNOTT on 12/18/18 1438 Ondansetron (Ondansetron Odt) 4 Mg Tab.rapdis, 4 MG PO TID Prescribed by: UCHE LOWRY on 03/23/20 1130 Ondansetron (Ondansetron Odt) 4 Mg Tab.rapdis, 4 MG PO TID Prescribed by: UCHE LOWRY on 04/18/20 1129 Ondansetron (Ondansetron Odt) 4 Mg Tab.rapdis, 4 MG PO TID Prescribed by: UCHE LOWRY on 09/25/202014 Ondansetron HCl (Ondansetron HCl) 4 Mg Tablet, (Reported) Entered as Reported by: EDER FLANAGAN on 11/13/21 0024 Penicillin V Potassium (Penicillin V Potassium) 500 Mg Tablet, 500 MG PO QID Prescribed by: ARIEL ESPARZA on 10/30/21 1052 Prednisone (Prednisone) 20 Mg Tab, 40 MG PO DAILY Prescribed by: JINA BAH on 07/17/19 2240 Sulfamethoxazole/Trimethoprim (Bactrim Ds Tablet) 1 Each Tablet, 1 EACH PO BID Prescribed by: DINORA KNOTT on 02/16/21 1449 Tizanidine HCl (Tizanidine HCl) 2 Mg Tablet, (Reported) Entered as Reported by: EDER FLANAGAN on 11/13/21 0024 Trimethoprim/Sulfamethoxazole (Bactrim DS) 1 Ea Tablet, 1 TAB PO BID, (Reported) Entered as Reported by: NATY HANDY on 11/28/18 1643 Review of Systems Review of Systems Constitutional: see HPI EENTM: No Symptoms Reported Respiratory: No Symptoms Reported Cardiovascular: No Symptoms Reported Gastrointestinal: See HPI, Abdominal Pain, Diarrhea, Nausea Genitourinary: No Symptoms Reported Musculoskeletal: no symptoms reported Skin: no symptoms reported Psychiatric/Neurological: No Symptoms Reported Endocrine: No Symptoms Reported Hematologic/Lymphatic: No Symptoms Reported (KARLA DELGADO APRN) Past Nhjsgwa-Kksucb-Tmykdq Hx Patient Social History Tobacco Use?: Yes Tobacco type used: Cigarettes Smoking Status: Current Everyday Smoker Substance use?: Yes Additional substance use comme: CBD, ENDICA Substance frequency: Couple times a week Alcohol Use?: No Pt feels they are or have been: No (KARLA DELGADO APRN) Immunizations Up To Date Tetanus Booster (TDap): Unknown Influenza Vaccine Up-to-Date: No; Not Current (KARLA DELGADO APRN) Seasonal Allergies Seasonal Allergies: No (KARLA DELGADO APRN) Past Medical History Surgery/Hospitalization HX: HTN, IDDM, C-SECT X3, HERNIA, CHOLECYSTECTOMY Surgeries: Yes (HERNIA REPAIR) Section, Gallbladder Respiratory: Yes COPD Cardiac: No Neurological: No Last Menstrual Period: Nov 07, 2021 Genitourinary: Yes Gastrointestinal: No Musculoskeletal: No Endocrine: No HEENT: No Cancer: No Psychosocial: No Integumentary: No Blood Disorders: No (KARLA DELGADO APRN) Physical Exam Vital Signs Vital Signs - First Documented 12/10/21 14:25 Temp 35.8 Pulse 120 Resp 18 B/P (MAP) 156/102 (120) Pulse Ox 97 O2 Delivery Room Air (JULI SORTO MD) Vital Signs Capillary Refill : (KARLA DELGADO APRN) Height/Weight/BMI Height: 5'3.00" Weight: 240lbs. oz. 108.098921ov; 41.00 BMI Method:Stated General Appearance: WD/WN, no apparent distress, obese HEENT: PERRL/EOMI, normal ENT inspection Neck: non-tender, full range of motion Respiratory: no respiratory distress, no accessory muscle use Gastrointestinal: normal bowel sounds, soft, tenderness Extremities: normal range of motion, non-tender Neurologic/Psychiatric: alert, normal mood/affect, oriented x 3 Skin: normal color, warm/dry (KARLA DELGADO APRN) Progress/Results/Core Measures Results/Orders Lab Results Laboratory Tests Test 12/10/21 14:45 12/10/21 14:50 12/10/21 15:55 Range/Units Urine Color YELLOW Urine Clarity CLEAR Urine pH 6.5 5-9 Urine Specific [place] 1.010 L 1.016-1.022 Urine Protein NEGATIVE NEGATIVE Urine Glucose (UA) 2+ H NEGATIVE Urine Ketones NEGATIVE NEGATIVE Urine Nitrite NEGATIVE NEGATIVE Urine Bilirubin NEGATIVE NEGATIVE Urine Urobilinogen 0.2 < = 1.0 MG/DL Urine Leukocyte Esterase NEGATIVE NEGATIVE Urine RBC (Auto) NEGATIVE NEGATIVE Urine RBC NONE /HPF Urine WBC NONE /HPF Urine Squamous Epithelial Cells 0-2 /HPF Urine Crystals NONE /LPF Urine Bacteria NEGATIVE /HPF Urine Casts NONE /LPF Urine Mucus NEGATIVE /LPF Urine Yeast FEW H /HPF Urine Culture Indicated YES Urine Opiates Screen NEGATIVE NEGATIVE Urine Oxycodone Screen NEGATIVE NEGATIVE Urine Methadone Screen NEGATIVE NEGATIVE Urine Propoxyphene Screen NEGATIVE NEGATIVE Urine Barbiturates Screen NEGATIVE NEGATIVE Ur Tricyclic Antidepressants Screen NEGATIVE NEGATIVE Urine Phencyclidine Screen NEGATIVE NEGATIVE Urine Amphetamines Screen NEGATIVE NEGATIVE Urine Methamphetamines Screen NEGATIVE NEGATIVE Urine Benzodiazepines Screen NEGATIVE NEGATIVE Urine Cocaine Screen NEGATIVE NEGATIVE Urine Cannabinoids Screen POSITIVE H NEGATIVE White Blood Count 16.1 H 4.3-11.0 10^3/uL Red Blood Count 4.77 3.80-5.11 10^6/uL Hemoglobin 12.9 11.5-16.0 g/dL Hematocrit 40 35-52 % Mean Corpuscular Volume 84 80-99 fL Mean Corpuscular Hemoglobin 27 25-34 pg Mean Corpuscular Hemoglobin Concent 32 32-36 g/dL Red Cell Distribution Width 14.4 10.0-14.5 % Platelet Count 378 130-400 10^3/uL Mean Platelet Volume 9.8 9.0-12.2 fL Immature Granulocyte % (Auto) 1 % Neutrophils (%) (Auto) 71 42-75 % Lymphocytes (%) (Auto) 22 12-44 % Monocytes (%) (Auto) 5 0-12 % Eosinophils (%) (Auto) 1 0-10 % Basophils (%) (Auto) 0 0-10 % Neutrophils # (Auto) 11.5 H 1.8-7.8 10^3/uL Lymphocytes # (Auto) 3.6 1.0-4.0 10^3/uL Monocytes # (Auto) 0.8 0.0-1.0 10^3/uL Eosinophils # (Auto) 0.1 0.0-0.3 10^3/uL Basophils # (Auto) 0.1 0.0-0.1 10^3/uL Immature Granulocyte # (Auto) 0.1 0.0-0.1 10^3/uL Neutrophils % (Manual) 66 % Lymphocytes % (Manual) 28 % Monocytes % (Manual) 1 % Eosinophils % (Manual) 1 % Basophils % (Manual) 0 % Band Neutrophils 1 % Reactive Lymphocytes 3 % Blood Morphology Comment NORMAL Sodium Level 136 135-145 MMOL/L Potassium Level 3.9 3.6-5.0 MMOL/L Chloride Level 104 98-107 MMOL/L Carbon Dioxide Level 25 21-32 MMOL/L Anion Gap 7 5-14 MMOL/L Blood Urea Nitrogen 5 L 7-18 MG/DL Creatinine 0.66 0.60-1.30 MG/DL Estimat Glomerular Filtration Rate 114 BUN/Creatinine Ratio 8 Glucose Level 164 H 70-105 MG/DL Calcium Level 9.7 8.5-10.1 MG/DL Corrected Calcium 9.4 8.5-10.1 MG/DL Total Bilirubin 0.3 0.1-1.0 MG/DL Aspartate Amino Transf (AST/SGOT) 15 5-34 U/L Alanine Aminotransferase (ALT/SGPT) 21 0-55 U/L Alkaline Phosphatase 85 40-136 U/L Total Protein 8.1 6.4-8.2 GM/DL Albumin 4.4 3.2-4.5 GM/DL Lipase 8 8-78 U/L Serum Test, Qualitative NEGATIVE NEGATIVE (JULI SORTO MD) Micro Results Microbiology 12/10/21 Genital Culture, Resulted Pending 12/10/21 Wet Prep - Final, Resulted (JULI SORTO MD) Medications Given in ED Current Medications Medications Dose Ordered Sig/Chris Route Start Time Stop Time Status Last Admin Dose Admin Ceftriaxone Sodium/Dextrose 50 ml @ 100 mls/hr ONCE ONCE IV 12/10/21 16:00 12/10/21 16:29 DC 12/10/21 16:04 100 MLS/HR Iohexol 100 ml ONCE ONCE IV 12/10/21 15:00 12/10/21 15:01 DC 12/10/21 15:21 100 ML Ketorolac Tromethamine 15 mg ONCE ONCE IVP 12/10/21 14:45 12/10/21 14:46 DC 12/10/21 15:01 15 MG Ondansetron HCl 8 mg ONCE ONCE IVP 12/10/21 15:00 12/10/21 15:01 DC 12/10/21 15:00 8 MG Sodium Chloride 100 ml ONCE ONCE IV 12/10/21 15:00 12/10/21 15:01 DC 12/10/21 15:21 100 ML (JULI SORTO MD) Vital Signs/I&O 12/10/21 12/10/21 14:25 17:05 Temp 35.8 35.8 Pulse 120 110 Resp 18 18 B/P (MAP) 156/102 (120) 140/94 Pulse Ox 97 97 O2 Delivery Room Air Room Air (JULI SORTO MD) Blood Pressure Mean: 120 Diagnostic Imaging Diagonstic Imaging: CT Comments NAME: STANISLAV MATHIS [facility] REC#: [id number] PT STATUS: REG ER : 1980 PHYSICIAN: KARLA DELGADO SPENT GRAIN DRYER ADMIT DATE: 12/10/21/ER Draft Date of Exam:12/10/21 CT ABD/PELV W (APPENDICITIS) PROCEDURE: CT abdomen and pelvis with contrast, rule out appendicitis. TECHNIQUE: Multiple contiguous axial images were obtained through the abdomen and pelvis after the administration of intravenous contrast. All CT scans use one or more of the following dose optimizing techniques: automated exposure control, MA and/or KvP adjustment based on patient size and exam type or iterative reconstruction. INDICATION: Right-sided pain. COMPARISON: Exam compared with abdominopelvic CT of 10/18/2020. FINDINGS: Gallbladder is surgically absent. The liver, bile ducts, spleen, adrenals, and pancreas are unremarkable. The unobstructed kidneys appeared normal. There is no small or large bowel obstruction. There are postsurgical changes to the anterior abdominal wall along the inferior margin. There is a ventral fatty hernia, nonobstructing, with no herniation of viscus. This is stable. No acute abdominal wall pathology. The uterus and urinary bladder are unremarkable. There is a right adnexal cyst in the ovary measuring 2.3 cm, likely a dominant follicle. The urinary bladder is unremarkable. No ascites. No mesenteric or retroperitoneal adenopathy. No fluid collection. IMPRESSION: 1. Postoperative changes to the abdominal wall with fat-containing infraumbilical abdominal wall hernia, unchanged. No acute-appearing abnormality. There is likely a benign physiologic right ovarian cyst. 2. Normal appendix. Unobstructed urinary tracts. Dictated on workstation # [id number] Dict: 12/10/21 1532 Trans: 12/10/21 1542 [id number] Interpreted by: JUDI CHAUDHRY Electronically signed by: (KARLA DELGADO APRN) Departure Impression Primary Impression: Abdominal pain Additional Impression: Bacterial vaginosis Disposition: HOME, SELF-CARE Condition: Stable Departure-Patient Inst. Decision time for Depature: 15:53 (KARLA DELGADO APRN) [facility]: [facility] [place] Primary Care Physician Patient Instructions: Abdominal Pain, Adult ED Scripts Fluconazole (Diflucan) 150 Mg Tablet 150 MG PO DAILY, #3 TAB Prov: KARLA DELGADO APRN 12/10/21 Metronidazole (Metronidazole) 500 Mg Tablet 500 MG PO BID, #14 TAB Prov: KARLA DELGADO APRN 12/10/21 ATTENDING PHYSICIAN NOTE: I was physically present as attending physician in the emergency department during the care of this patient, but I was not directly involved in the decision making or delivery of care for this patient. (JULI SORTO MD) KARLA DELGADO APRN Dec 10, 2021 14:49 JULI SORTO MD Dec 10, 2021 20:01
[2021-12-10 14:50] LABS: BILIRUBIN,URINE NEGATIVE (NEGATIVE); CLARITY,URINE CLEAR; COLOR,URINE YELLOW; GLUCOSE, URINE (UA) 2+ (NEGATIVE); KETONES,URINE NEGATIVE (NEGATIVE); LEUKOCYTE ESTERASE ,URINE NEGATIVE (NEGATIVE); NITRITE,URINE NEGATIVE (NEGATIVE); PH,URINE 6.5 (5-9); PROTEIN,URINE NEGATIVE (NEGATIVE)
[2021-12-10 14:59] LABS: BASOPHILS # (AUTO) 0.1 10^3/uL (0.0-0.1); BASOPHILS % (AUTO) 0 % (0-10); EOSINOPHILS # (AUTO) 0.1 10^3/uL (0.0-0.3); EOSINOPHILS % (AUTO) 1 % (0-10); HEMATOCRIT 40 % (35-52); HEMOGLOBIN 12.9 g/dL (11.5-16.0); LYMPHOCYTES # (AUTO) 3.6 10^3/uL (1.0-4.0); LYMPHOCYTES % (AUTO) 22 % (12-44); MEAN CORPUSCULAR HEMOGLOBIN 27 pg (25-34); MEAN CORPUSCULAR HGB CONC 32 g/dL (32-36); MEAN CORPUSCULAR VOLUME 84 fL (80-99); MEAN PLATELET VOLUME 9.8 fL (9.0-12.2); MONOCYTES # (AUTO) 0.8 10^3/uL (0.0-1.0); MONOCYTES % (AUTO) 5 % (0-12); NEUTROPHILS # (AUTO) 11.5 10^3/uL (1.8-7.8); NEUTROPHILS % (AUTO) 71 % (42-75); PLATELET COUNT 378 10^3/uL (130-400); WHITE BLOOD COUNT 16.1 10^3/uL (4.3-11.0)
[2021-12-10] MEDS ORDERED: NS 100 ML (IVPB) BAG IV ONE ×2 (15:00)
[2021-12-10] MEDS ORDERED: ONDANSETRON 4 MG/2 ML (SDV) Z0FRAN IVP ONE (15:00)
[2021-12-10] MEDS ORDERED: HOLD METFORMIN - RECEIVED CONTRAST 20 ML VIAL IV SCH ×2 (15:00)
[2021-12-10] MEDS ORDERED: IOHEXOL 350 MG/ML 100 ML (OMNIPAQUE 350) VIAL IV ONE ×2 (15:00)
[2021-12-10 15:02] LABS: AMPHETAMINE SCREEN, URINE NEGATIVE (NEGATIVE); BARBITURATE SCREEN URINE NEGATIVE (NEGATIVE); BENZODIAZEPINES SCREEN URINE NEGATIVE (NEGATIVE); CANNABINOID SCREEN, URINE POSITIVE (NEGATIVE); COCAINE SCREEN URINE NEGATIVE (NEGATIVE); METHADONE STAT NEGATIVE (NEGATIVE); METHAMPHETAMINE SCREEN URINE S NEGATIVE (NEGATIVE); OPIATE SCREEN URINE NEGATIVE (NEGATIVE); OXYCODONE STAT NEGATIVE (NEGATIVE); PROPOXYPHENE STAT NEGATIVE (NEGATIVE); TRICYCLIC ANTIDEPRESSANTS SCRE NEGATIVE (NEGATIVE)
[2021-12-10 15:07] LABS: BACTERIA,URINE NEGATIVE /HPF; SQUAMOUS EPITHELIAL CELL,UR 0-2 /HPF; YEAST,URINE FEW /HPF
[2021-12-10 15:08] LABS: ALBUMIN 4.4 GM/DL (3.2-4.5); POTASSIUM 3.9 MMOL/L (3.6-5.0)
[2021-12-10 15:09] LABS: CALCIUM 9.7 MG/DL (8.5-10.1)
[2021-12-10 15:10] LABS: TOTAL PROTEIN 8.1 GM/DL (6.4-8.2)
[2021-12-10 15:12] LABS: BILIRUBIN,TOTAL 0.3 MG/DL (0.1-1.0)
[2021-12-10 15:14] LABS: CREATININE SERUM 0.66 MG/DL (0.60-1.30)
[2021-12-10 15:30] LABS: BAND NEUTROPHILS 1 %; BASOPHILS % (MANUAL) 0 %; EOSINOPHILS % (MANUAL) 1 %; LYMPHOCYTES % (MANUAL) 28 %; MONOCYTES % (MANUAL) 1 %; NEUTROPHILS % (MANUAL) 66 %; RBC MORPH NORMAL; REACTIVE LYMPHOCYTES 3 %
--- NOTE | 2021-12-10 15:42 | Diagnostic Imaging Report ---
PROCEDURE: CT abdomen and pelvis with contrast, rule out appendicitis. TECHNIQUE: Multiple contiguous axial images were obtained through the abdomen and pelvis after the administration of intravenous contrast. All CT scans use one or more of the following dose optimizing techniques: automated exposure control, MA and/or KvP adjustment based on patient size and exam type or iterative reconstruction. INDICATION: Right-sided pain. COMPARISON: Exam compared with abdominopelvic CT of 10/18/2020. FINDINGS: Gallbladder is surgically absent. The liver, bile ducts, spleen, adrenals, and pancreas are unremarkable. The unobstructed kidneys appeared normal. There is no small or large bowel obstruction. There are postsurgical changes to the anterior abdominal wall along the inferior margin. There is a ventral fatty hernia, nonobstructing, with no herniation of viscus. This is stable. No acute abdominal wall pathology. The uterus and urinary bladder are unremarkable. There is a right adnexal cyst in the ovary measuring 2.3 cm, likely a dominant follicle. The urinary bladder is unremarkable. No ascites. No mesenteric or retroperitoneal adenopathy. No fluid collection. IMPRESSION: 1. Postoperative changes to the abdominal wall with fat-containing infraumbilical abdominal wall hernia, unchanged. No acute-appearing abnormality. There is likely a benign physiologic right ovarian cyst. 2. Normal appendix. Unobstructed urinary tracts. Dictated by: Dictated on workstation # [id number]
[2021-12-10] MEDS ORDERED: cefTRIAXone 1 GM PRE-MIX 50 ML IV ONE (16:00)
[2021-12-10] MEDS ORDERED: FLUC150T PO (16:37)
[2021-12-10] MEDS ORDERED: METR-145 PO (16:37)
[2021-12-10 17:05] VITALS: BP 140/94
== END 2021-12-10 17:08 | disposition home or self-care (01) ==
LOC: EDUNIT# 14:14 → ER 14:17
DX: R10.31 Right lower quadrant pain (principal); N76.0 Acute vaginitis; I10 Essential (primary) hypertension; J44.9 Chronic obstructive pulmonary disease, unspecified; E66.9 Obesity, unspecified; E11.9 Type 2 diabetes mellitus without complications; F17.210 Nicotine dependence, cigarettes, uncomplicated; Z68.41 Body mass index [BMI] 40.0-44.9, adult
CPT/HCPCS: 36415; 74177; 80053; 80306; 81000; 83690; 84703; 85007; 85027; 87070; 87088; 87205; 87210; 87491; 87591

== ENCOUNTER 2022-01-27 17:00 | Outpatient (CLI) | payer MEDICAID ==
[~2022-01-27] VITALS: Ht 160 cm; Wt 109.4 kg
[~2022-01-27 17:00] MED LIST changes: +FLUC150T PO; +METR-145 PO
== END 2022-01-27 17:40 | disposition home or self-care (01) ==
LOC: LDRP 17:00 → WSo 17:00
PROVIDERS: ATTEND Family Medicine
DX: O26.893 Other specified pregnancy related conditions, third trimester (principal); R07.81 Pleurodynia; Z3A.40 40 weeks gestation of pregnancy

== ENCOUNTER 2022-03-19 14:40 | Emergency (ER) | payer MEDICAID ==
[~2022-03-19] VITALS: Ht 160 cm; Wt 109.4 kg
[2022-03-19] MEDS ORDERED: AUGMENTIN 500 MG TAB (AMOXICILLIN/CLAVULANATE) PO ONE (15:15)
[2022-03-19] MEDS ORDERED: AMOX-355 PO (15:15)
[2022-03-19] MEDS ORDERED: HYDROcodone/APAP 5 MG/325 MG (LORTAB) TAB PO ONE (15:15)
--- NOTE | 2022-03-19 15:15 | ED EENT ---
History of Present Illness General Chief Complaint: Dental Problems/Pain Stated Complaint: ABCESS TOOTH Nursing Triage Note: PAIN STARTED LAST NIGHT ON LEFT UPPER BROKEN TOOTH. HAS A DENTIST APPOINTMENT TOMORROW AT 1PM Source: patient Exam Limitations: no limitations History of Present Illness Date Seen by Provider: Mar 19, 2022 Time Seen by Provider: 15:13 Allergies and Home Medications Allergies Coded Allergies: No Known Drug Allergies (Unverified , 11/28/18) Patient Home Medication List Amoxicillin (Amoxicillin) 500 Mg Capsule, 500 MG PO TID Prescribed by: RANCHO ANGELES on 02/12/19 1545 Amoxicillin (Amoxicillin) 500 Mg Capsule, 875 MG PO BID Prescribed by: TSERING BERNAL on 09/14/19 1012 Azithromycin (Azithromycin) 250 Mg Tablet, 250 MG PO DAILY Prescribed by: JINA BAH on 07/17/19 2240 Cephalexin (Cephalexin) 500 Mg Tablet, 500 MG PO QID Prescribed by: RANCHO ANGELES on 04/19/20 2353 Ciprofloxacin HCl/Dexameth (Ciprodex Otic Suspension) 7.5 Ml Soln, 7.5 ML OT BID Prescribed by: ROLAND NOBLES on 04/22/20 2051 Citalopram Hydrobromide (Celexa) 20 Mg Tablet, 20 MG PO, (Reported) Entered as Reported by: ALEN CARVAJAL on 12/18/18 1302 Cyclobenzaprine HCl (Cyclobenzaprine HCl) 10 Mg Tablet, 10 MG PO Q8H PRN for SPASMS Prescribed by: UCHE LOWRY on 06/26/20 1827 Cyclobenzaprine HCl (Cyclobenzaprine HCl) 10 Mg Tablet, 10 MG PO TID Prescribed by: TY HALL on 11/13/21 0118 Diclofenac Sodium (Diclofenac Sodium) 50 Mg Tablet.dr, 50 MG PO BID Prescribed by: TSERING BERNAL on 09/14/19 1012 Diclofenac Sodium (Diclofenac Sodium) 75 Mg Tablet.dr, 75 MG PO BID Prescribed by: JASON VELEZ on 07/16/20 1936 Dicyclomine HCl (Dicyclomine HCl) 20 Mg Tablet, 20 MG PO TID PRN for ABDOMINAL PAIN Prescribed by: DINORA KNOTT on 12/18/18 1438 Fexofenadine HCl (Wal-Fex Allergy) 180 Mg Tablet, 180 MG PO DAILY Prescribed by: UCHE LOWRY on 04/18/20 1129 Fluconazole (Diflucan) 150 Mg Tablet, 150 MG PO DAILY Prescribed by: KARLA DELGADO on 12/10/21 1637 Fluticasone Propionate (Fluticasone Propionate) 16 Gm [place].susp, 16 GM NS DAILY Prescribed by: UCHE LOWRY on 04/18/20 1129 Hydralazine HCl (Hydralazine HCl) 25 Mg Tablet, 25 MG PO, (Reported) Entered as Reported by: ALEN CARVAJAL on 12/18/18 1302 Hydrocodone/Acetaminophen (Hydrocodone/Acetaminophen 5 MG/325 MG TAB) 1 Each Tablet, 1 TAB PO Qhs Prescribed by: NOA ZAMARRIPA on 04/13/19 1247 Hydrocodone/Acetaminophen (Hydrocodone-Acetamin 5-325 mg) 1 Each Tablet, 1 TAB PO Q6H PRN for PAIN-MODERATE (5-7) Prescribed by: ARIEL ESPARZA on 10/30/21 1053 Hyoscyamine Sulfate (Hyoscyamine Sulfate) 0.125 Mg Tab.subl, 0.125 MG SL Q8H Prescribed by: UCHE LOWRY on 09/19/19 171 Hyoscyamine Sulfate (Levsin-Sl) 0.125 Mg Tab.subl, 0.125 MG SL Q4H Prescribed by: UCHE LOWRY on 09/25/202014 Ibuprofen (Ibuprofen) 800 Mg Tablet, 800 MG PO Q8H PRN for PAIN Prescribed by: JINA BAH on 07/17/19 2240 Ibuprofen (Ibuprofen) 800 Mg Tablet, 800 MG PO Q8H PRN for PAIN Prescribed by: UCHE LOWRY on 06/26/20 1818 Metformin HCl (Metformin HCl) 500 Mg Tablet, 500 MG PO BID Prescribed by: DINORA KNOTT on 09/16/20 1828 Methocarbamol (Robaxin-750) 750 Mg Tablet, 750 MG PO Q4H PRN for PAIN-MODERATE (5-7) Prescribed by: KARLA DELGADO on 08/22/20 1122 Metronidazole (Flagyl) 500 Mg Tablet, 500 MG PO BID, (Reported) Entered as Reported by: TANA PAYTON on 12/11/18 1229 Metronidazole (Metronidazole) 500 Mg Tablet, 500 MG PO BID Prescribed by: KARLA DELGADO on 12/10/21 1637 Naproxen (Naprosyn) 500 Mg Tablet, 500 MG PO BID Prescribed by: RANCHO ANGELES on 04/19/20 2353 Naproxen (Naprosyn) 500 Mg Tablet, 500 MG PO BID Prescribed by: KARLA DELGADO on 08/22/20 1122 Naproxen (Naprosyn) 500 Mg Tablet, 500 MG PO BID Prescribed by: KARLA DELGADO on 10/18/20 1413 Ondansetron (Ondansetron Odt) 4 Mg Tab.rapdis, 4 MG PO Q8H PRN for NAUSEA/VOMITING Prescribed by: DINORA KNOTT on 12/18/18 1438 Ondansetron (Ondansetron Odt) 4 Mg Tab.rapdis, 4 MG PO TID Prescribed by: UCHE LOWRY on 03/23/20 1130 Ondansetron (Ondansetron Odt) 4 Mg Tab.rapdis, 4 MG PO TID Prescribed by: UCHE LOWRY on 04/18/20 1129 Ondansetron (Ondansetron Odt) 4 Mg Tab.rapdis, 4 MG PO TID Prescribed by: UCHE LOWRY on 09/25/202014 Ondansetron HCl (Ondansetron HCl) 4 Mg Tablet, (Reported) Entered as Reported by: EDER FLANAGAN on 11/13/21 0024 Penicillin V Potassium (Penicillin V Potassium) 500 Mg Tablet, 500 MG PO QID Prescribed by: ARIEL ESPARZA on 10/30/21 1052 Prednisone (Prednisone) 20 Mg Tab, 40 MG PO DAILY Prescribed by: JNIA BAH on 07/17/19 2240 Sulfamethoxazole/Trimethoprim (Bactrim Ds Tablet) 1 Each Tablet, 1 EACH PO BID Prescribed by: DINORA KNOTT on 02/16/21 1449 Tizanidine HCl (Tizanidine HCl) 2 Mg Tablet, (Reported) Entered as Reported by: EDER FLANAGAN on 11/13/21 0024 Trimethoprim/Sulfamethoxazole (Bactrim DS) 1 Ea Tablet, 1 TAB PO BID, (Reported) Entered as Reported by: NATY HANDY on 11/28/18 1643 Past Idgtgmk-Smvfya-Wtefnk Hx Patient Social History Tobacco Use?: Yes Tobacco type used: Cigarettes Smoking Status: Current Everyday Smoker Use of E-Cig and/or Vaping dev: No Substance use?: No Alcohol Use?: No Pt feels they are or have been: No Immunizations Up To Date Tetanus Booster (TDap): Unknown First/Initial COVID19 Vaccinat: declined Seasonal Allergies Seasonal Allergies: No Past Medical History Surgery/Hospitalization HX: HTN, IDDM, C-SECT X3, HERNIA, CHOLECYSTECTOMY Surgeries: Yes (HERNIA REPAIR) Section, Gallbladder Respiratory: Yes COPD Cardiac: No Neurological: No Last Menstrual Period: February 23, 2022 Genitourinary: Yes Gastrointestinal: No Musculoskeletal: No Endocrine: No HEENT: No Cancer: No Psychosocial: No Integumentary: No Blood Disorders: No Physical Exam Vital Signs Vital Signs - First Documented 03/19/22 14:47 Temp 35.9 Pulse 105 Resp 18 B/P (MAP) 176/104 (128) Pulse Ox 100 Height, Weight, BMI Height: 5'3.00" Weight: 240lbs. oz. 108.281161ns; 42.00 BMI Method:Stated Progress/Results/Core Measures Results/Orders My Orders Orders - QUINTIN HILL APRN Urine Bedside (03/19/22 15:10) Drug Screen Stat (Urine) (03/19/22 15:10) Amoxicillin/Clavulanate Tablet (Augmenti (03/19/22 15:15) Hydrocodone/Apap 5/325 Tablet (Lortab 5 (03/19/22 15:15) Vital Signs/I&O 03/19/22 14:47 Temp 35.9 Pulse 105 Resp 18 B/P (MAP) 176/104 (128) Pulse Ox 100 Blood Pressure Mean: 128 Departure Impression Primary Impression: Dental abscess Disposition: 01 HOME, SELF-CARE Condition: Stable Departure-Patient Inst. Decision time for Depature: 15:13 Referrals: [facility] (PCP/Family) Primary Care Physician Patient Instructions: Dental Pain ED Add. Discharge Instructions: Plan: 1. Keep follow up with your dentist tomorrow as scheduled. 2. Take antibiotics as directed and complete full course. 3. May take Tylenol or Ibuprofen as needed for pain per package. 4. Return for any new, concerning, or worsening symptoms. All discharge instructions reviewed with patient and/or family. Voiced understanding. Scripts Amoxicillin/Potassium Clav (Augmentin 500-125 Tablet) 500 Mg-125 Mg Tablet 1 EACH PO BID for 7 Days, #14 TAB 0 Refills Prov: QUINTIN HILL APRN 03/19/22 QUINTIN HILL APRN Mar 19, 2022 15:15
[2022-03-19 15:30] LABS: AMPHETAMINE SCREEN, URINE NEGATIVE (NEGATIVE); BARBITURATE SCREEN URINE NEGATIVE (NEGATIVE); BENZODIAZEPINES SCREEN URINE NEGATIVE (NEGATIVE); CANNABINOID SCREEN, URINE POSITIVE (NEGATIVE); COCAINE SCREEN URINE NEGATIVE (NEGATIVE); METHADONE STAT NEGATIVE (NEGATIVE); OPIATE SCREEN URINE POSITIVE (NEGATIVE); OXYCODONE STAT NEGATIVE (NEGATIVE); PROPOXYPHENE STAT NEGATIVE (NEGATIVE); TRICYCLIC ANTIDEPRESSANTS SCRE POSITIVE (NEGATIVE)
[2022-03-19 15:46] VITALS: BP 165/92
== END 2022-03-19 15:43 | disposition home or self-care (01) ==
LOC: EDUNIT# 14:40 → ER 14:41
DX: K04.7 Periapical abscess without sinus (principal); K03.81 Cracked tooth; F17.210 Nicotine dependence, cigarettes, uncomplicated; Z28.310 Unvaccinated for COVID-19
CPT/HCPCS: 80306; 84703; 99283

== ENCOUNTER 2022-05-16 13:16 | Emergency (ER) | payer MEDICAID ==
[~2022-05-16] VITALS: Ht 160 cm; Wt 98.4 kg
[~2022-05-16 13:16] MED LIST changes: +AMOX-355 PO
[2022-05-16] MEDS ORDERED: predniSONE 20 MG TAB PO ONE (13:30)
[2022-05-16] MEDS ORDERED: RX-ALBUTEROL INHALER 8.5 GM HFA (PROAIR) IH ONE (13:30)
--- NOTE | 2022-05-16 13:33 | ED General ---
General Stated Complaint: COUGH - CONGESTION - SOA - FATIGUE Source of Information: Patient Exam Limitations: No Limitations History of Present Illness Date Seen by Provider: May 16, 2022 Time Seen by Provider: 13:31 Initial Comments Patient is a 41-year-old female with history of COPD, diabetes, heart disease who presents ED with chest tightness shortness of breath. Patient states symptoms started today with chest tightness and shortness of breath. Denies any wheezing. History of smoking. She had flulike symptoms that started 1 week ago was diagnosed with pneumonia. Was placed on azithromycin finished her last dose. Worsening symptoms today. They swabbed her for COVID or flu but did not receive her results. She has had some mild vomiting and diarrhea feeling feverish with weakness. Other family members at home with similar symptoms. Denies any abdominal pain, dysuria, hematuria, ear pain. She reports headache and scratchy throat. Denies taking other medication at home Allergies and Home Medications Allergies Coded Allergies: No Known Drug Allergies (Unverified , 11/28/18) Patient Home Medication List Home Medication List Reviewed: Yes Amoxicillin (Amoxicillin) 500 Mg Capsule, 500 MG PO TID Prescribed by: RANCHO ANGELES on 02/12/19 1545 Amoxicillin (Amoxicillin) 500 Mg Capsule, 875 MG PO BID Prescribed by: TSERING BERNAL on 09/14/19 1012 Amoxicillin/Potassium Clav (Augmentin 500-125 Tablet) 500 Mg-125 Mg Tablet, 1 EACH PO BID Prescribed by: QUINTIN HILL on 03/19/22 1515 Azithromycin (Azithromycin) 250 Mg Tablet, 250 MG PO DAILY Prescribed by: JINA BAH on 07/17/19 2240 Cephalexin (Cephalexin) 500 Mg Tablet, 500 MG PO QID Prescribed by: RANCHO ANGELES on 04/19/20 2353 Ciprofloxacin HCl/Dexameth (Ciprodex Otic Suspension) 7.5 Ml Soln, 7.5 ML OT BID Prescribed by: ROLAND NOBLES on 04/22/202050 Citalopram Hydrobromide (Celexa) 20 Mg Tablet, 20 MG PO, (Reported) Entered as Reported by: ALEN CARVAJAL on 12/18/18 1302 Cyclobenzaprine HCl (Cyclobenzaprine HCl) 10 Mg Tablet, 10 MG PO Q8H PRN for SPASMS Prescribed by: UCHE LOWRY on 06/26/20 1827 Cyclobenzaprine HCl (Cyclobenzaprine HCl) 10 Mg Tablet, 10 MG PO TID Prescribed by: TY HALL on 11/13/21 0118 Diclofenac Sodium (Diclofenac Sodium) 50 Mg Tablet.dr, 50 MG PO BID Prescribed by: TSERING BERNAL on 09/14/19 1012 Diclofenac Sodium (Diclofenac Sodium) 75 Mg Tablet.dr, 75 MG PO BID Prescribed by: JASON VELEZ on 07/16/20 1936 Dicyclomine HCl (Dicyclomine HCl) 20 Mg Tablet, 20 MG PO TID PRN for ABDOMINAL PAIN Prescribed by: DINORA KNOTT on 12/18/18 1438 Fexofenadine HCl (Wal-Fex Allergy) 180 Mg Tablet, 180 MG PO DAILY Prescribed by: UCHE LOWRY on 04/18/20 112 Fluconazole (Diflucan) 150 Mg Tablet, 150 MG PO DAILY Prescribed by: KARLA DELGADO on 12/10/21 1637 Fluticasone Propionate (Fluticasone Propionate) 16 Gm [place].susp, 16 GM NS DAILY Prescribed by: UCHE LOWRY on 04/18/20 1129 Hydralazine HCl (Hydralazine HCl) 25 Mg Tablet, 25 MG PO, (Reported) Entered as Reported by: ALEN CARVAJAL on 12/18/18 1302 Hydrocodone/Acetaminophen (Hydrocodone/Acetaminophen 5 MG/325 MG TAB) 1 Each Tablet, 1 TAB PO Qhs Prescribed by: NOA ZAMARRIPA on 04/13/19 1247 Hydrocodone/Acetaminophen (Hydrocodone-Acetamin 5-325 mg) 1 Each Tablet, 1 TAB PO Q6H PRN for PAIN-MODERATE (5-7) Prescribed by: ARIEL ESPARZA on 10/30/21 1053 Hyoscyamine Sulfate (Hyoscyamine Sulfate) 0.125 Mg Tab.subl, 0.125 MG SL Q8H Prescribed by: UCHE LOWRY on 09/19/19 171 Hyoscyamine Sulfate (Levsin-Sl) 0.125 Mg Tab.subl, 0.125 MG SL Q4H Prescribed by: UCHE LOWRY on 09/25/202014 Ibuprofen (Ibuprofen) 800 Mg Tablet, 800 MG PO Q8H PRN for PAIN Prescribed by: JINA BAH on 07/17/19 2240 Ibuprofen (Ibuprofen) 800 Mg Tablet, 800 MG PO Q8H PRN for PAIN Prescribed by: UCHE LOWRY on 06/26/20 1818 Metformin HCl (Metformin HCl) 500 Mg Tablet, 500 MG PO BID Prescribed by: DINORA KNOTT on 09/16/20 1828 Methocarbamol (Robaxin-750) 750 Mg Tablet, 750 MG PO Q4H PRN for PAIN-MODERATE (5-7) Prescribed by: KARLA DELGADO on 08/22/20 1122 Metronidazole (Flagyl) 500 Mg Tablet, 500 MG PO BID, (Reported) Entered as Reported by: TANA PAYTON on 12/11/18 1229 Metronidazole (Metronidazole) 500 Mg Tablet, 500 MG PO BID Prescribed by: KARLA DELGADO on 12/10/21 1637 Naproxen (Naprosyn) 500 Mg Tablet, 500 MG PO BID Prescribed by: RANCHO ANGELES on 04/19/20 2353 Naproxen (Naprosyn) 500 Mg Tablet, 500 MG PO BID Prescribed by: KARLA DELGADO on 08/22/20 1122 Naproxen (Naprosyn) 500 Mg Tablet, 500 MG PO BID Prescribed by: KARLA DELGADO on 10/18/20 1413 Ondansetron (Ondansetron Odt) 4 Mg Tab.rapdis, 4 MG PO Q8H PRN for NAUSEA/VOMITING Prescribed by: DINORA KNOTT on 12/18/18 1438 Ondansetron (Ondansetron Odt) 4 Mg Tab.rapdis, 4 MG PO TID Prescribed by: UCHE LOWRY on 03/23/20 1130 Ondansetron (Ondansetron Odt) 4 Mg Tab.rapdis, 4 MG PO TID Prescribed by: UCHE LOWRY on 04/18/20 1129 Ondansetron (Ondansetron Odt) 4 Mg Tab.rapdis, 4 MG PO TID Prescribed by: UCHE LOWRY on 09/25/202014 Ondansetron HCl (Ondansetron HCl) 4 Mg Tablet, (Reported) Entered as Reported by: EDER FLANAGAN on 11/13/21 0024 Penicillin V Potassium (Penicillin V Potassium) 500 Mg Tablet, 500 MG PO QID Prescribed by: ARIEL ESPARZA on 10/30/21 1052 Prednisone (Prednisone) 20 Mg Tab, 40 MG PO DAILY Prescribed by: JINA BAH on 07/17/19 2240 Prednisone (Prednisone) 20 Mg Tab, 40 MG PO DAILY Prescribed by: NACHO CABAN on 05/16/22 1421 Sulfamethoxazole/Trimethoprim (Bactrim Ds Tablet) 1 Each Tablet, 1 EACH PO BID Prescribed by: DINORA KNOTT on 02/16/21 1449 Tizanidine HCl (Tizanidine HCl) 2 Mg Tablet, (Reported) Entered as Reported by: EDER FLANAGAN on 11/13/21 0024 Trimethoprim/Sulfamethoxazole (Bactrim DS) 1 Ea Tablet, 1 TAB PO BID, (Reported) Entered as Reported by: NATY HANDY on 11/28/18 1643 Review of Systems Review of Systems Constitutional: chills, malaise, weakness EENTM: throat pain; No ear pain, No blurred vision, No double vision Respiratory: cough, short of breath Cardiovascular: chest pain Gastrointestinal: No abdominal pain; diarrhea, nausea Genitourinary: No decreased output, No discharge Musculoskeletal: No back pain, No joint pain Skin: No change in color, No change in hair/nails All Other Systems Reviewed Negative Unless Noted: Yes Past Uveczfz-Vbzzws-Wrwjjm Hx Immunizations Up To Date Tetanus Booster (TDap): Unknown First/Initial COVID19 Vaccinat: declined Seasonal Allergies Seasonal Allergies: No Past Medical History Surgery/Hospitalization HX: HTN, IDDM, C-SECT X3, HERNIA, CHOLECYSTECTOMY Surgeries: Yes (HERNIA REPAIR) Section, Gallbladder Respiratory: Yes COPD Cardiac: No Neurological: No Genitourinary: Yes Gastrointestinal: No Musculoskeletal: No Endocrine: No HEENT: No Cancer: No Psychosocial: No Integumentary: No Blood Disorders: No Physical Exam Vital Signs Vital Signs - First Documented 05/16/22 13:24 Temp 36.0 Pulse 89 Resp 20 B/P (MAP) 138/96 (110) Pulse Ox 98 Capillary Refill : Height, Weight, BMI Height: 5'3.00" Weight: 240lbs. oz. 108.551313gz; 42.00 BMI Method:Stated General Appearance: No Apparent Distress, WD/WN Eyes: Bilateral Eye Normal Inspection, Bilateral Eye PERRL, Bilateral Eye EOMI HEENT: PERRL/EOMI, TMs Normal, Normal ENT Inspection, Pharynx Normal Neck: Full Range of Motion, Normal Inspection, Non Tender, Supple Respiratory: Chest Non Tender, Lungs Clear, Normal Breath Sounds, No Accessory Muscle Use Cardiovascular: Regular Rate, Rhythm, No Edema, No Gallop, No JVD Gastrointestinal: Normal Bowel Sounds, No Organomegaly, Soft Neurologic/Psychiatric: Alert, Oriented x3, No Motor/Sensory Deficits, Normal Mood/Affect, director of adult epilepsy II-XII Norm as Tested Skin: Normal Color Progress/Results/Core Measures Suspected Sepsis SIRS Temperature: Pulse: Respiratory Rate: Laboratory Tests 05/16/22 13:38: White Blood Count 12.5H Blood Pressure / Mean: Laboratory Tests 05/16/22 13:38: Creatinine 0.73, Platelet Count 342, Total Bilirubin 0.3 Results/Orders Lab Results Laboratory Tests Test 05/16/22 13:30 05/16/22 13:38 Range/Units Influenza Type A (RT-PCR) Not Detected Not Detecte Influenza Type B (RT-PCR) Not Detected Not Detecte SARS-CoV-2 RNA (RT-PCR) Detected H Not Detecte White Blood Count 12.5 H 4.3-11.0 10^3/uL Red Blood Count 4.65 3.80-5.11 10^6/uL Hemoglobin 12.3 11.5-16.0 g/dL Hematocrit 39 35-52 % Mean Corpuscular Volume 84 80-99 fL Mean Corpuscular Hemoglobin 27 25-34 pg Mean Corpuscular Hemoglobin Concent 32 32-36 g/dL Red Cell Distribution Width 14.9 H 10.0-14.5 % Platelet Count 342 130-400 10^3/uL Mean Platelet Volume 9.4 9.0-12.2 fL Immature Granulocyte % (Auto) 1 % Neutrophils (%) (Auto) 57 42-75 % Lymphocytes (%) (Auto) 35 12-44 % Monocytes (%) (Auto) 4 0-12 % Eosinophils (%) (Auto) 3 0-10 % Basophils (%) (Auto) 0 0-10 % Neutrophils # (Auto) 7.1 1.8-7.8 10^3/uL Lymphocytes # (Auto) 4.4 H 1.0-4.0 10^3/uL Monocytes # (Auto) 0.5 0.0-1.0 10^3/uL Eosinophils # (Auto) 0.4 H 0.0-0.3 10^3/uL Basophils # (Auto) 0.0 0.0-0.1 10^3/uL Immature Granulocyte # (Auto) 0.1 0.0-0.1 10^3/uL Sodium Level 139 135-145 MMOL/L Potassium Level 3.5 L 3.6-5.0 MMOL/L Chloride Level 107 98-107 MMOL/L Carbon Dioxide Level 21 21-32 MMOL/L Anion Gap 11 5-14 MMOL/L Blood Urea Nitrogen 9 7-18 MG/DL Creatinine 0.73 0.60-1.30 MG/DL Estimat Glomerular Filtration Rate 107 BUN/Creatinine Ratio 12 Glucose Level 114 H 70-105 MG/DL Calcium Level 8.9 8.5-10.1 MG/DL Corrected Calcium 9.0 8.5-10.1 MG/DL Total Bilirubin 0.3 0.1-1.0 MG/DL Aspartate Amino Transf (AST/SGOT) 21 5-34 U/L Alanine Aminotransferase (ALT/SGPT) 23 0-55 U/L Alkaline Phosphatase 74 40-136 U/L Troponin I < 0.028 <0.028 NG/ML B-Type Natriuretic Peptide 32.1 <100.0 PG/ML Total Protein 7.3 6.4-8.2 GM/DL Albumin 3.9 3.2-4.5 GM/DL My Orders Orders - RENETTA HUITRON Covid 19 Inhouse Test (05/16/22 13:18) Influenza A And B By Pcr (05/16/22 13:18) Cbc With Automated Diff (05/16/22 13:30) Comprehensive Metabolic Panel (05/16/22 13:30) Troponin I Jeanette (05/16/22 13:30) Bnp Jeanette (05/16/22 13:30) Chest 1 View, Ap/Pa Only (05/16/22 13:30) Prednisone Tablet (Deltasone Tablet) (05/16/22 13:30) Rx-Albuterol Inhaler (Rx-Ventolin Hfa In (05/16/22 13:30) Medications Given in ED Current Medications Medications Dose Ordered Sig/Chris Route Start Time Stop Time Status Last Admin Dose Admin Albuterol Sulfate 1 gm ONCE ONCE IH 05/16/22 13:30 05/16/22 13:31 DC 05/16/22 13:47 1 GM Prednisone 50 mg ONCE ONCE PO 05/16/22 13:30 05/16/22 13:31 DC 05/16/22 13:46 50 MG Vital Signs/I&O 05/16/22 13:24 Temp 36.0 Pulse 89 Resp 20 B/P (MAP) 138/96 (110) Pulse Ox 98 Capillary Refill : Departure Communication (PCP) Patient with COVID-like symptoms over the past week. Patient Was placed on azithromycin for pneumonia. Chest tightness and short of breath today. 98% on room air. She states she has a history of COPD and current smoker. She states she may have a history of CHF but denies of any increased leg swelling, or current medication for CHF. Her vital signs were stable. She is afebrile. Lungs were clear bilateral. Chest x-ray was negative for pneumonia. Lab work was otherwise unremarkable with normal cardiac work-up. Patient Was given dose of albuterol inhaler and a steroid. She states she does not have electricity or water at her house currently. Will discharge with her albuterol inhaler as if she develops shortness of breath and wheezing at home. Discharge short burst steroids. Out of the timeframe for the Paxlovid. Refused monoclonal antibody infusion and meant criteria with cormobidities. If any worsening symptoms return back to ED for further evaluation. Discussed monitor oxygen level at home. She does not appear toxic or septic. Impression Primary Impression: COVID-19 Disposition: 01 HOME, SELF-CARE Condition: Stable Departure-Patient Inst. Decision time for Depature: 14:20 Referrals: [facility] (PCP/Family) Primary Care Physician Patient Instructions: COVID-19 (DC) Scripts Prednisone (Prednisone) 20 Mg Tab 40 MG PO DAILY for 4 Days, #8 TAB Prov: RENETTA HUITRON 05/16/22 Work/School Note: Work Release Form Date Seen in the Emergency Department: May 16, 2022 Return to Work: May 23, 2022 RENETTA HUITRON May 16, 2022 13:33
[2022-05-16 13:44] LABS: BASOPHILS % (AUTO) 0 % (0-10); EOSINOPHILS # (AUTO) 0.4 10^3/uL (0.0-0.3); EOSINOPHILS % (AUTO) 3 % (0-10); HEMATOCRIT 39 % (35-52); HEMOGLOBIN 12.3 g/dL (11.5-16.0); LYMPHOCYTES # (AUTO) 4.4 10^3/uL (1.0-4.0); LYMPHOCYTES % (AUTO) 35 % (12-44); MEAN CORPUSCULAR HEMOGLOBIN 27 pg (25-34); MEAN CORPUSCULAR HGB CONC 32 g/dL (32-36); MEAN CORPUSCULAR VOLUME 84 fL (80-99); MEAN PLATELET VOLUME 9.4 fL (9.0-12.2); MONOCYTES # (AUTO) 0.5 10^3/uL (0.0-1.0); MONOCYTES % (AUTO) 4 % (0-12); NEUTROPHILS # (AUTO) 7.1 10^3/uL (1.8-7.8); NEUTROPHILS % (AUTO) 57 % (42-75); PLATELET COUNT 342 10^3/uL (130-400); WHITE BLOOD COUNT 12.5 10^3/uL (4.3-11.0)
--- NOTE | 2022-05-16 13:58 | Diagnostic Imaging Report ---
EXAMINATION: Chest, one view. HISTORY: Cough. COMPARISON: 07/16/2021. FINDINGS: The lung volumes are normal. No focal consolidation is seen. No large pleural effusion or pneumothorax is seen. The cardiomediastinal silhouette is normal in size and contour. No acute osseous abnormality is seen. IMPRESSION: 1. No acute pleural-parenchymal process. Dictated by: Dictated on workstation # [id number]
[2022-05-16 14:04] LABS: ALANINE AMINOTRANSFERASE 23 U/L (0-55); ALBUMIN 3.9 GM/DL (3.2-4.5); ALKALINE PHOSPHATASE 74 U/L (40-136); BILIRUBIN,TOTAL 0.3 MG/DL (0.1-1.0); BUN/CREATININE RATIO 12; CALCIUM 8.9 MG/DL (8.5-10.1); CARBON DIOXIDE 21 MMOL/L (21-32); CHLORIDE 107 MMOL/L (98-107); CREATININE SERUM 0.73 MG/DL (0.60-1.30); GFR ESTIMATED 107; GLUCOSE 114 MG/DL (70-105); POTASSIUM 3.5 MMOL/L (3.6-5.0); SODIUM 139 MMOL/L (135-145); TOTAL PROTEIN 7.3 GM/DL (6.4-8.2)
[2022-05-16] MEDS ORDERED: PRD20T PO (14:21)
[2022-05-16 14:35] VITALS: BP 128/64
== END 2022-05-16 14:36 | disposition home or self-care (01) ==
LOC: EDUNIT# 13:16 → ER 13:19
DX: U07.1 COVID-19 (principal); Z28.310 Unvaccinated for COVID-19; Z87.09 Personal history of other diseases of the respiratory system; Z87.01 Personal history of pneumonia (recurrent)
CPT/HCPCS: 36415; 71045; 80053; 83880; 84484; 85025; 87636

== ENCOUNTER 2022-05-26 20:54 | Emergency (ER) | payer MEDICAID ==
[~2022-05-26] VITALS: Ht 160 cm; Wt 106.5 kg
[2022-05-26] MEDS ORDERED: TRIM/SULFAMETH 160/800 (SEPTRA DS) TAB PO STA (21:25)
[2022-05-26] MEDS ORDERED: cefTRIAXone 1,000 MG VIAL IM STA (21:25)
[2022-05-26] MEDS ORDERED: SULF1TAB38 PO (21:30)
[2022-05-26] MEDS ORDERED: LIDOCAINE 1% INJ 20 ML VIAL INJ ONE (21:30)
--- NOTE | 2022-05-26 21:30 | ED Integumentary General ---
General Chief Complaint: Bite-Animal/Human/Insect Stated Complaint: SPIDER BITE PELVIC AREA Nursing Triage Note: Pt reports possible "spider bite" to right inner pernieal area. Denies fever. Reports dx with KELSIEID last week. Source: patient History of Present Illness Date Seen by Provider: May 26, 2022 Time Seen by Provider: 21:04 Initial Comments 41-year-old female presenting with painful lump on the perineal area. She was concerned that she might be developing an abscess that she has had boils like that in the past. She has recently been sick with COVID so she was concerned that was making her feel bad but then she noticed this bump today. She denies any drainage from the area. She has not had a fever. She thought she might have a spider bite as the cause since she has had multiple spiders in her home Timing/Duration: this morning (Noticed for the first time this morning) Severity: moderate Location: genitalia (Right perineal area) Possible Cause: no cause identified Associated Symptoms: No blisters, No change in skin texture, No edema, No fever, No flushing, No headache, No hives, No jaundice, No malaise, No nasal congestion, No numbness, No pallor, No paresthesia, No petechiae, No rash, No sore throat; swelling/mass/lumps (Swollen lump in the right perineal area that is tender to palpation); No tingling Allergies and Home Medications Allergies Coded Allergies: No Known Drug Allergies (Unverified , 11/28/18) Patient Home Medication List Home Medication List Reviewed: Yes Amoxicillin (Amoxicillin) 500 Mg Capsule, 500 MG PO TID Prescribed by: RANCHO ANGELES on 02/12/19 1545 Amoxicillin (Amoxicillin) 500 Mg Capsule, 875 MG PO BID Prescribed by: TSERING BERNAL on 09/14/19 1012 Amoxicillin/Potassium Clav (Augmentin 500-125 Tablet) 500 Mg-125 Mg Tablet, 1 EACH PO BID Prescribed by: QUINTIN HILL on 03/19/22 1515 Azithromycin (Azithromycin) 250 Mg Tablet, 250 MG PO DAILY Prescribed by: JINA BAH on 07/17/19 2240 Cephalexin (Cephalexin) 500 Mg Tablet, 500 MG PO QID Prescribed by: RANCHO ANGELES on 04/19/20 9460 Ciprofloxacin HCl/Dexameth (Ciprodex Otic Suspension) 7.5 Ml Soln, 7.5 ML OT BID Prescribed by: ROLAND NOBLES on 04/22/202050 Citalopram Hydrobromide (Celexa) 20 Mg Tablet, 20 MG PO, (Reported) Entered as Reported by: ALEN CARVAJAL on 12/18/18 1302 Cyclobenzaprine HCl (Cyclobenzaprine HCl) 10 Mg Tablet, 10 MG PO Q8H PRN for SPASMS Prescribed by: UCHE LOWRY on 06/26/20 1827 Cyclobenzaprine HCl (Cyclobenzaprine HCl) 10 Mg Tablet, 10 MG PO TID Prescribed by: TY HALL on 11/13/21 0118 Diclofenac Sodium (Diclofenac Sodium) 50 Mg Tablet.dr, 50 MG PO BID Prescribed by: TSERING BERNAL on 09/14/19 1012 Diclofenac Sodium (Diclofenac Sodium) 75 Mg Tablet.dr, 75 MG PO BID Prescribed by: JASON VELEZ on 07/16/20 1936 Dicyclomine HCl (Dicyclomine HCl) 20 Mg Tablet, 20 MG PO TID PRN for ABDOMINAL PAIN Prescribed by: DINORA KNOTT on 12/18/18 1438 Fexofenadine HCl (Wal-Fex Allergy) 180 Mg Tablet, 180 MG PO DAILY Prescribed by: UCHE LOWRY on 04/18/20 1129 Fluconazole (Diflucan) 150 Mg Tablet, 150 MG PO DAILY Prescribed by: KARLA DELGADO on 12/10/21 1637 Fluticasone Propionate (Fluticasone Propionate) 16 Gm [place].susp, 16 GM NS DAILY Prescribed by: UCHE LOWRY on 04/18/20 1129 Hydralazine HCl (Hydralazine HCl) 25 Mg Tablet, 25 MG PO, (Reported) Entered as Reported by: ALEN CARVAJAL on 12/18/18 1302 Hydrocodone/Acetaminophen (Hydrocodone/Acetaminophen 5 MG/325 MG TAB) 1 Each Tablet, 1 TAB PO Qhs Prescribed by: NOA ZAMARRIPA on 04/13/19 1247 Hydrocodone/Acetaminophen (Hydrocodone-Acetamin 5-325 mg) 1 Each Tablet, 1 TAB PO Q6H PRN for PAIN-MODERATE (5-7) Prescribed by: ARIEL ESPARZA on 10/30/21 1053 Hyoscyamine Sulfate (Hyoscyamine Sulfate) 0.125 Mg Tab.subl, 0.125 MG SL Q8H Prescribed by: UCHE LOWRY on 09/19/19 171 Hyoscyamine Sulfate (Levsin-Sl) 0.125 Mg Tab.subl, 0.125 MG SL Q4H Prescribed by: UCHE LOWRY on 09/25/202014 Ibuprofen (Ibuprofen) 800 Mg Tablet, 800 MG PO Q8H PRN for PAIN Prescribed by: JINA BAH on 07/17/19 224 Ibuprofen (Ibuprofen) 800 Mg Tablet, 800 MG PO Q8H PRN for PAIN Prescribed by: UCHE LOWRY on 06/26/20 181 Metformin HCl (Metformin HCl) 500 Mg Tablet, 500 MG PO BID Prescribed by: DINORA KNOTT on 09/16/20 182 Methocarbamol (Robaxin-750) 750 Mg Tablet, 750 MG PO Q4H PRN for PAIN-MODERATE (5-7) Prescribed by: KARLA DELGADO on 08/22/20 1122 Metronidazole (Flagyl) 500 Mg Tablet, 500 MG PO BID, (Reported) Entered as Reported by: TANA PAYTON on 12/11/18 1229 Metronidazole (Metronidazole) 500 Mg Tablet, 500 MG PO BID Prescribed by: KARLA DELGADO on 12/10/21 1637 Naproxen (Naprosyn) 500 Mg Tablet, 500 MG PO BID Prescribed by: RANCHO ANGELES on 04/19/20 2353 Naproxen (Naprosyn) 500 Mg Tablet, 500 MG PO BID Prescribed by: KARLA DELGADO on 08/22/20 1122 Naproxen (Naprosyn) 500 Mg Tablet, 500 MG PO BID Prescribed by: KARLA DELGADO on 10/18/20 1413 Ondansetron (Ondansetron Odt) 4 Mg Tab.rapdis, 4 MG PO Q8H PRN for NAUSEA/VOMITING Prescribed by: DINORA KNOTT on 12/18/18 1438 Ondansetron (Ondansetron Odt) 4 Mg Tab.rapdis, 4 MG PO TID Prescribed by: UCHE LOWRY on 03/23/20 1130 Ondansetron (Ondansetron Odt) 4 Mg Tab.rapdis, 4 MG PO TID Prescribed by: UCHE LOWRY on 04/18/20 1129 Ondansetron (Ondansetron Odt) 4 Mg Tab.rapdis, 4 MG PO TID Prescribed by: UCHE LOWRY on 09/25/202014 Ondansetron HCl (Ondansetron HCl) 4 Mg Tablet, (Reported) Entered as Reported by: EDER FLANAGAN on 11/13/21 0024 Penicillin V Potassium (Penicillin V Potassium) 500 Mg Tablet, 500 MG PO QID Prescribed by: ARIEL ESPARZA on 10/30/21 1052 Prednisone (Prednisone) 20 Mg Tab, 40 MG PO DAILY Prescribed by: JINA BAH on 07/17/19 2240 Prednisone (Prednisone) 20 Mg Tab, 40 MG PO DAILY Prescribed by: NACHO CABAN on 05/16/22 1421 Sulfamethoxazole/Trimethoprim (Bactrim Ds Tablet) 1 Each Tablet, 1 EACH PO BID Prescribed by: DINORA KNOTT on 02/16/21 1449 Sulfamethoxazole/Trimethoprim (Bactrim Ds Tablet) 1 Each Tablet, 1 EACH PO BID Prescribed by: DINORA KNOTT on 05/26/22 2130 Tizanidine HCl (Tizanidine HCl) 2 Mg Tablet, (Reported) Entered as Reported by: EDER FLANAGAN on 11/13/21 0024 Trimethoprim/Sulfamethoxazole (Bactrim DS) 1 Ea Tablet, 1 TAB PO BID, (Reported) Entered as Reported by: NATY HANDY on 11/28/18 1643 Review of Systems Review of Systems Constitutional: No chills; fever (Subjective) EENTM: no symptoms reported Respiratory: no symptoms reported Cardiovascular: no symptoms reported Gastrointestinal: no symptoms reported Genitourinary: no symptoms reported Musculoskeletal: no symptoms reported Skin: see HPI Psychiatric/Neurological: No Symptoms Reported Past Vpkzefe-Bfkeui-Utdbkn Hx Patient Social History Tobacco Use?: Yes Tobacco type used: Cigarettes Smoking Status: Current Everyday Smoker Use of E-Cig and/or Vaping dev: No Substance use?: Yes Substance type: Marijuana Substance frequency: Daily Alcohol Use?: No Pt feels they are or have been: No Immunizations Up To Date Tetanus Booster (TDap): Unknown First/Initial COVID19 Vaccinat: denies Seasonal Allergies Seasonal Allergies: No Past Medical History Surgery/Hospitalization HX: HTN, IDDM, C-SECT X3, HERNIA, CHOLECYSTECTOMY Surgeries: Yes (HERNIA REPAIR) Section, Gallbladder Respiratory: Yes COPD Cardiac: No Neurological: No Genitourinary: Yes Gastrointestinal: No Musculoskeletal: No Endocrine: No HEENT: No Cancer: No Psychosocial: No Integumentary: No Blood Disorders: No Physical Exam Vital Signs Vital Signs - First Documented 05/26/22 21:00 Temp 36.4 Pulse 109 Resp 17 B/P (MAP) 142/71 (94) Pulse Ox 100 O2 Delivery Room Air Capillary Refill : Less Than 3 Seconds General Appearance: obese Cardiovascular: normal peripheral pulses Skin: normal color, warm/dry Skin Problem Location: other (Right perineum has a 8 mm tender mass in the subcutaneous tissue. There is no fluctuance or drainage) Progress/Results/Core Measures Results/Orders My Orders Orders - DINORA KNOTT MD Ceftriaxone (Rocephin) (05/26/22 21:25) Lidocaine 1% Inj 20 Ml (Xylocaine 1% Inj (05/26/22 21:30) Sulfamethoxazole/Trimet Ds Tab (Bactrim (05/26/22 21:25) Lidocaine 1% Inj 50 Ml (Xylocaine 1% Inj (05/26/22 21:36) Ceftriaxone (Rocephin) (05/26/22 21:38) Medications Given in ED Current Medications Medications Dose Ordered Sig/Chris Route Start Time Stop Time Status Last Admin Dose Admin Lidocaine HCl 2.1 ml ONCE ONCE INJ 05/26/22 21:30 05/26/22 21:31 DC 05/26/22 21:45 2.1 ML Vital Signs/I&O 05/26/22 05/26/22 21:00 22:00 Temp 36.4 36.4 Pulse 109 109 Resp 17 17 B/P (MAP) 142/71 (94) 142/71 Pulse Ox 100 100 O2 Delivery Room Air Room Air Blood Pressure Mean: 94 Progress Progress Note : Progress Note Start patient on antibiotics with Rocephin and Bactrim here in the ED. There is no an area that is clearly defined to be able to perform an I&D at this point. Encouraged to apply heat to try and get the area to resolve and/or come to ahead so it can be drained. Check back through the clinic for continued concerns Departure Impression Primary Impression: Perineal abscess, superficial Disposition: 01 HOME, SELF-CARE Condition: Stable Departure-Patient Inst. Decision time for Depature: 21:28 Referrals: [facility] (PCP/Family) Primary Care Physician Patient Instructions: Insect Bites and Stings (DC), Skin Abscess Add. Discharge Instructions: Take the full course of antibiotics to treat for infection. Try applying warm pack or heat to the area 5-10 minutes every few hours while awake to help the area come to a head and drain or at least get more antibiotic to the area. If not improving check with clinic All discharge instructions reviewed with patient and/or family. Voiced understanding. Scripts Sulfamethoxazole/Trimethoprim (Bactrim Ds Tablet) 1 Each Tablet 1 EACH PO BID for Abscess/Cellulitis for 10 Days, #20 TAB 0 Refills Prov: DINORA KNOTT MD 05/26/22 DINORA KNOTT MD May 26, 2022 21:30
[2022-05-26] MEDS ORDERED: LIDOCAINE 1% INJ 50 ML (XYLOCAINE) VIAL ONE (21:36)
[2022-05-26] MEDS ORDERED: cefTRIAXone 1,000 MG VIAL ONE (21:38)
[2022-05-26 22:00] VITALS: BP 142/71
== END 2022-05-26 22:00 | disposition home or self-care (01) ==
LOC: EDUNIT# 20:54 → ER FS 20:55
DX: L02.215 Cutaneous abscess of perineum (principal); E66.9 Obesity, unspecified; F17.210 Nicotine dependence, cigarettes, uncomplicated; Z86.16 Personal history of COVID-19; Z28.310 Unvaccinated for COVID-19
CPT/HCPCS: 99284

== ENCOUNTER 2022-06-01 06:39 | Emergency (ER) | payer MEDICAID ==
[2022-06-01 06:44] VITALS: BP 164/106
[2022-06-01] MEDS ORDERED: AUGMENTIN 875 MG TAB (AMOXICILLIN/CLAVULANATE) PO STA (07:05)
[2022-06-01] MEDS ORDERED: HYDROcodone/APAP 5 MG/325 MG (LORTAB) TAB PO STA (07:05)
--- NOTE | 2022-06-01 07:12 | ED EENT ---
History of Present Illness General Chief Complaint: Dental Problems/Pain Stated Complaint: DENTAL PAIN Nursing Triage Note: Pt states she broke her front tooth last night and is complaining of pain Source: patient History of Present Illness Date Seen by Provider: Jun 01, 2022 Time Seen by Provider: 06:51 Initial Comments 41-year-old female presenting with broken tooth and dental pain. She states that she was eating something hard yesterday and her right frontal bicuspid broke. She was having trouble sleeping overnight because of the pain. She has a dentist that she can follow-up with during the week but they are not open on Thursday. She denies fever or chills. There was no other trauma other than biting down on some hard food. Timing/Duration: abrupt Severity: severe Location: dental Prearrival Treatment: over the counter meds Associated Symptoms: No change in hearing, No cough, No drooling, No ear drainage, No facial pain/swelling, No fever, No malaise, No nasal congestion/drainage, No poor fluid intake, No poor solids intake, No sinus infection, No sore throat; tooth pain; No voice change Allergies and Home Medications Allergies Coded Allergies: No Known Drug Allergies (Unverified , 11/28/18) Patient Home Medication List Home Medication List Reviewed: Yes Amoxicillin (Amoxicillin) 500 Mg Capsule, 500 MG PO TID Prescribed by: RANCHO ANGELES on 02/12/19 1545 Amoxicillin (Amoxicillin) 500 Mg Capsule, 875 MG PO BID Prescribed by: TSERING BERNAL on 09/14/19 1012 Amoxicillin/Potassium Clav (Augmentin 500-125 Tablet) 500 Mg-125 Mg Tablet, 1 EACH PO BID Prescribed by: QUINTIN HILL on 03/19/22 1515 Amoxicillin/Potassium Clav (Amox Tr-K Clv 875-125 mg Tab) 875 Mg-125 Mg Tablet, 1 EACH PO BID Prescribed by: DINORA KNOTT on 06/01/22 0715 Azithromycin (Azithromycin) 250 Mg Tablet, 250 MG PO DAILY Prescribed by: JINA BAH on 07/17/19 2240 Cephalexin (Cephalexin) 500 Mg Tablet, 500 MG PO QID Prescribed by: RANCHO ANGELES on 04/19/20 2353 Ciprofloxacin HCl/Dexameth (Ciprodex Otic Suspension) 7.5 Ml Soln, 7.5 ML OT BID Prescribed by: ROLAND NOBLES on 04/22/202050 Citalopram Hydrobromide (Celexa) 20 Mg Tablet, 20 MG PO, (Reported) Entered as Reported by: ALEN CARVAJAL on 12/18/18 1302 Cyclobenzaprine HCl (Cyclobenzaprine HCl) 10 Mg Tablet, 10 MG PO Q8H PRN for SPASMS Prescribed by: UCHE LOWRY on 06/26/20 1827 Cyclobenzaprine HCl (Cyclobenzaprine HCl) 10 Mg Tablet, 10 MG PO TID Prescribed by: TY HALL on 11/13/21 0118 Diclofenac Sodium (Diclofenac Sodium) 50 Mg Tablet.dr, 50 MG PO BID Prescribed by: TSERING BERNAL on 09/14/19 1012 Diclofenac Sodium (Diclofenac Sodium) 75 Mg Tablet.dr, 75 MG PO BID Prescribed by: JASON VELEZ on 07/16/20 1936 Dicyclomine HCl (Dicyclomine HCl) 20 Mg Tablet, 20 MG PO TID PRN for ABDOMINAL PAIN Prescribed by: DINORA KNOTT on 12/18/18 1438 Fexofenadine HCl (Wal-Fex Allergy) 180 Mg Tablet, 180 MG PO DAILY Prescribed by: UCHE BENITEZSTJUSTINO on 04/18/20 1129 Fluconazole (Diflucan) 150 Mg Tablet, 150 MG PO DAILY Prescribed by: KARLA DELGADO on 12/10/21 1637 Fluticasone Propionate (Fluticasone Propionate) 16 Gm [place].susp, 16 GM NS DAILY Prescribed by: UCHE LOWRY on 04/18/20 1129 Hydralazine HCl (Hydralazine HCl) 25 Mg Tablet, 25 MG PO, (Reported) Entered as Reported by: ALEN CARVAJAL on 12/18/18 1302 Hydrocodone/Acetaminophen (Hydrocodone/Acetaminophen 5 MG/325 MG TAB) 1 Each Tablet, 1 TAB PO Qhs Prescribed by: NOA ZAMARRIPA on 04/13/19 1247 Hydrocodone/Acetaminophen (Hydrocodone-Acetamin 5-325 mg) 1 Each Tablet, 1 TAB PO Q6H PRN for PAIN-MODERATE (5-7) Prescribed by: ARIEL ESPARZA on 10/30/21 1053 Hydrocodone/Acetaminophen (Hydrocodone-Acetamin 5-325 mg) 5 Mg-325 Mg Tablet, 1 TAB PO Q6H PRN for PAIN-SEVERE (8-10) Prescribed by: DINORA KNOTT on 06/01/22 0716 Hyoscyamine Sulfate (Hyoscyamine Sulfate) 0.125 Mg Tab.subl, 0.125 MG SL Q8H Prescribed by: UCHE LOWRY on 09/19/19 171 Hyoscyamine Sulfate (Levsin-Sl) 0.125 Mg Tab.subl, 0.125 MG SL Q4H Prescribed by: UCHE LOWRY on 09/25/202014 Ibuprofen (Ibuprofen) 800 Mg Tablet, 800 MG PO Q8H PRN for PAIN Prescribed by: JINA BAH on 07/17/19 2240 Ibuprofen (Ibuprofen) 800 Mg Tablet, 800 MG PO Q8H PRN for PAIN Prescribed by: UCHE LOWRY on 06/26/20 181 Ibuprofen (Ibuprofen) 800 Mg Tablet, 800 MG PO Q8H PRN for PAIN Prescribed by: DINORA KNOTT on 06/01/22 0715 Metformin HCl (Metformin HCl) 500 Mg Tablet, 500 MG PO BID Prescribed by: DINORA KNOTT on 09/16/20 1828 Methocarbamol (Robaxin-750) 750 Mg Tablet, 750 MG PO Q4H PRN for PAIN-MODERATE (5-7) Prescribed by: KARLA DELGADO on 08/22/20 1122 Metronidazole (Flagyl) 500 Mg Tablet, 500 MG PO BID, (Reported) Entered as Reported by: TANA PAYTON on 12/11/18 1229 Metronidazole (Metronidazole) 500 Mg Tablet, 500 MG PO BID Prescribed by: KARLA DELGADO on 12/10/21 1637 Naproxen (Naprosyn) 500 Mg Tablet, 500 MG PO BID Prescribed by: RANCHO ANGELES on 04/19/20 2353 Naproxen (Naprosyn) 500 Mg Tablet, 500 MG PO BID Prescribed by: KARLA DELGADO on 08/22/20 1122 Naproxen (Naprosyn) 500 Mg Tablet, 500 MG PO BID Prescribed by: KARLA DELGADO on 10/18/20 1413 Ondansetron (Ondansetron Odt) 4 Mg Tab.rapdis, 4 MG PO Q8H PRN for NAUSEA/VOMITING Prescribed by: DINORA KNOTT on 12/18/18 1438 Ondansetron (Ondansetron Odt) 4 Mg Tab.rapdis, 4 MG PO TID Prescribed by: UCHE LOWRY on 03/23/20 1130 Ondansetron (Ondansetron Odt) 4 Mg Tab.rapdis, 4 MG PO TID Prescribed by: UCHE LOWRY on 04/18/20 1129 Ondansetron (Ondansetron Odt) 4 Mg Tab.rapdis, 4 MG PO TID Prescribed by: UCHE LOWRY on 09/25/202014 Ondansetron HCl (Ondansetron HCl) 4 Mg Tablet, (Reported) Entered as Reported by: EDER FLANAGAN on 11/13/21 0024 Penicillin V Potassium (Penicillin V Potassium) 500 Mg Tablet, 500 MG PO QID Prescribed by: ARIEL ESPARZA on 10/30/21 1052 Prednisone (Prednisone) 20 Mg Tab, 40 MG PO DAILY Prescribed by: JINA BAH on 07/17/19 2240 Prednisone (Prednisone) 20 Mg Tab, 40 MG PO DAILY Prescribed by: NACHO CABAN on 05/16/22 1421 Sulfamethoxazole/Trimethoprim (Bactrim Ds Tablet) 1 Each Tablet, 1 EACH PO BID Prescribed by: DINORA KNOTT on 02/16/21 1449 Sulfamethoxazole/Trimethoprim (Bactrim Ds Tablet) 1 Each Tablet, 1 EACH PO BID Prescribed by: DINORA KNOTT on 05/26/22 2130 Tizanidine HCl (Tizanidine HCl) 2 Mg Tablet, (Reported) Entered as Reported by: EDER FLANAGAN on 11/13/21 0024 Trimethoprim/Sulfamethoxazole (Bactrim DS) 1 Ea Tablet, 1 TAB PO BID, (Reported) Entered as Reported by: NATY HANDY on 11/28/18 1643 Review of Systems Review of Systems Constitutional: No chills, No fever Eyes: No Symptoms Reported Ears: No Symptoms Reported Nose: no symptoms reported Mouth: see HPI Throat: no symptoms reported Respiratory: no symptoms reported Cardiovascular: no symptoms reported Gastrointestinal: no symptoms reported Musculoskeletal: no symptoms reported Skin: lumps (improving pain and swelling to perineal area since starting antibiotic from 05/26 ED visit) Neurological: Anxiety Past Jcilnnv-Vnuvct-Mwkzdj Hx Patient Social History Tobacco Use?: Yes Tobacco type used: Cigarettes Smoking Status: Current Everyday Smoker Use of E-Cig and/or Vaping dev: No Substance use?: No Alcohol Use?: No Pt feels they are or have been: No Immunizations Up To Date Tetanus Booster (TDap): Unknown First/Initial COVID19 Vaccinat: denies Seasonal Allergies Seasonal Allergies: No Past Medical History Surgery/Hospitalization HX: HTN, IDDM, C-SECT X3, HERNIA, CHOLECYSTECTOMY Surgeries: Yes (HERNIA REPAIR) Section, Gallbladder Respiratory: Yes COPD Cardiac: No Neurological: No Genitourinary: Yes Gastrointestinal: No Musculoskeletal: No Endocrine: No HEENT: No Cancer: No Psychosocial: No Integumentary: No Blood Disorders: No Physical Exam Vital Signs Vital Signs - First Documented 06/01/22 06:44 Temp 36.0 Pulse 95 Resp 20 B/P (MAP) 164/106 (125) Pulse Ox 98 O2 Delivery Room Air Height, Weight, BMI Height: 5'3.00" Weight: 240lbs. oz. [id number]; 41.00 BMI Method:Stated General Appearance: mild distress, obese Eyes: bilateral eye PERRL, bilateral eye EOMI Mouth/Throat: pharynx normal, dental tenderness (broken right frontal tooth. no gum swelling or drainage) Neck: non-tender, full range of motion, supple, normal inspection Cardiovascular: normal peripheral pulses Neurologic/Psychiatric: alert, oriented x 3 Skin: normal color, warm/dry Progress/Results/Core Measures Results/Orders My Orders Orders - DINORA KNOTT MD Hydrocodone/Apap 5/325 Tablet (Lortab 5 (06/01/22 07:05) Amoxicillin/Clavulanate Tablet (Augmenti (06/01/22 07:05) Vital Signs/I&O 06/01/22 06:44 Temp 36.0 Pulse 95 Resp 20 B/P (MAP) 164/106 (125) Pulse Ox 98 O2 Delivery Room Air Blood Pressure Mean: 125 Progress Progress Note : Progress Note Start her on antibiotic and pain medication. Advised to follow-up with dentist as soon as possible. She is already on Bactrim but since that will cover her mouth very well we will switch to Augmentin which would cover the perineal abscess as well as dental infection. Departure Impression Primary Impression: Pain due to dental caries Additional Impression: Broken tooth without complication Qualified Codes: S02.5XXA - Fracture of tooth (traumatic), initial encounter for closed fracture Disposition: 01 HOME, SELF-CARE Condition: Stable Departure-Patient Inst. Decision time for Depature: 07:08 Referrals: [facility] (PCP/Family) Primary Care Physician [facility] Patient Instructions: Tooth Decay ED, Dental Pain ED, Mouth and Dental Injuries in Adults Add. Discharge Instructions: Stop the Bactrim sulfa antibiotic and take the boosted Amoxicillin/Clavulanic Acid (Augmentin) instead. This will cover dental and mouth infections better as well as will still help with the infection in the perineal area. Follow up with Dentist as soon as possible for definitive care All discharge instructions reviewed with patient and/or family. Voiced understanding. Scripts Ibuprofen (Ibuprofen) 800 Mg Tablet 800 MG PO Q8H PRN for PAIN for 10 Days, #30 TAB 0 Refills Prov: DINORA KNOTT MD 06/01/22 Hydrocodone/Acetaminophen (Hydrocodone-Acetamin 5-325 mg) 5 Mg-325 Mg Tablet 1 TAB PO Q6H PRN for PAIN-SEVERE (8-10) for 3 Days, #12 TAB 0 Refills Prov: DINORA KNOTT MD 06/01/22 Amoxicillin/Potassium Clav (Amox Tr-K Clv 875-125 mg Tab) 875 Mg-125 Mg Tablet 1 EACH PO BID for dental for 10 Days, #20 TAB 0 Refills Prov: DINORA KNOTT MD 06/01/22 DINORA KNOTT MD Jun 01, 2022 07:12
[2022-06-01] MEDS ORDERED: IBUP-1780 PO (07:15)
[2022-06-01] MEDS ORDERED: ACHD5005 PO (07:15)
[2022-06-01] MEDS ORDERED: AMOX1TAB12 PO (07:15)
== END 2022-06-01 07:32 | disposition home or self-care (01) ==
LOC: EDUNIT# 06:39 → ER FS 06:42
DX: S02.5XXA Fracture of tooth (traumatic), initial encounter for closed fracture (principal); K02.9 Dental caries, unspecified; E66.9 Obesity, unspecified; Z68.41 Body mass index [BMI] 40.0-44.9, adult; F17.210 Nicotine dependence, cigarettes, uncomplicated; Z28.310 Unvaccinated for COVID-19; X58.XXXA Exposure to other specified factors, initial encounter
CPT/HCPCS: 99283

== ENCOUNTER 2022-06-05 18:05 | Emergency (ER) | payer MEDICAID ==
[~2022-06-05] VITALS: Ht 160 cm; Wt 104.0 kg
[~2022-06-05 18:05] MED LIST changes: +AMOX1TAB12 PO
[2022-06-05] MEDS ORDERED: CYCLOBENZAPRINE 10 MG (FLEXERIL) TAB PO STA (18:25)
[2022-06-05] MEDS ORDERED: GABAPENTIN 100 MG (NEURONTIN) CAP PO ONE (18:30)
[2022-06-05] MEDS ORDERED: ACETAMINOPHEN 500 MG TAB (TYLENOL) PO ONE (18:30)
--- NOTE | 2022-06-05 18:32 | ED Back Pain ---
General Chief Complaint: Back Problems Stated Complaint: BACK/HANDS NUMBNESS,BACK PAIN Nursing Triage Note: BACK PAIN ON THE RIGHT LOWER SIDE AND NUMBESS ON HAND BILATERALLY SINCE MARCH Source of Information: Patient Exam Limitations: No Limitations History of Present Illness Date Seen by Provider: Jun 05, 2022 Time Seen by Provider: 18:08 Initial Comments 41-year-old female with past medical history of poorly controlled diabetes and COPD coming in due to right-sided mid to lower back pain is been ongoing for some time now but worsening over the past 2 days. Denies any trauma. She says she does have some tingling in her hands with some numbness, but she says she had a recall on her insulin a couple weeks ago and has not been able to take it. She has been continuing to take her metformin as she is a type II diabetic. She is unsure what her glucose has been. She did see her primary physician and they referred her to an orthopedist next month. Denies any bowel or bladder issues, midline spinal pain, fever, lower extremity weakness or numbness, dysuria, or any other concerns. Allergies and Home Medications Allergies Coded Allergies: No Known Drug Allergies (Unverified , 11/28/18) Patient Home Medication List Home Medication List Reviewed: Yes Amoxicillin (Amoxicillin) 500 Mg Capsule, 500 MG PO TID Prescribed by: RANCHO ANGELES on 02/12/19 1545 Amoxicillin (Amoxicillin) 500 Mg Capsule, 875 MG PO BID Prescribed by: TSERING BERNAL on 09/14/19 1012 Amoxicillin/Potassium Clav (Augmentin 500-125 Tablet) 500 Mg-125 Mg Tablet, 1 EACH PO BID Prescribed by: QUINTIN HILL on 03/19/22 1515 Amoxicillin/Potassium Clav (Amox Tr-K Clv 875-125 mg Tab) 875 Mg-125 Mg Tablet, 1 EACH PO BID Prescribed by: DINORA KNOTT on 06/01/22 0715 Azithromycin (Azithromycin) 250 Mg Tablet, 250 MG PO DAILY Prescribed by: JINA BAH on 07/17/19 2240 Cephalexin (Cephalexin) 500 Mg Tablet, 500 MG PO QID Prescribed by: RANCHO ANGELES on 04/19/20 2353 Ciprofloxacin HCl/Dexameth (Ciprodex Otic Suspension) 7.5 Ml Soln, 7.5 ML OT BID Prescribed by: ROLAND NOBLES on 04/22/202050 Citalopram Hydrobromide (Celexa) 20 Mg Tablet, 20 MG PO, (Reported) Entered as Reported by: ALEN CARVAJAL on 12/18/18 1302 Cyclobenzaprine HCl (Cyclobenzaprine HCl) 10 Mg Tablet, 10 MG PO Q8H PRN for SPASMS Prescribed by: UCHE LOWRY on 06/26/20 1827 Cyclobenzaprine HCl (Cyclobenzaprine HCl) 10 Mg Tablet, 10 MG PO TID Prescribed by: TY HALL on 11/13/21 0118 Cyclobenzaprine HCl (Cyclobenzaprine HCl) 10 Mg Tablet, 10 MG PO TID PRN for SPASMS Prescribed by: RENETTA YOON on 06/05/22 183 Diclofenac Sodium (Diclofenac Sodium) 50 Mg Tablet.dr, 50 MG PO BID Prescribed by: TSERING BERNAL on 09/14/19 1012 Diclofenac Sodium (Diclofenac Sodium) 75 Mg Tablet.dr, 75 MG PO BID Prescribed by: JASON VELEZ on 07/16/20 1936 Dicyclomine HCl (Dicyclomine HCl) 20 Mg Tablet, 20 MG PO TID PRN for ABDOMINAL PAIN Prescribed by: DINORA KNOTT on 12/18/18 1438 Fexofenadine HCl (Wal-Fex Allergy) 180 Mg Tablet, 180 MG PO DAILY Prescribed by: UCHE LOWRY on 04/18/20 1129 Fluconazole (Diflucan) 150 Mg Tablet, 150 MG PO DAILY Prescribed by: KARLA DELGADO on 12/10/21 1637 Fluticasone Propionate (Fluticasone Propionate) 16 Gm [place].susp, 16 GM NS DAILY Prescribed by: UCHE LOWRY on 04/18/20 1129 Gabapentin (Gabapentin) 100 Mg Capsule, 300 MG PO Q8H Prescribed by: RENETTA YOON on 06/05/22 183 Hydralazine HCl (Hydralazine HCl) 25 Mg Tablet, 25 MG PO, (Reported) Entered as Reported by: ALEN CARVAJAL on 12/18/18 1302 Hydrocodone/Acetaminophen (Hydrocodone/Acetaminophen 5 MG/325 MG TAB) 1 Each Tablet, 1 TAB PO Qhs Prescribed by: NOA ZAMARRIPA on 04/13/19 1247 Hydrocodone/Acetaminophen (Hydrocodone-Acetamin 5-325 mg) 1 Each Tablet, 1 TAB PO Q6H PRN for PAIN-MODERATE (5-7) Prescribed by: ARIEL ESPARZA on 10/30/21 1053 Hydrocodone/Acetaminophen (Hydrocodone-Acetamin 5-325 mg) 5 Mg-325 Mg Tablet, 1 TAB PO Q6H PRN for PAIN-SEVERE (8-10) Prescribed by: DINORA KNOTT on 06/01/22 0716 Hyoscyamine Sulfate (Hyoscyamine Sulfate) 0.125 Mg Tab.subl, 0.125 MG SL Q8H Prescribed by: UCHE BENITEZSTJUSTINO on 09/19/19 171 Hyoscyamine Sulfate (Levsin-Sl) 0.125 Mg Tab.subl, 0.125 MG SL Q4H Prescribed by: UCHE LOWRY on 09/25/202014 Ibuprofen (Ibuprofen) 800 Mg Tablet, 800 MG PO Q8H PRN for PAIN Prescribed by: JINA BAH on 07/17/19 2240 Ibuprofen (Ibuprofen) 800 Mg Tablet, 800 MG PO Q8H PRN for PAIN Prescribed by: UCHE LOWRY on 06/26/20 1818 Ibuprofen (Ibuprofen) 800 Mg Tablet, 800 MG PO Q8H PRN for PAIN Prescribed by: DINORA KNOTT on 06/01/22 0715 Lidocaine (Lidocaine 5% Patch) 5 % Adh..patch, 1 EACH TP Q12H PRN for Neuropath ic pain Prescribed by: RENETTA YOON on 06/05/22 1833 Metformin HCl (Metformin HCl) 500 Mg Tablet, 500 MG PO BID Prescribed by: DINORA KNOTT on 09/16/20 1828 Methocarbamol (Robaxin-750) 750 Mg Tablet, 750 MG PO Q4H PRN for PAIN-MODERATE (5-7) Prescribed by: KARLA DELGADO on 08/22/20 1122 Metronidazole (Flagyl) 500 Mg Tablet, 500 MG PO BID, (Reported) Entered as Reported by: TANA PAYTON on 12/11/18 1229 Metronidazole (Metronidazole) 500 Mg Tablet, 500 MG PO BID Prescribed by: KARLA DELGADO on 12/10/21 1637 Naproxen (Naprosyn) 500 Mg Tablet, 500 MG PO BID Prescribed by: RANCHO ANGELES on 04/19/20 2353 Naproxen (Naprosyn) 500 Mg Tablet, 500 MG PO BID Prescribed by: KARLA DELGADO on 08/22/20 1122 Naproxen (Naprosyn) 500 Mg Tablet, 500 MG PO BID Prescribed by: KARLA DELGADO on 10/18/20 1413 Ondansetron (Ondansetron Odt) 4 Mg Tab.rapdis, 4 MG PO Q8H PRN for NAUSEA/VOMITI NG Prescribed by: DINORA KNOTT on 12/18/18 1438 Ondansetron (Ondansetron Odt) 4 Mg Tab.rapdis, 4 MG PO TID Prescribed by: UCHE LOWRY on 03/23/20 1130 Ondansetron (Ondansetron Odt) 4 Mg Tab.rapdis, 4 MG PO TID Prescribed by: UCHE BENITEZSTJUSTINO on 04/18/20 112 Ondansetron (Ondansetron Odt) 4 Mg Tab.rapdis, 4 MG PO TID Prescribed by: UCHE LOWRY on 09/25/202014 Ondansetron HCl (Ondansetron HCl) 4 Mg Tablet, (Reported) Entered as Reported by: EDER FLANAGAN on 11/13/21 0024 Penicillin V Potassium (Penicillin V Potassium) 500 Mg Tablet, 500 MG PO QID Prescribed by: ARIEL ESPARZA on 10/30/21 1052 Prednisone (Prednisone) 20 Mg Tab, 40 MG PO DAILY Prescribed by: JINA BAH on 07/17/19 2240 Prednisone (Prednisone) 20 Mg Tab, 40 MG PO DAILY Prescribed by: NACHO CABAN on 05/16/22 1421 Sulfamethoxazole/Trimethoprim (Bactrim Ds Tablet) 1 Each Tablet, 1 EACH PO BID Prescribed by: DINORA KNOTT on 02/16/21 1449 Sulfamethoxazole/Trimethoprim (Bactrim Ds Tablet) 1 Each Tablet, 1 EACH PO BID Prescribed by: DIONRA KNOTT on 05/26/22 2130 Tizanidine HCl (Tizanidine HCl) 2 Mg Tablet, (Reported) Entered as Reported by: EDER FLANAGAN on 11/13/21 0024 Trimethoprim/Sulfamethoxazole (Bactrim DS) 1 Ea Tablet, 1 TAB PO BID, (Reported) Entered as Reported by: NATY HANDY on 11/28/18 1643 Review of Systems Constitutional: No fever EENTM: No blurred vision Respiratory: No cough Cardiovascular: No chest pain Gastrointestinal: No abdominal pain Genitourinary: no symptoms reported Musculoskeletal: back pain Skin: no symptoms reported Psychiatric/Neurological: See HPI All Other Systems Reviewed Negative Unless Noted: Yes Past Ztyjfkq-Xlhizq-Yfptxm Hx Patient Social History Tobacco Use?: Yes Tobacco type used: Cigarettes Smoking Status: Current Everyday Smoker Use of E-Cig and/or Vaping dev: No Substance use?: No Alcohol Use?: No Pt feels they are or have been: No Immunizations Up To Date Tetanus Booster (TDap): Unknown First/Initial COVID19 Vaccinat: denies Second COVID19 Vaccination Amrit: denies Third COVID19 Vaccination Date: denies Seasonal Allergies Seasonal Allergies: No Past Medical History Surgery/Hospitalization HX: HTN, IDDM, C-SECT X3, HERNIA, CHOLECYSTECTOMY Surgeries: Yes (HERNIA REPAIR) Section, Gallbladder Respiratory: Yes COPD Cardiac: No Neurological: No Last Menstrual Period: Jun 05, 2022 Genitourinary: Yes Gastrointestinal: No Musculoskeletal: No Endocrine: No HEENT: No Cancer: No Psychosocial: No Integumentary: No Blood Disorders: No Physical Exam Vital Signs Vital Signs - First Documented 06/05/22 18:10 Temp 35.6 Pulse 92 Resp 16 B/P (MAP) 137/72 (93) Pulse Ox 98 Capillary Refill : Less Than 3 Seconds Height, Weight, BMI Height: 5'3.00" Weight: 240lbs. oz. 108.954993dp; 40.00 BMI Method:Stated General Appearance: No Apparent Distress, WD/WN HEENT: PERRL/EOMI, Normal ENT Inspection, Pharynx Normal Neck: Full Range of Motion, Normal Inspection, Non Tender, Supple Cardiovascular: Regular Rate, Rhythm, No Edema, Normal Peripheral Pulses Respiratory: Chest Non Tender, Lungs Clear, Normal Breath Sounds, No Accessory Muscle Use, No Respiratory Distress Gastrointestinal: Normal Bowel Sounds, Non Tender, Soft Back: Normal Inspection, No CVA Tenderness, No Vertebral Tenderness Extremity: Normal Capillary Refill, Normal Inspection, Normal Range of Motion, Non Tender, No Calf Tenderness, No Pedal Edema Neurologic/Psychiatric: Alert, No Motor/Sensory Deficits, Normal Mood/Affect Skin: Normal Color, Warm/Dry Lymphatic: No Adenopathy Progress/Results/Core Measures Results/Orders Lab Results Laboratory Tests Test 06/05/22 18:21 Range/Units Glucometer 104 70-110 MG/DL My Orders Orders - RENETTA YOON MD Gabapentin Capsule/Tablet (Neurontin Cap (06/05/22 18:30) Acetaminophen Tablet (Tylenol Tablet) (06/05/22 18:30) Cyclobenzaprine Tablet (Flexeril Tablet) (06/05/22 18:25) Vital Signs/I&O 06/05/22 18:10 Temp 35.6 Pulse 92 Resp 16 B/P (MAP) 137/72 (93) Pulse Ox 98 Blood Pressure Mean: 93 [facility]SB[facility] Bedside Testing Finger Stick Blood Glucose: 104 Blood Glucose Action Taken: NONE Progress Progress Note : Progress Note 41-year-old female with above history coming in due to right lower to mid back pain. ABCs were intact and vitals were stable on presentation. Physical exam reassuring including a nonfocal neuro exam and no midline spinal tenderness. She has no red flags for back pain at this time. The hand tingling does not fit anatomically with her low to mid back pain. This fits more so with her uncontr olled diabetes not taking insulin. Fortunately her glucose today is around 104. I suspect she has diabetic neuropathy developing. She is on gabapentin 100 mg 3 times daily, we will increase her to 300 mg and have her follow-up with her regular physician. Also try a muscle relaxer. I believe she is stable for discharge with outpatient follow-up. She was sent home with strict return precautions Departure Impression Primary Impression: Low back pain Qualified Codes: M54.50 - Low back pain, unspecified; G89.29 - Other chronic pain Additional Impressions: Thoracic back pain Qualified Codes: M54.6 - Pain in thoracic spine Neuropathy Disposition: HOME, SELF-CARE Condition: Stable Departure-Patient Inst. Decision time for Depature: 18:30 Referrals: SAMEERA DENT APRN (PCP) Primary Care Physician [facility] (Family) Primary Care Physician Patient Instructions: Peripheral Neuropathy (DC), Upper Back Pain (DC) Add. Discharge Instructions: Increase her gabapentin to 300 mg 3 times a day and follow-up with your regular doctor to get a refill on this. You can also try the muscle relaxer and the li docaine patch. He can also try taking Tylenol on top of that. Try to do some gentle stretching at home. Your numbness in your hands and likely in your feet is likely due to your blood sugar and is called diabetic neuropathy. It is important to try to get control of your blood sugars and try to get a refill on insulin that you are able to take Scripts Gabapentin (Gabapentin) 100 Mg Capsule 300 MG PO Q8H for Neuropathic pain for 14 Days, #42 CAP Prov: RENETTA YOON MD 06/05/22 Cyclobenzaprine HCl (Cyclobenzaprine HCl) 10 Mg Tablet 10 MG PO TID PRN for SPASMS for 7 Days, #21 TAB Prov: RENETTA YOON MD 06/05/22 Lidocaine (Lidocaine 5% Patch) 5 % Adh..patch 1 EACH TP Q12H PRN for Neuropathic pain MDD 2 for 14 Days, #28 PATCH 2 patches max for 12 hours, then 12 hours patch-free period. Prov: RENETTA YOON MD 06/05/22 Work/School Note: Work Release Form Date Seen in the Emergency Department: Jun 05, 2022 Return to Work: Jun 06, 2022 Restrictions: No Restrictions RENETTA YOON MD Jun 05, 2022 18:32
[2022-06-05] MEDS ORDERED: CYCL10TA25 PO (18:33)
[2022-06-05] MEDS ORDERED: LIDO700A45 TP (18:33)
[2022-06-05] MEDS ORDERED: GABA-486 PO (18:33)
[2022-06-05 18:35] VITALS: BP 137/72
== END 2022-06-05 18:39 | disposition home or self-care (01) ==
LOC: EDUNIT# 18:05 → ER FS 18:07
DX: G62.9 Polyneuropathy, unspecified (principal); E11.65 Type 2 diabetes mellitus with hyperglycemia; F17.210 Nicotine dependence, cigarettes, uncomplicated; Z28.310 Unvaccinated for COVID-19; Z79.84 Long term (current) use of oral hypoglycemic drugs
CPT/HCPCS: 82947

== ENCOUNTER 2022-08-01 22:00 | Emergency (ER) | payer MEDICAID ==
[~2022-08-01] VITALS: Ht 155 cm; Wt 102.2 kg
[~2022-08-01 22:00] MED LIST changes: +GABA-486 PO; +LIDO700A45 TP
[2022-08-01] MEDS ORDERED: LORazepam 0.5 MG (ATIVAN) TABLET PO STA (22:08)
[2022-08-01] MEDS ORDERED: ASPIRIN 81 MG CHEW (CHILDREN'S ASA) PO ONE (22:15)
--- NOTE | 2022-08-01 22:15 | ED Chest Pain ---
General Stated Complaint: CHEST PAIN Source: patient Exam Limitations: no limitations History of Present Illness Date Seen by Provider: Aug 01, 2022 Time Seen by Provider: 22:01 Initial Comments 61-year-old female with past medical history most notable for COPD, diabetes, and anxiety coming in due to chest pain and anxiety. Symptoms have been ongoing for over 14 hours straight. The pain is in the center of her chest, throbbing, nothing seems to make it better or worse. She says she feels mostly very anxious and she believes that is what it is related to. She denies any prior history of GA or DVT or PE. Denies any lower extremity swelling or pain, hemoptysis, recent surgery, recent long travel, hormone use, fever, abdominal pain, nausea, vomiting, chills, focal weakness or numbness, or any other concerns. Allergies and Home Medications Allergies Coded Allergies: No Known Drug Allergies (Unverified , 11/28/18) Patient Home Medication List Home Medication List Reviewed: Yes Amoxicillin (Amoxicillin) 500 Mg Capsule, 500 MG PO TID Prescribed by: RANCHO ANGELES on 02/12/19 1545 Amoxicillin (Amoxicillin) 500 Mg Capsule, 875 MG PO BID Prescribed by: TSERING BERNAL on 09/14/19 1012 Amoxicillin/Potassium Clav (Augmentin 500-125 Tablet) 500 Mg-125 Mg Tablet, 1 EACH PO BID Prescribed by: QUINTIN HILL on 03/19/22 1515 Amoxicillin/Potassium Clav (Amox Tr-K Clv 875-125 mg Tab) 875 Mg-125 Mg Tablet, 1 EACH PO BID Prescribed by: DINORA KNOTT on 06/01/22 0715 Azithromycin (Azithromycin) 250 Mg Tablet, 250 MG PO DAILY Prescribed by: JINA BAH on 07/17/19 2240 Cephalexin (Cephalexin) 500 Mg Tablet, 500 MG PO QID Prescribed by: RANCHO ANGELES on 04/19/20 2353 Ciprofloxacin HCl/Dexameth (Ciprodex Otic Suspension) 7.5 Ml Soln, 7.5 ML OT BID Prescribed by: ROLAND NOBLES on 04/22/20 205 Citalopram Hydrobromide (Celexa) 20 Mg Tablet, 20 MG PO, (Reported) Entered as Reported by: ALEN CARVAJAL on 12/18/18 1302 Cyclobenzaprine HCl (Cyclobenzaprine HCl) 10 Mg Tablet, 10 MG PO Q8H PRN for SPASMS Prescribed by: UCHE LOWRY on 06/26/20 1827 Cyclobenzaprine HCl (Cyclobenzaprine HCl) 10 Mg Tablet, 10 MG PO TID Prescribed by: TY HALL on 11/13/21 0118 Cyclobenzaprine HCl (Cyclobenzaprine HCl) 10 Mg Tablet, 10 MG PO TID PRN for SPASMS Prescribed by: RENETTA YOON on 06/05/22 1833 Diclofenac Sodium (Diclofenac Sodium) 50 Mg Tablet.dr, 50 MG PO BID Prescribed by: TSERING BERNAL on 09/14/19 1012 Diclofenac Sodium (Diclofenac Sodium) 75 Mg Tablet.dr, 75 MG PO BID Prescribed by: JASON VELEZ on 07/16/20 1936 Dicyclomine HCl (Dicyclomine HCl) 20 Mg Tablet, 20 MG PO TID PRN for ABDOMINAL PAIN Prescribed by: DINORA KNOTT on 12/18/18 1438 Fexofenadine HCl (Wal-Fex Allergy) 180 Mg Tablet, 180 MG PO DAILY Prescribed by: UCHE LOWRY on 04/18/20 1129 Fluconazole (Diflucan) 150 Mg Tablet, 150 MG PO DAILY Prescribed by: KARLA DELGADO on 12/10/21 1637 Fluticasone Propionate (Fluticasone Propionate) 16 Gm [place].susp, 16 GM NS DAILY Prescribed by: UCHE LOWRY on 04/18/20 1129 Gabapentin (Gabapentin) 100 Mg Capsule, 300 MG PO Q8H Prescribed by: RENETTA YOON on 06/05/22 183 Hydralazine HCl (Hydralazine HCl) 25 Mg Tablet, 25 MG PO, (Reported) Entered as Reported by: ALEN CARVAJAL on 12/18/18 1302 Hydrocodone/Acetaminophen (Hydrocodone/Acetaminophen 5 MG/325 MG TAB) 1 Each Tablet, 1 TAB PO Qhs Prescribed by: NOA ZAMARRIPA on 04/13/19 1247 Hydrocodone/Acetaminophen (Hydrocodone-Acetamin 5-325 mg) 1 Each Tablet, 1 TAB PO Q6H PRN for PAIN-MODERATE (5-7) Prescribed by: ARIEL ESPARZA on 10/30/21 1053 Hydrocodone/Acetaminophen (Hydrocodone-Acetamin 5-325 mg) 5 Mg-325 Mg Tablet, 1 TAB PO Q6H PRN for PAIN-SEVERE (8-10) Prescribed by: DINORA KNOTT on 06/01/22 0716 Hyoscyamine Sulfate (Hyoscyamine Sulfate) 0.125 Mg Tab.subl, 0.125 MG SL Q8H Prescribed by: UCHE LOWRY on 09/19/19 171 Hyoscyamine Sulfate (Levsin-Sl) 0.125 Mg Tab.subl, 0.125 MG SL Q4H Prescribed by: UCHE LOWRY on 09/25/202014 Ibuprofen (Ibuprofen) 800 Mg Tablet, 800 MG PO Q8H PRN for PAIN Prescribed by: JINA BAH on 07/17/19 224 Ibuprofen (Ibuprofen) 800 Mg Tablet, 800 MG PO Q8H PRN for PAIN Prescribed by: UCHE LOWRY on 06/26/20 181 Ibuprofen (Ibuprofen) 800 Mg Tablet, 800 MG PO Q8H PRN for PAIN Prescribed by: DINORA KNOTT on 06/01/22 0715 Lidocaine (Lidocaine 5% Patch) 5 % Adh..patch, 1 EACH TP Q12H PRN for Neuropathic pain Prescribed by: RENETTA YOON on 06/05/22 1833 Metformin HCl (Metformin HCl) 500 Mg Tablet, 500 MG PO BID Prescribed by: DINORA KNOTT on 09/16/20 1828 Methocarbamol (Robaxin-750) 750 Mg Tablet, 750 MG PO Q4H PRN for PAIN-MODERATE (5-7) Prescribed by: KARLA DELGADO on 08/22/20 1122 Metronidazole (Flagyl) 500 Mg Tablet, 500 MG PO BID, (Reported) Entered as Reported by: TANA PAYTON on 12/11/18 1229 Metronidazole (Metronidazole) 500 Mg Tablet, 500 MG PO BID Prescribed by: KARLA DELGADO on 12/10/21 1637 Naproxen (Naprosyn) 500 Mg Tablet, 500 MG PO BID Prescribed by: RANCHO ANGELES on 04/19/20 2353 Naproxen (Naprosyn) 500 Mg Tablet, 500 MG PO BID Prescribed by: KARLA DELGADO on 08/22/20 1122 Naproxen (Naprosyn) 500 Mg Tablet, 500 MG PO BID Prescribed by: KARLA DELGADO on 10/18/20 1413 Ondansetron (Ondansetron Odt) 4 Mg Tab.rapdis, 4 MG PO Q8H PRN for NAUSEA/VOMITING Prescribed by: DINORA KNOTT on 12/18/18 1438 Ondansetron (Ondansetron Odt) 4 Mg Tab.rapdis, 4 MG PO TID Prescribed by: UCHE LOWRY on 03/23/20 1130 Ondansetron (Ondansetron Odt) 4 Mg Tab.rapdis, 4 MG PO TID Prescribed by: UCHE LOWRY on 04/18/20 1129 Ondansetron (Ondansetron Odt) 4 Mg Tab.rapdis, 4 MG PO TID Prescribed by: UCHE LOWRY on 09/25/202014 Ondansetron HCl (Ondansetron HCl) 4 Mg Tablet, (Reported) Entered as Reported by: EDER FLANAGAN on 11/13/21 0024 Penicillin V Potassium (Penicillin V Potassium) 500 Mg Tablet, 500 MG PO QID Prescribed by: ARIEL ESPARZA on 10/30/21 1052 Prednisone (Prednisone) 20 Mg Tab, 40 MG PO DAILY Prescribed by: JINA BAH on 07/17/19 2240 Prednisone (Prednisone) 20 Mg Tab, 40 MG PO DAILY Prescribed by: NACHO CABAN on 05/16/22 1421 Sulfamethoxazole/Trimethoprim (Bactrim Ds Tablet) 1 Each Tablet, 1 EACH PO BID Prescribed by: DINORA KNOTT on 02/16/21 1449 Sulfamethoxazole/Trimethoprim (Bactrim Ds Tablet) 1 Each Tablet, 1 EACH PO BID Prescribed by: DINORA KNOTT on 05/26/22 2130 Tizanidine HCl (Tizanidine HCl) 2 Mg Tablet, (Reported) Entered as Reported by: EDER FLANAGAN on 11/13/21 0024 Trimethoprim/Sulfamethoxazole (Bactrim DS) 1 Ea Tablet, 1 TAB PO BID, (Reported) Entered as Reported by: NATY HANDY on 11/28/18 1643 Review of Systems Review of Systems Constitutional: No fever EENTM: No Symptoms Reported Respiratory: No Symptoms Reported Cardiovascular: Chest Pain Gastrointestinal: No Symptoms Reported Genitourinary: No Symptoms Reported Musculoskeletal: no symptoms reported Skin: no symptoms reported Psychiatric/Neurological: Anxiety Endocrine: No Symptoms Reported Hematologic/Lymphatic: No Symptoms Reported All Other Systems Reviewed Negative Unless Noted: Yes Past Dtarcsk-Oysfwu-Hoeblh Hx Patient Social History Tobacco Use?: Yes Tobacco type used: Cigarettes Immunizations Up To Date Tetanus Booster (TDap): Unknown First/Initial COVID19 Vaccinat: denies Second COVID19 Vaccination Amrit: denies Third COVID19 Vaccination Date: denies Seasonal Allergies Seasonal Allergies: No Past Medical History Surgery/Hospitalization HX: HTN, IDDM, C-SECT X3, HERNIA, CHOLECYSTECTOMY Surgeries: Yes (HERNIA REPAIR) Section, Gallbladder Respiratory: Yes COPD Cardiac: No Neurological: No Genitourinary: Yes Gastrointestinal: No Musculoskeletal: No Endocrine: No HEENT: No Cancer: No Psychosocial: No Integumentary: No Blood Disorders: No Physical Exam Vital Signs Vital Signs - First Documented 08/01/22 22:05 Temp 36.8 Pulse 92 Resp 20 B/P (MAP) 143/88 (106) Capillary Refill : Height, Weight, BMI Height: 5'3.00" Weight: 240lbs. oz. [id number]; 40.00 BMI Method:Stated General Appearance: No Apparent Distress, WD/WN HEENT: PERRL/EOMI, Normal ENT Inspection, Pharynx Normal Neck: Full Range of Motion, Normal Inspection, Non Tender, Supple Respiratory: Chest Non Tender, Lungs Clear, Normal Breath Sounds, No Accessory Muscle Use, No Respiratory Distress Cardiovascular: Regular Rate, Rhythm, No Edema, Normal Peripheral Pulses Gastrointestinal: Normal Bowel Sounds, Non Tender, Soft; No Distended, No Guarding Extremity: Normal Capillary Refill, Normal Inspection, Normal Range of Motion, Non Tender, No Calf Tenderness, No Pedal Edema Neurologic/Psychiatric: Alert, No Motor/Sensory Deficits, Normal Mood/Affect Skin: Normal Color, Warm/Dry Lymphatic: No Adenopathy Progress/Results/Core Measures Results/Orders Lab Results Laboratory Tests Test 08/01/22 22:25 Range/Units White Blood Count 15.3 H 4.3-11.0 10^3/uL Red Blood Count 4.42 3.80-5.11 10^6/uL Hemoglobin 11.7 11.5-16.0 g/dL Hematocrit 36 35-52 % Mean Corpuscular Volume 81 80-99 fL Mean Corpuscular Hemoglobin 27 25-34 pg Mean Corpuscular Hemoglobin Concent 33 32-36 g/dL Red Cell Distribution Width 15.1 H 10.0-14.5 % Platelet Count 328 130-400 10^3/uL Mean Platelet Volume 9.4 9.0-12.2 fL Immature Granulocyte % (Auto) 0 % Neutrophils (%) (Auto) 64 42-75 % Lymphocytes (%) (Auto) 29 12-44 % Monocytes (%) (Auto) 5 0-12 % Eosinophils (%) (Auto) 2 0-10 % Basophils (%) (Auto) 0 0-10 % Neutrophils # (Auto) 9.8 H 1.8-7.8 10^3/uL Lymphocytes # (Auto) 4.4 H 1.0-4.0 10^3/uL Monocytes # (Auto) 0.7 0.0-1.0 10^3/uL Eosinophils # (Auto) 0.3 0.0-0.3 10^3/uL Basophils # (Auto) 0.0 0.0-0.1 10^3/uL Immature Granulocyte # (Auto) 0.1 0.0-0.1 10^3/uL Neutrophils % (Manual) 69 % Lymphocytes % (Manual) 29 % Monocytes % (Manual) 1 % Eosinophils % (Manual) 1 % Prothrombin Time 13.0 12.2-14.7 SEC INR Comment 0.9 0.8-1.4 Activated Partial Thromboplast Time 32 24-35 SEC Sodium Level 136 135-145 MMOL/L Potassium Level 3.6 3.6-5.0 MMOL/L Chloride Level 102 98-107 MMOL/L Carbon Dioxide Level 22 21-32 MMOL/L Anion Gap 12 5-14 MMOL/L Blood Urea Nitrogen 11 7-18 MG/DL Creatinine 0.63 0.60-1.30 MG/DL Estimat Glomerular Filtration Rate 116 BUN/Creatinine Ratio 17 Glucose Level 145 H 70-105 MG/DL Calcium Level 9.0 8.5-10.1 MG/DL Corrected Calcium 9.2 8.5-10.1 MG/DL Magnesium Level 2.1 1.6-2.4 MG/DL Total Bilirubin 0.2 0.1-1.0 MG/DL Aspartate Amino Transf (AST/SGOT) 12 5-34 U/L Alanine Aminotransferase (ALT/SGPT) 11 0-55 U/L Alkaline Phosphatase 78 40-136 U/L Troponin I < 0.30 <0.30 NG/ML Total Protein 7.0 6.4-8.2 GM/DL Albumin 3.8 3.2-4.5 GM/DL Lipase 14 8-78 U/L My Orders Orders - RENETTA YOON MD Cbc With Automated Diff (08/01/22:08) Magnesium (08/01/22:) Chest 1 View Ap/Pa Only (08/01/22:) Ekg Tracing (08/01/22:) Comprehensive Metabolic Panel (08/01/22:) Protime With Inr (08/01/22:) Partial Thromboplastin Time (08/01/22:) O2 (08/01/22:) Monitor-Rhythm Ecg Trace Only (08/01/22:) Aspirin Chewable Tablet (Baby Aspirin Ch (08/01/22:15) Ed Iv/Invasive Line Start (08/01/22:08) Lipase (08/01/22:) Troponin I Fs (08/01/22:) Lorazepam Tablet (Ativan Tablet) (08/01/22:) Manual Differential (08/01/22:) Medications Given in ED Current Medications Medications Dose Ordered Sig/Chris Route Start Time Stop Time Status Last Admin Dose Admin Aspirin 324 mg ONCE ONCE PO 08/01/22 22:15 08/01/22 22:16 DC 08/01/22 22:33 324 MG Vital Signs/I&O 08/01/22 22:05 Temp 36.8 Pulse 92 Resp 20 B/P (MAP) 143/88 (106) Progress Progress Note : Progress Note 41-year-old female with above history coming in due to chest pain and anxiety. ABCs were intact and vitals were stable on presentation. Physical exam reassuring with no focal abnormalities. EKG with no acute ischemic changes. Chest x-ray with no acute findings as well. An IV was placed and basic labs were obtained including cardiac biomarkers. Troponin is negative, given the constant pain all day, this is unlikely to be ACS. She is otherwise low risk for PE and is PERC negative. I believe she is stable for discharge with outpatient follow-up. She was sent home with strict return precautions. Initial ECG Impression Date: Aug 01, 2022 Initial ECG Impression Time: 22:01 Initial ECG Rate: 91 Initial ECG Rhythm: Normal Sinus Comment Narrow QRS, normal axis, no significant ST changes or T wave abnormalities Diagnostic Imaging Diagonstic Imaging: Xray Plain Films/CT/US/NM/MRI: chest Comments Chest x-ray ordered and interpreted by me showing normal cardiac silhouette, no pericardial effusion, no pneumothorax, no infiltrate. Departure Impression Primary Impression: Chest pain Qualified Codes: R07.82 - Intercostal pain Disposition: HOME, SELF-CARE Condition: Stable Departure-Patient Inst. Decision time for Depature: 22:58 Referrals: SAMEERA DENT APRN (PCP) Primary Care Physician [facility] (Family) Primary Care Physician Patient Instructions: Chest Pain (DC) Add. Discharge Instructions: Fortunately it does not appear like you are having a heart attack or anything life-threatening. Follow-up with your regular doctor if things are not improving. If you feel like you are having anything life-threatening then please come back to the ER. Work/School Note: Work Release Form Date Seen in the Emergency Department: Aug 01, 2022 Return to Work: Aug 03, 2022 Restrictions: No Restrictions RENETTA YOON MD Aug 01, 2022 22:15
[2022-08-01 22:33] LABS: BASOPHILS % (AUTO) 0 % (0-10); EOSINOPHILS # (AUTO) 0.3 10^3/uL (0.0-0.3); EOSINOPHILS % (AUTO) 2 % (0-10); HEMATOCRIT 36 % (35-52); HEMOGLOBIN 11.7 g/dL (11.5-16.0); LYMPHOCYTES # (AUTO) 4.4 10^3/uL (1.0-4.0); LYMPHOCYTES % (AUTO) 29 % (12-44); MEAN CORPUSCULAR HEMOGLOBIN 27 pg (25-34); MEAN CORPUSCULAR HGB CONC 33 g/dL (32-36); MEAN CORPUSCULAR VOLUME 81 fL (80-99); MEAN PLATELET VOLUME 9.4 fL (9.0-12.2); MONOCYTES # (AUTO) 0.7 10^3/uL (0.0-1.0); MONOCYTES % (AUTO) 5 % (0-12); NEUTROPHILS # (AUTO) 9.8 10^3/uL (1.8-7.8); NEUTROPHILS % (AUTO) 64 % (42-75); PLATELET COUNT 328 10^3/uL (130-400); WHITE BLOOD COUNT 15.3 10^3/uL (4.3-11.0)
[2022-08-01 22:42] LABS: INR 0.9 (0.8-1.4)
[2022-08-01 22:53] LABS: ALBUMIN 3.8 GM/DL (3.2-4.5); BILIRUBIN,TOTAL 0.2 MG/DL (0.1-1.0); CREATININE SERUM 0.63 MG/DL (0.60-1.30); EOSINOPHILS % (MANUAL) 1 %; LYMPHOCYTES % (MANUAL) 29 %; MAGNESIUM 2.1 MG/DL (1.6-2.4); MONOCYTES % (MANUAL) 1 %; NEUTROPHILS % (MANUAL) 69 %; POTASSIUM 3.6 MMOL/L (3.6-5.0)
[2022-08-01 23:04] VITALS: BP 116/83
--- NOTE | 2022-08-02 07:28 | Diagnostic Imaging Report ---
EXAM: CHEST 1 VIEW AP/PA ONLY. INDICATION: Chest pain. COMPARISON: 05/16/2022. FINDINGS: Normal heart size and central pulmonary vascularity. Lungs are clear. No pleural effusion or pneumothorax. No acute osseous findings. IMPRESSION: No acute cardiopulmonary findings. Dictated by: Dictated on workstation # [id number]
== END 2022-08-01 23:05 | disposition home or self-care (01) ==
LOC: EDUNIT# 22:00 → ER FS 22:03
DX: R07.9 Chest pain, unspecified (principal); F17.210 Nicotine dependence, cigarettes, uncomplicated; Z28.310 Unvaccinated for COVID-19
CPT/HCPCS: 36415; 71045; 80053; 83690; 83735; 84484; 85007; 85027; 85610; 85730; 93041

== ENCOUNTER 2022-08-05 11:47 | Emergency (ER) | payer MEDICAID ==
[2022-08-05] MEDS ORDERED: GABA300C PO (12:24)
--- NOTE | 2022-08-05 12:25 | ED General ---
General Chief Complaint: Neurological Problems Stated Complaint: PEACE HAND/BACK NUMBNESS Nursing Triage Note: Patient presents to the ED with c/o bilateral hand and lower back numbness. States that she believes it is from her neuropathy and the fact that she ran out of her prescription for Gabepentin. States she has an appointment with her PCP to get her medication refilled. Source of Information: Patient Exam Limitations: No Limitations History of Present Illness Date Seen by Provider: Aug 05, 2022 Time Seen by Provider: 11:45 Initial Comments Patient is a 41-year-old female with history of chronic neck and back pain with neuropathy presents with diffuse back pain and intermittent pare sthesias/tingling of both arms and hands. Patient states she was prescribed gabapentin by her PCP 3 months ago and is currently out. Patient has missed multiple doctors appointment and is unable to obtain a refill of medications until her next appointment in 1 month. She denies acute injury or trauma. She is not taking any other medications. She denies lower back pain, loss of bowel or bladder function, extremity weakness. No other acute symptoms or complaints. Timing/Duration: 2-3 Days Severity: Moderate Modifying Factors: improves with Other Associated Systoms: Other Allergies and Home Medications Allergies Coded Allergies: No Known Drug Allergies (Unverified , 11/28/18) Patient Home Medication List Home Medication List Reviewed: Yes Amoxicillin (Amoxicillin) 500 Mg Capsule, 500 MG PO TID Prescribed by: RANCHO ANGELES on 02/12/19 1545 Amoxicillin (Amoxicillin) 500 Mg Capsule, 875 MG PO BID Prescribed by: TSERING BERNAL on 09/14/19 1012 Amoxicillin/Potassium Clav (Augmentin 500-125 Tablet) 500 Mg-125 Mg Tablet, 1 EACH PO BID Prescribed by: QUINTIN HILL on 03/19/22 1515 Amoxicillin/Potassium Clav (Amox Tr-K Clv 875-125 mg Tab) 875 Mg-125 Mg Tablet, 1 EACH PO BID Prescribed by: DINORA KNOTT on 06/01/22 0715 Azithromycin (Azithromycin) 250 Mg Tablet, 250 MG PO DAILY Prescribed by: JINA BAH on 07/17/19 2240 Cephalexin (Cephalexin) 500 Mg Tablet, 500 MG PO QID Prescribed by: RANCHO ANGELES on 04/19/20 2353 Ciprofloxacin HCl/Dexameth (Ciprodex Otic Suspension) 7.5 Ml Soln, 7.5 ML OT BID Prescribed by: ROLAND NOBLES on 04/22/202050 Citalopram Hydrobromide (Celexa) 20 Mg Tablet, 20 MG PO, (Reported) Entered as Reported by: ALEN CARVAJAL on 12/18/18 1302 Cyclobenzaprine HCl (Cyclobenzaprine HCl) 10 Mg Tablet, 10 MG PO Q8H PRN for SPASMS Prescribed by: UCHE LOWRY on 06/26/20 1827 Cyclobenzaprine HCl (Cyclobenzaprine HCl) 10 Mg Tablet, 10 MG PO TID Prescribed by: TY HALL on 11/13/21 0118 Cyclobenzaprine HCl (Cyclobenzaprine HCl) 10 Mg Tablet, 10 MG PO TID PRN for SPASMS Prescribed by: RENETTA YOON on 06/05/22 183 Diclofenac Sodium (Diclofenac Sodium) 50 Mg Tablet.dr, 50 MG PO BID Prescribed by: TSERING BERNAL on 09/14/19 1012 Diclofenac Sodium (Diclofenac Sodium) 75 Mg Tablet.dr, 75 MG PO BID Prescribed by: JASON VELEZ on 07/16/20 1936 Dicyclomine HCl (Dicyclomine HCl) 20 Mg Tablet, 20 MG PO TID PRN for ABDOMINAL PAIN Prescribed by: DINORA KNOTT on 12/18/18 1438 Fexofenadine HCl (Wal-Fex Allergy) 180 Mg Tablet, 180 MG PO DAILY Prescribed by: UCHE LOWRY on 04/18/20 1129 Fluconazole (Diflucan) 150 Mg Tablet, 150 MG PO DAILY Prescribed by: KARLA DELGADO on 12/10/21 1637 Fluticasone Propionate (Fluticasone Propionate) 16 Gm [place].susp, 16 GM NS DAILY Prescribed by: UCHE LOWRY on 04/18/20 1129 Gabapentin (Gabapentin) 100 Mg Capsule, 300 MG PO Q8H Prescribed by: RENETTA YOON on 06/05/22 183 Hydralazine HCl (Hydralazine HCl) 25 Mg Tablet, 25 MG PO, (Reported) Entered as Reported by: ALEN CARVAJAL on 12/18/18 1302 Hydrocodone/Acetaminophen (Hydrocodone/Acetaminophen 5 MG/325 MG TAB) 1 Each Tablet, 1 TAB PO Qhs Prescribed by: NOA ZAMARRIPA on 04/13/19 1247 Hydrocodone/Acetaminophen (Hydrocodone-Acetamin 5-325 mg) 1 Each Tablet, 1 TAB PO Q6H PRN for PAIN-MODERATE (5-7) Prescribed by: ARIEL ESPARZA on 10/30/21 1053 Hydrocodone/Acetaminophen (Hydrocodone-Acetamin 5-325 mg) 5 Mg-325 Mg Tablet, 1 TAB PO Q6H PRN for PAIN-SEVERE (8-10) Prescribed by: DINORA KNOTT on 06/01/22 0716 Hyoscyamine Sulfate (Hyoscyamine Sulfate) 0.125 Mg Tab.subl, 0.125 MG SL Q8H Prescribed by: UCHE LOWRY on 09/19/19 171 Hyoscyamine Sulfate (Levsin-Sl) 0.125 Mg Tab.subl, 0.125 MG SL Q4H Prescribed by: UCHE LOWRY on 09/25/202014 Ibuprofen (Ibuprofen) 800 Mg Tablet, 800 MG PO Q8H PRN for PAIN Prescribed by: JINA BAH on 07/17/19 2240 Ibuprofen (Ibuprofen) 800 Mg Tablet, 800 MG PO Q8H PRN for PAIN Prescribed by: UCHE LOWRY on 06/26/20 1818 Ibuprofen (Ibuprofen) 800 Mg Tablet, 800 MG PO Q8H PRN for PAIN Prescribed by: DINORA KNOTT on 06/01/22 0715 Lidocaine (Lidocaine 5% Patch) 5 % Adh..patch, 1 EACH TP Q12H PRN for Neuropathic pain Prescribed by: RENETTA YOON on 06/05/22 1833 Metformin HCl (Metformin HCl) 500 Mg Tablet, 500 MG PO BID Prescribed by: DINORA KNOTT on 09/16/20 1828 Methocarbamol (Robaxin-750) 750 Mg Tablet, 750 MG PO Q4H PRN for PAIN-MODERATE (5-7) Prescribed by: KARLA DELGADO on 08/22/20 1122 Metronidazole (Flagyl) 500 Mg Tablet, 500 MG PO BID, (Reported) Entered as Reported by: TANA PAYTON on 12/11/18 1229 Metronidazole (Metronidazole) 500 Mg Tablet, 500 MG PO BID Prescribed by: KARLA DELGADO on 12/10/21 1637 Naproxen (Naprosyn) 500 Mg Tablet, 500 MG PO BID Prescribed by: RANCHO ANGELES on 04/19/20 2353 Naproxen (Naprosyn) 500 Mg Tablet, 500 MG PO BID Prescribed by: KARLA DELGADO on 08/22/20 1122 Naproxen (Naprosyn) 500 Mg Tablet, 500 MG PO BID Prescribed by: KARLA DELGADO on 10/18/20 1413 Ondansetron (Ondansetron Odt) 4 Mg Tab.rapdis, 4 MG PO Q8H PRN for NAUSEA/VOMITING Prescribed by: DINORA KNOTT on 12/18/18 1438 Ondansetron (Ondansetron Odt) 4 Mg Tab.rapdis, 4 MG PO TID Prescribed by: UCHE LOWRY on 03/23/20 1130 Ondansetron (Ondansetron Odt) 4 Mg Tab.rapdis, 4 MG PO TID Prescribed by: UCHE LOWRY on 04/18/20 1129 Ondansetron (Ondansetron Odt) 4 Mg Tab.rapdis, 4 MG PO TID Prescribed by: UCHE LOWRY on 09/25/202014 Ondansetron HCl (Ondansetron HCl) 4 Mg Tablet, (Reported) Entered as Reported by: EDER FLANAGAN on 11/13/21 0024 Penicillin V Potassium (Penicillin V Potassium) 500 Mg Tablet, 500 MG PO QID Prescribed by: ARIEL ESPARZA on 10/30/21 1052 Prednisone (Prednisone) 20 Mg Tab, 40 MG PO DAILY Prescribed by: JINA BAH on 07/17/19 2240 Prednisone (Prednisone) 20 Mg Tab, 40 MG PO DAILY Prescribed by: NACHO CABAN on 05/16/22 1421 Sulfamethoxazole/Trimethoprim (Bactrim Ds Tablet) 1 Each Tablet, 1 EACH PO BID Prescribed by: DINORA KNOTT on 02/16/21 1449 Sulfamethoxazole/Trimethoprim (Bactrim Ds Tablet) 1 Each Tablet, 1 EACH PO BID Prescribed by: DINORA KNOTT on 05/26/22 2130 Tizanidine HCl (Tizanidine HCl) 2 Mg Tablet, (Reported) Entered as Reported by: EDER FLANAGAN on 11/13/21 0024 Trimethoprim/Sulfamethoxazole (Bactrim DS) 1 Ea Tablet, 1 TAB PO BID, (Reported) Entered as Reported by: NATY HANDY on 11/28/18 7538 Review of Systems Review of Systems Constitutional: see HPI EENTM: see HPI Respiratory: see HPI Cardiovascular: see HPI Gastrointestinal: see HPI Genitourinary: see HPI Musculoskeletal: see HPI Skin: see HPI Psychiatric/Neurological: See HPI Hematologic/Lymphatic: See HPI Immunological/Allergic: see HPI All Other Systems Reviewed Negative Unless Noted: No Past Mfmndeo-Lxwouj-Jflplh Hx Patient Social History Tobacco Use?: Yes Tobacco type used: Cigarettes Smoking Status: Current Everyday Smoker Use of E-Cig and/or Vaping dev: No Substance use?: No Alcohol Use?: No Pt feels they are or have been: No Immunizations Up To Date Tetanus Booster (TDap): Unknown First/Initial COVID19 Vaccinat: denies Second COVID19 Vaccination Amrit: denies Third COVID19 Vaccination Date: denies Seasonal Allergies Seasonal Allergies: No Past Medical History Surgery/Hospitalization HX: HTN, IDDM, C-SECT X3, HERNIA, CHOLECYSTECTOMY Surgeries: Yes (HERNIA REPAIR) Section, Gallbladder Respiratory: Yes COPD Cardiac: No Neurological: No Genitourinary: Yes Gastrointestinal: No Musculoskeletal: No Endocrine: No HEENT: No Cancer: No Psychosocial: No Integumentary: No Blood Disorders: No Physical Exam Vital Signs Vital Signs - First Documented 08/05/22 12:00 Temp 36.2 Pulse 85 Resp 16 B/P (MAP) 129/91 (104) Pulse Ox 100 O2 Delivery Room Air Capillary Refill : Less Than 3 Seconds Height, Weight, BMI Height: 5'3.00" Weight: 240lbs. oz. 108.797953xp; 42.00 BMI Method:Stated General Appearance: No Apparent Distress, WD/WN Eyes: Bilateral Eye Normal Inspection, Bilateral Eye PERRL, Bilateral Eye EOMI HEENT: PERRL/EOMI Neck: Full Range of Motion, Normal Inspection, Non Tender Respiratory: Lungs Clear Cardiovascular: Regular Rate, Rhythm Gastrointestinal: Non Tender, Soft Back: Normal Inspection, No CVA Tenderness Neurologic/Psychiatric: Alert, Oriented x3, No Motor/Sensory Deficits Focused Exam Sepsis Stage: Ruled Out Progress/Results/Core Measures Suspected Sepsis SIRS Temperature: Pulse: 85 Respiratory Rate: 16 Blood Pressure 129 /91 Mean: 104 Results/Orders My Orders Orders - GRAEME GARNER DO Ibuprofen Tablet (Motrin Tablet) (08/05/22 12:30) Vital Signs/I&O 08/05/22 12:00 Temp 36.2 Pulse 85 Resp 16 B/P (MAP) 129/91 (104) Pulse Ox 100 O2 Delivery Room Air Capillary Refill : Less Than 3 Seconds Blood Pressure Mean: 104 Departure Communication (Admissions) Patient with chronic medical condition and medication refill request. Pain addressed, will provide a one-time courtesy med refill. PCP follow-up for further management Impression Primary Impression: Peripheral neuropathy Additional Impression: Chronic back pain Disposition: HOME, SELF-CARE Condition: Stable Departure-Patient Inst. Decision time for Depature: 12:23 Referrals: SAMEERA DENT APRN (PCP) Primary Care Physician [facility] (Family) Primary Care Physician Patient Instructions: Peripheral Neuropathy (DC), Upper Back Pain (DC) Add. Discharge Instructions: You were evaluated in the emergency department for chronic back pain with neuropathy. Please take newly prescribed medications as directed and follow-up with your PCP for further management. All discharge instructions reviewed with patient and/or family. Voiced understanding. Scripts Gabapentin (Neurontin) 300 Mg Capsule 300 MG PO TID, #90 CAP Prov: GRAEME GARNER DO 08/05/22 Work/School Note: Work Release Form Date Seen in the Emergency Department: Aug 05, 2022 Return to Work: Aug 06, 2022 Restrictions: No Restrictions GRAEME GARNER DO Aug 05, 2022 12:25
[2022-08-05 12:30] VITALS: BP 129/91
[2022-08-05] MEDS ORDERED: IBUPROFEN 600 MG (MOTRIN) TAB PO ONE (12:30)
== END 2022-08-05 12:30 | disposition home or self-care (01) ==
LOC: EDUNIT# 11:47 → ER FS 11:49
DX: E11.42 Type 2 diabetes mellitus with diabetic polyneuropathy (principal); M54.9 Dorsalgia, unspecified; G89.29 Other chronic pain; F17.210 Nicotine dependence, cigarettes, uncomplicated; Z91.14 Patient's other noncompliance with medication regimen; Z79.4 Long term (current) use of insulin; Z28.310 Unvaccinated for COVID-19
CPT/HCPCS: 99283

== ENCOUNTER 2022-08-13 22:34 | Emergency (ER) | payer MEDICAID ==
[~2022-08-13] VITALS: Ht 160 cm; Wt 102.0 kg
[~2022-08-13 22:34] MED LIST changes: +GABA300C PO
[2022-08-14] MEDS ORDERED: KETOROLAC 30 MG/ML VIAL ONE (00:41)
[2022-08-14] MEDS ORDERED: AMOXICILLIN 500 MG (POLYMOX) CAP PO STA (01:13)
[2022-08-14] MEDS ORDERED: AMOX500C2 PO (01:16)
--- NOTE | 2022-08-14 01:17 | ED General ---
General Chief Complaint: Dental Problems/Pain Stated Complaint: MOUTH PAIN, COUGH Nursing Triage Note: PT AMB TO ED BY POV WITH C/O DENTAL PAIN AND COUGH. PT REPORTS SHE BROKE HER TWO TOP FRONT TEETH OFF MONTHS AGO AND HAS HAD INCREASING PAIN RECENTLY. REPORTS PRODUCTIVE COUGH X 5 DAYS. DENIES FEVER, N/V/D, SOB. Source of Information: Patient Exam Limitations: No Limitations History of Present Illness Date Seen by Provider: Aug 13, 2022 Time Seen by Provider: 22:42 Initial Comments This 41-year-old woman presents to the emergency room with 2 primary complaints. First she has dental pain up around to the upper incisors. This has been ongoing for more than a month. She has long-term problems due to broken teeth and decay. She is aware that these teeth need to be addressed by dentist and some extractions need to be performed. She also has had respiratory symptoms for the past couple of days including shortness of breath and coughing. She has chest pain with cough. She denies fever. She has associated sore throat. Vital signs are unremarkable. She has been taking Tylenol but no NSAIDs for the pain. Allergies and Home Medications Allergies Coded Allergies: No Known Drug Allergies (Unverified , 11/28/18) Patient Home Medication List Home Medication List Reviewed: Yes Amoxicillin (Amoxicillin) 500 Mg Capsule, 500 MG PO TID Prescribed by: RANCHO ANGELES on 02/12/19 1545 Amoxicillin (Amoxicillin) 500 Mg Capsule, 875 MG PO BID Prescribed by: TSERING BERNAL on 09/14/19 1012 Amoxicillin (Amoxicillin) 500 Mg Capsule, 1,000 MG PO BID Prescribed by: JULI MAHARAJ on 08/14/22 0116 Amoxicillin/Potassium Clav (Augmentin 500-125 Tablet) 500 Mg-125 Mg Tablet, 1 EACH PO BID Prescribed by: QUINTIN HILL on 03/19/22 1515 Amoxicillin/Potassium Clav (Amox Tr-K Clv 875-125 mg Tab) 875 Mg-125 Mg Tablet, 1 EACH PO BID Prescribed by: DINORA KNOTT on 06/01/22 0715 Azithromycin (Azithromycin) 250 Mg Tablet, 250 MG PO DAILY Prescribed by: JINA BAH on 07/17/19 2240 Cephalexin (Cephalexin) 500 Mg Tablet, 500 MG PO QID Prescribed by: RANCHO ANGELES on 04/19/20 2353 Ciprofloxacin HCl/Dexameth (Ciprodex Otic Suspension) 7.5 Ml Soln, 7.5 ML OT BID Prescribed by: ROLAND NOBLES on 04/22/20 205 Citalopram Hydrobromide (Celexa) 20 Mg Tablet, 20 MG PO, (Reported) Entered as Reported by: ALEN CARVAJAL on 12/18/18 1302 Cyclobenzaprine HCl (Cyclobenzaprine HCl) 10 Mg Tablet, 10 MG PO Q8H PRN for SPASMS Prescribed by: UCHE LOWRY on 06/26/20 182 Cyclobenzaprine HCl (Cyclobenzaprine HCl) 10 Mg Tablet, 10 MG PO TID Prescribed by: TY HALL on 11/13/21 0118 Cyclobenzaprine HCl (Cyclobenzaprine HCl) 10 Mg Tablet, 10 MG PO TID PRN for SPASMS Prescribed by: RENETTA YOON on 06/05/22 183 Diclofenac Sodium (Diclofenac Sodium) 50 Mg Tablet.dr, 50 MG PO BID Prescribed by: TSERING BERNAL on 09/14/19 1012 Diclofenac Sodium (Diclofenac Sodium) 75 Mg Tablet.dr, 75 MG PO BID Prescribed by: JASON VELEZ on 07/16/20 1936 Dicyclomine HCl (Dicyclomine HCl) 20 Mg Tablet, 20 MG PO TID PRN for ABDOMINAL PAIN Prescribed by: DINORA KNOTT on 12/18/18 1438 Fexofenadine HCl (Wal-Fex Allergy) 180 Mg Tablet, 180 MG PO DAILY Prescribed by: UCHE LOWRY on 04/18/20 1129 Fluconazole (Diflucan) 150 Mg Tablet, 150 MG PO DAILY Prescribed by: KARLA DELGADO on 12/10/21 1637 Fluticasone Propionate (Fluticasone Propionate) 16 Gm [place].susp, 16 GM NS DAILY Prescribed by: UCHE LOWRY on 04/18/20 112 Gabapentin (Gabapentin) 100 Mg Capsule, 300 MG PO Q8H Prescribed by: RENETTA YOON on 06/05/22 183 Gabapentin (Neurontin) 300 Mg Capsule, 300 MG PO TID Prescribed by: GRAEME GARNER on 08/05/22 1224 Hydralazine HCl (Hydralazine HCl) 25 Mg Tablet, 25 MG PO, (Reported) Entered as Reported by: ALEN CARVAJAL on 12/18/18 1302 Hydrocodone/Acetaminophen (Hydrocodone/Acetaminophen 5 MG/325 MG TAB) 1 Each Tablet, 1 TAB PO Qhs Prescribed by: NOA ZAMARRIPA on 04/13/19 1247 Hydrocodone/Acetaminophen (Hydrocodone-Acetamin 5-325 mg) 1 Each Tablet, 1 TAB PO Q6H PRN for PAIN-MODERATE (5-7) Prescribed by: ARIEL ESPARZA on 10/30/21 1053 Hydrocodone/Acetaminophen (Hydrocodone-Acetamin 5-325 mg) 5 Mg-325 Mg Tablet, 1 TAB PO Q6H PRN for PAIN-SEVERE (8-10) Prescribed by: DINORA KNOTT on 06/01/22 0716 Hyoscyamine Sulfate (Hyoscyamine Sulfate) 0.125 Mg Tab.subl, 0.125 MG SL Q8H Prescribed by: UCHE LOWRY on 09/19/19 171 Hyoscyamine Sulfate (Levsin-Sl) 0.125 Mg Tab.subl, 0.125 MG SL Q4H Prescribed by: UCHE LOWRY on 09/25/202014 Ibuprofen (Ibuprofen) 800 Mg Tablet, 800 MG PO Q8H PRN for PAIN Prescribed by: JINA BAH on 07/17/19 2240 Ibuprofen (Ibuprofen) 800 Mg Tablet, 800 MG PO Q8H PRN for PAIN Prescribed by: UCHE LOWRY on 06/26/20 1818 Ibuprofen (Ibuprofen) 800 Mg Tablet, 800 MG PO Q8H PRN for PAIN Prescribed by: DINORA KNOTT on 06/01/22 0715 Lidocaine (Lidocaine 5% Patch) 5 % Adh..patch, 1 EACH TP Q12H PRN for Neuropathic pain Prescribed by: RENETTA YOON on 06/05/22 1833 Metformin HCl (Metformin HCl) 500 Mg Tablet, 500 MG PO BID Prescribed by: DINORA KNOTT on 09/16/20 1828 Methocarbamol (Robaxin-750) 750 Mg Tablet, 750 MG PO Q4H PRN for PAIN-MODERATE (5-7) Prescribed by: KARLA DELGADO on 08/22/20 1122 Metronidazole (Flagyl) 500 Mg Tablet, 500 MG PO BID, (Reported) Entered as Reported by: TANA PAYTON on 12/11/18 1229 Metronidazole (Metronidazole) 500 Mg Tablet, 500 MG PO BID Prescribed by: KARLA DELAGDO on 12/10/21 1637 Naproxen (Naprosyn) 500 Mg Tablet, 500 MG PO BID Prescribed by: RANCHO ANGELES on 04/19/20 2353 Naproxen (Naprosyn) 500 Mg Tablet, 500 MG PO BID Prescribed by: KARLA DELGADO on 08/22/20 1122 Naproxen (Naprosyn) 500 Mg Tablet, 500 MG PO BID Prescribed by: KARLA DELGADO on 10/18/20 1413 Ondansetron (Ondansetron Odt) 4 Mg Tab.rapdis, 4 MG PO Q8H PRN for NAUSEA/VOMITING Prescribed by: DINORA KNOTT on 12/18/18 1438 Ondansetron (Ondansetron Odt) 4 Mg Tab.rapdis, 4 MG PO TID Prescribed by: UCHE LOWRY on 03/23/20 1130 Ondansetron (Ondansetron Odt) 4 Mg Tab.rapdis, 4 MG PO TID Prescribed by: UCHE LOWRY on 04/18/20 1129 Ondansetron (Ondansetron Odt) 4 Mg Tab.rapdis, 4 MG PO TID Prescribed by: UCHE LOWRY on 09/25/20 2015 Ondansetron HCl (Ondansetron HCl) 4 Mg Tablet, (Reported) Entered as Reported by: EDER FLANAGAN on 11/13/21 0024 Penicillin V Potassium (Penicillin V Potassium) 500 Mg Tablet, 500 MG PO QID Prescribed by: AREIL ESPARZA on 10/30/21 1052 Prednisone (Prednisone) 20 Mg Tab, 40 MG PO DAILY Prescribed by: JINA BAH on 07/17/19 2240 Prednisone (Prednisone) 20 Mg Tab, 40 MG PO DAILY Prescribed by: NACHO CABAN on 05/16/22 1421 Sulfamethoxazole/Trimethoprim (Bactrim Ds Tablet) 1 Each Tablet, 1 EACH PO BID Prescribed by: DINORA KNOTT on 02/16/21 1449 Sulfamethoxazole/Trimethoprim (Bactrim Ds Tablet) 1 Each Tablet, 1 EACH PO BID Prescribed by: DINORA KNOTT on 05/26/222129 Tizanidine HCl (Tizanidine HCl) 2 Mg Tablet, (Reported) Entered as Reported by: EDER FLANAGAN on 11/13/21 0024 Trimethoprim/Sulfamethoxazole (Bactrim DS) 1 Ea Tablet, 1 TAB PO BID, (Reported) Entered as Reported by: NATY HANDY on 11/28/18 1643 Review of Systems Review of Systems Constitutional: no symptoms reported EENTM: see HPI Respiratory: see HPI Cardiovascular: no symptoms reported Gastrointestinal: no symptoms reported Genitourinary: no symptoms reported : No Musculoskeletal: no symptoms reported Skin: no symptoms reported Psychiatric/Neurological: No Symptoms Reported Hematologic/Lymphatic: No Symptoms Reported Immunological/Allergic: no symptoms reported Past Mklmrxg-Ogcrgi-Nnoume Hx Patient Social History Tobacco Use?: Yes Tobacco type used: Cigarettes Smoking Status: Current Everyday Smoker Use of E-Cig and/or Vaping dev: No Substance use?: No Alcohol Use?: No Pt feels they are or have been: No Immunizations Up To Date Tetanus Booster (TDap): Unknown Influenza Vaccine Up-to-Date: No; Not Current First/Initial COVID19 Vaccinat: denies Second COVID19 Vaccination Amrit: denies Third COVID19 Vaccination Date: denies Seasonal Allergies Seasonal Allergies: No Past Medical History Surgery/Hospitalization HX: DM2 VANESSA, HERNIA, C SECT X 3 Surgeries: Yes (HERNIA REPAIR) Abdominal, Section, Gallbladder Respiratory: Yes COPD Cardiac: No Neurological: No : No Genitourinary: Yes Gastrointestinal: No Musculoskeletal: No Endocrine: Yes Diabetes, Insulin dep HEENT: No Cancer: No Psychosocial: No Integumentary: No Blood Disorders: No Physical Exam Vital Signs Vital Signs - First Documented 08/13/22 22:48 Temp 36.1 Pulse 93 Resp 18 B/P (MAP) 103/79 (87) Pulse Ox 97 O2 Delivery Room Air Capillary Refill : Less Than 3 Seconds Height, Weight, BMI Height: 5'3.00" Weight: 240lbs. oz. 108.640507iw; 39.00 BMI Method:Stated General Appearance: No Apparent Distress, WD/WN HEENT: PERRL/EOMI, TMs Normal, Pharynx Normal, Other (Eroded and broken upper incisors with some gingival irritation and tenderness) Neck: Normal Inspection Respiratory: Lungs Clear, Normal Breath Sounds, No Accessory Muscle Use Cardiovascular: Regular Rate, Rhythm, No Edema, No Murmur Gastrointestinal: Non Tender, Soft Extremity: Normal Inspection, No Pedal Edema Neurologic/Psychiatric: Alert, Oriented x3, No Motor/Sensory Deficits, Normal Mood/Affect Skin: Normal Color, Warm/Dry Progress/Results/Core Measures Suspected Sepsis SIRS Temperature: Pulse: 93 Respiratory Rate: 18 Blood Pressure 103 /79 Mean: 87 Results/Orders Lab Results Laboratory Tests Test 08/13/22 22:36 08/13/22 22:52 Range/Units Lab Scanned Report LAB Reports [id number] Influenza Type A (RT-PCR) Not Detected Not Detecte Influenza Type B (RT-PCR) Not Detected Not Detecte SARS-CoV-2 RNA (RT-PCR) Not Detected Not Detecte My Orders Orders - JULI SORTO MD Covid 19 Inhouse Test (08/13/22 22:42) Influenza A And B By Pcr (08/13/22 22:42) Ketorolac Injection (Toradol Injection) (08/14/22 00:41) Chest Pa/Lat (2 View) (08/14/22 ) Amoxicillin Capsule (Polymox Capsule) (08/14/22 01:13) Medications Given in ED Vital Signs/I&O 08/13/22 08/13/22 08/14/22 22:48 22:48 01:19 Temp 36.1 Pulse 93 88 Resp 18 16 B/P (MAP) 103/79 (87) 111/81 Pulse Ox 97 98 O2 Delivery Room Air Room Air Room Air Capillary Refill : Less Than 3 Seconds Blood Pressure Mean: 87 Progress Note : Progress Note Viral swabs were negative. Exam was unremarkable. Toradol was given for pain. She was started on antibiotics for the dental issues. See discharge instructions for further discussion. Diagnostic Imaging Diagonstic Imaging: Xray Plain Films/CT/US/NM/MRI: chest Comments Chest x-ray viewed by me. Report not available at the time of visit. No acute abnormalities were appreciated. Report dictated later is below: NAME: STANISLAV MATHIS Priyank MED REC#: [id number] PT STATUS: DEP ER : 1980 PHYSICIAN: JULI SORTO MD ADMIT DATE: 08/13/22/ER Signed Date of Exam:08/14/22 CHEST PA/LAT (2 VIEW) INDICATION: CHEST PAIN COUGH COMPARISON: 08/01/2022 FINDINGS: Frontal and lateral views of the chest demonstrate normal heart size and pulmonary vascularity. The lungs are clear. There are no signs of infiltrate, pleural effusions or pneumothoraces. The visualized osseous structures show no acute abnormalities. IMPRESSION: 1. No acute process. No signs of infiltrates, effusions or pneumothoraces. Dictated by: Dictated on workstation # [id number] Dict: 08/14/22 0640 Trans: 08/14/22 1154 [id number] Interpreted by: JULIANO CHRISTIAN MD Electronically signed by: JULIANO CHRISTIAN MD 08/14/22 1154 Departure Impression Primary Impression: Pain due to dental caries Additional Impressions: Upper respiratory infection Qualified Codes: J06.9 - Acute upper respiratory infection, unspecified Chest wall pain Disposition: HOME, SELF-CARE Condition: Improved Departure-Patient Inst. Decision time for Depature: 01:15 Referrals: SAMEERA DENT APRN (PCP) Primary Care Physician [facility] (Family) Primary Care Physician Patient Instructions: Dental Pain Add. Discharge Instructions: Complete antibiotics as prescribed. Schedule with a dentist as soon as possible. You may take ibuprofen up to 600 mg every 6 hours and/or Tylenol (acetaminophen) up to 1000 mg every 6 hours as needed for pain. Work toward quitting smoking. Follow-up with your primary care provider soon as possible. Return to the ER if you have worsening symptoms. All discharge instructions reviewed with patient and/or family. Voiced understanding. Scripts Amoxicillin (Amoxicillin) 500 Mg Capsule 1000 MG PO BID, #40 CAP 0 Refills Prov: JULI SORTO MD 08/14/22 Copy Copies To 1: [facility]/JULI WELDON MD Aug 14, 2022 01:17
[2022-08-14 01:19] VITALS: BP 111/81
--- NOTE | 2022-08-14 06:43 | Diagnostic Imaging Report ---
INDICATION: CHEST PAIN COUGH COMPARISON: 08/01/2022 FINDINGS: Frontal and lateral views of the chest demonstrate normal heart size and pulmonary vascularity. The lungs are clear. There are no signs of infiltrate, pleural effusions or pneumothoraces. The visualized osseous structures show no acute abnormalities. IMPRESSION: 1. No acute process. No signs of infiltrates, effusions or pneumothoraces. Dictated by: Dictated on workstation # [id number]
== END 2022-08-14 01:36 | disposition home or self-care (01) ==
LOC: EDUNIT# 22:34 → ER 22:36
DX: K02.9 Dental caries, unspecified (principal); J06.9 Acute upper respiratory infection, unspecified; R07.89 Other chest pain; E11.9 Type 2 diabetes mellitus without complications; F17.210 Nicotine dependence, cigarettes, uncomplicated; Z20.822 Contact with and (suspected) exposure to COVID-19; Z28.310 Unvaccinated for COVID-19; Z79.4 Long term (current) use of insulin
CPT/HCPCS: 71046; 87636

== ENCOUNTER 2022-08-24 14:48 | Emergency (ER) | payer MEDICAID ==
[2022-08-24] MEDS ORDERED: HYDROcodone/APAP 5 MG/325 MG (LORTAB) TAB PO ONE (15:45)
--- NOTE | 2022-08-24 15:47 | ED EENT ---
History of Present Illness General Chief Complaint: Dental Problems/Pain Stated Complaint: DENTAL PAIN/FACIAL SWELLING Nursing Triage Note: PT AMB TO FT WITH C/O DENTAL PAIN THAT HAS BEEN GOING ON FOR MONTHS BUT WORSENED YESTERDAY. PT STATES SHE FEELS PRESSURE ON HER FRONT TEETH Source: patient Exam Limitations: no limitations History of Present Illness Date Seen by Provider: Aug 24, 2022 Time Seen by Provider: 15:35 Initial Comments Patient is a 41-year-old female long history of diabetes hypertension and smoking. Chronic dental pain, chronic dental issues with fractures and necro sis. Presents with worsening pain in her gums and teeth. No reported fevers or chills. Timing/Duration: gradual Severity: severe Location: dental Associated Symptoms: tooth pain Allergies and Home Medications Allergies Coded Allergies: No Known Drug Allergies (Unverified , 11/28/18) Patient Home Medication List Home Medication List Reviewed: Yes Amoxicillin (Amoxicillin) 500 Mg Capsule, 500 MG PO TID Prescribed by: RANCHO ANGELES on 02/12/19 1545 Amoxicillin (Amoxicillin) 500 Mg Capsule, 875 MG PO BID Prescribed by: TSERING BERNAL on 09/14/19 1012 Amoxicillin (Amoxicillin) 500 Mg Capsule, 1,000 MG PO BID Prescribed by: JULI MAHARAJ on 08/14/22 0116 Amoxicillin/Potassium Clav (Augmentin 500-125 Tablet) 500 Mg-125 Mg Tablet, 1 EACH PO BID Prescribed by: QUINTIN HILL on 03/19/22 1515 Amoxicillin/Potassium Clav (Amox Tr-K Clv 875-125 mg Tab) 875 Mg-125 Mg Tablet, 1 EACH PO BID Prescribed by: DINORA KNOTT on 06/01/22 0715 Azithromycin (Azithromycin) 250 Mg Tablet, 250 MG PO DAILY Prescribed by: JINA BAH on 07/17/19 2240 Cephalexin (Cephalexin) 500 Mg Tablet, 500 MG PO QID Prescribed by: RANCHO ANGELES on 04/19/20 2353 Chlorhexidine Gluconate (Chlorhexidine Gluconate) 0.12 % Mouthwash, 15 ML MM BID Prescribed by: ARIEL ESPARZA on 08/24/22 1548 Ciprofloxacin HCl/Dexameth (Ciprodex Otic Suspension) 7.5 Ml Soln, 7.5 ML OT BID Prescribed by: ROLAND NOBLES on 7/03/07 2051 Citalopram Hydrobromide (Celexa) 20 Mg Tablet, 20 MG PO, (Reported) Entered as Reported by: ALEN CARVAJAL on 12/18/18 1302 Cyclobenzaprine HCl (Cyclobenzaprine HCl) 10 Mg Tablet, 10 MG PO Q8H PRN for SPASMS Prescribed by: UCHE LOWRY on 06/26/20 1827 Cyclobenzaprine HCl (Cyclobenzaprine HCl) 10 Mg Tablet, 10 MG PO TID Prescribed by: TY HALL on 11/13/21 0118 Cyclobenzaprine HCl (Cyclobenzaprine HCl) 10 Mg Tablet, 10 MG PO TID PRN for SPASMS Prescribed by: RENETTA YOON on 06/05/22 183 Diclofenac Sodium (Diclofenac Sodium) 50 Mg Tablet.dr, 50 MG PO BID Prescribed by: TSERING BERNAL on 09/14/19 1012 Diclofenac Sodium (Diclofenac Sodium) 75 Mg Tablet.dr, 75 MG PO BID Prescribed by: JASON VELEZ on 07/16/20 1936 Dicyclomine HCl (Dicyclomine HCl) 20 Mg Tablet, 20 MG PO TID PRN for ABDOMINAL PAIN Prescribed by: DINORA KNOTT on 12/18/18 1438 Fexofenadine HCl (Wal-Fex Allergy) 180 Mg Tablet, 180 MG PO DAILY Prescribed by: UCHE LOWRY on 04/18/20 1129 Fluconazole (Diflucan) 150 Mg Tablet, 150 MG PO DAILY Prescribed by: KARLA DELGADO on 12/10/21 1637 Fluticasone Propionate (Fluticasone Propionate) 16 Gm [place].susp, 16 GM NS DAILY Prescribed by: UCHE LOWRY on 04/18/20 1129 Gabapentin (Gabapentin) 100 Mg Capsule, 300 MG PO Q8H Prescribed by: RENETTA YOON on 06/05/22 183 Gabapentin (Neurontin) 300 Mg Capsule, 300 MG PO TID Prescribed by: GRAEME GARNER on 08/05/22 1224 Hydralazine HCl (Hydralazine HCl) 25 Mg Tablet, 25 MG PO, (Reported) Entered as Reported by: ALEN CARVAJAL on 12/18/18 1302 Hydrocodone/Acetaminophen (Hydrocodone/Acetaminophen 5 MG/325 MG TAB) 1 Each Tablet, 1 TAB PO Qhs Prescribed by: NOA ZAMARRIPA on 04/13/19 1247 Hydrocodone/Acetaminophen (Hydrocodone-Acetamin 5-325 mg) 1 Each Tablet, 1 TAB PO Q6H PRN for PAIN-MODERATE (5-7) Prescribed by: ARIEL ESPARZA on 10/30/21 1053 Hydrocodone/Acetaminophen (Hydrocodone-Acetamin 5-325 mg) 5 Mg-325 Mg Tablet, 1 TAB PO Q6H PRN for PAIN-SEVERE (8-10) Prescribed by: DINORA KNOTT on 06/01/22 0716 Hyoscyamine Sulfate (Hyoscyamine Sulfate) 0.125 Mg Tab.subl, 0.125 MG SL Q8H Prescribed by: UCHE LOWRY on 09/19/19 171 Hyoscyamine Sulfate (Levsin-Sl) 0.125 Mg Tab.subl, 0.125 MG SL Q4H Prescribed by: UCHE LOWRY on 09/25/202014 Ibuprofen (Ibuprofen) 800 Mg Tablet, 800 MG PO Q8H PRN for PAIN Prescribed by: JINA BAH on 07/17/19 2240 Ibuprofen (Ibuprofen) 800 Mg Tablet, 800 MG PO Q8H PRN for PAIN Prescribed by: UCHE LOWRY on 06/26/20 181 Ibuprofen (Ibuprofen) 800 Mg Tablet, 800 MG PO Q8H PRN for PAIN Prescribed by: DINORA KNOTT on 06/01/22 0715 Lidocaine (Lidocaine 5% Patch) 5 % Adh..patch, 1 EACH TP Q12H PRN for Neur opathic pain Prescribed by: RENETTA YOON on 06/05/22 1833 Metformin HCl (Metformin HCl) 500 Mg Tablet, 500 MG PO BID Prescribed by: DINORA KNOTT on 09/16/20 1828 Methocarbamol (Robaxin-750) 750 Mg Tablet, 750 MG PO Q4H PRN for PAIN-MODERATE (5-7) Prescribed by: KARLA DELGADO on 08/22/20 1122 Metronidazole (Flagyl) 500 Mg Tablet, 500 MG PO BID, (Reported) Entered as Reported by: TANA PAYTON on 12/11/18 1229 Metronidazole (Metronidazole) 500 Mg Tablet, 500 MG PO BID Prescribed by: KARLA DELGADO on 12/10/21 1637 Naproxen (Naprosyn) 500 Mg Tablet, 500 MG PO BID Prescribed by: RANCHO ANGELES on 04/19/20 2353 Naproxen (Naprosyn) 500 Mg Tablet, 500 MG PO BID Prescribed by: KARLA DELGADO on 08/22/20 1122 Naproxen (Naprosyn) 500 Mg Tablet, 500 MG PO BID Prescribed by: KARLA DELGADO on 10/18/20 1413 Ondansetron (Ondansetron Odt) 4 Mg Tab.rapdis, 4 MG PO Q8H PRN for NAUSEA/VOMITING Prescribed by: DINORA KNOTT on 12/18/18 1438 Ondansetron (Ondansetron Odt) 4 Mg Tab.rapdis, 4 MG PO TID Prescribed by: UCHE LOWRY on 03/23/20 1130 Ondansetron (Ondansetron Odt) 4 Mg Tab.rapdis, 4 MG PO TID Prescribed by: UCHE BENITEZSTJUSTINO on 04/18/20 1129 Ondansetron (Ondansetron Odt) 4 Mg Tab.rapdis, 4 MG PO TID Prescribed by: UCHE BENITEZSTJUSTINO on 09/25/202014 Ondansetron HCl (Ondansetron HCl) 4 Mg Tablet, (Reported) Entered as Reported by: EDER FLANAGAN on 11/13/21 0024 Penicillin V Potassium (Penicillin V Potassium) 500 Mg Tablet, 500 MG PO QID Prescribed by: ARIEL ESPARZA on 10/30/21 1052 Prednisone (Prednisone) 20 Mg Tab, 40 MG PO DAILY Prescribed by: JINA BAH on 07/17/19 2240 Prednisone (Prednisone) 20 Mg Tab, 40 MG PO DAILY Prescribed by: NACHO CABAN on 05/16/22 1421 Sulfamethoxazole/Trimethoprim (Bactrim Ds Tablet) 1 Each Tablet, 1 EACH PO BID Prescribed by: DINORA KNOTT on 02/16/21 1449 Sulfamethoxazole/Trimethoprim (Bactrim Ds Tablet) 1 Each Tablet, 1 EACH PO BID Prescribed by: DINORA KNOTT on 05/26/22 2130 Tizanidine HCl (Tizanidine HCl) 2 Mg Tablet, (Reported) Entered as Reported by: EDER FLANAGAN on 11/13/21 0024 Trimethoprim/Sulfamethoxazole (Bactrim DS) 1 Ea Tablet, 1 TAB PO BID, (Reported) Entered as Reported by: NATY HANDY on 11/28/18 1643 Review of Systems Review of Systems Constitutional: see HPI Mouth: pain (dental pain and gingival edema) Respiratory: no symptoms reported Cardiovascular: no symptoms reported Musculoskeletal: no symptoms reported All Other Systems Reviewed Negative Unless Noted: Yes Past Nwegwoh-Yjxgdp-Toekqz Hx Patient Social History Tobacco Use?: Yes Tobacco type used: Cigarettes Substance use?: No Alcohol Use?: No Pt feels they are or have been: No Immunizations Up To Date Tetanus Booster (TDap): Unknown Influenza Vaccine Up-to-Date: No; Not Current First/Initial COVID19 Vaccinat: denies Second COVID19 Vaccination Amrit: denies Third COVID19 Vaccination Date: denies Seasonal Allergies Seasonal Allergies: No Past Medical History Surgery/Hospitalization HX: DM2 VANESSA, HERNIA, C SECT X 3 Surgeries: Yes (HERNIA REPAIR) Abdominal, Section, Gallbladder Respiratory: Yes COPD Cardiac: No Neurological: No Last Menstrual Period: Aug 02, 2022 Genitourinary: Yes Gastrointestinal: No Musculoskeletal: No Endocrine: Yes Diabetes, Insulin dep HEENT: No Cancer: No Psychosocial: No Integumentary: No Blood Disorders: No Physical Exam Vital Signs Vital Signs - First Documented 08/24/22 15:06 Temp 36.5 Pulse 96 Resp 18 B/P (MAP) 124/71 (88) Height, Weight, BMI Height: 5'3.00" Weight: 240lbs. oz. 108.420161nr; 39.00 BMI Method:Stated General Appearance: WD/WN, no apparent distress Eyes: bilateral eye normal inspection, bilateral eye PERRL, bilateral eye EOMI Mouth/Throat: dental tenderness, maxillary swelling, other (gingival edema; widespread dental caries, necrotic teeth, broken teeth) Neck: full range of motion Cardiovascular: regular rate, rhythm Respiratory: no respiratory distress, no accessory muscle use, wheezing (occasional exp wheeze; no distress) Neurologic/Psychiatric: alert, normal mood/affect, oriented x 3 Skin: normal color, warm/dry Progress/Results/Core Measures Results/Orders Vital Signs/I&O Blood Pressure Mean: 88 Departure Impression Primary Impression: Chronic dental pain Additional Impression: Diabetes Qualified Codes: E10.69 - Type 1 diabetes mellitus with other specified complication Disposition: HOME, SELF-CARE Condition: Stable Departure-Patient Inst. Decision time for Depature: 15:45 Referrals: [facility] (PCP/Family) Primary Care Physician Patient Instructions: Dental Pain ED Add. Discharge Instructions: Use a listerene rinse daily. Also Chlorhexadine rinses as prescribed. Stop smoking. [place] twice a day. Keep you appointment with [facility]. Return to the Emergency Department for worsening pain with Swelling, fever, pain or any other emergent concerning symptoms. Scripts Chlorhexidine Gluconate (Chlorhexidine Gluconate) 0.12 % Mouthwash 15 ML MM BID, #300 ML Prov: ARIEL ESPARZA MD 08/24/22 Images Mouth/Nose 1 - Tenderness Progress #8 tooth discolored/black, adjacent to oth to the right necrotic to gumline ARIEL ESPARZA MD Aug 24, 2022 15:47
[2022-08-24] MEDS ORDERED: NFCHLORHGL MM (15:48)
[2022-08-24 15:54] VITALS: BP 127/70
== END 2022-08-24 15:55 | disposition home or self-care (01) ==
LOC: EDUNIT# 14:48 → ER 14:51
DX: K02.9 Dental caries, unspecified (principal); E11.9 Type 2 diabetes mellitus without complications; F17.210 Nicotine dependence, cigarettes, uncomplicated; Z28.310 Unvaccinated for COVID-19; Z79.4 Long term (current) use of insulin
CPT/HCPCS: 99283

== ENCOUNTER 2023-02-19 05:35 | Outpatient (CLI) | payer SELFPAY ==
[~2023-02-19] VITALS: Ht 160 cm; Wt 104.5 kg
[~2023-02-19 05:35] MED LIST changes: +NFCHLORHGL MM
[2023-02-19] MEDS ORDERED: HYDR50TA76 PO (15:22)
[2023-02-19] MEDS ORDERED: INSU100V6 SQ (15:22)
[2023-02-19] MEDS ORDERED: PANT40GR PO (15:22)
[2023-02-19] MEDS ORDERED: EMPA10TA PO (15:22)
[2023-02-19] MEDS ORDERED: METF-397 PO (15:22)
[2023-02-19] MEDS ORDERED: GABA300S2 PO (15:22)
[2023-02-19] MEDS ORDERED: QUET200T PO (15:22)
[2023-02-19] MEDS ORDERED: RT-ALBUINH INH (15:22)
== END 2023-02-19 15:54 | disposition home or self-care (01) ==
LOC: PREOP 05:35
PROVIDERS: ATTEND Otolaryngology Otolaryngology/Facial Plastic Surgery
DX: Z01.818 Encounter for other preprocedural examination (principal)

== ENCOUNTER 2023-07-25 21:59 | Emergency (ER) | payer MEDICAID ==
[~2023-07-25] VITALS: Ht 160 cm; Wt 98.3 kg
[~2023-07-25 21:59] MED LIST changes: +EMPA10TA PO; +GABA300S3 PO; +HYDR50TA76 PO; +INSU100V6 SQ; +PANT40GR PO; +QUET200T PO; +RT-ALBUINH INH
[2023-07-25] MEDS ORDERED: hydrOXYzine 25 MG CAPSULE PO ONE ×2 (22:30)
--- NOTE | 2023-07-25 22:33 | ED General ---
General Chief Complaint: Allergic Reaction Stated Complaint: ANXIETY|RASH History of Present Illness Date Seen by Provider: Jul 25, 2023 Time Seen by Provider: 22:05 Initial Comments 42-year-old female with PMH of anxiety and rash, is here with complaints of anxiety which has been triggered by a disagreement she had with her boyfriend yesterday, which in turn has triggered her urticaria. Patient states she always gets urticaria when she gets stressed out and anxious. Patient ran out of her Xanax. Patient was given a prescription for Xanax to be used for severe anxiety episodes. Patient has a psych appointment on August 09 and will get her refills at that time. Denies shortness of breath, chest pain, palpitations, dizziness, nausea and vomiting. Allergies and Home Medications Allergies Coded Allergies: No Known Drug Allergies (Unverified , 02/19/23) Patient Home Medication List Home Medication List Reviewed: Yes Albuterol Sulfate (Ventolin Hfa) 1 Puff Puff, 2 PUFF INH QID PRN for SHORTNESS OF BREATH, (Reported) Entered as Reported by: Faith Payne on 02/19/231521 Empagliflozin (Jardiance) 10 Mg Tablet, 10 MG PO DAILY, (Reported) Entered as Reported by: Faith Payne on 02/19/231521 Gabapentin (Gabapentin) 300 Mg/6 Ml (6 Ml) Solution, 300 MG PO TID, (Reported) Entered as Reported by: Faith Payne on 02/19/231521 Hydroxyzine HCl (Hydroxyzine HCl) 50 Mg Tablet, 50 MG PO Q6H PRN for ANXIETY, (Reported) Entered as Reported by: Faith Payne on 02/19/231521 Insulin Glargine,Hum.rec.anlog (Lantus) 100 Unit/Ml Vial, 10 UNIT SQ DAILY, (Reported) Entered as Reported by: Faith Payne on 02/19/231521 Metformin HCl (Metformin HCl) 500 Mg Tablet, 1,000 MG PO BID WITH MEALS, (Reported) Entered as Reported by: Faith Payne on 02/19/231521 Pantoprazole Sodium (Pantoprazole Sodium) 40 Mg Granpkt.dr, 40 MG PO DAILY, (Reported) Entered as Reported by: Faith Payen on 02/19/231521 Quetiapine Fumarate (Seroquel) 200 Mg Tablet, 200 MG PO DAILY, (Reported) Entered as Reported by: Faith Payne on 02/19/23 1522 Review of Systems Review of Systems Constitutional: no symptoms reported Skin: see HPI, pruritus, rash Past Vwklzjl-Gjwvng-Ihdadn Hx Patient Social History Tobacco Use?: Yes Tobacco type used: Cigarettes Use of E-Cig and/or Vaping dev: No Substance use?: No Alcohol Use?: No Pt feels they are or have been: No Immunizations Up To Date Tetanus Booster (TDap): Unknown Influenza Vaccine Up-to-Date: No; Not Current First/Initial COVID19 Vaccinat: denies Second COVID19 Vaccination Amrit: denies Third COVID19 Vaccination Date: denies Seasonal Allergies Seasonal Allergies: No Past Medical History Surgery/Hospitalization HX: DM2 NOW INSULIN DEPENDENT, HTN, COPD,ANXIETY VANESSA, HERNIA, C SECT X 3 Surgeries: Yes (HERNIA REPAIR) Abdominal, Section, Gallbladder Respiratory: Yes COPD Cardiac: No Neurological: No Genitourinary: Yes Gastrointestinal: No Musculoskeletal: No Endocrine: Yes Diabetes, Insulin dep HEENT: No Loss of Vision: Denies Hearing Impairment: Denies Cancer: No Psychosocial: No Integumentary: No Blood Disorders: No Adverse Reaction/Blood Tranf: No Physical Exam Vital Signs Vital Signs - First Documented 07/25/23 22:07 Temp 36.9 Pulse 91 Resp 16 B/P (MAP) 113/84 (94) Pulse Ox 100 O2 Delivery Room Air Capillary Refill : Height, Weight, BMI Height: 5'3.00" Weight: 240lbs. oz. [id number]; 40.82 BMI Method:Stated General Appearance: No Apparent Distress, WD/WN, Anxious HEENT: PERRL/EOMI Neck: Full Range of Motion Respiratory: Lungs Clear Cardiovascular: Regular Rate, Rhythm Extremity: Normal Range of Motion Neurologic/Psychiatric: Alert, Oriented x3, No Motor/Sensory Deficits Skin: Rash (Urticarial papular rash all over the body, which is pruritic) Progress/Results/Core Measures Suspected Sepsis SIRS Temperature: Pulse: Respiratory Rate: Blood Pressure / Mean: Results/Orders My Orders Orders - AMY YEH MD Hydroxyzine Oral (Hydroxyzine Oral) (07/25/23 22:30) Vital Signs/I&O 07/25/23 22:07 Temp 36.9 Pulse 91 Resp 16 B/P (MAP) 113/84 (94) Pulse Ox 100 O2 Delivery Room Air Capillary Refill : Progress Note : Progress Note 1. ANXIETY INDUCED URTICARIA: - Hydroxyzine 50mg STAT in ER - Hydroxyzine prescription 50mg, QID as needed for anxiety, and can take twice a day for urticaria. But not more than 4 times a day total. - Over the counter Sarna lotion advised, to be taken as needed for itching. - Follow up with PCP and Psych within 7 days -The patient was seen in the ED, and treated appropriately to presentation at a specific point in time. Patient is informed that there is a possibility that disease and illness can evolve and change in acuity rapidly or slowly after patient is discharged from the ER. Precautionary advice given to the patient for immediate return to ER if symptoms worsen or do not resolve, and to seek emergency care sooner rather than later. Pt also advised on the importance of PCP follow up and compliance with management and follow up plan with PCP and/or specialist, as this is part of the management plan. Pt verbally expressed understanding. Departure Impression Primary Impression: Anxiety attack Additional Impression: Acute urticaria Disposition: HOME, SELF-CARE Condition: Stable Departure-Patient Inst. Referrals: JOSE C DANG MD (PCP/Family) Primary Care Physician Patient Instructions: Anxiety, Adult (DC), Hives (DC) Add. Discharge Instructions: - Hydroxyzine prescription 50mg, QID as needed for anxiety, and can take twice a day for urticaria. But not more than 4 times a day total. - Over the counter Sarna lotion advised, to be taken as needed for itching. - Follow up with PCP and Psych within 7 days All discharge instructions reviewed with patient and/or family. Voiced understanding. Scripts Hydroxyzine HCl (Hydroxyzine HCl) 50 Mg Tablet 50 MG PO QID for Anxiety for 5 Days, #20 TAB Prov: AMY YEH MD 07/25/23 AMY YEH MD Jul 25, 2023 22:33
[2023-07-25] MEDS ORDERED: HYDR50TA76 PO (22:37)
[2023-07-25 23:21] VITALS: BP 113/84
== END 2023-07-25 23:21 | disposition home or self-care (01) ==
LOC: EDUNIT# 21:59 → ER FS 22:01
DX: L50.8 Other urticaria (principal); F41.9 Anxiety disorder, unspecified; F17.210 Nicotine dependence, cigarettes, uncomplicated; E11.9 Type 2 diabetes mellitus without complications; Z79.4 Long term (current) use of insulin; Z28.310 Unvaccinated for COVID-19
CPT/HCPCS: 99283